=== PATIENT | female | born 1975 | race Two or more races ===

== ENCOUNTER 2020-05-11 13:52 | Outpatient (REF) | payer OTHER, SELFPAY ==
--- NOTE | 2020-05-11 13:59 | US_ITS ---
EXAMINATION: US SOFT TISSUE OF THE NECK CLINICAL INFORMATION: Localized swelling, mass and lump, neck. COMPARISON: CT neck with intravenous contrast dated 03/01/2020. TECHNIQUE: Linear transducer grayscale and color Doppler examination of the neck. FINDINGS: Several lymph nodes identified in the neck corresponding to the reported areas of palpable abnormality On the left there is a 0.9 x 0.4 x 1.2 cm lymph node. On the right there is a 1.4 x 0.5 x 1.1 cm lymph node in 8.6 x 0.4 x 0.9 cm lymph node. These appear corresponding to the lymph node noted on recent CT. US/US soft tiss head and/or neck IMPRESSION: Small bilateral lymph nodes which do not appear pathologic likely unchanged compared to recent CT scan of the neck
== END 2020-05-11 13:53 | disposition home or self-care (01) ==
LOC: HO.US 13:52
PROVIDERS: PCP Internal Medicine; Visit Provider Internal Medicine
DX: R22.1 Localized swelling, mass and lump, neck (principal)
CPT/HCPCS: 76536

== ENCOUNTER → 2020-06-02 14:49 | Outpatient (BNVA) | payer OTHER, SELFPAY | PROVIDERS: PCP Internal Medicine; Visit Provider Surgery | DX: R59.0 Localized enlarged lymph nodes (principal) | CPT/HCPCS: 99202 ==

== ENCOUNTER 2020-06-20 16:05 | Outpatient (REF) | payer OTHER, SELFPAY ==
--- NOTE | 2020-06-20 16:08 | MM_ITS ---
EXAMINATION: MM SCREENING DIGITAL BREAST TOMOSYNTHESIS, BILATERAL CLINICAL INFORMATION: Screening. Asymptomatic. Benign right MR guided biopsy 07/14/2019 (Benign breast parenchyma with fibroadenomatous changes, usual duct hyperplasia, apocrine metaplasia, and columnar cell change). The lifetime risk of breast cancer based on the Tyrer-Cuzick Model is 29%. COMPARISON: Mammography: 07/14/2019, 06/15/2019, 05/02/2018, 02/22/2014; MR biopsy 07/14/2019. TECHNIQUE: Digital breast tomosynthesis is performed in both the craniocaudal and mediolateral oblique views along with computer-aided detection (CAD). Synthesized 2D images are generated from the tomosynthesis. Additional exaggerated left CC view is provided. FINDINGS: The breasts are heterogeneously dense, which may obscure small masses (ACR BI-RADS breast composition Category c). Breast tissue composition borders on average fibroglandular. There are no significant masses, abnormal calcifications, or other abnormalities. Parenchymal pattern is similar to prior studies. Again, there is biopsy clip marker upper outer quadrant left breast and posterior central 3:00 right breast. The axilla and skin contours are unremarkable. MM/MM tomosynthesis screening BI IMPRESSION: No mammographic evidence of malignancy. ASSESSMENT: BI-RADS 1: Negative RECOMMENDATION: 1. Routine annual mammography screening. 2. The lifetime risk of breast cancer based on the Tyrer-Cuzick Model is 29%. Additional annual adjunct screening with breast MRI may be of benefit in women with a risk score of 20% or greater. This patient's information was entered into a reminder system with a target due date for their next mammogram.
== END 2020-06-20 16:06 | disposition home or self-care (01) ==
LOC: HO.MAMMO 16:05
PROVIDERS: PCP Internal Medicine; Visit Provider Internal Medicine
DX: Z12.31 Encounter for screening mammogram for malignant neoplasm of breast (principal)
CPT/HCPCS: 77063; 77067

== ENCOUNTER 2020-09-15 | Outpatient (REF) | payer OTHER, SELFPAY | END 2020-09-15 00:01 | disposition home or self-care (01) | LOC: HO.LNP | PROVIDERS: Visit Provider Physician Assistant | DX: H10.9 Unspecified conjunctivitis (principal); J09.X2 Influenza due to identified novel influenza A virus with other respiratory manifestations; Z20.822 Contact with and (suspected) exposure to COVID-19 | CPT/HCPCS: 36415; U0003; U0005 ==

== ENCOUNTER 2020-10-13 10:03 | Outpatient (REF) | payer OTHER, SELFPAY ==
--- NOTE | ~2020-10-13 | XR_ITS ---
EXAMINATION: XR ABDOMEN KUB CLINICAL INDICATION: Hematuria COMPARISON: Abdominal ultrasound August 2018 TECHNIQUE: AP view of the abdomen. FINDINGS: No calcifications are seen projecting over the kidneys. There are right pelvic calcifications probably representing calcified phleboliths. Bowel gas pattern is normal. Bony structures are normal. XR/XR KUB IMPRESSION: No stone seen.
--- NOTE | ~2020-10-13 | XR_ITS ---
EXAMINATION: XR HIP, LEFT CLINICAL INFORMATION: Pain in left hip COMPARISON: None TECHNIQUE: Two views of the left hip. FINDINGS: Bones and soft tissues are normal. No fracture. Alignment is anatomic. Hip joint space is maintained. XR/XR hip LT min 2V IMPRESSION: Normal left hip.
== END 2020-10-13 10:04 | disposition home or self-care (01) ==
LOC: HO.XRAY 10:03
PROVIDERS: PCP Internal Medicine; Visit Provider Internal Medicine
DX: R31.9 Hematuria, unspecified (principal); M25.552 Pain in left hip
CPT/HCPCS: 73502; 74018

== ENCOUNTER 2021-03-24 10:21 | Outpatient (REF) | payer OTHER, SELFPAY ==
[2021-03-24 12:22] LABS: Appearance Urine HAZY; Color Urine YELLOW; Glucose Urine UA NEG (NEG); Leukocyte Esterase Urine NEG (NEG); Nitrite Urine NEG (NEG); Urine Blood TRACE (NEG); Urine Ketones NEG (NEG); Urine Protein NEG (NEG-TRACE)
[2021-03-24 12:25] LABS: MANUAL DIFF FLAG NO
[2021-03-24 12:30] LABS: Basophils Percent Auto 0.7 % (0-2); Eosinophils Absolute Auto 0.1 X10*3/uL (0.0-0.4); Eosinophils Percent Auto 2.5 % (0-4); Hematocrit 37.8 % (37-47); Hemoglobin 12.3 g/dl (12.0-16.0); Imm Gran Abs Auto 0.01 X10*3/uL (0.00-0.03); Imm Gran Pct Auto 0.2 % (0.0-0.4); Lymphocytes Absolute Auto 2.1 X10*3/uL (1.2-4.9); Lymphocytes Percent Auto 36.4 % (20-40); Mean Corpuscular HGB Conc 32.5 g/dl (31.0-35.0); Mean Corpuscular Hemoglobin 30.8 pg (27.0-33.0); Mean Corpuscular Volume 94.7 fL (80-98); Mean Platelet Volume 10.4 fL (9.4-12.3); Monocytes Absolute Auto 0.6 X10*3/uL (0.1-1.2); Monocytes Percent Auto 10.7 % (2-11); Neutrophils Absolute Auto 2.8 X10*3/uL (2.0-8.3); Neutrophils Percent Auto 49.5 % (45-73); Platelet Count 238 X10*3/uL (160-400); Red Blood Count 3.99 X10*6/uL (4.20-5.50); Red Cell Distribution Width 12.1 % (11.0-16.0); White Blood Count 5.7 X10*3/uL (4.8-10.8)
[2021-03-24 12:44] LABS: Alanine Aminotransferase 13 U/L (0-31); Albumin Level 4.1 g/dL (3.5-5.0); Alkaline Phosphatase 81 U/L (39-117); Anion Gap 12 (12-20); Aspartate Amino Transferase 22 U/L (5-31); Bilirubin Total 0.5 mg/dL (0.0-1.0); Blood Urea Nitrogen 7 mg/dL (9-16); Calcium 9.4 mg/dL (8.4-10.2); Carbon Dioxide 24 mmol/L (22-29); Chloride 105 mmol/L (96-108); Cholesterol 209 mg/dL; Estimated Glomerular Filt Rate > 60; Glucose Random 96 mg/dL (60-115); HDL Cholesterol 69 mg/dL; LDL Cholesterol Calculated 131 mg/dl; Sodium 137 mmol/L (135-145); Total Protein 6.9 g/dL (6.5-8.0); Triglycerides 45 mg/dL
[2021-03-24 12:52] LABS: Bacteria Urine 2+ /LPF; RBC Urine 0-2 /HPF (0); Squamous Epithelial Cell Urine 3+ /LPF; WBC Urine 0 /HPF (0-4)
[2021-03-24 13:09] LABS: Free T4 (Free Thyroxine) 0.89 ng/dL (0.71-1.85)
[2021-03-24 13:15] LABS: Vitamin B12 353 pg/mL (200-900)
== END 2021-03-24 10:22 | disposition home or self-care (01) ==
LOC: HO.LAB 10:21
PROVIDERS: PCP Internal Medicine; Visit Provider Internal Medicine
DX: R20.0 Anesthesia of skin (principal); R42 Dizziness and giddiness; E66.9 Obesity, unspecified; E78.00 Pure hypercholesterolemia, unspecified
CPT/HCPCS: 36415; 80053; 80061; 81001; 82306; 82607; 82746; 83735; 84439; 84443; 85025

== ENCOUNTER 2021-09-04 09:44 | Outpatient (REF) | payer OTHER, SELFPAY ==
[2021-09-04 09:59] LABS: MANUAL DIFF FLAG NO
[2021-09-04 10:25] LABS: Basophils Absolute Auto 0.1 X10*3/uL (0.0-0.2); Basophils Percent Auto 0.9 % (0-2); Eosinophils Absolute Auto 0.1 X10*3/uL (0.0-0.4); Eosinophils Percent Auto 1.5 % (0-4); Hematocrit 37.7 % (37.0-47.0); Hemoglobin 12.1 g/dl (12.0-16.0); Imm Gran Abs Auto 0.02 X10*3/uL (0.00-0.03); Imm Gran Pct Auto 0.3 % (0.0-0.4); Lymphocytes Absolute Auto 1.9 X10*3/uL (1.2-4.9); Lymphocytes Percent Auto 32.8 % (20-40); Mean Corpuscular HGB Conc 32.1 g/dl (31.0-35.0); Mean Corpuscular Hemoglobin 30.6 pg (27.0-33.0); Mean Corpuscular Volume 95.2 fL (80.0-98.0); Mean Platelet Volume 9.8 fL (9.4-12.3); Monocytes Absolute Auto 0.7 X10*3/uL (0.1-1.2); Monocytes Percent Auto 12.3 % (2-11); Neutrophils Absolute Auto 3.1 x10*3/uL (2.0-8.3); Neutrophils Percent Auto 52.2 % (45-73); Platelet Count 239 X10*3/uL (160-400); Red Blood Count 3.96 X10*6/uL (4.20-5.50); Red Cell Distribution Width 12.4 % (11.0-16.0); White Blood Count 5.9 X10*3/uL (4.8-10.8)
[2021-09-04 10:56] LABS: Alanine Aminotransferase 13 U/L (0-31); Albumin Level 4.1 g/dL (3.5-5.0); Alkaline Phosphatase 67 U/L (39-117); Anion Gap 11 (12-20); Aspartate Amino Transferase 23 U/L (5-31); Bilirubin Total 0.5 mg/dL (0.0-1.0); Blood Urea Nitrogen 10 mg/dL (9-16); Calcium 9.5 mg/dL (8.4-10.2); Carbon Dioxide 26 mmol/L (22-29); Chloride 105 mmol/L (96-108); Estimated Glomerular Filt Rate > 60; Glucose Fasting 97 mg/dL (60-99); Potassium 3.9 mmol/L (3.3-5.1); Sodium 138 mmol/L (135-145)
== END 2021-09-04 09:45 | disposition home or self-care (01) ==
LOC: HO.LAB 09:44
PROVIDERS: PCP Internal Medicine; Visit Provider Nurse Practitioner Family
DX: R10.9 Unspecified abdominal pain (principal); D64.9 Anemia, unspecified; I10 Essential (primary) hypertension; R10.32 Left lower quadrant pain
CPT/HCPCS: 36415; 80053; 85025

== ENCOUNTER → 2021-09-05 14:07 | Outpatient (BNVA) | payer OTHER, SELFPAY | PROVIDERS: PCP Internal Medicine; Visit Provider Physician Assistant | DX: R10.9 Unspecified abdominal pain (principal); K21.9 Gastro-esophageal reflux disease without esophagitis; R11.2 Nausea with vomiting, unspecified; C95.90 Leukemia, unspecified not having achieved remission | CPT/HCPCS: 99202 ==

== ENCOUNTER 2021-09-14 15:28 | Outpatient (REF) | payer OTHER, SELFPAY ==
--- NOTE | ~2021-09-14 | US_ITS ---
EXAMINATION: US VENOUS WITH DOPPLER UPPER EXTREMITY, LEFT CLINICAL INFORMATION: The left arm for 3 weeks. COMPARISON: None TECHNIQUE: Ultrasound of the upper extremity is performed using compression sonography and color and pulse Doppler flow with assessment of augmentation of flow. There is also imaging and Doppler assessment of the jugular and subclavian veins. Spectral analysis with color-flow imaging is performed. FINDINGS: Respiratory variation, normal compression, and augmented flow are noted throughout the upper extremity including the axillary, brachial, cubital, and radial and ulnar veins. There is normal flow in the internal jugular and subclavian veins. There is a nonocclusive thrombus in the left basilic superficial vein. If the patient's symptoms progress, a followup ultrasound in 5 -7 days might be of value to exclude proximal propagation from a nonvisualized distal arm vein. US/US venous duplex UE LT IMPRESSION: No DVT demonstrated in the deep veins. Thrombus visualized in the left superficial basilic vein. Results were called to [facility] by phone but there was no response.
== END 2021-09-14 15:29 | disposition home or self-care (01) ==
LOC: HO.US 15:28
PROVIDERS: PCP Internal Medicine; Visit Provider Nurse Practitioner Family
DX: M79.602 Pain in left arm (principal)
CPT/HCPCS: 93971

== ENCOUNTER 2021-09-22 17:49 | Emergency (ER) | payer OTHER, SELFPAY ==
--- NOTE | ~2021-09-22 | US_ITS ---
EXAMINATION: US VENOUS WITH DOPPLER UPPER EXTREMITY, LEFT CLINICAL INFORMATION: Pain. Post IV puncture. COMPARISON: Left upper extremity venous Doppler exam 09/14/2021 TECHNIQUE: Ultrasound of the upper extremity is performed using compression sonography and color and pulse Doppler flow with assessment of augmentation of flow. There is also imaging and Doppler assessment of the jugular and subclavian veins. Spectral analysis with color-flow imaging is performed. FINDINGS: Known nonocclusive thrombus of the basilic vein seen on prior ultrasound 09/14/2021. Respiratory variation, normal compression, and augmented flow are noted throughout the upper extremity including the axillary, brachial, cubital, and radial and ulnar veins. There is normal flow in the internal jugular and subclavian veins. US/US venous duplex UE LT IMPRESSION: 1. No DVT demonstrated in the left upper extremity the veins. 2.. Thrombosis again visualized in the left superficial basilic vein. No change since prior ultrasound study 09/14/2021.
[2021-09-22 18:19] VITALS: BP 145/97; PULSE 95; RESP 18; TEMP 37; O2SAT 99; BMI 34.0
[2021-09-22 18:39] LABS: MANUAL DIFF FLAG NO
[2021-09-22 18:40] LABS: Basophils Percent Auto 0.5 % (0-2); Eosinophils Absolute Auto 0.1 X10*3/uL (0.0-0.4); Eosinophils Percent Auto 1.2 % (0-4); Hematocrit 39.3 % (37.0-47.0); Imm Gran Abs Auto 0.02 X10*3/uL (0.00-0.03); Imm Gran Pct Auto 0.2 % (0.0-0.4); Lymphocytes Absolute Auto 2.8 X10*3/uL (1.2-4.9); Lymphocytes Percent Auto 33.5 % (20-40); Mean Corpuscular HGB Conc 33.1 g/dl (31.0-35.0); Mean Corpuscular Hemoglobin 30.9 pg (27.0-33.0); Mean Corpuscular Volume 93.3 fL (80.0-98.0); Mean Platelet Volume 10.1 fL (9.4-12.3); Monocytes Absolute Auto 0.7 X10*3/uL (0.1-1.2); Monocytes Percent Auto 8.8 % (2-11); Neutrophils Absolute Auto 4.6 x10*3/uL (2.0-8.3); Neutrophils Percent Auto 55.8 % (45-73); Platelet Count 225 X10*3/uL (160-400); Red Blood Count 4.21 X10*6/uL (4.20-5.50); Red Cell Distribution Width 11.9 % (11.0-16.0); White Blood Count 8.3 X10*3/uL (4.8-10.8)
[2021-09-22 18:52] LABS: Anion Gap 10 (12-20); Blood Urea Nitrogen 8 mg/dL (9-16); Calcium 9.4 mg/dL (8.4-10.2); Carbon Dioxide 26 mmol/L (22-29); Chloride 105 mmol/L (96-108); Creatinine Clr Calc Pharmacy 103.1; Estimated Glomerular Filt Rate > 60; Glucose Random 163 mg/dL (60-115); Potassium 3.4 mmol/L (3.3-5.1); Sodium 138 mmol/L (135-145)
--- NOTE | 2021-09-22 22:38 | ED_ITS ---
HPI - General Adult General Chief complaint: General Medical Stated complaint: numbness left hand and up shoulder, sharp pain Time Seen by Provider: 09/22/21 21:12 Source: patient Mode of arrival: ambulatory Limitations: no limitations History of Present Illness HPI narrative: Patient history of a LL history of IV insertion in the left forearm about 4 weeks ago noticed a tender swelling had ultrasound done on 09/14 which shows basilic vein thrombosis patient had similar history in the past about 5 years ago when she had similar situation and had venous thrombosis and was given anti coagulant patient was seen by PCP today advised to 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 with 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 now comes here as pain is getting worse and more swollen no shortness of breath Related Data Home Medications Medication Instructions Recorded Confirmed dasatinib 50 mg tablet (Sprycel) 50 mg PO DAILY 04/07/20 09/21/21 sertraline 100 mg tablet 100 mg PO DAILY 04/07/20 09/21/21 zolpidem 10 mg tablet (Ambien) 10 mg PO BEDTIME PRN 04/07/20 09/21/21 sucralfate 1 gram tablet 1 g PO 08/03/20 09/21/21 Previous Rx's Medication Instructions Recorded omeprazole 40 mg capsule,delayed 40 mg PO BID #180 cap 07/25/20 release acetaminophen 650 mg 650 mg PO Q12H PRN 10 Days #20 tab 08/03/20 tablet,extended release (Tylenol Arthritis Pain) fluticasone furoate 200 1 inh PO DAILY #30 cap 12/07/20 mcg/actuation blister powder for inhalation (Arnuity Ellipta) cholecalciferol (vitamin D3) 50 50 mcg PO DAILY 90 Days #90 cap 05/09/21 mcg (2,000 unit) capsule albuterol sulfate 90 mcg/actuation 2 puff INHALATION Q4-6H PRN #8.5 g 06/26/21 aerosol inhaler (ProAir HFA) montelukast 10 mg tablet 10 mg PO DAILY #90 tab 06/26/21 ondansetron 8 mg disintegrating 8 mg PO Q12H PRN #20 tab 07/25/21 tablet diclofenac sodium 1 % topical gel 2 g TOPICAL QID PRN 14 Days #100 g 09/14/21 (Arthritis Pain (diclofenac)) ibuprofen 600 mg tablet 600 mg PO Q8H PRN #14 tab 09/21/21 apixaban 5 mg (74 tabs) tablets in 5 mg PO BID #74 ea 09/22/21 a dose pack (Eliquis DVT-PE Treat 30D Start) Allergies Allergy/AdvReac Type Severity Reaction Status Date / Time Penicillins Allergy Mild RASH Verified 09/22/21 18:18 nut - unspecified [nut] Allergy Unknown THROAT Verified 09/22/21 18:18 CLOSES penicillin V Allergy Unknown rash Verified 09/22/21 18:18 seafood Allergy Unknown Unknown Verified 09/22/21 18:18 ANESTHESIA S/I-40A Allergy Unknown aspiration Uncoded 09/22/21 18:18 pneumonia during colonoscopy 2019 Wixela Inhub Allergy Unknown palpitation Uncoded 09/22/21 18:18 s Review of Systems Review of Systems: Yes all other systems are reviewed and are negative COUNTS INCLUDE 234 BEDS AT THE [facility] Past Medical History Medical History Allergic rhinitis Asthma 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 GERD (gastroesophageal reflux disease) Hematuria Hypercholesterolemia Insomnia Leukemia Mixed incontinence Obesity (BMI 30-39.9) Patent foramen ovale Peptic ulcer disease Surgical History History of bilateral salpingectomy History of tonsillectomy History of vaginal hysterectomy Hx of colonoscopy Hx of esophagogastroduodenoscopy Ulnar nerve entrapment at elbow Family History Family History Maternal Aunt Breast cancer Paternal Grandmother Breast cancer Paternal Grandfather Myocardial infarction, acute, initial episode of care Paternal Uncle Stomach cancer Liver cancer Father Colon cancer Social History Social History Housing: Apartment Alcohol intake: current Patient Tobacco Use Status: Never used Tobacco e-Cigarette/Vaping Use: Never Used Second Hand Smoke Exposure: No Advance Directives: No service: No Current occupational status: employed Cognitive needs: No Hearing needs: No Vision needs: Yes Physical Exam ED Vital Signs: Vital Signs - 24 hr 09/22/21 18:19 Temperature 98.6 F Pulse Rate 95 Respiratory Rate 18 Blood Pressure 145/97 H Pulse Oximetry 99 BMI result Body Mass Index 34.0 Appearance: Alert. Oriented X3. No acute distress. ENT: Pharynx normal. Oral Mucosa moist Neck: Normal inspection. Neck supple. CVS: Normal heart rate and rhythm. Pulses normal. Respiratory: No respiratory distress. Equal air entry bilateral, no wheezing/rales/rhonchi Abdomen: Soft and nontender. Bowel sounds are present, Skin: Skin warm and dry. Normal skin color. Normal skin turgor. Extremities: No lower extremity edema. No calf tenderness left forearm thrombosed superficial vein with swelling and tenderness neurovascular intact Neuro: Oriented X 3. Medical Decision Making MDM Narrative Medical decision making narrative: Patient left basilic vein thrombosis with history of a LL with history of venous thrombosis in the past she is a high risk to to have more DVTs. Will start her on Eliquis advised to follow with Hematology Lab Data Result diagrams: 09/22/21 18:32 09/22/21 18:32 Labs: Lab Results 09/22/21 09/22/21 Range/Units 18:32 18:32 WBC 8.3 (4.8-10.8) X10*3/uL RBC 4.21 (4.20-5.50) X10*6/uL Hgb 13.0 (12.0-16.0) g/dl Hct 39.3 (37.0-47.0) % MCV 93.3 (80.0-98.0) fL MCH 30.9 (27.0-33.0) pg MCHC 33.1 (31.0-35.0) g/dl RDW 11.9 (11.0-16.0) % Plt Count 225 (160-400) X10*3/uL MPV 10.1 (9.4-12.3) fL Immature Gran % (Auto) 0.2 (0.0-0.4) % Neut % (Auto) 55.8 (45-73) % Lymph % (Auto) 33.5 (20-40) % [place] % (Auto) 8.8 (2-11) % Eos % (Auto) 1.2 (0-4) % Baso % (Auto) 0.5 (0-2) % Lymph # (Auto) 2.8 (1.2-4.9) X10*3/uL [place] # (Auto) 0.7 (0.1-1.2) X10*3/uL Eos # (Auto) 0.1 (0.0-0.4) X10*3/uL Baso # (Auto) 0.0 (0.0-0.2) X10*3/uL Abs Immat Gran (auto) 0.02 (0.00-0.03) X10*3/uL Absolute Neuts (auto) 4.6 (2.0-8.3) x10*3/uL Absolute Nucleated RBC 0.000 (0.0-0.012) X10*3/uL Nucleated RBC % (auto) 0.0 (0.0-0.2) /100WBC Sodium 138 (135-145) mmol/L Potassium 3.4 (3.3-5.1) mmol/L Chloride 105 (96-108) mmol/L Carbon Dioxide 26 (22-29) mmol/L Anion Gap 10 L (12-20) BUN 8 L (9-16) mg/dL Creatinine 0.66 (0.5-1.4) mg/dL Estim Creat Clear Calc 103.1 Estimated GFR > 60 Random Glucose 163 H (60-115) mg/dL Calcium 9.4 (8.4-10.2) mg/dL Discharge Plan Discharge Clinical Impression: Venous thromboembolism (VTE) confirmed by diagnostic testing Patient Disposition: Home, Self-Care Instructions: Deep Vein Thrombosis (ED) Additional Instructions: Take blood thinner as prescribed for blood clots, usually is taken for 3 months Follow-up with 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 Prescriptions: Justyn Rowan DVT-PE Treat 30D Start 5 mg (74 tabs) tablets,dose pack 5 mg PO BID Qty: 74 0RF Rx Instructions: Take 10 mg twice daily for 7 days then 5 mg twice daily No Action omeprazole 40 mg capsule,delayed release(DR/EC) 40 mg PO BID Qty: 180 1RF Arnuity Ellipta 200 mcg/actuation blister with device 1 inh PO DAILY Qty: 30 4RF montelukast 10 mg tablet 10 mg PO DAILY Qty: 90 0RF albuterol sulfate [ProAir HFA] 90 mcg/actuation HFA aerosol inhaler 2 puff inhalation Q4-6H PRN (Reason: bronchospasm) Qty: 8.5 0RF Sprycel 50 mg tablet 50 mg PO DAILY 0RF sertraline 100 mg tablet 100 mg PO DAILY 0RF zolpidem [Ambien] 10 mg tablet 10 mg PO BEDTIME PRN0RF sucralfate 1 gram tablet 1 g PO 0RF acetaminophen [Tylenol Arthritis Pain] 650 mg tablet extended release 650 mg PO Q12H PRN (Reason: pain) 10 Days Qty: 20 0RF cholecalciferol (vitamin D3) 50 mcg (2,000 unit) capsule 50 mcg PO DAILY 90 Days Qty: 90 3RF ondansetron 8 mg tablet,disintegrating 8 mg PO Q12H PRN (Reason: nausea and vomiting) Qty: 20 0RF diclofenac sodium [Arthritis Pain (diclofenac)] 1 % gel 2 g topical QID PRN (Reason: pain) 14 Days Qty: 100 0RF Rx Instructions: apply to single elbow, wrist or hand; for hand includes palm/fingers/back of hand ibuprofen 600 mg tablet 600 mg PO Q8H PRN (Reason: pain) Qty: 14 0RF Referrals: Jessica Lee MD [Physician] - 1 week
[2021-09-22] MEDS: Apixaban 5 MG TABLET 10 MG PO (23:01)
== END 2021-09-22 23:39 | disposition home or self-care (01) ==
PROVIDERS: Emergency Provider Internal Medicine; PCP Internal Medicine
DX: I82.612 Acute embolism and thrombosis of superficial veins of left upper extremity (principal); M79.622 Pain in left upper arm; M79.89 Other specified soft tissue disorders; Z86.718 Personal history of other venous thrombosis and embolism
CPT/HCPCS: 36415; 80048; 85025; 93971; 99283; 99284

== ENCOUNTER → 2021-09-28 13:01 | Outpatient (BNV) | payer OTHER, SELFPAY | PROVIDERS: PCP Internal Medicine; Visit Provider Internal Medicine | DX: I80.8 Phlebitis and thrombophlebitis of other sites (principal) | CPT/HCPCS: 99204; 99213; 99214; G2211 ==

== ENCOUNTER 2021-12-13 12:25 | Emergency (ER) | payer OTHER, SELFPAY ==
--- NOTE | ~2021-12-13 | XR_ITS ---
EXAMINATION: XR LUMBOSACRAL SPINE CLINICAL INFORMATION: Back pain. COMPARISON: None TECHNIQUE: Three views of the lumbosacral spine. FINDINGS: Lumbar vertebrae have normal height and alignment. No spondylolysis or spondylolisthesis. Lumbar disc heights are normal. Minor degenerative lipping at the anterior endplate of the vertebrae at L4-L5 disc level. Small endplate spurs also present lower thoracic vertebrae. XR/XR lumbar spine 2-3V IMPRESSION: 1. No acute abnormality. 2. Minor degenerative change of the L4-L5 disc.
--- NOTE | ~2021-12-13 | CT_ITS ---
EXAMINATION: CT ABDOMEN AND PELVIS WITHOUT CONTRAST CLINICAL INFORMATION: Back pain nausea and elevated lipase COMPARISON: CT abdomen and pelvis 07/10/2011 TECHNIQUE: Multidetector volumetric imaging was performed from the superior aspect of the liver through the pubic symphysis. Sagittal and coronal reformatted images were obtained on the technologist's workstation. This CT examination was performed using dose optimization techniques as appropriate, variously including the following: *Automated exposure control *Adjustment of mA and/or kV according to patient size (this includes techniques or standardized protocols for targeted exams where dose is matched to indication/reason for exam; i.e. extremities or head) *Use of iterative reconstruction technique DLP: 722 mGy-cm FINDINGS: LUNG BASES: The visualized lung bases are unremarkable. LIVER, GALLBLADDER, AND BILIARY TREE: The liver is normal in size, shape, and attenuation. No focal hepatic lesion or biliary ductal dilatation is present. The gallbladder is unremarkable with no evidence of radiopaque gallstones, gallbladder wall thickening, or obvious pericholecystic inflammatory changes. PANCREAS: No pancreatic lesion or peripancreatic fluid collection. No definite peripancreatic inflammatory change. No ductal dilation. SPLEEN: Unremarkable. ADRENAL GLANDS: Unremarkable. KIDNEYS AND URETERS: The kidneys are normal in size, shape, and attenuation. No hydronephrosis, hydroureter, or calculi seen. No perinephric stranding. BLADDER: Unremarkable. GASTROINTESTINAL TRACT: Mild sigmoid diverticulosis. No evidence of acute diverticulitis. No dilated bowel loops. No bowel wall thickening. Unremarkable appearance of the appendix. No ascites or free air. ABDOMINAL WALL: No significant hernia is appreciated. LYMPH NODES: No lymphadenopathy. VASCULAR: Normal caliber abdominal aorta. PELVIC VISCERA: Status post hysterectomy. Ovaries are grossly unremarkable. No free pelvic fluid. OSSEOUS STRUCTURES: Small subcentimeter sclerotic probable bone islands in the posterior medial left iliac bone and left T11 vertebral body. No acute fracture. No suspicious appearing osseous lesion. CT/CT abdomen pelvis wo con IMPRESSION: 1. No appreciable peripancreatic inflammatory change or fluid collections. Please note that a negative CT does not excluded the diagnosis of acute pancreatitis. 2. No acute intra-abdominal process identified.
--- NOTE | ~2021-12-13 | XR_ITS ---
EXAMINATION: XR THORACIC SPINE CLINICAL INFORMATION: Back pain COMPARISON: 2 view chest x-ray 09/08/2019 TECHNIQUE: 2 views of the thoracic spine were obtained. FINDINGS: There is no fracture or bone destruction seen and the vertebral alignment is normal. There is no disc space narrowing. Minor degenerative lipping at the anterior endplates of the mid lower thoracic spine. There is no abnormality of the paraspinal soft tissues. XR/XR thoracic spine 3V IMPRESSION: No acute abnormality of the thoracic spine. Minor degenerative change of the mid lower dorsal spine.
--- NOTE | ~2021-12-13 | XR_ITS ---
EXAMINATION: XR CHEST CLINICAL INFORMATION: Back pain COMPARISON: Chest x-ray 12/18/2019 TECHNIQUE: 2 views of the chest were obtained. FINDINGS: No significant abnormality is noted involving the heart, lungs, mediastinum, bony thorax or soft tissues. XR/XR chest 2V IMPRESSION: Unremarkable examination.
[2021-12-13 12:45] VITALS: BP 123/88; PULSE 83; RESP 16; TEMP 37.1; O2SAT 97; BMI 34.2
--- NOTE | 2021-12-13 15:26 | ECG_ITS ---
Test Reason : BACK PAIN Blood Pressure : / mmHG Vent. Rate : 074 BPM Atrial Rate : 074 BPM P-R Int : 154 ms QRS Dur : 080 ms QT Int : 402 ms P-R-T Axes : 034 -03 001 degrees QTc Int : 446 ms Normal sinus rhythm Minimal voltage criteria for LVH, may be normal variant ( R in aVL ) Borderline ECG When compared with ECG of 12-FEB-2012 20:07, No significant change was found Referred By: Josephine Masters Electronically Signed By:Golden Domínguez
[2021-12-13] MEDS: Ondansetron ODT 4 MG TAB.RAPDIS TRANSLINGU (15:40)
[2021-12-13] MEDS: oxyCODONE HCl Immed Release 5 MG TABLET PO (15:40)
[2021-12-13 16:38] LABS: MANUAL DIFF FLAG NO
[2021-12-13 16:42] LABS: Basophils Percent Auto 0.5 % (0-2); Eosinophils Absolute Auto 0.1 X10*3/uL (0.0-0.4); Eosinophils Percent Auto 1.4 % (0-4); Hematocrit 38.1 % (37.0-47.0); Hemoglobin 12.4 g/dl (12.0-16.0); Imm Gran Abs Auto 0.02 X10*3/uL (0.00-0.03); Imm Gran Pct Auto 0.2 % (0.0-0.4); Lymphocytes Absolute Auto 2.1 X10*3/uL (1.2-4.9); Lymphocytes Percent Auto 24.9 % (20-40); Mean Corpuscular HGB Conc 32.5 g/dl (31.0-35.0); Mean Corpuscular Hemoglobin 30.2 pg (27.0-33.0); Mean Corpuscular Volume 92.7 fL (80.0-98.0); Monocytes Absolute Auto 0.6 X10*3/uL (0.1-1.2); Monocytes Percent Auto 7.2 % (2-11); Neutrophils Absolute Auto 5.7 x10*3/uL (2.0-8.3); Neutrophils Percent Auto 65.8 % (45-73); Platelet Count 242 X10*3/uL (160-400); Red Blood Count 4.11 X10*6/uL (4.20-5.50); Red Cell Distribution Width 11.9 % (11.0-16.0); White Blood Count 8.6 X10*3/uL (4.8-10.8)
[2021-12-13 17:00] LABS: Lactic Acid 0.6 mmol/L (0.5-2.0)
[2021-12-13 17:04] LABS: Alanine Aminotransferase 15 U/L (0-31); Albumin Level 4.2 g/dL (3.5-5.0); Alkaline Phosphatase 84 U/L (39-117); Anion Gap 10 (12-20); Aspartate Amino Transferase 19 U/L (5-31); Bilirubin Total 0.8 mg/dL (0.0-1.0); Blood Urea Nitrogen 8 mg/dL (9-16); Carbon Dioxide 26 mmol/L (22-29); Chloride 105 mmol/L (96-108); Creatinine Clr Calc Pharmacy 108.9; Estimated Glomerular Filt Rate > 60; Glucose Random 105 mg/dL (60-115); Lipase 488 U/L (8-78); Potassium 4.1 mmol/L (3.3-5.1); Sodium 137 mmol/L (135-145); Total Protein 7.2 g/dL (6.5-8.0)
[2021-12-13 17:09] LABS: Troponin-I High Sensitivity < 3.5 ng/L (<3.5-17.0)
[2021-12-13 17:15] VITALS: BP 118/68; PULSE 79; RESP 18; TEMP 36.6; O2SAT 99
--- NOTE | 2021-12-13 17:23 | ED.BACK ---
HPI - Back Pain/Injury General Chief Complaint: Back Pain/Injury <Josephine MastersCYNDEE - Last Filed: 12/13/21 19:30> Stated Complaint: back pain nausea <Josephine MastersCYNDEE - Last Filed: 12/13/21 19:30> Time Seen by Provider: 12/13/21 15:25 <Josephine MastersCYNDEE - Last Filed: 12/13/21 19:30> Source: patient <Josephine MastersCYNDEE - Last Filed: 12/13/21 19:30> Mode of arrival: ambulatory <Josephine MastersCYNDEE - Last Filed: 12/13/21 19:30> Limitations: no limitations and language barrier <Josephine MastersCYNDEE - Last Filed: 12/13/21 19:30> History of Present Illness HPI Narrative: Patient presents emergency department for evaluation have back pain. Pain is described as sharp stabbing were not ?like twisting with knife? to the middle back. She reports that she has been experiencing midline thoracic back pain that radiates to the lower back diffusely, into the bilateral legs right more than left, and into her right hip. Intermittent bilateral lower extremity numbness. Symptom onset 3 days ago. Reports associated chills, nausea with no vomiting. Denies chest pain, shortness of breath, difficulty breathing, numbness or tingling of the upper extremities. Denies identifiable precipitating injury, fevers, burning with micturition, urinary frequency, urgency, hesitancy, bladder or bowel dysfunction, numbness or tingling of the perineum or bilateral legs. Denies any recent surgical procedures, history of IV drug use. Reports a history of leukemia, currently prescribed Tasigna, currently on Eliquis for blood clot of the arm. <Josephine MastersCYNDEE - Last Filed: 12/13/21 19:30> Related Data Home Medications: Home Medications Medication Instructions Recorded Confirmed sertraline 100 mg tablet 100 mg PO DAILY 04/07/20 11/29/21 zolpidem 10 mg tablet (Ambien) 10 mg PO BEDTIME PRN Insomnia 04/07/20 11/29/21 sucralfate 1 gram tablet 1 g PO DAILY PRN Gastric Reflux 08/03/20 11/29/21 Previous Rx's Medication Instructions Recorded omeprazole 40 mg capsule,delayed 40 mg PO BID #180 caps 07/25/20 release fluticasone furoate 200 1 inh PO DAILY #30 caps 12/07/20 mcg/actuation blister powder for inhalation (Arnuity Ellipta) cholecalciferol (vitamin D3) 50 50 mcg PO DAILY 90 days #90 caps 05/09/21 mcg (2,000 unit) capsule diclofenac sodium 1 % topical gel 2 g topical QID PRN pain 14 days 09/14/21 (Arthritis Pain (diclofenac)) #100 grams albuterol sulfate 90 mcg/actuation 2 puff PO Q4-6H PRN for muscle 10/26/21 aerosol inhaler spasm #8.5 ea apixaban 5 mg (74 tabs) tablets in 5 mg PO BID #74 ea 11/29/21 a dose pack ([employer] DVT-PE Treat 30D Start) nilotinib 150 mg capsule (Tasigna) 300 mg PO Q12H #120 caps 11/29/21 ondansetron 8 mg disintegrating 8 mg PO Q12H PRN nausea and 11/29/21 tablet vomiting #20 tabs cyclobenzaprine 10 mg tablet 10 mg PO TID PRN muscle spasm #15 12/13/21 tabs diclofenac sodium 1 % topical gel 2 g topical QID PRN pain #100 grams 12/13/21 lidocaine 5 % topical patch 1 patch topical DAILY #30 ea 12/13/21 (Lidoderm) tramadol 50 mg tablet 50 mg PO Q6H PRN pain #10 tabs 12/13/21 <Josephine Masters CNP - Last Filed: 12/13/21 19:30> Allergies/Adverse Reactions: Allergies Allergy/AdvReac Type Severity Reaction Status Date / Time nut - unspecified [nut] Allergy Severe Anaphylaxis Verified 11/29/21 13:52 Penicillins Allergy Severe RASH Verified 11/29/21 13:52 seafood Allergy Severe Anaphylaxis Verified 11/29/21 13:52 shellfish derived Allergy Severe Anaphylaxis Verified 11/29/21 13:52 Wixela Inhub Allergy Intermediate palpitation Uncoded 11/29/21 13:52 s <Josephine Masters CNP - Last Filed: 12/13/21 19:30> Review of Systems Review of Systems: Constitutional: No fever. Positive chills. No weakness. No fatigue. Eye: No swelling. No redness. ENT: No sore throat. No rhinorrhea. No nasal congestion. No sore throat. No difficulty swallowing. Skin: No rash. No itching. Cardiovascular: No chest pain. No chest pressure. No palpitations. No pedal edema. Respiratory: No shortness of breath. No cough. No sputum production. Gastrointestinal: No anorexia. No nausea. No vomiting. No diarrhea. No abdominal pain. No blood in stool. Genitourinary: No burning micturition. No urinary frequency. No incontinence. Neurologic: No headache. No dizziness. No pre-syncope/ syncope. No unilateral weakness. No ataxia. No numbness. No tingling. No change in bowel or bladder control. Musculoskeletal: No muscle pain. Positive back pain. No joint pain. No stiffness. Hematologic: No bleeding. No bruising. Lymphatics: No enlarged lymph nodes. <Josephine Masters CNP - Last Filed: 12/13/21 19:30> [facility] Past Medical History Attestation statement: The following information was validated with the patient. <Josephine Masters CNP - Last Filed: 12/13/21 19:30> Source: old records reviewed <Josephine Masters CNP - Last Filed: 12/13/21 19:30> Medical History: Medical History 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 CML (chronic myelocytic leukemia) Hematuria Hypercholesterolemia Laryngospasm Mixed incontinence Patent foramen ovale Peptic ulcer disease PONV (postoperative nausea and vomiting) <Josephine Masters CNP - Last Filed: 12/13/21 19:30> Surgical History: Surgical History History of bilateral salpingectomy History of tonsillectomy History of vaginal hysterectomy Hx of colonoscopy Hx of colonoscopy Hx of esophagogastroduodenoscopy Ulnar nerve entrapment at elbow <Josephine Masters CNP - Last Filed: 12/13/21 19:30> Family History Family History: Family History Maternal Aunt Breast cancer Paternal Grandmother Breast cancer Paternal Grandfather Myocardial infarction, acute, initial episode of care Paternal Uncle Stomach cancer Liver cancer Father Colon cancer <Josephine Masters CNP - Last Filed: 12/13/21 19:30> Social History Social History: Social History Household Members: None Housing: Apartment Are you a primary senior caregiver to a significant other at home: No Do you presently have visiting nurse or other home services: No Alcohol intake: current Alcohol intake frequency: does not drink Patient Tobacco Use Status: Never used Tobacco e-Cigarette/Vaping Use: Never Used Second Hand Smoke Exposure: No Advance Directives: No Advance Directives Information Provided: No service: No Current occupational status: employed Cognitive needs: No Hearing needs: No Vision needs: Yes <Josephine Masters CNP - Last Filed: 12/13/21 19:30> Physical Exam Vital Signs: Vital Signs: Last Vital Signs Temp 98 F 12/13/21 17:15 Pulse 84 12/13/21 20:17 Resp 16 12/13/21 20:17 BP 133/78 12/13/21 20:17 Pulse Ox 99 12/13/21 20:17 O2 Del Method 12/13/21 20:17 BMI result Body Mass Index 34.2 Vital signs have been reviewed as normal and appeared to be correct. Blood pressure normal.? Heart rate normal.? Respiration rate normal. Temperature normal.? Oxygen saturation normal. <Josephine Masters CNP - Last Filed: 12/13/21 19:30> Vital Signs: Last Vital Signs Temp 98 F 12/13/21 17:15 Pulse 84 12/13/21 20:17 Resp 16 12/13/21 20:17 BP 133/78 12/13/21 20:17 Pulse Ox 99 12/13/21 20:17 O2 Del Method 12/13/21 20:17 BMI result Body Mass Index 34.2 <Suzi De Souza NP - Last Filed: 12/13/21 21:18> Appearance: Alert.?Oriented to person, place and time. No acute distress.?Normal affect. Eyes: Pupils equal, round and reactive to light.? ENT: Pharynx normal.?? Neck: Normal inspection.? Neck supple.? No midline cervical spine tenderness. Back: Midline thoracic tenderness with palpation, no step-offs or deformities, no midline lumbar spine tenderness, step-offs, deformities ? CVS: Heart sounds normal. Normal heart rate and rhythm.? Pulses normal and equal bilaterally.?? Respiratory: No respiratory distress.? Lung sounds clear to auscultation bilaterally?? Abdomen: Soft and non-tender. Normoactive bowel sounds. No pulsatile mass.??No CVA tenderness Skin: Skin warm and dry.? Normal skin color.? Extremities: No lower extremity edema.? Neuro: Moves all extremities spontaneously. Sensation intact bilaterally. CN II-XII intact. No focal neuro deficits. Ambulates with normal steady gait. <Josephine Masters CNP - Last Filed: 12/13/21 19:30> Course Course Course Narrative: Patient is a 46-year-old female with a past medical history of CML on Tasigna, anxiety, vitamin-D deficiency, superficial thrombophlebitis upper extremity currently prescribed Eliquis, asthma, GERD. She presents to emergency department for evaluation of midthoracic back pain, diffuse lower back pain right worse than left, and pain with intermittent numbness to the bilateral lower extremities. She is hemodynamically stable, overall well-appearing but does seem uncomfortable. She is afebrile, without tachycardia, symptoms do not seem consistent with infection. No active chest pain, blood pressures and pulses are equal bilaterally, not consistent with dissection. Will obtain CBC to evaluate for leukocytosis/ anemia, CMP and lipase to evaluate for abnormal electrolytes /abnormal renal function/ abnormal hepatic/biliary function, EKG and troponin to evaluate for ischemia/ACS. Chest x-ray to evaluate for consolidation/ infiltrate/ mass/ pulmonary congestion, XR the lumbar and thoracic spine to evaluate for osseous abnormality or bony lesions. Urinalysis to evaluate for infection. Unlikely pulmonary embolism is she is currently prescribed Eliquis, is med compliant, no signs or symptoms of DVT, no tachypnea, hypoxia, or tachycardia. <Josephine Masters CNP - Last Filed: 12/13/21 19:30> Reevaluation(s) Reevaluation #1: CBC is overall unremarkable. CMP is overall unremarkable. Lactic acid is normal. Troponin <3.5, EKG reveals normal sinus rhythm, no acute ischemic findings, no chest pain, heart score 0, unlikely ACS. Chest x-ray and thoracic/lumbar spine x-rays without any acute findings, no evidence of bony lesions. Cannot completely exclude herniated disc, however no acute neurological deficits, that would indicate need for MRI at this time. Urinalysis shows trace blood in 1-[address] of the abdomen to be obtained at this time to evaluate for intra-abdominal pathology. Pain initially alleviated with oxycodone, continues to have intermittent pain to the left side of her back at this time, made worse with particular movements, suspect pain may be musculoskeletal in nature, as it is reproducible with palpation along the paraspinal muscles. <Josephine Masters CNP - Last Filed: 12/13/21 19:30> Time: 17:28 <Josephine Masters CNP - Last Filed: 12/13/21 19:30> Reevaluation #2: The patient was evaluated during a time of global shortage of iodinated contrast media. Based on guidance from the [employer], best practices, and local institutional approaches an alternative path for evaluating and managing the patient may have been employed in order to provide optimal care during this shortage. The current situation has been discussed with the patient. At this time CT of her abdomen is still pending. Patient signed out to Suzi De Souza NP pending results of CT Scan, patient updated on plan of care, if CT of the abdomen reveals no intra-abdominal pathology, discussed symptomatic management of musculoskeletal pain including a treatment with anti-inflammatories and outpatient follow-up with her primary care provider, discussed reasons she would need to return back to the emergency, questions were answered. <Josephine Masters CNP - Last Filed: 12/13/21 19:30> Time: 19:24 <Josephine Masters CNP - Last Filed: 12/13/21 19:30> Reevaluation #3: 1929- this patient was signed out to me pending a CT abdomen and pelvis. She had labs that showed a mildly elevated lipase but no reports of abdominal pain or vomiting. 2114- CT shows no acute finding. I re-examined the patient the patient has mid thoracic and lumbar tenderness with no step-offs or deformities. She has no flank pain or abdominal pain. Her plain films show no acute bony abnormality. She did receive a dose of oxycodone previously but states it made her feel lightheaded. she did not want any additional doses. I did give her a dose of tramadol Flexeril and this did improve although not resolve her pain. Patient is ambulatory to the bathroom. She has no neurological deficits or red flag symptoms. She does have a history of CML and is on oral chemotherapy. No leukopenia, neutropenia or fever concerning for underlying epidural abscess with a normal neuro exam. I did discuss with the patient that plain films are not limited. If she were to develop any incontinence, saddle anesthesia, weakness, numbness or tingling in her extremities she should return for an MRI. She should follow-up with her primary care doctor outpatient for any persistent symptoms. Patient is agreeable to this. Reviewed worrisome signs and symptoms of when to return to the emergency department. Comfortable discharge home. <Suzi De Souza NP - Last Filed: 12/13/21 21:18> MDM - Back Pain/Injury Medical Records Attestation: I reviewed the patient's medical records. <Josephine Masters CNP - Last Filed: 12/13/21 19:30> Lab Data Attestation: I reviewed the patient's lab results. <Josephine Masters CNP - Last Filed: 12/13/21 19:30> Result diagrams: : 12/13/21 16:31 12/13/21 16:31 <Josephine Masters CNP - Last Filed: 12/13/21 19:30> Labs: Lab Results 12/13/21 12/13/21 12/13/21 Range/Units 16:31 16:31 16:31 WBC 8.6 (4.8-10.8) X10*3/uL RBC 4.11 L (4.20-5.50) X10*6/uL Hgb 12.4 (12.0-16.0) g/dl Hct 38.1 (37.0-47.0) % MCV 92.7 (80.0-98.0) fL MCH 30.2 (27.0-33.0) pg MCHC 32.5 (31.0-35.0) g/dl RDW 11.9 (11.0-16.0) % Plt Count 242 (160-400) X10*3/uL MPV 10.0 (9.4-12.3) fL Immature Gran % (Auto) 0.2 (0.0-0.4) % Neut % (Auto) 65.8 (45-73) % Lymph % (Auto) 24.9 (20-40) % [place] % (Auto) 7.2 (2-11) % Eos % (Auto) 1.4 (0-4) % Baso % (Auto) 0.5 (0-2) % Lymph # (Auto) 2.1 (1.2-4.9) X10*3/uL [place] # (Auto) 0.6 (0.1-1.2) X10*3/uL Eos # (Auto) 0.1 (0.0-0.4) X10*3/uL Baso # (Auto) 0.0 (0.0-0.2) X10*3/uL Abs Immat Gran (auto) 0.02 (0.00-0.03) X10*3/uL Absolute Neuts (auto) 5.7 (2.0-8.3) x10*3/uL Absolute Nucleated RBC 0.000 (0.0-0.012) X10*3/uL Nucleated RBC % (auto) 0.0 (0.0-0.2) /100WBC Sodium 137 (135-145) mmol/L Potassium 4.1 (3.3-5.1) mmol/L Chloride 105 (96-108) mmol/L Carbon Dioxide 26 (22-29) mmol/L Anion Gap 10 L (12-20) BUN 8 L (9-16) mg/dL Creatinine 0.62 (0.5-1.4) mg/dL Estim Creat Clear Calc 108.9 Estimated GFR > 60 Random Glucose 105 (60-115) mg/dL Lactic Acid 0.6 (0.5-2.0) mmol/L Calcium 9.0 D (8.4-10.2) mg/dL Magnesium 2.0 (1.6-2.6) mg/dL Total Bilirubin 0.8 (0.0-1.0) mg/dL AST 19 (5-31) U/L ALT 15 (0-31) U/L Alkaline Phosphatase 84 (39-117) U/L Troponin I High Sens (<3.5-17.0) ng/L Total Protein 7.2 (6.5-8.0) g/dL Albumin 4.2 (3.5-5.0) g/dL Lipase 488 H (8-78) U/L Urine Color Urine Appearance Urine pH (5.0-8.0) Ur Specific [place] (1.005-1.025) Urine Protein (NEG-TRACE) MG/DL Urine Glucose (UA) (NEG) MG/DL Urine Ketones (NEG) MG/DL Urine Blood (NEG) Urine Nitrite (NEG) Ur Leukocyte Esterase (NEG) Urine RBC (0) /HPF Urine WBC (0-4) /HPF Ur Squamous Epith Cells /LPF Urine Bacteria /LPF Urine Mucus /LPF Urine Test (NEGATIVE) 12/13/21 12/13/21 12/13/21 Range/Units 16:32 17:19 17:19 WBC (4.8-10.8) X10*3/uL RBC (4.20-5.50) X10*6/uL Hgb (12.0-16.0) g/dl Hct (37.0-47.0) % MCV (80.0-98.0) fL MCH (27.0-33.0) pg MCHC (31.0-35.0) g/dl RDW (11.0-16.0) % Plt Count (160-400) X10*3/uL MPV (9.4-12.3) fL Immature Gran % (Auto) (0.0-0.4) % Neut % (Auto) (45-73) % Lymph % (Auto) (20-40) % [place] % (Auto) (2-11) % Eos % (Auto) (0-4) % Baso % (Auto) (0-2) % Lymph # (Auto) (1.2-4.9) X10*3/uL [place] # (Auto) (0.1-1.2) X10*3/uL Eos # (Auto) (0.0-0.4) X10*3/uL Baso # (Auto) (0.0-0.2) X10*3/uL Abs Immat Gran (auto) (0.00-0.03) X10*3/uL Absolute Neuts (auto) (2.0-8.3) x10*3/uL Absolute Nucleated RBC (0.0-0.012) X10*3/uL Nucleated RBC % (auto) (0.0-0.2) /100WBC Sodium (135-145) mmol/L Potassium (3.3-5.1) mmol/L Chloride (96-108) mmol/L Carbon Dioxide (22-29) mmol/L Anion Gap (12-20) BUN (9-16) mg/dL Creatinine (0.5-1.4) mg/dL Estim Creat Clear Calc Estimated GFR Random Glucose (60-115) mg/dL Lactic Acid (0.5-2.0) mmol/L Calcium (8.4-10.2) mg/dL Magnesium (1.6-2.6) mg/dL Total Bilirubin (0.0-1.0) mg/dL AST (5-31) U/L ALT (0-31) U/L Alkaline Phosphatase (39-117) U/L Troponin I High Sens < 3.5 (<3.5-17.0) ng/L Total Protein (6.5-8.0) g/dL Albumin (3.5-5.0) g/dL Lipase (8-78) U/L Urine Color YELLOW Urine Appearance CLEAR Urine pH 6.0 (5.0-8.0) Ur Specific [place] 1.015 (1.005-1.025) Urine Protein NEG (NEG-TRACE) MG/DL Urine Glucose (UA) NEG (NEG) MG/DL Urine Ketones NEG (NEG) MG/DL Urine Blood TRACE (NEG) Urine Nitrite NEG (NEG) Ur Leukocyte Esterase NEG (NEG) Urine RBC 1-4 (0) /HPF Urine WBC 0-2 (0-4) /HPF Ur Squamous Epith Cells 3+ /LPF Urine Bacteria 2+ /LPF Urine Mucus TRACE /LPF Urine Test NEGATIVE (NEGATIVE) <Josephine Masters, CYNDEE - Last Filed: 12/13/21 19:30> Lab Results 12/13/21 12/13/21 12/13/21 Range/Units 16:31 16:31 16:31 WBC 8.6 (4.8-10.8) X10*3/uL RBC 4.11 L (4.20-5.50) X10*6/uL Hgb 12.4 (12.0-16.0) g/dl Hct 38.1 (37.0-47.0) % MCV 92.7 (80.0-98.0) fL MCH 30.2 (27.0-33.0) pg MCHC 32.5 (31.0-35.0) g/dl RDW 11.9 (11.0-16.0) % Plt Count 242 (160-400) X10*3/uL MPV 10.0 (9.4-12.3) fL Immature Gran % (Auto) 0.2 (0.0-0.4) % Neut % (Auto) 65.8 (45-73) % Lymph % (Auto) 24.9 (20-40) % [place] % (Auto) 7.2 (2-11) % Eos % (Auto) 1.4 (0-4) % Baso % (Auto) 0.5 (0-2) % Lymph # (Auto) 2.1 (1.2-4.9) X10*3/uL [place] # (Auto) 0.6 (0.1-1.2) X10*3/uL Eos # (Auto) 0.1 (0.0-0.4) X10*3/uL Baso # (Auto) 0.0 (0.0-0.2) X10*3/uL Abs Immat Gran (auto) 0.02 (0.00-0.03) X10*3/uL Absolute Neuts (auto) 5.7 (2.0-8.3) x10*3/uL Absolute Nucleated RBC 0.000 (0.0-0.012) X10*3/uL Nucleated RBC % (auto) 0.0 (0.0-0.2) /100WBC Sodium 137 (135-145) mmol/L Potassium 4.1 (3.3-5.1) mmol/L Chloride 105 (96-108) mmol/L Carbon Dioxide 26 (22-29) mmol/L Anion Gap 10 L (12-20) BUN 8 L (9-16) mg/dL Creatinine 0.62 (0.5-1.4) mg/dL Estim Creat Clear Calc 108.9 Estimated GFR > 60 Random Glucose 105 (60-115) mg/dL Lactic Acid 0.6 (0.5-2.0) mmol/L Calcium 9.0 D (8.4-10.2) mg/dL Magnesium 2.0 (1.6-2.6) mg/dL Total Bilirubin 0.8 (0.0-1.0) mg/dL AST 19 (5-31) U/L ALT 15 (0-31) U/L Alkaline Phosphatase 84 (39-117) U/L Troponin I High Sens (<3.5-17.0) ng/L Total Protein 7.2 (6.5-8.0) g/dL Albumin 4.2 (3.5-5.0) g/dL Lipase 488 H (8-78) U/L Urine Color Urine Appearance Urine pH (5.0-8.0) Ur Specific [place] (1.005-1.025) Urine Protein (NEG-TRACE) MG/DL Urine Glucose (UA) (NEG) MG/DL Urine Ketones (NEG) MG/DL Urine Blood (NEG) Urine Nitrite (NEG) Ur Leukocyte Esterase (NEG) Urine RBC (0) /HPF Urine WBC (0-4) /HPF Ur Squamous Epith Cells /LPF Urine Bacteria /LPF Urine Mucus /LPF Urine Test (NEGATIVE) 12/13/21 12/13/21 12/13/21 Range/Units 16:32 17:19 17:19 WBC (4.8-10.8) X10*3/uL RBC (4.20-5.50) X10*6/uL Hgb (12.0-16.0) g/dl Hct (37.0-47.0) % MCV (80.0-98.0) fL MCH (27.0-33.0) pg MCHC (31.0-35.0) g/dl RDW (11.0-16.0) % Plt Count (160-400) X10*3/uL MPV (9.4-12.3) fL Immature Gran % (Auto) (0.0-0.4) % Neut % (Auto) (45-73) % Lymph % (Auto) (20-40) % [place] % (Auto) (2-11) % Eos % (Auto) (0-4) % Baso % (Auto) (0-2) % Lymph # (Auto) (1.2-4.9) X10*3/uL [place] # (Auto) (0.1-1.2) X10*3/uL Eos # (Auto) (0.0-0.4) X10*3/uL Baso # (Auto) (0.0-0.2) X10*3/uL Abs Immat Gran (auto) (0.00-0.03) X10*3/uL Absolute Neuts (auto) (2.0-8.3) x10*3/uL Absolute Nucleated RBC (0.0-0.012) X10*3/uL Nucleated RBC % (auto) (0.0-0.2) /100WBC Sodium (135-145) mmol/L Potassium (3.3-5.1) mmol/L Chloride (96-108) mmol/L Carbon Dioxide (22-29) mmol/L Anion Gap (12-20) BUN (9-16) mg/dL Creatinine (0.5-1.4) mg/dL Estim Creat Clear Calc Estimated GFR Random Glucose (60-115) mg/dL Lactic Acid (0.5-2.0) mmol/L Calcium (8.4-10.2) mg/dL Magnesium (1.6-2.6) mg/dL Total Bilirubin (0.0-1.0) mg/dL AST (5-31) U/L ALT (0-31) U/L Alkaline Phosphatase (39-117) U/L Troponin I High Sens < 3.5 (<3.5-17.0) ng/L Total Protein (6.5-8.0) g/dL Albumin (3.5-5.0) g/dL Lipase (8-78) U/L Urine Color YELLOW Urine Appearance CLEAR Urine pH 6.0 (5.0-8.0) Ur Specific [place] 1.015 (1.005-1.025) Urine Protein NEG (NEG-TRACE) MG/DL Urine Glucose (UA) NEG (NEG) MG/DL Urine Ketones NEG (NEG) MG/DL Urine Blood TRACE (NEG) Urine Nitrite NEG (NEG) Ur Leukocyte Esterase NEG (NEG) Urine RBC 1-4 (0) /HPF Urine WBC 0-2 (0-4) /HPF Ur Squamous Epith Cells 3+ /LPF Urine Bacteria 2+ /LPF Urine Mucus TRACE /LPF Urine Test NEGATIVE (NEGATIVE) <Suzi De Souza NP - Last Filed: 12/13/21 21:18> Imaging Data spine XR: Radiologist's impression: XR/XR thoracic spine 3V IMPRESSION: No acute abnormality of the thoracic spine. Minor degenerative change of the mid lower dorsal spine. XR/XR lumbar spine 2-3V IMPRESSION: ? 1. No acute abnormality. 2. Minor degenerative change of the L4-L5 disc. <Josephine Masters CNP - Last Filed: 12/13/21 19:30> Chest x-ray: Radiologist's impression: XR/XR chest 2V IMPRESSION: Unremarkable examination. <Josephine Masters CNP - Last Filed: 12/13/21 19:30> ECG Data Attestation: I personally reviewed and interpreted this ECG as follows: <Josephine Masters CNP - Last Filed: 12/13/21 19:30> ECG interpretation date: 12/13/21 <Josephine Masters CNP - Last Filed: 12/13/21 19:30> Interpretation: Rate: 74 Rhythm:? Normal sinus rhythm [place]:? Normal Normal P waves.? Normal PAWEL.?? Normal QRS complex.?? ST T wave :??No ST elevation, no ST depression, no T-wave inversion qTC: 446 prior studies:? January 2012 The study has been interpreted contemporaneously by me. <Josephine Masters CNP - Last Filed: 12/13/21 19:30> Discharge Plan Discharge Clinical Impression: Lumbar radiculopathy, Acute thoracic back pain <Josephine Masters CNP - Last Filed: 12/13/21 19:30> Patient Disposition: Home, Self-Care <Josephine Masters CNP - Last Filed: 12/13/21 19:30> Instructions: Lumbar Radiculopathy (ED), Thoracic Pain (ED), Back Pain (ED), Lower Back Exercises (ED) <Josephine Masters CNP - Last Filed: 12/13/21 19:30> Additional Instructions: As we discussed, your blood work was overall normal, the x-rays of your back were normal. The CT of your abdomen showed no acute finding. Suspect that your pain is most likely muscular in nature, may consider applying topical ice heat, use of anti-inflammatories such as ibuprofen or naproxen may be helpful as well, if the ibuprofen is not helpful, topical diclofenac gel to the areas of pain. In addition you should engage in gentle stretching exercise. Please contact your primary care provider to schedule a follow-up visit within 1-3 days. Return to the emergency department with any new or worsening symptoms or concerns. Please be aware that you were seen during a time of global shortage of iodinated contrast media. This means an alternative approach to your diagnosis and treatment may have been employed in order to provide optimal care during this shortage. If you have any worsening symptoms, please go to the nearest emergency department or call 911 immediately. <Josephine Masters CNP - Last Filed: 12/13/21 19:30> Prescriptions: New diclofenac sodium 1 % gel 2 g topical QID PRN (Reason: pain) Qty: 100 0RF Rx Instructions: apply to back cyclobenzaprine 10 mg tablet 10 mg PO TID PRN (Reason: muscle spasm) Qty: 15 0RF tramadol 50 mg tablet 50 mg PO Q6H PRN (Reason: pain) Qty: 10 0RF lidocaine [Lidoderm] 5 % adhesive patch,medicated 1 patch topical DAILY Qty: 30 0RF Rx Instructions: leave on most painful area for up to 12 hrs No Action omeprazole 40 mg capsule,delayed release(DR/EC) 40 mg PO BID Qty: 180 1RF Arnuity Ellipta 200 mcg/actuation blister with device 1 inh PO DAILY Qty: 30 4RF albuterol sulfate 90 mcg/actuation HFA aerosol inhaler 2 puff PO Q4-6H PRN (Reason: for muscle spasm) Qty: 8.5 0RF Eliquis DVT-PE Treat 30D Start 5 mg (74 tabs) tablets,dose pack 5 mg PO BID Qty: 74 0RF Rx Instructions: Take 10 mg twice daily for 7 days then 5 mg twice daily Tasigna 150 mg Capsule 300 mg PO Q12H Qty: 120 4RF Rx Instructions: must be taken on empty stomach; no food at least 2 hrs before or 1 hr after dose ondansetron 8 mg tablet,disintegrating 8 mg PO Q12H PRN (Reason: nausea and vomiting) Qty: 20 0RF sertraline 100 mg tablet 100 mg PO DAILY zolpidem [Ambien] 10 mg tablet 10 mg PO BEDTIME PRN (Reason: Insomnia) sucralfate 1 gram tablet 1 g PO DAILY PRN (Reason: Gastric Reflux) cholecalciferol (vitamin D3) 50 mcg (2,000 unit) capsule 50 mcg PO DAILY 90 Days Qty: 90 3RF diclofenac sodium [Arthritis Pain (diclofenac)] 1 % gel 2 g topical QID PRN (Reason: pain) 14 Days Qty: 100 0RF Rx Instructions: apply to single elbow, wrist or hand; for hand includes palm/fingers/back of hand <Josephine Masters CNP - Last Filed: 12/13/21 19:30> Referrals: Po,Josef Nair MD [Primary Care Provider] - 1 week (for persistent symptoms ) <Josephine Masters CNP - Last Filed: 12/13/21 19:30>
--- NOTE | 2021-12-13 17:28 | PC.NURSE ---
patient awake and alert. skin pwd, resp even and non labored. speaking in full, clear sentences. reports spinal pain traveling to bilateral flanks since saturday. denies abdominal pain. ambulated to/from bathroom w/ steady gait- urine sample sent to lab. patient aware of plan of care
[2021-12-13 17:32] LABS: Appearance Urine CLEAR; Color Urine YELLOW; Glucose Urine UA NEG (NEG); Leukocyte Esterase Urine NEG (NEG); Nitrite Urine NEG (NEG); Specific Gravity - Urine 1.015 (1.005-1.025); UACC Culture Trigger NO; Urine Blood TRACE (NEG); Urine Ketones NEG (NEG); Urine Protein NEG (NEG-TRACE)
[2021-12-13 17:34] LABS: UPreg QC Valid YES; Urine Pregnancy NEGATIVE (NEGATIVE)
[2021-12-13 17:39] LABS: Bacteria Urine 2+ /LPF; Mucus Urine TRACE /LPF; Squamous Epithelial Cell Urine 3+ /LPF; WBC Urine 0-2 /HPF (0-4)
[2021-12-13] MEDS: Cyclobenzaprine HCl 10 MG TABLET PO (20:15)
[2021-12-13] MEDS: traMADoL HCL 50 MG TABLET PO (20:16)
[2021-12-13 20:17] VITALS: BP 133/78; PULSE 84; RESP 16; O2SAT 99
[2021-12-13 21:23] VITALS: BP 130/85; PULSE 75; RESP 16; O2SAT 99
== END 2021-12-13 21:23 | disposition home or self-care (01) ==
PROVIDERS: Nurse Practitioner Family; Emergency Provider Emergency Medicine; PCP Internal Medicine
DX: M54.16 Radiculopathy, lumbar region (principal); M54.6 Pain in thoracic spine; I80.8 Phlebitis and thrombophlebitis of other sites; C92.10 Chronic myeloid leukemia, BCR/ABL-positive, not having achieved remission; Z79.01 Long term (current) use of anticoagulants; Z79.899 Other long term (current) drug therapy
CPT/HCPCS: 36415; 71046; 72072; 72100; 74176; 80053; 81001; 81025; 83605; 83690; 83735; 84484; 85025; 87040; 93005; 99284

== ENCOUNTER 2022-01-11 17:46 | Outpatient (REF) | payer OTHER, SELFPAY ==
--- NOTE | ~2022-01-11 | MR_ITS ---
EXAMINATION: MR THORACIC SPINE WITHOUT CONTRAST MR LUMBAR SPINE WITHOUT CONTRAST CLINICAL INFORMATION: Pain in the thoracic and lumbar spine. Bilateral lower extremity pain, numbness, and weakness. COMPARISON: Thoracic and lumbar spine radiographs 12/13/2021. TECHNIQUE: Multiplanar MR imaging of the thoracic and lumbar spine was performed without contrast. FINDINGS: Thoracic spine: Alignment is normal. Vertebral body heights are preserved. No acute bone marrow signal changes. Intervertebral disc height and signal intensity is maintained at all levels. Annular contours are normal and there is no canal or neuroforaminal compromise. No cord compression or abnormal intramedullary signal changes. Limited visualization of intrathoracic anatomy reveals no abnormal finding. Specifically no paraspinal soft tissue mass or collection. Lumbar spine: Alignment is normal. Vertebral heights are preserved. No acute bone marrow signal changes. Intervertebral disc height and signal intensity is maintained at all levels. There are slightly bulging discs at L4-L5 and L5-S1. Annular contours are otherwise normal and there is no canal or neuroforaminal compromise. No mass effect on the traversing or foraminal nerve roots. Mild degenerative arthrosis of the articular facet joints at L4-L5 and L5-S1. The tip of the conus medullaris is located at L1-L2. No mass effect on the conus. Visualized distal cord signal intensity is normal. Limited visualization of the retroperitoneal anatomy reveals no abnormal finding. Psoas and paraspinal muscle groups are symmetric. MR/MR thoracic spine wo con IMPRESSION: Mild degenerative changes within the lower lumbar spine. Otherwise unremarkable MRI of the thoracic and lumbar spine. No canal or neuroforaminal compromise. No cord compression or abnormal intramedullary signal changes. No mass effect on traversing or foraminal nerve roots within the lumbar spine.
== END 2022-01-11 17:47 | disposition home or self-care (01) ==
LOC: HO.MRI 17:46
PROVIDERS: Visit Provider Internal Medicine
DX: M54.6 Pain in thoracic spine (principal); R29.898 Other symptoms and signs involving the musculoskeletal system
CPT/HCPCS: 72146; 72148

== ENCOUNTER 2022-02-06 06:48 | Day surgery (SDC) | payer OTHER, SELFPAY ==
[2021-09-28 11:53] VITALS: BP 121/76; PULSE 80; RESP 16; O2SAT 99; BMI 34.9
--- NOTE | 2021-09-28 12:05 | P.CONAN_ITS ---
HPI - Anesthesia Eval Consult details Narrative: 45yo F for Upper Endoscopy 09/22/21 Dx of LUE DVT, started on Eliquis, Heme consult recommends postponing elective case for at least 1 month. aspiration pna after 08/2019 colonoscopy. Had colonoscopy at [facility] 08/2021 without any anesthesia issues. PO chemo for CLL PMFSH Active Problems Active Problems: All Active Problems (Updated 09/28/21 @ 11:52 by Rosemary Calderon RN) Nasal congestion (Acute) Lymphadenopathy, anterior cervical (Acute) Lactose intolerance (Acute) Conjunctivitis, left eye (Acute) Viral syndrome (Acute) Hip pain, left (Acute) Lesion of left the [place] kidney (Acute) Left flank pain (Acute) Generalized anxiety disorder (Acute) Perioral numbness (Acute) Dizziness (Acute) Impacted cerumen of left ear (Acute) Thoracic back pain (Acute) Vitamin D deficiency (Acute) Breast asymmetry (Acute) Annual physical exam (Acute) Frequency of micturition (Acute) LLQ abdominal pain (Acute) Pelvic pain (Acute) Anemia (Acute) Abdominal pain (Acute) Dysuria (Acute) Hypokalemia (Acute) Nausea & vomiting (Acute) Left arm pain (Acute) Obesity (BMI 30-39.9) (Acute) Allergic rhinitis (Acute) Insomnia (Acute) Asthma (Acute) GERD (gastroesophageal reflux disease) (Acute) Leukemia (Acute) Past Medical History Medical History (Updated 09/28/21 @ 16:11 by Daphne Mirza MD) Allergic rhinitis Asthma 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 CML (chronic myelocytic leukemia) GERD (gastroesophageal reflux disease) Hematuria Hypercholesterolemia Insomnia Laryngospasm Leukemia Mixed incontinence Obesity (BMI 30-39.9) Patent foramen ovale Peptic ulcer disease PONV (postoperative nausea and vomiting) Family History Family History Maternal Aunt Breast cancer Paternal Grandmother Breast cancer Paternal Grandfather Myocardial infarction, acute, initial episode of care Paternal Uncle Stomach cancer Liver cancer Father Colon cancer Family history of problems with anesthesia: No Surgical History Surgical History (Updated 09/28/21 @ 13:53 by Daphne Mirza MD) History of bilateral salpingectomy History of tonsillectomy History of vaginal hysterectomy Hx of colonoscopy Hx of colonoscopy Hx of esophagogastroduodenoscopy Ulnar nerve entrapment at elbow History of Problems with Anesthesia: No Social History Social History (Updated 09/28/21 @ 13:13 by Waleska Baker CMA) Household Members: None Housing: Apartment Are you a primary healthcare facility administrator to a significant other at home: No Do you presently have visiting nurse or other home services: No Alcohol intake: current Alcohol intake frequency: does not drink Patient Tobacco Use Status: Never used Tobacco e-Cigarette/Vaping Use: Never Used Second Hand Smoke Exposure: No Use of substances other than those prescribed or required for medical reasons: No Have you been hit, kicked, punched, or otherwise hurt by someone within the past year? If so, by whom?: No Do you have thoughts of harming others: None Do you have a plan to hurt others: No Plan Do you have the means to hurt others: No Recently lost weight without trying: No service: No Current occupational status: employed Cognitive needs: No Hearing needs: No Vision needs: Yes Meds Allergies Allergy/AdvReac Type Severity Reaction Status Date / Time nut - unspecified [nut] Allergy Severe Anaphylaxis Verified 09/28/21 13:13 Penicillins Allergy Severe RASH Verified 09/28/21 13:13 seafood Allergy Severe Anaphylaxis Verified 09/28/21 13:13 shellfish derived Allergy Severe Anaphylaxis Verified 09/28/21 13:13 Wixela Inhub Allergy Intermediate palpitation Uncoded 09/28/21 13:13 s Home Medications Medication Instructions Recorded Confirmed Last Taken Type dasatinib 50 mg tablet (Sprycel) 50 mg PO DAILY 04/07/20 09/28/21 Unknown History sertraline 100 mg tablet 100 mg PO DAILY 04/07/20 09/28/21 Unknown History zolpidem 10 mg tablet (Ambien) 10 mg PO BEDTIME PRN 04/07/20 09/28/21 Unknown History sucralfate 1 gram tablet 1 g PO DAILY PRN 08/03/20 09/28/21 Unknown History Exam Exam Date and Time: September 28, 2021 1205 Height,Weight and Vital Signs: Height 5 ft 1 in Weight 83.9 kg Last Vital Signs Pulse 80 09/28/21 11:53 Resp 16 09/28/21 11:53 BP 121/76 09/28/21 11:53 Pulse Ox 99 09/28/21 11:53 Pertinent Lab Results Pertinent Lab Results: Laboratory Tests 09/22/21 09/22/21 18:32 18:32 WBC 8.3 Hgb 13.0 Hct 39.3 Plt Count 225 Sodium 138 Potassium 3.4 Chloride 105 Carbon Dioxide 26 BUN 8 L Creatinine 0.66 Airway Mallampati Class: III (Small mouth opening) TM Dist: >3cm Neck ROM: Full Partial: Upper Heart: RRR Lungs: CTAB Assessment and Plan Assessment Anesthesia Assessment: Anesthesia Plan Discussed and PAT Visit Final Anesthetic Review Family History of Problems with Anesthesia: No History of Problems with Anesthesia: No
--- NOTE | 2022-02-05 09:49 | P.CONAN_ITS ---
Documented by User: Sandra Cummings NP 02/05/22 09:53 HPI - Anesthesia Eval Consult details Narrative: 46yo F for Upper Endoscopy 09/22/21 Dx of LUE DVT, started on Eliquis, Heme consult recommends postponing elective case for at least 1 month. Aspiration pna after 08/2019 colonoscopy. Had colonoscopy at [facility] 08/2021 without any anesthesia issues. PO chemo for CLL PMFSH Active Problems Active Problems: All Active Problems (Updated 01/02/22 @ 11:22 by Daphne Mirza MD) Lower extremity weakness (Acute) Thoracic back pain (Acute) Constipation (Acute) Nasal congestion (Acute) Lymphadenopathy, anterior cervical (Acute) Lactose intolerance (Acute) Conjunctivitis, left eye (Acute) Viral syndrome (Acute) Hip pain, left (Acute) Lesion of left [place] (Acute) Left flank pain (Acute) Generalized anxiety disorder (Acute) Perioral numbness (Acute) Dizziness (Acute) Impacted cerumen of left ear (Acute) Thoracic back pain (Acute) Vitamin D deficiency (Acute) Breast asymmetry (Acute) Annual physical exam (Acute) Frequency of micturition (Acute) LLQ abdominal pain (Acute) Pelvic pain (Acute) Anemia (Acute) Abdominal pain (Acute) Dysuria (Acute) Hypokalemia (Acute) Nausea & vomiting (Acute) Left arm pain (Acute) Thrombophlebitis of upper extremity (Chronic) CLL (chronic lymphocytic leukemia) (Acute) Obesity (BMI 30-39.9) (Acute) Allergic rhinitis (Acute) Insomnia (Acute) Asthma (Acute) GERD (gastroesophageal reflux disease) (Acute) Leukemia (Acute) Past Medical History Medical History 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 CML (chronic myelocytic leukemia) Hematuria Hypercholesterolemia Laryngospasm Mixed incontinence Patent foramen ovale Peptic ulcer disease PONV (postoperative nausea and vomiting) Family History Family History Maternal Aunt Breast cancer Paternal Grandmother Breast cancer Paternal Grandfather Myocardial infarction, acute, initial episode of care Paternal Uncle Stomach cancer Liver cancer Father Colon cancer Family history of problems with anesthesia: No Surgical History Surgical History History of bilateral salpingectomy History of tonsillectomy History of vaginal hysterectomy Hx of colonoscopy Hx of colonoscopy Hx of esophagogastroduodenoscopy Ulnar nerve entrapment at elbow History of Problems with Anesthesia: No Social History Social History (Updated 01/02/22 @ 11:17 by Marcela Martins) Household Members: None Housing: Apartment Are you a primary direct care staffer to a significant other at home: No Do you presently have visiting nurse or other home services: No Alcohol intake: current Alcohol intake frequency: does not drink Patient Tobacco Use Status: Never used Tobacco e-Cigarette/Vaping Use: Never Used Second Hand Smoke Exposure: No Use of substances other than those prescribed or required for medical reasons: No Have you been hit, kicked, punched, or otherwise hurt by someone within the past year? If so, by whom?: No Are you DNR?: No Advance Directives: Yes (will bring dos) Advance Directives Information Provided: Yes Advance Directives on File: No Advance Directives Date on File: 02/06/22 Recently lost weight without trying: No Nutrition Risks: Acute nausea or vomiting x1 week Patient : No FDLMP: 2007 : No Poor oral hygiene: No (permanent bridge upper 1) service: No Current occupational status: employed Cognitive needs: No Hearing needs: No Vision needs: Yes Meds Allergies Allergy/AdvReac Type Severity Reaction Status Date / Time nut - unspecified [nut] Allergy Severe Anaphylaxis Verified 12/26/21 10:59 Penicillins Allergy Severe RASH Verified 12/26/21 10:59 seafood Allergy Severe Anaphylaxis Verified 12/26/21 10:59 shellfish derived Allergy Severe Anaphylaxis Verified 12/26/21 10:59 Wixela Inhub Allergy Intermediate palpitation Uncoded 12/26/21 10:59 s Home Medications Medication Instructions Recorded Confirmed Last Taken Type sertraline 100 mg tablet 100 mg PO DAILY 04/07/20 01/02/22 Unknown History zolpidem 10 mg tablet (Ambien) 10 mg PO BEDTIME PRN Insomnia 04/07/20 01/02/22 Unknown History sucralfate 1 gram tablet 1 g PO DAILY PRN Gastric Reflux 08/03/20 01/02/22 Unknown History Exam Exam Date and Time: February 05, 2022 0949 Height,Weight and Vital Signs: Height 5 ft 1 in Weight 83.9 kg Last Vital Signs Pulse 80 09/28/21 11:53 Resp 16 09/28/21 11:53 BP 121/76 09/28/21 11:53 Pulse Ox 99 09/28/21 11:53 O2 Del Method 09/28/21 11:53 Pertinent Lab Results Pertinent Lab Results: Laboratory Tests 12/13/21 12/13/21 16:31 16:31 WBC 8.6 Hgb 12.4 Hct 38.1 Plt Count 242 Sodium 137 Potassium 4.1 Chloride 105 Carbon Dioxide 26 BUN 8 L Creatinine 0.62 Narrative Narrative: EKG 11/2021 Vent. Rate : 074 BPM ? ? Atrial Rate : 074 BPM ?? P-R Int : 154 ms? QRS Dur : 080 ms ? ? QT Int : 402 ms ? ? ? P-R-T Axes : 034 -03 001 degrees ?? QTc Int : 446 ms ? Normal sinus rhythm Minimal voltage criteria for LVH, may be normal variant ( R in aVL ) Borderline ECG When compared with ECG of 12-FEB-2012 20:07, No significant change was found Assessment and Plan Assessment Anesthesia Assessment: Chart Reviewed Final Anesthetic Review Family History of Problems with Anesthesia: No History of Problems with Anesthesia: No Documented by User: Ara Ayala MD 02/06/22 07:52 [facility] Past Medical History Medical History 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 CML (chronic myelocytic leukemia) Hematuria Hypercholesterolemia Laryngospasm Mixed incontinence Patent foramen ovale Peptic ulcer disease PONV (postoperative nausea and vomiting) Family History Family History Maternal Aunt Breast cancer Paternal Grandmother Breast cancer Paternal Grandfather Myocardial infarction, acute, initial episode of care Paternal Uncle Stomach cancer Liver cancer Father Colon cancer Surgical History Surgical History History of bilateral salpingectomy History of tonsillectomy History of vaginal hysterectomy Hx of colonoscopy Hx of colonoscopy Hx of esophagogastroduodenoscopy Ulnar nerve entrapment at elbow Social History Social History (Updated 01/02/22 @ 11:17 by Marcela Martins) Household Members: None Housing: Apartment Are you a primary direct care staffer to a significant other at home: No Do you presently have visiting nurse or other home services: No Alcohol intake: current Alcohol intake frequency: does not drink Patient Tobacco Use Status: Never used Tobacco e-Cigarette/Vaping Use: Never Used Second Hand Smoke Exposure: No Use of substances other than those prescribed or required for medical reasons: No Have you been hit, kicked, punched, or otherwise hurt by someone within the past year? If so, by whom?: No Are you DNR?: No Advance Directives: Yes (will bring dos) Advance Directives Information Provided: Yes Advance Directives on File: No Advance Directives Date on File: 02/06/22 Recently lost weight without trying: No Nutrition Risks: Acute nausea or vomiting x1 week Patient : No FDLMP: 2007 : No Poor oral hygiene: No (permanent bridge upper 1) service: No Current occupational status: employed Cognitive needs: No Hearing needs: No Vision needs: Yes Meds Allergies Allergy/AdvReac Type Severity Reaction Status Date / Time nut - unspecified [nut] Allergy Severe Anaphylaxis Verified 12/26/21 10:59 Penicillins Allergy Severe RASH Verified 12/26/21 10:59 seafood Allergy Severe Anaphylaxis Verified 12/26/21 10:59 shellfish derived Allergy Severe Anaphylaxis Verified 12/26/21 10:59 Wixela Inhub Allergy Intermediate palpitation Uncoded 12/26/21 10:59 s Home Medications Medication Instructions Recorded Confirmed Last Taken Type sertraline 100 mg tablet 100 mg PO DAILY 04/07/20 01/02/22 Unknown History zolpidem 10 mg tablet (Ambien) 10 mg PO BEDTIME PRN Insomnia 04/07/20 01/02/22 Unknown History sucralfate 1 gram tablet 1 g PO DAILY PRN Gastric Reflux 08/03/20 01/02/22 Unknown History Exam Airway Mallampati Class: II (upper permanent bridge) TM Dist: >3cm Neck ROM: Full Loose/Missing/Broken Teeth: Yes and Upper Heart: RRR Lungs: CTA Assessment and Plan Assessment Anesthesia Assessment: Anesthesia Plan Discussed Final Anesthetic Review NPO: Yes ASA Class: III Final Preanesthetic Review: Meds/Allgs Chart Reviewed, Consent Obtained/Reviewed and Anes Risks/Benef Reviewed Patient Risk: Intermediate Procedure Risk: Intermediate Anesthetic Plan Anesthetic Plan: MAC: Disposition: Standard PACU
[2022-02-06 07:24] VITALS: BP 95/74; PULSE 79; RESP 16; TEMP 36.4; O2SAT 98
[2022-02-06] MEDS: Lactated Ringers 1,000 ML 100 ML IVCONT (07:36)
[2022-02-06] MEDS: Famotidine/PF 20 MG/2 ML VIAL IVPUSH (08:14)
[2022-02-06] MEDS: Scopolamine 1.5 MG PATCH.TD.3 EAR-BEHIND (08:14)
--- NOTE | 2022-02-06 08:35 | MHC.SHP ---
Pre-Procedural Eval Section A Date of Service: 02/06/22 Section B Chief Complaint: reflux,abd pain Details of Present Illness: dysphagia, Fh gastric ca-uncle Relevant Family History (Specify if Yes): Yes Relevant Social History: None Present Medications: see Short Stay Collaborative assessment Medical History: Significant History (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 CML (chronic myelocytic leukemia) Hematuria Hypercholesterolemia Laryngospasm Mixed incontinence Patent foramen ovale Peptic ulcer disease PONV (postoperative nausea and vomiting)) History of Previous Operations: Relevant previous surgery/procedure and date(s) (History of bilateral salpingectomy History of tonsillectomy History of vaginal hysterectomy Hx of colonoscopy Hx of colonoscopy Hx of esophagogastroduodenoscopy Ulnar nerve entrapment at elbow) Allergies: Allergies Allergy/AdvReac Type Severity Reaction Status Date / Time nut - unspecified [nut] Allergy Severe Anaphylaxis Verified 12/26/21 10:59 Penicillins Allergy Severe RASH Verified 12/26/21 10:59 seafood Allergy Severe Anaphylaxis Verified 12/26/21 10:59 shellfish derived Allergy Severe Anaphylaxis Verified 12/26/21 10:59 Wixela Inhub Allergy Intermediate palpitation Uncoded 12/26/21 10:59 s Review of Systems Sugical H&P ROS: Negative: Constitution, Cardiovascular, Respiratory, Neurological, Psychiatric, Hem-Onc, Allergic/Immunologic, Gastrointestinal, Genitourinary, Musculoskeletal, Integumentary, Endocrine and Eyes/Ears/Nose/Throat Exam Surgical H&P Exam: Normal: HEENT, Normal: Heart, Normal: Lungs, Normal: Extremities, Normal: Abdomen, Normal: Skin and Normal: Neurological Plan Diagnosis/Plan: Unchanged I have reviewed the history and physical and performed a pertinent physical examination on my patient. No changes have occurred unless specified.
--- NOTE | 2022-02-06 08:52 | W.PM.OPN ---
Operative Note Operative Note Date of Service: 02/06/22 Narrative: Procedure Description: EGD Indication: dysphagia, abdominal pain Anesthesia: MAC FLEXIBLE TRANSORAL UPPER GASTROINTESTINAL ENDOSCOPY UPPER ENDOSCOPY Consent: Indications for the procedure and potential complications of bleeding, perforation, reaction to medications and missed diagnosis were discussed with the patient and informed consent was obtained. Instrument: Olympus GIF H 190 J mid size upper endoscope Monitoring: Vital signs and clinical assessment, continuous EKG monitoring, Pulse oximetry, Carbon Dioxide monitoring and blood pressure monitoring were done throughout the procedure. Procedure: The patient was placed in the left lateral decubitis position and pre-procedure medications were administered and a bite block was placed. The endoscope was inserted into the mouth and advanced under direct vision to the third part of duodenum. A careful inspection was made as the upper endoscope was withdrawn including a retroflexed examination of the proximal stomach; Findings and interventions are described below. Findings: Larynx:normal Esophagus: GE junction at 33 cm, diaphragm hiatus at 35 cm, bogginess, edema and erythema at GEJ consistent with LA grade C erosive esophagitis with partial schatzki ring. Balloon dilation done in step cortes progression from 15- 16.5 mm with tear noted. There is a 2 cm sliding hiatal hernia. Stomach: Patchy gastric erythema. Biopsies were obtained. Grade 1 flap valve on retroflexed examination of the cardia. Few benign fundic gland polyps noted. Duodenum: Normal bulb and descending duodenum, bx taken Intervention: Biopsies as noted above Impression/Findings: gastritis erosive esophagitis schatzki ring hiatal hernia PLAN: reflux precautions high dose PPI for 3 months and repeat EGD in 3 months to r/o barretts
[2022-02-06 09:17] VITALS: BP 106/56; PULSE 95; RESP 16; TEMP 36.1; O2SAT 97
[2022-02-06 09:32] VITALS: BP 117/75; PULSE 87; RESP 14; TEMP 36.1; O2SAT 100
[2022-02-06 09:47] VITALS: BP 130/79; PULSE 92; RESP 16; O2SAT 100
== END 2022-02-06 10:28 | disposition home or self-care (01) ==
PROVIDERS: PCP Internal Medicine; Visit Provider Internal Medicine Gastroenterology
PROC: 0DJ08ZZ Inspection of Upper Intestinal Tract, Via Natural or Artificial Opening Endoscopic (ICD-10-PCS; CPT 43235; principal; 2022-02-06 08:20)
DX: K29.70 Gastritis, unspecified, without bleeding (principal); K22.2 Esophageal obstruction; K20.80 Other esophagitis without bleeding; K31.7 Polyp of stomach and duodenum; K21.9 Gastro-esophageal reflux disease without esophagitis; K44.9 Diaphragmatic hernia without obstruction or gangrene; Z87.11 Personal history of peptic ulcer disease; Z80.0 Family history of malignant neoplasm of digestive organs; E78.00 Pure hypercholesterolemia, unspecified; C95.90 Leukemia, unspecified not having achieved remission; J45.909 Unspecified asthma, uncomplicated; Q21.1 Atrial septal defect; Z15.01 Genetic susceptibility to malignant neoplasm of breast; Z79.02 Long term (current) use of antithrombotics/antiplatelets; Z79.899 Other long term (current) drug therapy; Z88.0 Allergy status to penicillin
CPT/HCPCS: 43249; 43239; 88305; 88342; C1726; J2250

== ENCOUNTER → 2022-03-12 13:49 | Outpatient (BNVA) | payer OTHER, SELFPAY | PROVIDERS: PCP Internal Medicine; Visit Provider Physician Assistant | DX: K22.2 Esophageal obstruction (principal); K44.9 Diaphragmatic hernia without obstruction or gangrene; K21.9 Gastro-esophageal reflux disease without esophagitis | CPT/HCPCS: 99212 ==

== ENCOUNTER 2022-04-12 14:44 | Emergency (ER) | payer OTHER, SELFPAY ==
[2022-04-12 14:49] VITALS: BP 139/90; PULSE 92; RESP 18; TEMP 37.2; O2SAT 99; BMI 32.1
[2022-04-12 15:18] LABS: COVID-19 Test Negative (Negative)
[2022-04-12 15:22] LABS: IDNOW Serial# 55D5AD1C; Influenza A Negative (Negative); Influenza B2 Negative (Negative)
[2022-04-12 15:33] LABS: Strep A Nucleic Acid Positive (Negative)
--- NOTE | 2022-04-12 16:13 | ED_ITS ---
HPI - URI/Sore Throat General Chief Complaint: Upper Respiratory Symptoms Stated Complaint: cold symptoms Time Seen by Provider: 04/12/22 16:07 Source: patient Mode of arrival: ambulatory Limitations: no limitations History of Present Illness HPI Narrative: Patient comes to the emergency room complaining of a sore throat, fever, chills, generalized malaise. Patient states she has pain swallowing. She is able to control her own secretions. Patient states that she has no known sick contacts. Related Data Home Medications Medication Instructions Recorded Confirmed sertraline 100 mg tablet 100 mg PO DAILY 04/07/20 03/12/22 zolpidem 10 mg tablet (Ambien) 10 mg PO BEDTIME PRN Insomnia 04/07/20 03/12/22 sucralfate 1 gram tablet 1 g PO DAILY PRN Gastric Reflux 08/03/20 03/12/22 clonazepam 0.5 mg tablet 0.5 mg PO 03/12/22 03/12/22 fluticasone 250 mcg-salmeterol 50 1 ea inhalation BID 03/12/22 03/12/22 mcg/dose blistr powdr for inhalation (Wixela Inhub) nilotinib 150 mg capsule (Tasigna) mg PO 03/12/22 03/12/22 Previous Rx's Medication Instructions Recorded cholecalciferol (vitamin D3) 50 50 mcg PO DAILY 90 days #90 caps 05/09/21 mcg (2,000 unit) capsule albuterol sulfate 90 mcg/actuation 2 puff PO Q4-6H PRN for muscle 10/26/21 aerosol inhaler spasm #8.5 ea apixaban 5 mg (74 tabs) tablets in 5 mg PO BID #74 ea 11/29/21 a dose pack (Eliquis DVT-PE Treat 30D Start) ondansetron 8 mg disintegrating 8 mg PO Q12H PRN nausea and 11/29/21 tablet vomiting #20 tabs sennosides 8.6 mg-docusate sodium 2 tab-cap PO BEDTIME 30 days #60 12/26/21 50 mg tablet (Senna-S) tabs azithromycin 250 mg tablet 250 mg PO DAILY 4 days #4 tabs 04/12/22 Allergies Allergy/AdvReac Type Severity Reaction Status Date / Time nut - unspecified [nut] Allergy Severe Anaphylaxis Verified 03/12/22 14:06 Penicillins Allergy Severe RASH Verified 03/12/22 14:06 seafood Allergy Severe Anaphylaxis Verified 03/12/22 14:06 shellfish derived Allergy Severe Anaphylaxis Verified 03/12/22 14:06 Wixela Inhub Allergy Intermediate palpitation Uncoded 12/26/21 10:59 s Review of Systems Review of Systems: Constitutional : No Weight loss, complaining of fever, chills, fatigue and generalized malaise ENT/Mouth : No Hearing loss, No Ear Pain, No Nasal Congestion, No Sinus Pain, No Hoarseness, complaining of sore throat, No Rhinorrhea, No Swallowing Difficulty, complaining of painful swallowing Eyes: No Eye Pain, No Swelling, No Redness, No Foreign Body, No Discharge, No Vision Changes Cardiovascular : No Chest Pain, No SOB, No Dyspnea on Exertion, No Orthopnea, No Edema, No Palpitations Respiratory : No Cough, No Sputum, No Wheezing, No Smoke Exposure, No Dyspnea Gastrointestinal : No Nausea, No Vomiting, No Diarrhea, No Constipation, No abdominal Pain, No Hematochezia, No Melena Genitourinary : no irregular bleeding, No Dysuria, No Urinary Frequency, No Hematuria, No Urinary Incontinence, No Urgency, No Flank Pain, No Urinary Flow Changes, No Hesitancy Musculoskeletal : No joint pain, No Myalgias, No Joint Swelling Skin : No Skin Lesions, No rash Neuro : No Weakness, No Numbness, No Paresthesias, No Loss of Consciousness, No Dizziness, No Headache Psych : No Anxiety/Panic, No Depression, No SI/HI/AH/VH, No Social Issues, Heme/Lymph: No Bruising, No Bleeding,No Lymphadenopathy Endocrine : No Polyuria, No Polydipsia, No Temperature Intolerance PMFSH Past Medical History Medical History Allergic rhinitis Asthma 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 CML (chronic myelocytic leukemia) GERD (gastroesophageal reflux disease) Hematuria Hypercholesterolemia Insomnia Laryngospasm Leukemia Mixed incontinence Obesity (BMI 30-39.9) Patent foramen ovale Peptic ulcer disease PONV (postoperative nausea and vomiting) Surgical History History of bilateral salpingectomy History of tonsillectomy History of vaginal hysterectomy Hx of colonoscopy Hx of colonoscopy Hx of esophagogastroduodenoscopy Ulnar nerve entrapment at elbow Family History Family History Maternal Aunt Breast cancer Paternal Grandmother Breast cancer Paternal Grandfather Myocardial infarction, acute, initial episode of care Paternal Uncle Stomach cancer Liver cancer Father Colon cancer Social History Social History Household Members: None Housing: Apartment Are you a primary urgent care physician assistant to a significant other at home: No Do you presently have visiting nurse or other home services: No Alcohol intake: current Alcohol intake frequency: does not drink Patient Tobacco Use Status: Never used Tobacco e-Cigarette/Vaping Use: Never Used Second Hand Smoke Exposure: No Advance Directives: Yes Advance Directives on File: Yes Advance Directives Date on File: 02/06/22 service: No Current occupational status: employed Cognitive needs: No Hearing needs: No Vision needs: Yes Physical Exam Vital Signs: Vital Signs: Last Vital Signs Temp 99.0 F 04/12/22 14:49 Pulse 92 04/12/22 14:49 Resp 18 04/12/22 14:49 BP 139/90 H 04/12/22 14:49 Pulse Ox 99 04/12/22 14:49 O2 Del Method 04/12/22 14:49 BMI result Body Mass Index 32.1 Const: Other: Appearance: Alert. Oriented X3. No acute distress. Eyes: Pupils equal, round and reactive to light. ENT: Erythematous oropharynx, couple of accidents bilaterally, no visualized abscesses. No vesicles Neck: Normal inspection. Neck supple. No lymph nodes noted. No crepitus CVS: Normal heart rate and rhythm. Pulses normal. Normal S1 and S2 Respiratory: No respiratory distress. Breath sounds normal. No Wheezing. No rales Abdomen: Soft and nontender. No rigidity. No distention. Skin: Skin warm and dry. Normal skin color. Normal skin turgor. Extremities: No lower extremity edema. No Lacerations. No Rash Neuro: Oriented X 3. No motor deficit. No sensory deficit. Moving all extremities. No slurred speech. CN 2 through 12 grossly intact Psych: calm, cooperative, normal affect Course Course Course Narrative: I discussed the physical exam with the patient, patient given 1 dose of p.o. azithromycin (allergic to penicillin), dexamethasone and lidocaine p.o.. MDM - URI/Sore Throat Lab Data Labs: Lab Results 04/12/22 04/12/22 04/12/22 Range/Units 14:52 14:52 14:52 COVID-19 (DELPHINE) Negative (Negative) COVID-19 Clin Com See Note Influenza Type A (ELINOR) Negative (Negative) Influenza Type B (ELINOR) Negative (Negative) Influenza A & B Note See Note S. pyogenes GrpA ELINOR Positive A (Negative) Discharge Plan Discharge Clinical Impression: Acute streptococcal pharyngitis Patient Disposition: Home, Self-Care Instructions: Strep Throat (ED) Additional Instructions: Please follow-up with your primary care physician tomorrow. If you have any worsening or new symptoms, please return to the emergency room or call 911 Prescriptions: New azithromycin 250 mg tablet 250 mg PO DAILY 4 Days Qty: 4 0RF Rx Instructions: start on day 2 of therapy, 04/13/22 No Action albuterol sulfate 90 mcg/actuation HFA aerosol inhaler 2 puff PO Q4-6H PRN (Reason: for muscle spasm) Qty: 8.5 0RF Eliquis DVT-PE Treat 30D Start 5 mg (74 tabs) tablets,dose pack 5 mg PO BID Qty: 74 0RF Rx Instructions: Take 10 mg twice daily for 7 days then 5 mg twice daily ondansetron 8 mg tablet,disintegrating 8 mg PO Q12H PRN (Reason: nausea and vomiting) Qty: 20 0RF sertraline 100 mg tablet 100 mg PO DAILY zolpidem [Ambien] 10 mg tablet 10 mg PO BEDTIME PRN (Reason: Insomnia) sucralfate 1 gram tablet 1 g PO DAILY PRN (Reason: Gastric Reflux) cholecalciferol (vitamin D3) 50 mcg (2,000 unit) capsule 50 mcg PO DAILY 90 Days Qty: 90 3RF sennosides-docusate sodium [Senna-S] 8.6-50 mg tablet 2 tab-cap PO BEDTIME 30 Days Qty: 60 2RF Tasigna 150 mg capsule PO fluticasone propion-salmeterol [Wixela Inhub] 250-50 mcg/dose blister with device 1 ea inhalation BID clonazepam 0.5 mg tablet 0.5 mg PO
--- OUTSIDE RECORDS SUMMARY | 2022-04-12 16:17 | XMS_ITS | Continuity of Care Document ---
:1975 Author Organization [facility] Address [address] [place] [address]- Care Team Providers Name Role Phone Fabian KOHLI, Chito Primary Care Physician [place] [facility] [place](s): 02/05/20 - 02/12/20 [facility] [address] [place] [address]- [facility] Attending Physician: Anil HDIALGO, David Rousseau Referring Physician: Josef Lindquist MD Allergies, Adverse Reactions, Alerts Substance Reaction Severity Status penicillin Active Seafood Active Medications Ambien 10 mg oral tablet 1 tablet = 10 mg, By Mouth, Daily at bedtime, PRN for sleep, 0 Refills, Maintenance, 07/27/15 20:28:40, Tablet Start Date: 07/27/15 Status: OrderedGleevec 100 mg oral tablet 2 tablet = 200 mg, By Mouth, 3 times a day, # 120 tablet, 0 Refills, Maintenance, 11/13/16 16:47:41,Tablet Start Date: 11/13/16 Status: OrderedSprycel Tablet By Mouth, Daily, 0 Refills, Maintenance, 10/30/18 13:36:36 EDT Start Date: 10/30/18 Status: Ordered Problem List Condition Effective Dates Status Health Status Informant Depression(Confirmed) Active Family history of breast cancer in Active sister(Confirmed) Leukemia(Confirmed) Active Social History Social History Type Response Smoking Status Never (less than 100 in life time) entered on: 10/30/18 Sex
--- OUTSIDE RECORDS SUMMARY | 2022-04-12 16:17 | XMS_ITS | Continuity of Care Document ---
:1975 Author Organization [facility] Address [address] [place] [address]- Care Team Providers Name Role Phone Fabian KOHLI, Chito Primary Care Physician Encounter [facility] [place] Date(s): 12/01/19 - 12/01/[address] [address]- [facility] Encounter Diagnosis Flank pain (Final) - 12/01/19 Discharge Disposition: A-D/C Home Attending Physician: Marva Singer MD Admitting Physician: Marva Singer MD Referring Physician: Not on Staff, Referring MD Allergies, Adverse Reactions, Alerts Substance Reaction [...] breast cancer in Active sister(Confirmed) Leukemia(Confirmed) Active Vital Signs Most recent to oldest [Reference 1 2 3 Range]: Oxygen Saturation [94-100 %] 100 % 100 % 100 % (12/01/19 6:33 PM) (12/01/19 2:55 PM) (12/01/19 1:34 P M) Pulse Rate [55-90 bpm] 72 bpm 71 bpm 84 bpm (12/01/19 6:33 PM) (12/01/19 2:55 PM) (12/01/19 1:34 P M) Blood Pressure [90-138/55-84 mm 117/84 mm Hg 116/77 mm Hg 125/72 mm Hg Hg] (12/01/19 6:33 PM) (12/01/19 2:55 PM) (12/01/19 1:34 P M) Respiratory Rate [16-30 br/min] 20 br/min 20 br/min 18 br/min (12/01/19 6:33 PM) (12/01/19 2:55 PM) (12/01/19 1:34 P M) Temperature [96.8-100.4 DegF] 98.4 DegF 98.9 DegF (12/01/19 2:55 PM) (12/01/19 1:34 PM) Mode of Delivery (Oxygen) Room air Room air Room a ir (12/01/19 6:33 PM) (12/01/19 2:55 PM) (12/01/19 1:34 P M) Blood pressure sites Arm, right Arm, right Arm, left (12/01/19 6:33 PM) (12/01/19 2:55 PM) (12/01/19 1:34 P M) Temperature Route Oral Oral (12/01/19 2:55 PM) (12/01/19 1:34 PM) Social History Social History Type Response Smoking Status Never (less than 100 in life time) entered on: 10/30/18 Sex
--- OUTSIDE RECORDS SUMMARY | 2022-04-12 16:18 | XMS_ITS | Continuity of Care Document ---
:1975 Author Organization [facility] Address [address] [place] [address]- Care Team Providers Name Role Phone Fabian KOHLI, Chito Primary Care Physician [place] [facility] [place] [facility] [place] 08/07/[place] - 08/14/19 [facility] [address] [place] [address]- [facility] Encounter Diagnosis Flu-like symptoms (Discharge Diagnosis) - 08/07/19 Attending Physician: Anil HIDALGO, David Rousseau Referring Physician: Chito Peralta NP Allergies, Adverse Reactions, Alerts Substance Reaction Severity [...] 10/30/18 13:36:36 EDT Start Date: 10/30/18 Status: OrderedTamiflu 75 mg oral capsule 1 capsule = 75 mg, By Mouth, 2 times a day, for 7 days, # 14 capsule, 0 Refills, Acute 08/15/19 15:48:00 EST, 08/08/19 15:48:00 EST, Capsule, [id number], 155, cm, 08/07/19 16:43:00 EST, Height,83, kg, 08/07/19 16:43:00 EST, Dry Weight Start Date: 08/08/19 Stop Date: 08/15/19 Status: Ordered Problem List Condition Effective Dates Status Health Status Informant Depression(Confirmed) Active Family history of breast cancer in Active sister(Confirmed) Leukemia(Confirmed) Active Diagnosis Diagnosis Type Effective Dates Health Status Clinical In formant Service Flu-like Discharge 08/07/19 symptoms Diagnosis Vital Signs Most recent to oldest [Reference Range]: 1 Height 155 cm (08/07/19 4:43 PM) Weight 83 kg (08/07/19 4:43 PM) Oxygen Saturation [94-100 %] 100 % (08/07/19 4:43 PM) Pulse Rate [55-90 bpm] 90 bpm (08/07/19 4:43 PM) Body Mass Index [18.5-24.99] 34.55 *>HHI* (08/07/19 4:43 PM) Blood Pressure [90-138/55-84 mm Hg] 121/80 mm Hg (08/07/19 4:43 PM) Respiratory Rate [16-30 br/min] 18 br/min (08/07/19 4:43 PM) Temperature [96.8-100.4 DegF] 99.3 DegF (08/07/19 4:43 PM) Mode of Delivery (Oxygen) Room air (08/07/19 4:43 PM) Blood pressure sites Arm, right (08/07/19 4:43 PM) Temperature Route Oral (08/07/19 4:43 PM) Dry Weight 83 kg (08/07/19 4:43 PM) Weight Obtained Via Standing scale (08/07/19 4:43 PM) Dry Weight Obtained Via Standing scale (08/07/19 4:43 PM) Social History Social History Type Response Smoking Status Never (less than 100 in life time) entered on: 10/30/18 Sex
--- OUTSIDE RECORDS SUMMARY | 2022-04-12 16:18 | XMS_ITS | Continuity of Care Document ---
:1975 Author Organization [facility] Address [address] [place] [address]- Care Team Providers Name Role Phone Fabian KOHLI, Chito Primary Care Physician [place] [facility] [place] 08/07/19 - 08/17/19 [facility] [address] [place] [address]- [facility] Attending Physician: Tim Esparza Admitting Physician: Tim Esparza Referring Physician: AdmtrTim Allergies, Adverse Reactions, Alerts Substance Reaction Severity [...]
--- OUTSIDE RECORDS SUMMARY | 2022-04-12 16:18 | XMS_ITS | Continuity of Care Document ---
:1975 Author Organization [facility] Address [address] [place] [address]- Care Team Providers Name Role Phone Po Josef HIDALGO Primary Care Physician Encounter [facility] [place] Date(s): 10/14/20 - 10/14/[address] [address]- Discharge Disposition: A-D/C Home Attending Physician: Eryn Arroyo DO Admitting Physician: Eryn Arroyo DO Referring Physician: Not on Staff, Referring MD [...] Maintenance, 11/13/16 16:47:41,Tablet Start Date: 11/13/16 Status: Orderedondansetron 4 mg oral tablet, disintegrating 1 tablet = 4 mg, By Mouth, Every 8 hours, PRN as needed for nausea/vomiting, # 9 tablet, 0 Refills, Maintenance, 10/14/20 22:05:00 EDT, DIS Tablet, [facility]/pharm[facility] #[id number], Partial fill upon patient requestif the prescription is for a schedule II opioid d... Start Date: 10/14/20 Stop Date: 10/17/20 Status: OrderedSprycel Tablet By Mouth, Daily, 0 Refills, Maintenance, 10/30/18 13:36:36 EDT Start Date: 10/30/18 Status: Ordered Problem List Condition Effective Dates Status Health Status Informant Depression(Confirmed) Active Family history of breast cancer in Active sister(Confirmed) Leukemia(Confirmed) Active Results Radiology Reports Exam Date Time Procedure Performing Provider Status 10/14/20 6:45 PM Chest 2 Views Frontal and Lat Diane Connie Pernell Cerda (Verified) Notes:(Chest 2 Views Frontal and Lat) Reason For Exam: left flank pain;Other: RESULT: Chest 2 Views Frontal and Lat Chest 2 Views Frontal and Lat Hx of Present Illness: flan pain with N V; Reason: Other:; left flank pain; Clinical Question(s): Pneumonia COMPARISON: None. FINDINGS: LINES AND TUBES: None. LUNGS AND PLEURA: Clear lungs. Normal pulmonary vascularity. No pleural effusion. No pneumothorax. HEART, MEDIASTINUM AND SANJANA: Heart is normal in size. Normal upper mediastinal and hilar contour. BONES AND SOFT TISSUES: No acute abnormality. IMPRESSION: No acute abnormality. WSN: [id number] Ordering Physician: Sravanthi Cortes Dictated By: Yonatan Pisano MD Dictated Date/Time: 10/14/20 6:48 pm Reviewed By: Yonatan Pisano MD Signed By: Yonatan Pisano MD Signed Date/Time: 10/14/20 6:48 pm Transcribed By: JONATHAN Transcribed Date/Time: 10/14/20 6:47 pm Vital Signs Most recent to oldest 1 2 3 [Reference Range]: Oxygen Saturation [94-100 %] 100 % 99 % 99 % (10/14/20 9:38 PM) (10/14/20 5:26 PM) (10/14/20 3:2 7 PM) Pulse Rate [55-90 bpm] 78 bpm 74 bpm 80 bpm (10/14/20 9:38 PM) (10/14/20 5:26 PM) (10/14/20 3:2 7 PM) Blood Pressure [90-138/55-84 mm 104/65 mm Hg 117/97 mm Hg 119/86 mm Hg Hg] (10/14/20 9:38 PM) (10/14/20 5:26 PM) (10/14/20 3:2 7 PM) Respiratory Rate [16-30 br/min] 16 br/min 16 br/min 16 br/min (10/14/20 9:38 PM) (10/14/20 5:26 PM) (10/14/20 3:2 7 PM) Temperature [96.8-100.4 DegF] 97.8 DegF 98.7 DegF 98 .0 DegF (10/14/20 9:38 PM) (10/14/20 5:26 PM) (10/14/20 3:2 7 PM) Mode of Delivery (Oxygen) Room air Room air Room a ir (10/14/20 9:38 PM) (10/14/20 5:26 PM) (10/14/20 3:2 7 PM) Blood pressure sites Arm, left Arm, left Arm, left (10/14/20 9:38 PM) (10/14/20 5:26 PM) (10/14/20 3:2 7 PM) Temperature Route Oral Oral Oral (10/14/20 9:38 PM) (10/14/20 5:26 PM) (10/14/20 3:2 7 PM) Social History Social History Type Response Smoking Status Never (less than 100 in life time) entered on: 10/30/18 Sex
--- OUTSIDE RECORDS SUMMARY | 2022-04-12 16:18 | XMS_ITS | Continuity of Care Document ---
:1975 Author Organization [facility] Address [address] [place] [address]- Care Team Providers Name Role Phone Fabian KOHLI, Decembermo Primary Care Physician Encounter [facility] [place]s): 10/12/21 - 10/19/21 [facility] [address] [place] [address]- Attending Physician: Jerman Van MD Referring Physician: Fabian KOHLI, Chito Allergies, Adverse Reactions, Alerts Substance Reaction Severity Status penicillin Active propofol1 Severe Active Seafood Active 1Pt states she had a severe reaction at [facility]. Medications Albuterol (Eqv-ProAir HFA) 90 mcg/inh inhalation aerosol INHALE 2 PUFFS BY MOUTH EVERY 4-6 HOURS NEEDED FOR BRONCHOSPASM Start Date: 08/28/21 Status: OrderedAmbien 10 mg oral tablet 1 tablet = 10 mg, By Mouth, Daily at bedtime, PRN for sleep, 0 Refills, Maintenance, 07/27/15 20:28:40, Tablet Start Date: 07/27/15 Status: Orderedondansetron 4 mg oral tablet, disintegrating 1 tablet = 4 mg, By Mouth, Every 8 hours, PRN as needed for nausea/vomiting, # 9 tablet, 0 Refills, Maintenance, 10/14/20 22:05:00 EDT, DIS Tablet, [facility] #[id number], Partial fill upon patient requestif the prescription is for a schedule II opioid d... Start Date: 10/14/20 Stop Date: 10/17/20 Status: OrderedSprycel Tablet By Mouth, Daily, 0 Refills, Maintenance, 10/30/18 13:36:36 EDT Start Date: 10/30/18 Status: Orderedsucralfate 1 gm oral tablet TAKE 1 TABLET BY MOUTH 4 TIMES A DAY WITH MEALS AND AT NIGHT Start Date: 08/28/21 Status: OrderedWixela Inhub 250 mcg-50 mcg inhalation powder INHALE 1 PUFF BY MOUTH TWICE A DAY Start Date: 08/28/21 Status: Ordered Problem List Condition Effective Dates Status Health Status Informant Depression(Confirmed) Active Family history of breast cancer in Active sister(Confirmed) Leukemia(Confirmed) Active Obese class I(Confirmed) Active Social History Social History Type Response Smoking Status Never (less than 100 in life time) entered on: 10/30/18 Sex
--- OUTSIDE RECORDS SUMMARY | 2022-04-12 16:18 | XMS_ITS | Continuity of Care Document ---
:1975 Author Organization [facility] Address [address] [place] [address]- Care Team Providers Name Role Phone Fabian KOHLI, Chito Primary Care Physician En[place] [facility] [place] Date(s): 08/07/19 - 08/07/[address] [address]- [facility] Attending Physician: David Ma MD Allergies, Adverse Reactions, Alerts Substance Reaction [...]
--- OUTSIDE RECORDS SUMMARY | 2022-04-12 16:19 | XMS_ITS | Continuity of Care Document ---
:1975 Author Organization [facility] Address [address] [place] [address]- Care Team Providers Name Role Phone Fabian KOHLI, Chito Primary Care Physician Encounter [facility] [place] Date[place]s): 02/05/20 - 03/06/20 [facility] [address] [place] [address]- [facility] Attending Physician: Tim Esparza Admitting Physician: Tim Esparza Referring Physician: trTim Allergies, Adverse Reactions, Alerts Substance Reaction Severity [...]
--- OUTSIDE RECORDS SUMMARY | 2022-04-12 16:19 | XMS_ITS | Continuity of Care Document ---
:1975 Author Organization [facility] Address [address] [place] [address]- Care Team Providers Name Role Phone Fabian KOHLI, Chito Primary Care Physician [place] [facility] [place] 02/02/[address] [address]- [facility] Encounter Diagnosis Sore throat (Final) - 02/02/20 Discharge Disposition: A-D/C Home Attending Physician: Sri Pelayo MD Admitting Physician: Sri Pelayo MD Referring Physician: Not on Staff, Referring [...] cancer in Active sister(Confirmed) Leukemia(Confirmed) Active Results Orders for Microbiology Reports Name Date Group A Strep Screen and Culture 02/01/20 Microbiology Reports TEST:Group A Strep Screen and Culture STATUS:Unauthenticated BODY SITE: SOURCE:THROAT COLLECTED DATE/TIME:02/01/20 10:07 PMGroup A Strep Screen and Culture SPECIMEN DESCRIPTION : THROAT SWAB SPECIAL REQUESTS : NONE DIRECT EXAM : RAPID GROUP A RESULT IS NEGATIVE, REFER TO CULTURE RESULT. REPORT STATUS : PRELIMINARY REPORT Radiology Reports Exam Date Time Procedure Performing Provider Status 02/01/20 6:06 PM Chest Portable Musa Guerin; Zaida (Verified) Notes:(Chest Portable) Reason For Exam: Shortness of BreathRESULT: Chest Portable Chest Portable performed upright at 5:38 PM Reason: Shortness of Breath; Clinical Question(s): Pneumonia; Hx of Present Illness: sore throat; Other Objective Findings: Pt reports sore throat and headache since Saturday. COMPARISON: Chest x-rays dated 07/27/2015 and 11/28/2012. FINDINGS: LINES AND TUBES: None. LUNGS AND PLEURA: Clear lungs. Normal pulmonary vascularity. No pleural effusion. No pneumothorax. HEART, MEDIASTINUM AND SANJANA: Heart is normal in size. Normal mediastinal and hilar contour. BONES AND SOFT TISSUES: No acute abnormality. IMPRESSION: No acute abnormality. WSN: [id number] Ordering Physician: Nat López Dictated By: Monica Bal MD Dictated Date/Time: 02/01/20 6:09 pm Reviewed By: Monica Bal MD Signed By: Monica Bal MD Signed Date/Time: 02/01/20 6:09 pm Transcribed By: JONATHAN Transcribed Date/Time: 02/01/20 6:08 pm Vital Signs Most recent to oldest [Reference 1 2 3 Range]: Oxygen Saturation [94-100 %] 99 % 100 % 99 % (02/02/20 12:02 AM) (02/01/20 9:36 PM) (02/01/20 6:41 PM) Pulse Rate [55-90 bpm] 78 bpm 68 bpm 78 bpm (02/02/20 12:02 AM) (02/01/20 9:36 PM) (02/01/20 6:41 PM) Blood Pressure [90-138/55-84 mm 125/78 mm Hg 146/49 mm Hg 118/80 mm Hg Hg] (02/02/20 12:02 AM) *H* (02/01/20 6:41 P M) (02/01/20 9:36 PM) Respiratory Rate [16-30 br/min] 18 br/min 14 br/min 18 br/min (02/02/20 12:02 AM) *L* (8/3/20 6:41 P M) (02/01/20 9:36 PM) Temperature [96.8-100.4 DegF] 98.9 DegF (02/01/20 2:48 PM) Mode of Delivery (Oxygen) Room air Room air Room a ir (02/02/20 12:02 AM) (02/01/20 9:36 PM) (02/01/20 6:41 PM) Blood pressure sites Arm, left Arm, left Arm, left (02/02/20 12:02 AM) (02/01/20 9:36 PM) (02/01/20 6:41 PM) Temperature Route Oral (02/01/20 2:48 PM) Social History Social History Type Response Smoking Status Never (less than 100 in life time) entered on: 10/30/18 Sex
--- OUTSIDE RECORDS SUMMARY | 2022-04-12 16:19 | XMS_ITS | Continuity of Care Document ---
:1975 Author Organization [facility] Address [address] [place] [address]- Care Team Providers Name Role Phone Fabian KOHLI, Chito Primary Care Physician Encounter [facility] Date(s): 10/12/21 - 11/11/21 [facility] [address] [place] [address]- Attending Physician: Tim Esparza Admitting Physician: Tim Esparza Referring Physician: AdmtrTim Allergies, Adverse Reactions, Alerts Substance Reaction Severity Status penicillin Active propofol1 Severe Active Seafood Active 1Pt states she had a severe reaction at [facility]. Medications Albuterol (Eqv-ProAir HFA) 90 mcg/inh inhalation [...] Refills, Maintenance, 10/14/20 22:05:00 EDT, DIS Tablet, [facility]/pharmacy #[id number], Partial fill upon patient requestif the prescription [...]
--- OUTSIDE RECORDS SUMMARY | 2022-04-12 16:19 | XMS_ITS | Continuity of Care Document ---
:1975 Author Organization [facility] Address [address] [place] [address]- Care Team Providers Name Role Phone Po Josef HIDALGO Primary Care Physician Encounter [facility] [place] [place] Date(s): 08/26/21 - 08/28/[address] [id number] Discharge Disposition: A-D/C Home Attending Physician: Evelyn Krishna MD Admitting Physician: Bernard HIDALGO, Shanice Montalvo Referring Physician: Not on Staff, Referring MD Allergies, Adverse Reactions, Alerts Substance Reaction Severity Status penicillin Active propofol1 Severe Active Seafood Active 1Pt states she had a severe reaction at [facility]. Medications Albuterol (Eqv-ProAir HFA) 90 mcg/inh inhalation aerosol INHALE 2 PUFFS BY MOUTH EVERY 4-6 HOURS NEEDED FOR BRONCHOSPASM Start Date: 08/28/21 Status: OrderedAmbien 10 mg oral tablet 1 tablet = 10 mg, By Mouth, Daily at bedtime, PRN for sleep, 0 Refills, Maintenance, 07/27/15 20:28:40, Tablet Start Date: 07/27/15 Status: OrderedlevoFLOXacin 250 mg oral tablet 1 tablet = 250 mg, By Mouth, Every 24 hours, for 3 days, # 3 tablet, 0 Refills, Acute 08/31/21 10:40:00 EST, 08/28/21 10:40:00 EST, Tablet, [facility], Partial fill upon patient request if the prescription is for a schedule II opioid deepa... Start Date: 08/28/21 Stop Date: 08/31/21 Status: Orderedondansetron 4 mg oral tablet, disintegrating 1 tablet = 4 mg, By Mouth, Every 8 hours, PRN as needed for nausea/vomiting, # 9 tablet, 0 Refills, Maintenance, 10/14/20 22:05:00 EDT, DIS Tablet, [facility]/pharmacy #[id number], Partial fill upon patient requestif the prescription [...] sister(Confirmed) Leukemia(Confirmed) Active Obese class I(Confirmed) Active Results Orders for Microbiology Reports Name Date Blood Culture 08/26/21 Microbiology Reports TEST:Blood Culture STATUS:Unauthenticated BODY SITE: SOURCE:Blood COLLECTED DATE/TIME:08/26/21 2:21 AMBlood Culture SPECIMEN DESCRIPTION : BLOOD NO SITE SPECIAL REQUESTS : NONE CULTURE : NO GROWTH AFTER 48 HOURS REPORT STATUS : PRELIMINARY REPORT Vital Signs Most recent to oldest 1 2 3 [Reference Range]: Height 155 cm 155 cm 155 cm (08/28/21 11:19 AM) (08/28/21 7:32 AM) (08/28/21 4: 35 AM) Weight 82.72 kg 82.72 kg (08/27/21 4:32 PM) (08/26/21 8:11 AM) Oxygen Saturation [94-100 100 % 98 % 100 % %] (08/28/21 11:19 AM) (08/28/21 7:32 AM) (08/28/21 4: 35 AM) Pulse Rate [55-90 bpm] 72 bpm 62 bpm 66 bpm (08/28/21 11:19 AM) (08/28/21 7:32 AM) (08/28/21 4: 35 AM) Body Mass Index 34.43 34.43 [18.5-24.99] *>HHI* *>HHI* (08/27/21 4:32 PM) (08/26/21 8:11 AM) Blood Pressure 101/61 mm Hg 107/68 mm Hg 102/51 mm Hg [90-138/55-84 mm Hg] (08/28/21 11:19 AM) (08/28/21 7:32 AM) ( 4:35 AM) Respiratory Rate [16-30 18 br/min 18 br/min 18 br/mi n br/min] (08/28/21 11:19 AM) (08/28/21 9:00 AM) (08/28/21 7: 32 AM) Temperature [96.8-100.4 97.6 DegF 98.1 DegF 98 DegF DegF] (08/28/21 11:19 AM) (08/28/21 7:32 AM) (08/28/21 4: 35 AM) Liters per Minute 6 L/min 6 L/min 0 L/min (08/27/21 6:15 PM) (08/27/21 6:00 PM) (08/26/21 1:1 7 AM) Mode of Delivery (Oxygen) Room air Room air Room a ir (08/28/21 11:19 AM) (08/28/21 7:32 AM) (08/28/21 4: 35 AM) Blood pressure sites Arm, right Arm, right Arm, right (08/28/21 11:19 AM) (08/28/21 7:32 AM) (08/28/21 4: 35 AM) Temperature Route Oral Oral Oral (08/28/21 11:19 AM) (08/28/21 7:32 AM) (08/28/21 4: 35 AM) Dry Weight 82.72 kg (08/26/21 8:11 AM) Weight Obtained Via Patient/family stated (08/26/21 8:11 AM) Dry Weight Obtained Via Patient/family stated (08/26/21 8:11 AM) Social History Social History Type Response Smoking Status Never (less than 100 in life time) entered on: 10/30/18 Sex
[2022-04-12] MEDS: dexAMETHasone 6 MG TABLET PO (16:50)
[2022-04-12] MEDS: Lidocaine HCl Viscous 2 % 15 ML SOLUTION MUCOUS MEM (16:51)
[2022-04-12] MEDS: Azithromycin 500 MG TABLET PO (16:51)
== END 2022-04-12 16:57 | disposition home or self-care (01) ==
PROVIDERS: Emergency Provider Emergency Medicine; PCP Internal Medicine
DX: J02.0 Streptococcal pharyngitis (principal); Z20.822 Contact with and (suspected) exposure to COVID-19
CPT/HCPCS: 87502; 87635; 87651; 99283; J8540

== ENCOUNTER 2022-05-29 10:06 | Day surgery (SDC) | payer OTHER, SELFPAY ==
[2022-05-18 13:50] VITALS: BMI 34.5
[2022-05-18 13:58] VITALS: BMI 34.5
--- NOTE | 2022-05-28 11:04 | P.CONAN_ITS ---
Documented by User: Sandra Cummings NP 05/28/22 11:44 HPI - Anesthesia Eval Consult details Narrative: 46yo F for Upper Endoscopy Eliquis for LUE DVT Aspiration pna after 08/2019 colonoscopy. Had colonoscopy at [facility] 08/2021 without any anesthesia issues. PO chemo for CLL s/p EGD 01/2022 with TIVA PMFSH Active Problems Active Problems: All Active Problems (Updated 04/13/22 @ 00:03 by Fernando Magaña) Nasal congestion (Acute) Lymphadenopathy, anterior cervical (Acute) Lactose intolerance (Acute) Conjunctivitis, left eye (Acute) Viral syndrome (Acute) Hip pain, left (Acute) Lesion of left [place] kidney (Acute) Left flank pain (Acute) Generalized anxiety disorder (Acute) Perioral numbness (Acute) Dizziness (Acute) Impacted cerumen of left ear (Acute) Thoracic back pain (Acute) Vitamin D deficiency (Acute) Breast asymmetry (Acute) Annual physical exam (Acute) Frequency of micturition (Acute) LLQ abdominal pain (Acute) Pelvic pain (Acute) Anemia (Acute) Abdominal pain (Acute) Dysuria (Acute) Hypokalemia (Acute) Nausea & vomiting (Acute) Left arm pain (Acute) CLL (chronic lymphocytic leukemia) (Acute) Thrombophlebitis of upper extremity (Chronic) Constipation (Acute) Thoracic back pain (Acute) Lower extremity weakness (Acute) Schatzki's ring (Acute) Constipation (Acute) Hiatal hernia (Acute) Obesity (BMI 30-39.9) (Acute) Allergic rhinitis (Acute) Insomnia (Acute) Asthma (Acute) GERD (gastroesophageal reflux disease) (Acute) Leukemia (Acute) Past Medical History Medical History Allergic rhinitis Asthma 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 CML (chronic myelocytic leukemia) GERD (gastroesophageal reflux disease) Hematuria Hypercholesterolemia Insomnia Laryngospasm Leukemia Mixed incontinence Obesity (BMI 30-39.9) Patent foramen ovale Peptic ulcer disease PONV (postoperative nausea and vomiting) Family History Family History Maternal Aunt Breast cancer Paternal Grandmother Breast cancer Paternal Grandfather Myocardial infarction, acute, initial episode of care Paternal Uncle Stomach cancer Liver cancer Father Colon cancer Family history of problems with anesthesia: No Surgical History Surgical History History of bilateral salpingectomy History of tonsillectomy History of vaginal hysterectomy Hx of colonoscopy Hx of colonoscopy Hx of esophagogastroduodenoscopy Ulnar nerve entrapment at elbow History of Problems with Anesthesia: No Social History Social History Household Members: None Housing: Apartment Are you a primary memory care program director to a significant other at home: No Do you presently have visiting nurse or other home services: No Alcohol intake: current Alcohol intake frequency: does not drink Patient Tobacco Use Status: Never used Tobacco e-Cigarette/Vaping Use: Never Used Second Hand Smoke Exposure: No Use of substances other than those prescribed or required for medical reasons: No Have you been hit, kicked, punched, or otherwise hurt by someone within the past year? If so, by whom?: No Are you DNR?: No Advance Directives: Yes Advance Directives Information Provided: Yes Advance Directives on File: Yes Advance Directives Date on File: 02/06/22 Recently lost weight without trying: No Eating poorly because of decreased appetite: No Nutrition Risks: No Nutritional Risk Patient : No FDLMP: 2007 : No Poor oral hygiene: No (permanent upper bridge) service: No Current occupational status: employed Cognitive needs: No Hearing needs: No Vision needs: Yes Meds Allergies Allergy/AdvReac Type Severity Reaction Status Date / Time nut - unspecified [nut] Allergy Severe Anaphylaxis Verified 05/29/22 10:35 Penicillins Allergy Severe RASH Verified 05/29/22 10:35 seafood Allergy Severe Anaphylaxis Verified 05/29/22 10:35 shellfish derived Allergy Severe Anaphylaxis Verified 05/29/22 10:35 [facility] AdvReac Intermediate palpitation Uncoded 05/18/22 13:51 s Home Medications Medication Instructions Recorded Confirmed Last Taken Type sertraline 100 mg tablet 100 mg PO DAILY 04/07/20 05/18/22 Unknown History zolpidem 10 mg tablet (Ambien) 10 mg PO BEDTIME PRN Insomnia 04/07/20 05/18/22 Unknown History sucralfate 1 gram tablet 1 g PO DAILY PRN Gastric Reflux 08/03/20 05/18/22 Unknown History clonazepam 0.5 mg tablet 0.5 mg PO DAILY 03/12/22 05/18/22 Unknown History fluticasone 250 mcg-salmeterol 50 1 ea inhalation BID 03/12/22 05/18/22 Unknown History mcg/dose blistr powdr for inhalation ([place]) Exam Exam Date and Time: May 28, 2022 1104 Height,Weight and Vital Signs: Height 5 ft 1 in Weight 83.007 kg Pertinent Lab Results Pertinent Lab Results: Laboratory Tests 03/06/22 03/06/22 13:41 13:41 WBC 6.7 Hgb 12.9 Hct 38.9 Plt Count 228 Sodium 139 Potassium 3.7 Chloride 104 Carbon Dioxide 25 BUN 10 Creatinine 0.66 Narrative Narrative: EKG 11/2021 Vent. Rate : 074 BPM ? ? Atrial Rate : 074 BPM ?? P-R Int : 154 ms? QRS Dur : 080 ms ? ? QT Int : 402 ms ? ? ? P-R-T Axes : 034 -03 001 degrees ?? QTc Int : 446 ms ? 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 CML (chronic myelocytic leukemia) GERD (gastroesophageal reflux disease) Hematuria Hypercholesterolemia Insomnia Laryngospasm Leukemia Mixed incontinence Obesity (BMI 30-39.9) Patent foramen ovale Peptic ulcer disease PONV (postoperative nausea and vomiting) Family History Family History Maternal Aunt Breast cancer Paternal Grandmother Breast cancer Paternal Grandfather Myocardial infarction, acute, initial episode of care Paternal Uncle Stomach cancer Liver cancer Father Colon cancer Surgical History Surgical History History of bilateral salpingectomy History of tonsillectomy History of vaginal hysterectomy Hx of colonoscopy Hx of colonoscopy Hx of esophagogastroduodenoscopy Ulnar nerve entrapment at elbow Social History Social History Household Members: None Housing: Apartment Are you a primary memory care program director to a significant other at home: No Do you presently have visiting nurse or other home services: No Alcohol intake: current Alcohol intake frequency: does not drink Patient Tobacco Use Status: Never used Tobacco e-Cigarette/Vaping Use: Never Used Second Hand Smoke Exposure: No Use of substances other than those prescribed or required for medical reasons: No Have you been hit, kicked, punched, or otherwise hurt by someone within the past year? If so, by whom?: No Are you DNR?: No Advance Directives: Yes Advance Directives Information Provided: Yes Advance Directives on File: Yes Advance Directives Date on File: 02/06/22 Recently lost weight without trying: No Eating poorly because of decreased appetite: No Nutrition Risks: No Nutritional Risk Patient : No FDLMP: 2007 : No Poor oral hygiene: No (permanent upper bridge) service: No Current occupational status: employed Cognitive needs: No Hearing needs: No Vision needs: Yes Meds Allergies Allergy/AdvReac Type Severity Reaction Status Date / Time nut - unspecified [nut] Allergy Severe Anaphylaxis Verified 05/29/22 10:35 Penicillins Allergy Severe RASH Verified 05/29/22 10:35 seafood Allergy Severe Anaphylaxis Verified 05/29/22 10:35 shellfish derived Allergy Severe Anaphylaxis Verified 05/29/22 10:35 [facility] AdvReac Intermediate palpitation Uncoded 05/18/22 13:51 s Home Medications Medication Instructions Recorded Confirmed Last Taken Type sertraline 100 mg tablet 100 mg PO DAILY 04/07/20 05/18/22 Unknown History zolpidem 10 mg tablet (Ambien) 10 mg PO BEDTIME PRN Insomnia 04/07/20 05/18/22 Unknown History sucralfate 1 gram tablet 1 g PO DAILY PRN Gastric Reflux 08/03/20 05/18/22 Unknown History clonazepam 0.5 mg tablet 0.5 mg PO DAILY 03/12/22 05/18/22 Unknown History fluticasone 250 mcg-salmeterol 50 1 ea inhalation BID 03/12/22 05/18/22 Unknown History mcg/dose blistr powdr for inhalation ([facility]) Exam Airway Mallampati Class: II TM Dist: >3cm Neck ROM: Full Loose/Missing/Broken Teeth: No Heart: rrr Lungs: clear Assessment and Plan Final Anesthetic Review NPO: Yes ASA Class: III Final Preanesthetic Review: No Changes in Pt Med Stat, Meds/Allgs Chart Reviewed, Consent Obtained/Reviewed and Anes Risks/Benef Reviewed Patient Risk: Intermediate Procedure Risk: Low Anesthetic Plan Anesthetic Plan: MAC: Disposition: Standard PACU
--- NOTE | 2022-05-29 10:18 | P.HPSUR_ITS ---
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 CML (chronic myelocytic leukemia) GERD (gastr oesophageal reflux disease) Hematuria Hypercholesterolemia Insomnia Laryngospasm Leukemia Mixed incontinence Obesity (BMI 30-39.9) Patent foramen ovale Peptic ulcer disease PONV (postoperative) History of Previous Operations: Relevant previous surgery/procedure and date(s) (History of bilateral salpingectomy History of tonsillectomy History of vaginal hysterectomy Hx of colonoscopy Hx of colonoscopy Hx of esophagogastroduodenoscopy Ulnar nerve entrapment at elbow) Allergies: Allergies Allergy/AdvReac Type Severity Reaction Status Date / Time nut - unspecified [nut] Allergy Severe Anaphylaxis Verified 03/12/22 14:06 Penicillins Allergy Severe RASH Verified 03/12/22 14:06 seafood Allergy Severe Anaphylaxis Verified 03/12/22 14:06 shellfish derived Allergy Severe Anaphylaxis Verified 03/12/22 14:06 [facility] AdvReac Intermediate palpitation Uncoded 05/18/22 13:51 s Review of Systems Sugical H&P ROS: Negative: Constitution, Cardiovascular, Respiratory, Neurological, Psychiatric, Hem-Onc, Allergic/Immunologic, Gastrointestinal, Genitourinary, Musculoskeletal, Integumentary, Endocrine and Eyes/Ears/Nose/Throat Exam Surgical H&P Exam: Normal: HEENT, Normal: Heart, Normal: Lungs, Normal: Extremities, Normal: Abdomen, Normal: Skin and Normal: Neurological Plan Diagnosis/Plan: Unchanged I have reviewed the history and physical and performed a pertinent physical examination on my patient. No changes have occurred unless specified.
[2022-05-29 10:19] VITALS: BP 122/78; PULSE 80; RESP 15; TEMP 36.7; O2SAT 99
--- NOTE | 2022-05-29 11:41 | W.PM.OPN ---
Operative Note Operative Note Date of Service: 05/29/22 Narrative: Procedure Description: EGD Indication: [] Anesthesia: MAC FLEXIBLE TRANSORAL UPPER GASTROINTESTINAL ENDOSCOPY UPPER ENDOSCOPY Consent: Indications for the procedure and potential complications of bleeding, perforation, reaction to medications and missed diagnosis were discussed with the patient and informed consent was obtained. Instrument: Olympus GIF H 190 J mid size upper endoscope Monitoring: Vital signs and clinical assessment, continuous EKG monitoring, Pulse oximetry, Carbon Dioxide monitoring and blood pressure monitoring were done throughout the procedure. Procedure: The patient was placed in the left lateral decubitis position and pre-procedure medications were administered and a bite block was placed. The endoscope was inserted into the mouth and advanced under direct vision to the third part of duodenum. A careful inspection was made as the upper endoscope was withdrawn including a retroflexed examination of the proximal stomach; Findings and interventions are described below. Findings: Larynx:normal Esophagus: GE junction at 33? cm, diaphragm hiatus at 35 cm, bogginess, edema and erythema at GEJ consistent with LA grade A esophagitis (better than last time) with partial schatzki ring. Balloon dilation done -18 mm with tear noted. There is a 2 cm sliding hiatal hernia. Esophageal inlet patch noted. Stomach: Normal mucosa. Grade 1 flap valve on retroflexed examination of the cardia. Few benign fundic gland polyps noted. Duodenum: Normal bulb and descending duodenum, Intervention: Balloon dilation Impression/Findings: esophagitis schatzki ring hiatal hernia inlet patch fundic gland polyps PLAN: Po diet as tolerated today but avoid spicy food and very hot or cold beverages Magic mouthwash for 1 week can take tylenol for discomfort
[2022-05-29 11:59] VITALS: BP 117/68; PULSE 97; RESP 18; TEMP 37.1; O2SAT 98
[2022-05-29] MEDS: Albuterol Sulfate (0.083%) 2.5 MG/3 ML VIAL.NEB INHALE (12:12)
[2022-05-29 12:14] VITALS: BP 112/71; PULSE 84; RESP 16; O2SAT 98
[2022-05-29 12:29] VITALS: BP 102/60; PULSE 87; RESP 16; TEMP 36.6; O2SAT 98
[2022-05-29] MEDS: Mag&Al/Sim/Diphenhyd/Lidocaine 10 ML ORAL.SUSP PO (13:04)
== END 2022-05-29 13:26 | disposition home or self-care (01) ==
PROVIDERS: PCP Internal Medicine; Visit Provider Internal Medicine Gastroenterology
PROC: 0DJ08ZZ Inspection of Upper Intestinal Tract, Via Natural or Artificial Opening Endoscopic (ICD-10-PCS; CPT 43235; principal; 2022-05-29 11:50)
DX: K22.2 Esophageal obstruction (principal); K20.90 Esophagitis, unspecified without bleeding; K31.7 Polyp of stomach and duodenum; K44.9 Diaphragmatic hernia without obstruction or gangrene; Q39.8 Other congenital malformations of esophagus; K21.9 Gastro-esophageal reflux disease without esophagitis; J45.909 Unspecified asthma, uncomplicated; Z86.718 Personal history of other venous thrombosis and embolism; Z79.01 Long term (current) use of anticoagulants; Z79.899 Other long term (current) drug therapy; Z88.0 Allergy status to penicillin
CPT/HCPCS: 43249; C1726

== ENCOUNTER → 2022-06-11 14:19 | Outpatient (BNVA) | payer OTHER, SELFPAY | PROVIDERS: PCP Internal Medicine; Visit Provider Physician Assistant | DX: K22.2 Esophageal obstruction (principal); K21.9 Gastro-esophageal reflux disease without esophagitis; Z98.890 Other specified postprocedural states | CPT/HCPCS: 99212 ==

== ENCOUNTER 2022-07-31 12:14 | Emergency (ER) | payer OTHER, SELFPAY ==
--- NOTE | ~2022-07-31 | CT_ITS ---
EXAMINATION: CT ABDOMEN AND PELVIS WITH CONTRAST CLINICAL INFORMATION: Pain. Nausea and vomiting. Status post hysterectomy. COMPARISON: CT scan abdomen and pelvis 12/13/2021 TECHNIQUE: Multidetector volumetric images were obtained from the superior aspect of the liver through the pubic symphysis following administration 85 mL of Omnipaque 350 intravenous contrast. Sagittal and coronal reformatted images were obtained on the technologist's workstation. Oral contrast: No This CT examination was performed using dose optimization techniques as appropriate, variously including the following: *Automated exposure control *Adjustment of mA and/or kV according to patient size (this includes techniques or standardized protocols for targeted exams where dose is matched to indication/reason for exam; i.e. extremities or head) *Use of iterative reconstruction technique DLP: 725 mGy-cm FINDINGS: LUNG BASES: The visualized lung bases are unremarkable. LIVER, GALLBLADDER, AND BILIARY TREE: The liver is normal in size, shape, and attenuation. No focal hepatic lesion or biliary ductal dilatation is present. The gallbladder is unremarkable with no evidence of radiopaque gallstones, gallbladder wall thickening, or obvious pericholecystic inflammatory changes. PANCREAS: Unremarkable. SPLEEN: Unremarkable. ADRENAL GLANDS: Unremarkable. KIDNEYS AND URETERS: The kidneys are normal in size, shape, and attenuation. No hydronephrosis, hydroureter, or calculi seen. No perinephric stranding. BLADDER: Unremarkable. GASTROINTESTINAL TRACT: There are numerous diverticula of the sigmoid colon. There is no diverticulitis. There is no bowel wall thickening /edema. There is no bowel obstruction. There is a moderate volume of stool in the colon. The appendix is normal . The small bowel loops are unremarkable. The stomach is normal. There is no hiatal hernia. ABDOMINAL WALL: No significant hernia is appreciated. LYMPH NODES: Normal. VASCULAR: Unremarkable. PELVIC VISCERA: Status post hysterectomy. The right and left ovaries remain in place. There is a 2 cm cyst in the left ovary. No inflammation or fluid collections in the pelvis. OSSEOUS STRUCTURES: Unremarkable. CT/CT abdomen pelvis w IV con IMPRESSION: No acute abnormality CT scan abdomen pelvis. Fleischner guidelines were followed.
[2022-07-31 13:56] VITALS: BP 122/78; PULSE 99; RESP 16; TEMP 37.2; O2SAT 99; BMI 34.5
[2022-07-31 14:30] LABS: MANUAL DIFF FLAG NO
[2022-07-31 14:32] LABS: Basophils Percent Auto 0.4 % (0-2); Eosinophils Percent Auto 0.4 % (0-4); Hematocrit 39.4 % (37.0-47.0); Imm Gran Abs Auto 0.01 X10*3/uL (0.00-0.03); Imm Gran Pct Auto 0.1 % (0.0-0.4); Lymphocytes Absolute Auto 0.9 X10*3/uL (1.2-4.9); Lymphocytes Percent Auto 11.3 % (20-40); Mean Platelet Volume 9.8 fL (9.4-12.3); Monocytes Absolute Auto 0.4 X10*3/uL (0.1-1.2); Monocytes Percent Auto 4.4 % (2-11); Neutrophils Absolute Auto 6.8 x10*3/uL (2.0-8.3); Neutrophils Percent Auto 83.4 % (45-73); Platelet Count 221 X10*3/uL (160-400); Red Blood Count 4.33 X10*6/uL (4.20-5.50); Red Cell Distribution Width 11.9 % (11.0-16.0); White Blood Count 8.2 X10*3/uL (4.8-10.8)
[2022-07-31 14:33] LABS: Appearance Urine Clear; Color Urine Yellow; Glucose Urine UA Negative (Negative); Leukocyte Esterase Urine Negative (Negative); Nitrite Urine Negative (Negative); PH 7.5 (5.0-9.0); Urine Blood Negative (Negative); Urine Ketones Negative (Negative); Urine Protein Negative (Neg-Trace)
[2022-07-31 14:46] LABS: Anion Gap 13 (12-20); Blood Urea Nitrogen 10 mg/dL (9-16); Calcium 8.8 mg/dL (8.4-10.2); Carbon Dioxide 23 mmol/L (22-29); Chloride 104 mmol/L (96-108); Creatinine Clr Calc Pharmacy 101.4; Estimated Glomerular Filt Rate > 60; Glucose Random 110 mg/dL (60-115); Potassium 3.7 mmol/L (3.3-5.1); Sodium 136 mmol/L (135-145)
[2022-07-31 14:46] LABS: COVID-19 Test Negative (Negative); IDNOW Serial# 55D5AD1C
[2022-07-31 14:54] LABS: IDNOW Serial# 6674DD1D; Influenza A Negative (Negative); Influenza B2 Negative (Negative)
--- NOTE | 2022-07-31 16:31 | ED_ITS ---
HPI - Abdominal Pain General Chief Complaint: Abdominal Pain Stated Complaint: Vomiting/Headache Time Seen by Provider: 07/31/22 16:28 History of Present Illness HPI narrative: Patient is a 46-year-old female presents today with having nausea vomiting. No diarrhea. Vomiting mostly consistent with food. Complaining of pain as diffuse over the entire abdomen. No pain on urination. Patient is status post hysterectomy. Positive subjective fever. No radiation of the pain. No history kidney stone. No chest pain or shortness of breath. No diaphoresis. Symptoms been ongoing since last night Related Data Home Medications Medication Instructions Recorded Confirmed sertraline 100 mg tablet 100 mg PO DAILY 04/07/20 07/27/22 zolpidem 10 mg tablet (Ambien) 10 mg PO BEDTIME PRN Insomnia 04/07/20 07/27/22 clonazepam 0.5 mg tablet 0.5 mg PO DAILY 03/12/22 07/27/22 nilotinib 150 mg capsule (Tasigna) 150 mg PO QPM 06/15/22 07/27/22 nilotinib 150 mg capsule (Tasigna) 300 mg PO QAM 06/15/22 07/27/22 fluticasone 250 mcg-salmeterol 50 1 inh inhalation BID 07/27/22 07/27/22 mcg/dose blistr powdr for inhalation (Advair Diskus) Previous Rx's Medication Instructions Recorded cholecalciferol (vitamin D3) 50 50 mcg PO DAILY 90 days #90 caps 05/09/21 mcg (2,000 unit) capsule ondansetron 8 mg disintegrating 8 mg PO Q12H PRN nausea and 11/29/21 tablet vomiting #20 tabs albuterol sulfate 90 mcg/actuation 2 puff PO Q4-6H PRN for muscle 05/25/22 aerosol inhaler spasm #8.5 ea famotidine 40 mg tablet 40 mg PO DAILY PRN acid reflux #30 06/11/22 tabs sucralfate 1 gram tablet 1 g PO ONCE PRN acid reflux 30 06/11/22 days #56 tabs sennosides 8.6 mg-docusate sodium 2 tab-cap PO BEDTIME 90 days #180 06/18/22 50 mg tablet (Senna-S) tabs montelukast 10 mg tablet 10 mg PO BEDTIME #30 tabs 01/27/23 (Singulair) polyethylene glycol 3350 17 gram 17 g PO DAILY #30 ea 07/27/22 oral powder packet (Miralax) ondansetron 4 mg disintegrating 4 mg PO TID PRN nausea and 07/31/22 tablet vomiting 5 days #10 tabs Allergies Allergy/AdvReac Type Severity Reaction Status Date / Time nut - unspecified [nut] Allergy Severe Anaphylaxis Verified 07/27/22 16:34 Penicillins Allergy Severe RASH Verified 07/27/22 16:34 seafood Allergy Severe Anaphylaxis Verified 07/27/22 16:34 shellfish derived Allergy Severe Anaphylaxis Verified 07/27/22 16:34 Wixela Inhub AdvReac Intermediate palpitation Uncoded 07/27/22 16:34 s Review of Systems Review of Systems Positive nausea vomiting abdominal pain Yes all other systems are reviewed and are negative PMFSH Past Medical History Attestation statement: The following information was validated with the patient. 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 Breast asymmetry CLL (chronic lymphocytic leukemia) CML (chronic myelocytic leukemia) Conjunctivitis, left eye Dizziness Dysuria Frequency of micturition GERD (gastroesophageal reflux disease) Hematuria Hip pain, left Hypercholesterolemia Hypokalemia Impacted cerumen of left ear Insomnia Laryngospasm Left flank pain Lesion of left [place] kidney Leukemia LLQ abdominal pain Lower extremity weakness Lymphadenopathy, anterior cervical Mixed incontinence Nasal congestion Obesity (BMI 30-39.9) Patent foramen ovale Pelvic pain Peptic ulcer disease Perioral numbness PONV (postoperative nausea and vomiting) Thoracic back pain Viral syndrome Surgical History History of bilateral salpingectomy History of tonsillectomy History of vaginal hysterectomy Hx of colonoscopy Hx of colonoscopy Hx of esophagogastroduodenoscopy Ulnar nerve entrapment at elbow Family History Family History (Updated 07/27/22 @ 17:01 by Josef Lindquist MD) Maternal Aunt Breast cancer Paternal Grandmother Breast cancer Paternal Grandfather Myocardial infarction, acute, initial episode of care Paternal Uncle Stomach cancer Liver cancer Pancreatic cancer Father Colon cancer Social History Social History (Updated 07/27/22 @ 17:01 by Josef Lindquist MD) Household Members: None Housing: Apartment Are you a primary career development counselor to a significant other at home: No Do you presently have visiting nurse or other home services: No Alcohol intake: never Patient Tobacco Use Status: Never used Tobacco e-Cigarette/Vaping Use: Never Used Second Hand Smoke Exposure: No Advance Directives: Yes Advance Directives on File: Yes Advance Directives Date on File: 02/06/22 Patient : No service: No Current occupational status: employed Cognitive needs: No Hearing needs: No Vision needs: Yes Physical Exam ED Vital Signs: Vital Signs - 24 hr 07/31/22 13:56 07/31/22 17:31 Temperature 98.9 F 101.1 F H Pulse Rate 99 Respiratory Rate 16 Blood Pressure 122/78 Pulse Oximetry 99 Oxygen Delivery Method Room Air BMI result Body Mass Index 34.5 Appearance: Alert. Oriented X3. No acute distress. Eyes: Pupils equal, round and reactive to light. ENT: Pharynx normal. Neck: Normal inspection. Neck supple. No lymph nodes noted. No crepitus CVS: Normal heart rate and rhythm. Pulses normal. Normal S1 and S2 Respiratory: No respiratory distress. Breath sounds normal. No Wheezing. No rales Abdomen: Soft and nontender. No rigidity. No distention. good BS x4 Skin: Skin warm and dry. Normal skin color. Normal skin turgor. Extremities: No lower extremity edema. Neurovascular intact to all extremities. No Lacerations. No Rash Neuro: Oriented X 3. No motor deficit. No sensory deficit. Moving all extermities. No slurred speech Medical Decision Making Medical Decision Making MDM Narrative: Patient has a history of CML. Currently on question chemo agent. Presented with abdominal pain nausea vomiting. CT scan of the abdomen was ordered to rule out the possibility of obstruction abscess perforation. Patient's urine was negative for any acute evidence of infection. Patient's white count was ordered to rule out the possibility of neutropenia. CT scan of the abdomen pelvis was grossly read is negative for any acute evidence of obstruction abscess or perforation. Her symptom improved with Zofran and fluids. Patient's white count is normal. Hemoglobin is 13. Case discussed with dr. Mirza from Oncology. Akriaz with patient following up on an outpatient basis. Hold the chemo agent for 2 days. Will prescribe patient was Zofran. In stable condition. Differential Diagnosis Differential Diagnoses: The differential diagnosis associated with the presentation includes Obstruction abscess perforation, appendicitis, cholecystitis, neutropenic fever, urinary tract infection, flu, RSV, influenza Admission/Observation Consideration of admission/observation: Escalation of care including admission/observation considered Symptom improved tolerating fluid well appearing no need for admission Consult Healthcare Provider Management of the patient was discussed with: Director Of Architecture Case consulted with oncology feel comfortable with discharge Lab Data MDM Lab Attestation statement: I reviewed the patient's lab results. 07/31/22 14:26 07/31/22 14:26 Labs: Lab Results 07/31/22 07/31/22 07/31/22 Range/Units 14:22 14:23 14:23 WBC (4.8-10.8) X10*3/uL RBC (4.20-5.50) X10*6/uL Hgb (12.0-16.0) g/dl Hct (37.0-47.0) % MCV (80.0-98.0) fL MCH (27.0-33.0) pg MCHC (31.0-35.0) g/dl RDW (11.0-16.0) % Plt Count (160-400) X10*3/uL MPV (9.4-12.3) fL Immature Gran % (Auto) (0.0-0.4) % Neut % (Auto) (45-73) % Lymph % (Auto) (20-40) % Forrest % (Auto) (2-11) % Eos % (Auto) (0-4) % Baso % (Auto) (0-2) % Lymph # (Auto) (1.2-4.9) X10*3/uL Forrest # (Auto) (0.1-1.2) X10*3/uL Eos # (Auto) (0.0-0.4) X10*3/uL Baso # (Auto) (0.0-0.2) X10*3/uL Abs Immat Gran (auto) (0.00-0.03) X10*3/uL Absolute Neuts (auto) (2.0-8.3) x10*3/uL Absolute Nucleated RBC (0.0-0.012) X10*3/uL Nucleated RBC % (auto) (0.0-0.2) /100WBC Sodium (135-145) mmol/L Potassium (3.3-5.1) mmol/L Chloride (96-108) mmol/L Carbon Dioxide (22-29) mmol/L Anion Gap (12-20) BUN (9-16) mg/dL Creatinine (0.5-1.4) mg/dL Estim Creat Clear Calc Estimated GFR Random Glucose (60-115) mg/dL Calcium (8.4-10.2) mg/dL Total Bilirubin (0.0-1.0) mg/dL Direct Bilirubin (0.0-0.5) mg/dL AST (5-31) U/L ALT (0-31) U/L Alkaline Phosphatase (39-117) U/L Total Protein (6.5-8.0) g/dL Albumin (3.5-5.0) g/dL Lipase (8-78) U/L Urine Color Yellow Urine Appearance Clear Urine pH 7.5 (5.0-9.0) Ur Specific [place] 1.020 (1.005-1.025) Urine Protein Negative (Neg-Trace) mg/dL Urine Glucose (UA) Negative (Negative) mg/dL Urine Ketones Negative (Negative) mg/dL Urine Blood Negative (Negative) Urine Nitrite Negative (Negative) Ur Leukocyte Esterase Negative (Negative) COVID-19 ([facility]) Negative (Negative) COVID-19 Clin Com See Note Influenza Type A ([facility]) Negative (Negative) Influenza Type B ([facility]) Negative (Negative) Influenza A & B Note See Note 07/31/22 07/31/22 Range/Units 14:26 14:26 WBC 8.2 (4.8-10.8) X10*3/uL RBC 4.33 (4.20-5.50) X10*6/uL Hgb 13.0 (12.0-16.0) g/dl Hct 39.4 (37.0-47.0) % MCV 91.0 (80.0-98.0) fL MCH 30.0 (27.0-33.0) pg MCHC 33.0 (31.0-35.0) g/dl RDW 11.9 (11.0-16.0) % Plt Count 221 (160-400) X10*3/uL MPV 9.8 (9.4-12.3) fL Immature Gran % (Auto) 0.1 (0.0-0.4) % Neut % (Auto) 83.4 H (45-73) % Lymph % (Auto) 11.3 L (20-40) % Forrest % (Auto) 4.4 (2-11) % Eos % (Auto) 0.4 (0-4) % Baso % (Auto) 0.4 (0-2) % Lymph # (Auto) 0.9 L (1.2-4.9) X10*3/uL Forrest # (Auto) 0.4 (0.1-1.2) X10*3/uL Eos # (Auto) 0.0 (0.0-0.4) X10*3/uL Baso # (Auto) 0.0 (0.0-0.2) X10*3/uL Abs Immat Gran (auto) 0.01 (0.00-0.03) X10*3/uL Absolute Neuts (auto) 6.8 (2.0-8.3) x10*3/uL Absolute Nucleated RBC 0.000 (0.0-0.012) X10*3/uL Nucleated RBC % (auto) 0.0 (0.0-0.2) /100WBC Sodium 136 (135-145) mmol/L Potassium 3.7 (3.3-5.1) mmol/L Chloride 104 (96-108) mmol/L Carbon Dioxide 23 (22-29) mmol/L Anion Gap 13 (12-20) BUN 10 (9-16) mg/dL Creatinine 0.67 (0.5-1.4) mg/dL Estim Creat Clear Calc 101.4 Estimated GFR > 60 Random Glucose 110 (60-115) mg/dL Calcium 8.8 D (8.4-10.2) mg/dL Total Bilirubin 1.1 H (0.0-1.0) mg/dL Direct Bilirubin 0.3 (0.0-0.5) mg/dL AST 19 (5-31) U/L ALT 10 (0-31) U/L Alkaline Phosphatase 85 (39-117) U/L Total Protein 7.1 (6.5-8.0) g/dL Albumin 4.0 (3.5-5.0) g/dL Lipase 27 (8-78) U/L Urine Color Urine Appearance Urine pH (5.0-9.0) Ur Specific [place] (1.005-1.025) Urine Protein (Neg-Trace) mg/dL Urine Glucose (UA) (Negative) mg/dL Urine Ketones (Negative) mg/dL Urine Blood (Negative) Urine Nitrite (Negative) Ur Leukocyte Esterase (Negative) COVID-19 ([facility]) (Negative) COVID-19 Clin Com Influenza Type A (ELINOR) (Negative) Influenza Type B ([facility]OR) (Negative) Influenza A & B Note Independent Historian Clinical information obtained from an independent historian. History obtained from or confirmed by: Spouse External Record Review External record reviewed: Inpatient record and Office record Prescription Management I considered prescription management with: Other Zofran for nausea Chronic Conditions Patient?s care impacted by: Cancer Medications Administered Discontinued Medications Generic Name Dose Route Start Last Admin Trade Name Freq PRN Reason Stop Dose Admin Acetaminophen 975 mg 07/31/22 18:01 07/31/22 18:12 Acetaminophen 325 Mg Tablet PO 07/31/22 18:02 975 mg ONCE ONE Administration Sodium Chloride 1,000 mls @ 999 mls/hr 07/31/22 16:45 07/31/22 17:35 Ns IV 07/31/22 17:45 999 mls/hr .Q1H1M EMILY Administration Iohexol 100 ml 07/31/22 17:28 07/31/22 17:29 Iohexol 350 Mg/Ml 100 Ml Infus..Btl IV 07/31/22 17:29 85 ml ONCE ONE Administration Ketorolac Tromethamine 15 mg 07/31/22 16:33 07/31/22 17:35 Ketorolac Tromethamine 15 Mg/Ml Vial IVPUSH 07/31/22 16:34 15 mg ONCE ONE Administration Ondansetron HCl 4 mg 07/31/22 16:33 07/31/22 17:35 Ondansetron Hcl 4 Mg/2 Ml Vial IVPUSH 07/31/22 16:34 4 mg ONCE ONE Administration Discharge Plan Discharge Clinical Impression: Leukemia, Nausea & vomiting Patient Disposition: Home, Self-Care Instructions: Acute Nausea and Vomiting (ED) Additional Instructions: Stop the Tasigna for 2 days. Prescriptions: New ondansetron 4 mg tablet,disintegrating 4 mg PO TID PRN (Reason: nausea and vomiting) 5 Days Qty: 10 0RF No Action albuterol sulfate 90 mcg/actuation HFA aerosol inhaler 2 puff PO Q4-6H PRN (Reason: for muscle spasm) Qty: 8.5 0RF ondansetron 8 mg tablet,disintegrating 8 mg PO Q12H PRN (Reason: nausea and vomiting) Qty: 20 0RF Tasigna 150 mg capsule 300 mg PO QAM Rx Instructions: Per Dr. Mirza on 06/15/22, pt should begin taking 300 mg (two 150 mg caps) every morning, and 150 mg (one cap) at night. must be taken on empty stomach; no food at least 2 hrs before or 1 hr after dose Tasigna 150 mg capsule 150 mg PO QPM Rx Instructions: Per Dr. Mirza on 06/15/22, pt should begin taking 300 mg (two 150 mg caps) every morning, and 150 mg (one cap) at night. must be taken on empty stomach; no food at least 2 hrs before or 1 hr after dose sertraline 100 mg tablet 100 mg PO DAILY zolpidem [Ambien] 10 mg tablet 10 mg PO BEDTIME PRN (Reason: Insomnia) cholecalciferol (vitamin D3) 50 mcg (2,000 unit) capsule 50 mcg PO DAILY 90 Days Qty: 90 3RF fluticasone propion-salmeterol [Advair Diskus] 250-50 mcg/dose blister with device 1 inh inhalation BID montelukast [Singulair] 10 mg tablet 10 mg PO BEDTIME Qty: 30 3RF polyethylene glycol 3350 [Miralax] 17 gram powder in packet 17 g PO DAILY Qty: 30 3RF sennosides-docusate sodium [Senna-S] 8.6-50 mg tablet 2 tab-cap PO BEDTIME 90 Days Qty: 180 2RF clonazepam 0.5 mg tablet 0.5 mg PO DAILY famotidine 40 mg tablet 40 mg PO DAILY PRN (Reason: acid reflux) Qty: 30 6RF Rx Instructions: 2 hours before bedtime sucralfate 1 gram tablet 1 g PO ONCE PRN (Reason: acid reflux) 30 Days Qty: 56 4RF Rx Instructions: 2 hours after other meds daily Referrals: Daphne Mirza MD [Physician] - 08/02/22 Po,Josef Nair MD [Primary Care Provider] - 08/02/22
[2022-07-31 17:13] LABS: Alanine Aminotransferase 10 U/L (0-31); Alkaline Phosphatase 85 U/L (39-117); Aspartate Amino Transferase 19 U/L (5-31); Bilirubin Direct 0.3 mg/dL (0.0-0.5); Bilirubin Total 1.1 mg/dL (0.0-1.0); Lipase 27 U/L (8-78); Total Protein 7.1 g/dL (6.5-8.0)
[2022-07-31] MEDS: iohexoL 350 MG/ML 100 ML INFUS..BTL IV (17:29)
[2022-07-31 17:31] VITALS: TEMP 38.4
--- NOTE | 2022-07-31 17:32 | PC.NURSE ---
Alert and oriented, respirations even and unlabored. IV established, obtaining CT scan at this time.
[2022-07-31] MEDS: ondansetron HCL 4 MG/2 ML VIAL IVPUSH (17:35)
[2022-07-31] MEDS: Ketorolac Tromethamine 15 MG/ML VIAL IVPUSH (17:35)
[2022-07-31] MEDS: 0.9 % Sodium Chloride 1,000 ML 999 ML IV (17:35)
[2022-07-31] MEDS: Acetaminophen 325 MG TABLET 975 MG PO (18:12)
--- NOTE | 2022-07-31 20:02 | PC.NURSE ---
Pt aox4. No apparent distress noted. IV line removed. Pt tolerated well. Discharge instructions reviewed with pt. Pt verbalizes understanding.
== END 2022-07-31 20:04 | disposition home or self-care (01) ==
PROVIDERS: Emergency Provider Emergency Medicine Emergency Medical Services; PCP Internal Medicine
DX: C92.10 Chronic myeloid leukemia, BCR/ABL-positive, not having achieved remission (principal); R11.2 Nausea with vomiting, unspecified; R50.9 Fever, unspecified; Z20.822 Contact with and (suspected) exposure to COVID-19; Z92.21 Personal history of antineoplastic chemotherapy; Z79.899 Other long term (current) drug therapy
CPT/HCPCS: 74177; 80048; 80076; 81003; 83690; 85025; 87502; 87635; 96374; 96375; 99284; 99285; J1885; J2405; Q9967

== ENCOUNTER → 2022-08-09 14:58 | Outpatient (REF) | payer OTHER, SELFPAY ==
--- NOTE | 2022-08-09 15:01 | CA_ITS ---
Transthoracic Echocardiogram Patient (Last, First, Middle): Laureen Roblero, Gender: Female Date of : 1975 Age: 46 Procedure Date: 08/09/2022 Procedure Type: Transthoracic Echocardiogram Location: OP Height: 154.94 cm Weight: 81.65 kg BSA: 1.81 m2 Heart Rate: bpm BP: 112 / 74 mmHg Qa Internship: [facility] Referring MD: Josef Lindquist MD Brass Molder Helper: Jesus Donis MD Symptoms: Q21.1 - Atrial septal defect Study Quality: Fair, contrast ECG Rhythm: Sinus Conclusions: - Essentially normal study Findings Procedure Information Contrast agent, definity, is being given per protocol without apparent complications. Left Ventricle Normal left ventricular size, thickness, and systolic function. Diastolic function is normal for age. Right Ventricle Normal right ventricular cavity size and systolic function. Atria The left atrium is likely dilated. Interatrial shunt cannot be excluded. The right atrium is normal in size. Aortic Valve Normal aortic valve structure and function. There is no aortic valve stenosis. There is no aortic valve regurgitation. Mitral Valve Normal mitral valve structure and function. There is trace mitral valve regurgitation. There is no mitral valve stenosis. Tricuspid Valve Normal tricuspid valve structure. There is trace tricuspid valve regurgitation. The right ventricular systolic pressure is normal. The right ventricular systolic pressure is 13 mmHg. Normal right atrial pressure. There is no evidence of pulmonary hypertension. Great Vessels All visible segments of the aorta are normal in size. The pulmonary artery was not well visualized. Venous The inferior vena cava is normal in size and collapses greater than 50% with inspiration. Pericardium/Pleural There is no evidence of pericardial effusion. Prior Study Comparison No prior study available for comparison. Recommendations, Care & Conclusions Consider a SANDY if clinically appropriate. Recommend contrast study to evaluate intracardiac shunting. Measurements 2D Linear Measurements IVSd: 0.93 0.6-0.9/0.6-1.0 cm LVIDd: 4.39 3.9-5.3/4.2-5.9 cm LVIDd Index: 2.43 2.4-3.2/2.2-3.1 cm/m2 LVIDs: 2.40 2.0-3.6 cm LVPWd: 0.99 0.7-1.1 cm LA Diam: 3.80 2.7-3.8/3.0-4.0 cm LAIDs Index: 2.10 1.5-2.3 cm/m2 LV Mass: 173.80 67-162/88-224 g LV Mass Index: 96.02 43-95/49-115 g/m2 LVOT Diam: 1.90 3.0+(-)1.3 cm 2D Systolic Function EF 4C: 58.40 >55% EF 2C: 64.90 >55% EF BiP: 62.90 >55% Mitral Valve MV Pk E: 0.87 MV PK A: 0.71 MV Decel Time: 240.00 E/A: 1.20 E'Lateral: 14.60 E'Medial: 9.14 E/E' Med: 9.50 E/E' Lat: 5.90 PHT: 70.00 MVA PHT: 3.14 Decel Dawson: 3.61 Aortic Valve AoV Pk Chad: 1.52 AoV Mn Chad: 1.08 AoV VTI: 0.34 AoV Pk Grad: 9.00 Aov Mn Grad: 5.00 ADRIANO Cont.VTI: 2.56 LVOT LVOT Pk Chad: 1.37 LVOT Mn Chad: 0.92 LVOT VTI: 0.30 LVOT Pk Grad: 8.00 LVOT Mn Grad: 4.00 LVOT Diam: 1.90 LVOT Area: 2.84 Diastolic Function MV Pk E: 0.87 MV Pk A: 0.71 E/A: 1.20 E'Medial: 9.14 E/E' Med: 9.50 E' Laterial: 14.60 E/E' Lat: 5.90 Right Ventricle TAPSE (mm): 24.00 TVS' Chad: 13.90 Tricuspid Valve TR Pk Chad: 1.60 TR Pk Grad: 10.00 RA Press: 3.00 RVSP: 13.00 Great Vessels Aorta Sinus of Valsalva: 2.60 2.0-3.[address] [place]: 2.17 1.7-3.4 cm Ao Asc: 2.60 2.1-3.4 cm Shunting QP:QS: 1.10 Updated in Other Vendor System with Status of Final Jesus Donis MD electronically signed on 08/11/2022 12:51:41 PM with status of Final
== END ==
LOC: HO.CARD 14:58
PROVIDERS: Visit Provider Internal Medicine
DX: Q21.10 Atrial septal defect, unspecified (principal)
CPT/HCPCS: 93306; Q9957

== ENCOUNTER 2022-10-19 11:15 | Emergency (ER) | payer OTHER, SELFPAY ==
--- NOTE | ~2022-10-19 | XR_ITS ---
EXAMINATION: XR CHEST CLINICAL INFORMATION: Pain COMPARISON: 12/13/2021 TECHNIQUE: 2 views of the chest were obtained. FINDINGS: The lungs are well expanded. There is no focal consolidation, edema, or effusion. No pneumothorax. The cardiomediastinal silhouette is within normal limits. No acute osseous abnormality. XR/XR chest 2V IMPRESSION: Clear lungs.
[2022-10-19 11:23] VITALS: BP 132/79; PULSE 80; RESP 18; TEMP 36.8; O2SAT 98; BMI 34.0
--- NOTE | 2022-10-19 11:28 | ED.GENADULT ---
HPI - General Adult General Chief complaint: Upper Respiratory Symptoms <Darrius Arellano - Last Filed: 10/19/22 11:31> Stated complaint: chills/headaches/nausea <Darrius Arellano - Last Filed: 10/19/22 11:31> Time Seen by Provider: 10/19/22 11:37 <Darrius Arellano - Last Filed: 10/19/22 11:31> History of Present Illness HPI narrative: Patient complains of 1 day of cough mild headache possible fever feeling fatigued, symptoms are similar to when she had COVID a few weeks ago She has no chest pain no cough no shortness of breath no abdominal pain no nausea vomiting or diarrhea no loss of appetite she is eating and drinking normally, she has no sore throat no nasal congestion no dizziness no confusion no fainting or feeling faint no burning with urination no dysuria <WES Payne - Last Filed: 10/21/22 11:46> Related Data Home medications: Home Medications Medication Instructions Recorded Confirmed sertraline 100 mg tablet 100 mg PO DAILY 04/07/20 09/28/22 zolpidem 10 mg tablet (Ambien) 10 mg PO BEDTIME PRN Insomnia 04/07/20 09/28/22 clonazepam 0.5 mg tablet 0.5 mg PO DAILY 03/12/22 09/28/22 fluticasone 250 mcg-salmeterol 50 1 inh inhalation BID 07/27/22 09/28/22 mcg/dose blistr powdr for inhalation (Advair Diskus) Previous Rx's Medication Instructions Recorded cholecalciferol (vitamin D3) 50 50 mcg PO DAILY 90 days #90 caps 05/09/21 mcg (2,000 unit) capsule albuterol sulfate 90 mcg/actuation 2 puff PO Q4-6H PRN for muscle 05/25/22 aerosol inhaler spasm #8.5 ea famotidine 40 mg tablet 40 mg PO DAILY PRN acid reflux #30 06/11/22 tabs sucralfate 1 gram tablet 1 g PO ONCE PRN acid reflux 30 06/11/22 days #56 tabs sennosides 8.6 mg-docusate sodium 2 tab-cap PO BEDTIME 90 days #180 06/18/22 50 mg tablet (Senna-S) tabs polyethylene glycol 3350 17 gram 17 g PO DAILY #30 ea 07/27/22 oral powder packet (Miralax) ondansetron 4 mg disintegrating 4 mg PO TID PRN nausea and 07/31/22 tablet vomiting 5 days #10 tabs montelukast 10 mg tablet 10 mg PO BEDTIME #30 tabs 08/24/22 (Singulair) ponatinib 30 mg tablet (Iclusig) 30 mg PO DAILY #30 tabs 09/18/22 nirmatrelvir 300 mg (150 mg See Rx Instructions PO .COMPLEX 10/19/22 x2)-ritonavir 100 mg tablet,dose #30 ea pack(EUA) (Paxlovid) <Darrius Arellano - Last Filed: 10/19/22 11:31> Allergies/adverse reactions: Allergies Allergy/AdvReac Type Severity Reaction Status Date / Time nut - unspecified [nut] Allergy Severe Anaphylaxis Verified 09/28/22 15:17 Penicillins Allergy Severe RASH Verified 09/28/22 15:17 seafood Allergy Severe Anaphylaxis Verified 09/28/22 15:17 shellfish derived Allergy Severe Anaphylaxis Verified 09/28/22 15:17 Wixela Inhub AdvReac Intermediate palpitation Uncoded 08/27/22 14:15 s <Darrius Arellano - Last Filed: 10/19/22 11:31> [facility] Past Medical History [facility] Narrative: Patient with history of leukemia who is not on chemo now but is scheduled to restart this week <WES Payne - Last Filed: 10/21/22 11:46> Medical History: Medical History (Updated 10/19/22 @ 13:00 by WES Payne) Abdominal pain Allergic rhinitis Asthma 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 Breast asymmetry CLL (chronic lymphocytic leukemia) CML (chronic myelocytic leukemia) Conjunctivitis, left eye Dizziness Dysuria Frequency of micturition GERD (gastroesophageal reflux disease) Hematuria Hip pain, left Hypercholesterolemia Hypokalemia Impacted cerumen of left ear Insomnia Laryngospasm Left flank pain Lesion of left [place] kidney Leukemia LLQ abdominal pain Lower extremity weakness Lymphadenopathy, anterior cervical Mixed incontinence Nasal congestion Nausea & vomiting Obesity (BMI 30-39.9) Patent foramen ovale Pelvic pain Peptic ulcer disease Perioral numbness PONV (postoperative nausea and vomiting) Thoracic back pain Viral syndrome <Darrius Arellano - Last Filed: 10/19/22 11:31> Surgical History: Surgical History History of bilateral salpingectomy History of tonsillectomy History of vaginal hysterectomy Hx of colonoscopy Hx of colonoscopy Hx of esophagogastroduodenoscopy Ulnar nerve entrapment at elbow <Darrius Arellano - Last Filed: 10/19/22 11:31> Family History Family History: Family History Maternal Aunt Breast cancer Paternal Grandmother Breast cancer Paternal Grandfather Myocardial infarction, acute, initial episode of care Paternal Uncle Stomach cancer Liver cancer Pancreatic cancer Father Colon cancer <Darrius Arellano - Last Filed: 10/19/22 11:31> Social History Social History: Social History Household Members: None Housing: Apartment Are you a primary managed care manager to a significant other at home: No Do you presently have visiting nurse or other home services: No Alcohol intake: never Patient Tobacco Use Status: Never used Tobacco e-Cigarette/Vaping Use: Never Used Second Hand Smoke Exposure: No Advance Directives: Yes Advance Directives on File: Yes Advance Directives Date on File: 02/06/22 service: No Current occupational status: employed Current occupational exposures/hazards: No Cognitive needs: No Hearing needs: No Vision needs: Yes <Darrius Arellano - Last Filed: 10/19/22 11:31> Physical Exam ED Vital Signs: Vital Signs - 24 hr 10/19/22 11:23 10/19/22 12:19 Temperature 98.3 F Pulse Rate 80 75 Respiratory Rate 18 18 Blood Pressure 132/79 117/75 Pulse Oximetry 98 99 Oxygen Delivery Method Room Air Room Air BMI result Body Mass Index 34.0 <Darrius Arellano - Last Filed: 10/19/22 11:31> Vital Signs - 24 hr 10/19/22 11:23 10/19/22 12:19 Temperature 98.3 F Pulse Rate 80 75 Respiratory Rate 18 18 Blood Pressure 132/79 117/75 Pulse Oximetry 98 99 Oxygen Delivery Method Room Air Room Air BMI result Body Mass Index 34.0 <WES Payne - Last Filed: 10/21/22 11:46> General appearance comfortable cooperative no acute distress Eyes no redness or discharge The ears are normal with no redness of tympanic membranes, no narrowing of canals No sinus congestion or tenderness Pharynx is clear without redness swelling or exudate mucous membranes are moist Neck is supple Chest clear to auscultation with full symmetric equal breath sounds Heart no murmur Abdomen soft nontender Extremities for range of motion x4 Skin no rash Neuro no focal deficits gait balance are normal interaction comprehension and expression are normal <WES Payne - Last Filed: 10/21/22 11:46> Course Course Course Narrative: 47-year-old female with past medical history significant for leukemia not currently being treated presents for evaluation of chills, itchy throat. Vital signs are stable on arrival, she is afebrile. Given her leukemia diagnosis will check basic labs, chest x-ray and viral panel. A UA was also ordered as the patient reports frequent urination. Clinically, the patient most likely has a viral syndrome versus allergies <Darrius Arellano - Last Filed: 10/19/22 11:31> 47-year-old female with past medical history significant for leukemia not currently being treated presents for evaluation of chills, itchy throat. Vital signs are stable on arrival, she is afebrile. Given her leukemia diagnosis will check basic labs, chest x-ray and viral panel. A UA was also ordered as the patient reports frequent urination. Clinically, the patient most likely has a viral syndrome versus allergies No acute findings on CBC or chemistry Viral panel was positive for COVID Patient he is not taking her chemotherapy medication now, I advised her to take paxlovid for COVID, but that she should call her oncologist 1st as she is supposed to start chemotherapy tomorrow and she should talk to her doctor about any possible interactions before starting the paxlovid I could not find any useful information in the [facility] about whether there would be a significant interaction She is very well-appearing, she understood this she will call her oncologist and he will advise whether she should delay chemotherapy and whether she should take the Paxlovid <WES Payne - Last Filed: 10/21/22 11:46> Medical Decision Making Lab Data MDM Lab Attestation statement: I reviewed the patient's lab results. <WES Payne - Last Filed: 10/21/22 11:46> Result Diagrams: 10/19/22 11:36 10/19/22 11:36 <Darrius Arellano - Last Filed: 10/19/22 11:31> Labs: Lab Results 10/19/22 10/19/22 10/19/22 Range/Units 11:36 11:36 11:36 WBC 6.2 (4.8-10.8) X10*3/uL RBC 4.20 (4.20-5.50) X10*6/uL Hgb 12.5 (12.0-16.0) g/dl Hct 38.4 (37.0-47.0) % MCV 91.4 (80.0-98.0) fL MCH 29.8 (27.0-33.0) pg MCHC 32.6 (31.0-35.0) g/dl RDW 12.7 (11.0-16.0) % Plt Count 272 (160-400) X10*3/uL MPV 9.5 (9.4-12.3) fL Immature Gran % (Auto) 0.3 (0.0-0.4) % Neut % (Auto) 51.0 (45-73) % Lymph % (Auto) 35.6 (20-40) % [place] % (Auto) 10.4 (2-11) % Eos % (Auto) 1.9 (0-4) % Baso % (Auto) 0.8 (0-2) % Lymph # (Auto) 2.2 (1.2-4.9) X10*3/uL [place] # (Auto) 0.7 (0.1-1.2) X10*3/uL Eos # (Auto) 0.1 (0.0-0.4) X10*3/uL Baso # (Auto) 0.1 (0.0-0.2) X10*3/uL Abs Immat Gran (auto) 0.02 (0.00-0.03) X10*3/uL Absolute Neuts (auto) 3.2 (2.0-8.3) x10*3/uL Absolute Nucleated RBC 0.000 (0.0-0.012) X10*3/uL Nucleated RBC % (auto) 0.0 (0.0-0.2) /100WBC Sodium 139 (135-145) mmol/L Potassium 3.8 (3.3-5.1) mmol/L Chloride 106 (96-108) mmol/L Carbon Dioxide 26 (22-29) mmol/L Anion Gap 11 L (12-20) BUN 8 L (9-16) mg/dL Creatinine 0.62 (0.5-1.4) mg/dL Estim Creat Clear Calc 107.4 Estimated GFR > 60 Random Glucose 150 H (60-115) mg/dL Calcium 9.2 (8.4-10.2) mg/dL Total Bilirubin 0.4 (0.0-1.0) mg/dL AST 20 (5-31) U/L ALT 15 (0-31) U/L Alkaline Phosphatase 73 (39-117) U/L Total Protein 6.6 (6.5-8.0) g/dL Albumin 3.8 (3.5-5.0) g/dL Urine Color Urine Appearance Urine pH (5.0-9.0) Ur Specific [place] (1.005-1.025) Urine Protein (Neg-Trace) mg/dL Urine Glucose (UA) (Negative) mg/dL Urine Ketones (Negative) mg/dL Urine Blood (Negative) Urine Nitrite (Negative) Ur Leukocyte Esterase (Negative) Urine RBC (0-2) /HPF Urine WBC (0-5) /HPF Ur Squamous Epith Cells (0-2) /HPF Urine Bacteria (None Seen) Hyaline Casts (0-2) /LPF Influenza Type A (PCR) NEGATIVE (Negative) Influenza Type B (PCR) NEGATIVE (Negative) RSV RNA Qual (PCR) NEGATIVE (Negative) SARS-CoV-2 RNA (RT-PCR) POSITIVE A (Negative) 10/19/22 Range/Units 11:45 WBC (4.8-10.8) X10*3/uL RBC (4.20-5.50) X10*6/uL Hgb (12.0-16.0) g/dl Hct (37.0-47.0) % MCV (80.0-98.0) fL MCH (27.0-33.0) pg MCHC (31.0-35.0) g/dl RDW (11.0-16.0) % Plt Count (160-400) X10*3/uL MPV (9.4-12.3) fL Immature Gran % (Auto) (0.0-0.4) % Neut % (Auto) (45-73) % Lymph % (Auto) (20-40) % [place] % (Auto) (2-11) % Eos % (Auto) (0-4) % Baso % (Auto) (0-2) % Lymph # (Auto) (1.2-4.9) X10*3/uL [place] # (Auto) (0.1-1.2) X10*3/uL Eos # (Auto) (0.0-0.4) X10*3/uL Baso # (Auto) (0.0-0.2) X10*3/uL Abs Immat Gran (auto) (0.00-0.03) X10*3/uL Absolute Neuts (auto) (2.0-8.3) x10*3/uL Absolute Nucleated RBC (0.0-0.012) X10*3/uL Nucleated RBC % (auto) (0.0-0.2) /100WBC Sodium (135-145) mmol/L Potassium (3.3-5.1) mmol/L Chloride (96-108) mmol/L Carbon Dioxide (22-29) mmol/L Anion Gap (12-20) BUN (9-16) mg/dL Creatinine (0.5-1.4) mg/dL Estim Creat Clear Calc Estimated GFR Random Glucose (60-115) mg/dL Calcium (8.4-10.2) mg/dL Total Bilirubin (0.0-1.0) mg/dL AST (5-31) U/L ALT (0-31) U/L Alkaline Phosphatase (39-117) U/L Total Protein (6.5-8.0) g/dL Albumin (3.5-5.0) g/dL Urine Color Yellow Urine Appearance Clear Urine pH 6.0 (5.0-9.0) Ur Specific [place] <= 1.005 (1.005-1.025) Urine Protein Negative (Neg-Trace) mg/dL Urine Glucose (UA) Negative (Negative) mg/dL Urine Ketones Negative (Negative) mg/dL Urine Blood Negative (Negative) Urine Nitrite Negative (Negative) Ur Leukocyte Esterase Negative (Negative) Urine RBC 0-2 (0-2) /HPF Urine WBC 0-5 (0-5) /HPF Ur Squamous Epith Cells 0-2 (0-2) /HPF Urine Bacteria None Seen (None Seen) Hyaline Casts 0-2 (0-2) /LPF Influenza Type A (PCR) (Negative) Influenza Type B (PCR) (Negative) RSV RNA Qual (PCR) (Negative) SARS-CoV-2 RNA (RT-PCR) (Negative) <Darrius Arellano - Last Filed: 10/19/22 11:31> Lab Results 10/19/22 10/19/22 10/19/22 Range/Units 11:36 11:36 11:36 WBC 6.2 (4.8-10.8) X10*3/uL RBC 4.20 (4.20-5.50) X10*6/uL Hgb 12.5 (12.0-16.0) g/dl Hct 38.4 (37.0-47.0) % MCV 91.4 (80.0-98.0) fL MCH 29.8 (27.0-33.0) pg MCHC 32.6 (31.0-35.0) g/dl RDW 12.7 (11.0-16.0) % Plt Count 272 (160-400) X10*3/uL MPV 9.5 (9.4-12.3) fL Immature Gran % (Auto) 0.3 (0.0-0.4) % Neut % (Auto) 51.0 (45-73) % Lymph % (Auto) 35.6 (20-40) % [place] % (Auto) 10.4 (2-11) % Eos % (Auto) 1.9 (0-4) % Baso % (Auto) 0.8 (0-2) % Lymph # (Auto) 2.2 (1.2-4.9) X10*3/uL [place] # (Auto) 0.7 (0.1-1.2) X10*3/uL Eos # (Auto) 0.1 (0.0-0.4) X10*3/uL Baso # (Auto) 0.1 (0.0-0.2) X10*3/uL Abs Immat Gran (auto) 0.02 (0.00-0.03) X10*3/uL Absolute Neuts (auto) 3.2 (2.0-8.3) x10*3/uL Absolute Nucleated RBC 0.000 (0.0-0.012) X10*3/uL Nucleated RBC % (auto) 0.0 (0.0-0.2) /100WBC Sodium 139 (135-145) mmol/L Potassium 3.8 (3.3-5.1) mmol/L Chloride 106 (96-108) mmol/L Carbon Dioxide 26 (22-29) mmol/L Anion Gap 11 L (12-20) BUN 8 L (9-16) mg/dL Creatinine 0.62 (0.5-1.4) mg/dL Estim Creat Clear Calc 107.4 Estimated GFR > 60 Random Glucose 150 H (60-115) mg/dL Calcium 9.2 (8.4-10.2) mg/dL Total Bilirubin 0.4 (0.0-1.0) mg/dL AST 20 (5-31) U/L ALT 15 (0-31) U/L Alkaline Phosphatase 73 (39-117) U/L Total Protein 6.6 (6.5-8.0) g/dL Albumin 3.8 (3.5-5.0) g/dL Urine Color Urine Appearance Urine pH (5.0-9.0) Ur Specific [place] (1.005-1.025) Urine Protein (Neg-Trace) mg/dL Urine Glucose (UA) (Negative) mg/dL Urine Ketones (Negative) mg/dL Urine Blood (Negative) Urine Nitrite (Negative) Ur Leukocyte Esterase (Negative) Urine RBC (0-2) /HPF Urine WBC (0-5) /HPF Ur Squamous Epith Cells (0-2) /HPF Urine Bacteria (None Seen) Hyaline Casts (0-2) /LPF Influenza Type A (PCR) NEGATIVE (Negative) Influenza Type B (PCR) NEGATIVE (Negative) RSV RNA Qual (PCR) NEGATIVE (Negative) SARS-CoV-2 RNA (RT-PCR) POSITIVE A (Negative) 10/19/22 Range/Units 11:45 WBC (4.8-10.8) X10*3/uL RBC (4.20-5.50) X10*6/uL Hgb (12.0-16.0) g/dl Hct (37.0-47.0) % MCV (80.0-98.0) fL MCH (27.0-33.0) pg MCHC (31.0-35.0) g/dl RDW (11.0-16.0) % Plt Count (160-400) X10*3/uL MPV (9.4-12.3) fL Immature Gran % (Auto) (0.0-0.4) % Neut % (Auto) (45-73) % Lymph % (Auto) (20-40) % [place] % (Auto) (2-11) % Eos % (Auto) (0-4) % Baso % (Auto) (0-2) % Lymph # (Auto) (1.2-4.9) X10*3/uL [place] # (Auto) (0.1-1.2) X10*3/uL Eos # (Auto) (0.0-0.4) X10*3/uL Baso # (Auto) (0.0-0.2) X10*3/uL Abs Immat Gran (auto) (0.00-0.03) X10*3/uL Absolute Neuts (auto) (2.0-8.3) x10*3/uL Absolute Nucleated RBC (0.0-0.012) X10*3/uL Nucleated RBC % (auto) (0.0-0.2) /100WBC Sodium (135-145) mmol/L Potassium (3.3-5.1) mmol/L Chloride (96-108) mmol/L Carbon Dioxide (22-29) mmol/L Anion Gap (12-20) BUN (9-16) mg/dL Creatinine (0.5-1.4) mg/dL Estim Creat Clear Calc Estimated GFR Random Glucose (60-115) mg/dL Calcium (8.4-10.2) mg/dL Total Bilirubin (0.0-1.0) mg/dL AST (5-31) U/L ALT (0-31) U/L Alkaline Phosphatase (39-117) U/L Total Protein (6.5-8.0) g/dL Albumin (3.5-5.0) g/dL Urine Color Yellow Urine Appearance Clear Urine pH 6.0 (5.0-9.0) Ur Specific [place] <= 1.005 (1.005-1.025) Urine Protein Negative (Neg-Trace) mg/dL Urine Glucose (UA) Negative (Negative) mg/dL Urine Ketones Negative (Negative) mg/dL Urine Blood Negative (Negative) Urine Nitrite Negative (Negative) Ur Leukocyte Esterase Negative (Negative) Urine RBC 0-2 (0-2) /HPF Urine WBC 0-5 (0-5) /HPF Ur Squamous Epith Cells 0-2 (0-2) /HPF Urine Bacteria None Seen (None Seen) Hyaline Casts 0-2 (0-2) /LPF Influenza Type A (PCR) (Negative) Influenza Type B (PCR) (Negative) RSV RNA Qual (PCR) (Negative) SARS-CoV-2 RNA (RT-PCR) (Negative) <WES Payne - Last Filed: 10/21/22 11:46> Discharge Plan Discharge Clinical Impression: COVID-19 <Darrius Arellano - Last Filed: 10/19/22 11:31> Patient Disposition: Home, Self-Care <Darrius Arellano - Last Filed: 10/19/22 11:31> Additional Instructions: Your COVID test was positive so we are treating with paxlovid CALL YOUR ONCOLOGIST TO MAKE SURE IT IS OKAY TO START CHEMOTHERAPY TOMORROW PAXLOVID HAS MANY DRUG INTERACTIONS BEFORE RESTARTING CHEMO MAKE SURE HE KNOWS THAT YOU are PRESCRIBED PAXLOVID Return to the ER any time any worse condition or concerns, you can use <Darrius Arellano - Last Filed: 10/19/22 11:31> Prescriptions: New Paxlovid (EUA) 300 mg (150 mg x 2)-100 mg tablets,dose pack See Rx Instructions .ROUTE .COMPLEX Qty: 30 0RF Rx Instructions: take TWO 150 mg tablets of nirmatrelvir with ONE 100 mg tablet of ritonavir twice daily for 5 days No Action albuterol sulfate 90 mcg/actuation HFA aerosol inhaler 2 puff PO Q4-6H PRN (Reason: for muscle spasm) Qty: 8.5 0RF montelukast [Singulair] 10 mg tablet 10 mg PO BEDTIME Qty: 30 3RF Iclusig 30 mg Tablet 30 mg PO DAILY Qty: 30 3RF ondansetron 4 mg tablet,disintegrating 4 mg PO TID PRN (Reason: nausea and vomiting) 5 Days Qty: 10 0RF sertraline 100 mg tablet 100 mg PO DAILY zolpidem [Ambien] 10 mg tablet 10 mg PO BEDTIME PRN (Reason: Insomnia) cholecalciferol (vitamin D3) 50 mcg (2,000 unit) capsule 50 mcg PO DAILY 90 Days Qty: 90 3RF fluticasone propion-salmeterol [Advair Diskus] 250-50 mcg/dose blister with device 1 inh inhalation BID polyethylene glycol 3350 [Miralax] 17 gram powder in packet 17 g PO DAILY Qty: 30 3RF sennosides-docusate sodium [Senna-S] 8.6-50 mg tablet 2 tab-cap PO BEDTIME 90 Days Qty: 180 2RF clonazepam 0.5 mg tablet 0.5 mg PO DAILY famotidine 40 mg tablet 40 mg PO DAILY PRN (Reason: acid reflux) Qty: 30 6RF Rx Instructions: 2 hours before bedtime sucralfate 1 gram tablet 1 g PO ONCE PRN (Reason: acid reflux) 30 Days Qty: 56 4RF Rx Instructions: 2 hours after other meds daily <Darrius Arellano - Last Filed: 10/19/22 11:31> Stand Alone Forms: Work/School Release <Darrius Arellano - Last Filed: 10/19/22 11:31> Interventions: ED Discharge Assessment Last Done: 10/19/22 13:08 <Darrius Arellano - Last Filed: 10/19/22 11:31> Discharge Date/Time: 10/19/22 13:09 <Darrius Arellano - Last Filed: 10/19/22 11:31>
[2022-10-19 11:40] LABS: MANUAL DIFF FLAG NO
[2022-10-19 11:45] LABS: Basophils Absolute Auto 0.1 X10*3/uL (0.0-0.2); Basophils Percent Auto 0.8 % (0-2); Eosinophils Absolute Auto 0.1 X10*3/uL (0.0-0.4); Eosinophils Percent Auto 1.9 % (0-4); Hematocrit 38.4 % (37.0-47.0); Hemoglobin 12.5 g/dl (12.0-16.0); Imm Gran Abs Auto 0.02 X10*3/uL (0.00-0.03); Imm Gran Pct Auto 0.3 % (0.0-0.4); Lymphocytes Absolute Auto 2.2 X10*3/uL (1.2-4.9); Lymphocytes Percent Auto 35.6 % (20-40); Mean Corpuscular HGB Conc 32.6 g/dl (31.0-35.0); Mean Corpuscular Hemoglobin 29.8 pg (27.0-33.0); Mean Corpuscular Volume 91.4 fL (80.0-98.0); Mean Platelet Volume 9.5 fL (9.4-12.3); Monocytes Absolute Auto 0.7 X10*3/uL (0.1-1.2); Monocytes Percent Auto 10.4 % (2-11); Neutrophils Absolute Auto 3.2 x10*3/uL (2.0-8.3); Platelet Count 272 X10*3/uL (160-400); Red Cell Distribution Width 12.7 % (11.0-16.0); White Blood Count 6.2 X10*3/uL (4.8-10.8)
[2022-10-19 11:57] LABS: Appearance Urine Clear; Color Urine Yellow; Glucose Urine UA Negative (Negative); Leukocyte Esterase Urine Negative (Negative); Nitrite Urine Negative (Negative); Specific Gravity - Urine <= 1.005 (1.005-1.025); Urine Blood Negative (Negative); Urine Ketones Negative (Negative); Urine Protein Negative (Neg-Trace)
[2022-10-19 12:00] LABS: Bacteria Urine None Seen (None Seen); Hyaline Casts Urine 0-2 /LPF (0-2); RBC Urine 0-2 /HPF (0-2); Squamous Epithelial Cell Urine 0-2 /HPF (0-2); WBC Urine 0-5 /HPF (0-5)
[2022-10-19 12:11] LABS: Alanine Aminotransferase 15 U/L (0-31); Albumin Level 3.8 g/dL (3.5-5.0); Alkaline Phosphatase 73 U/L (39-117); Anion Gap 11 (12-20); Aspartate Amino Transferase 20 U/L (5-31); Bilirubin Total 0.4 mg/dL (0.0-1.0); Blood Urea Nitrogen 8 mg/dL (9-16); Calcium 9.2 mg/dL (8.4-10.2); Carbon Dioxide 26 mmol/L (22-29); Chloride 106 mmol/L (96-108); Creatinine Clr Calc Pharmacy 107.4; Estimated Glomerular Filt Rate > 60; Glucose Random 150 mg/dL (60-115); Potassium 3.8 mmol/L (3.3-5.1); Sodium 139 mmol/L (135-145); Total Protein 6.6 g/dL (6.5-8.0)
[2022-10-19 12:19] VITALS: BP 117/75; PULSE 75; RESP 18; O2SAT 99
[2022-10-19 12:24] LABS: Influenza A PCR NEGATIVE (Negative); Influenza B PCR NEGATIVE (Negative); Resp Syncy Virus RNA Qual PCR NEGATIVE (Negative); SARS COV2 PCR INHOUSE POSITIVE (Negative)
== END 2022-10-19 13:09 | disposition home or self-care (01) ==
PROVIDERS: Physician Assistant; Emergency Provider Emergency Medicine Emergency Medical Services; PCP Internal Medicine
DX: U07.1 COVID-19 (principal); R07.9 Chest pain, unspecified; Z79.899 Other long term (current) drug therapy
CPT/HCPCS: 0241U; 36415; 71046; 80053; 81001; 85025; 99283

== ENCOUNTER 2022-11-05 17:34 | Emergency (ER) | payer OTHER, SELFPAY ==
--- NOTE | ~2022-11-05 | CT_ITS ---
EXAMINATION: CT ABDOMEN AND PELVIS WITHOUT CONTRAST CLINICAL INFORMATION: Left flank pain, hematuria COMPARISON: CT abdomen pelvis 07/31/2022 TECHNIQUE: Multidetector volumetric imaging was performed from the superior aspect of the liver through the pubic symphysis. Sagittal and coronal reformatted images were obtained on the technologist's workstation. This CT examination was performed using dose optimization techniques as appropriate, variously including the following: *Automated exposure control *Adjustment of mA and/or kV according to patient size (this includes techniques or standardized protocols for targeted exams where dose is matched to indication/reason for exam; i.e. extremities or head) *Use of iterative reconstruction technique DLP: 719 mGy-cm FINDINGS: LUNG BASES: The visualized lung bases are unremarkable. LIVER, GALLBLADDER, AND BILIARY TREE: The liver is normal in size, shape, and attenuation. No focal hepatic lesion or biliary ductal dilatation is present. The gallbladder is unremarkable with no evidence of radiopaque gallstones, gallbladder wall thickening, or obvious pericholecystic inflammatory changes. PANCREAS: Unremarkable. SPLEEN: Unremarkable. ADRENAL GLANDS: Unremarkable. KIDNEYS AND URETERS: The kidneys are normal in size, shape, and attenuation. No hydronephrosis, hydroureter, or calculi seen. No perinephric stranding. BLADDER: Unremarkable. GASTROINTESTINAL TRACT: The small and large bowel are unremarkable. The appendix is small and unremarkable. ABDOMINAL WALL: No significant hernia is appreciated. LYMPH NODES: Normal. VASCULAR: Unremarkable. PELVIC VISCERA: Status post hysterectomy. Again noted are benign-appearing bilateral ovarian cysts. No free pelvic fluid. OSSEOUS STRUCTURES: Unremarkable. CT/CT abdomen pelvis wo IV con IMPRESSION: A cause for the patient's left flank pain and hematuria has not been found. On imaging dating back to 2011, the patient has never had renal calculi demonstrated. If hematuria persists, an elective CT urogram may be helpful for further evaluation. Fleischner guidelines were followed.
--- NOTE | ~2022-11-05 | CT_ITS ---
EXAMINATION: CT ABDOMEN AND PELVIS WITHOUT CONTRAST CLINICAL INFORMATION: pain. COMPARISON: 07/31/2022. TECHNIQUE: Multidetector volumetric imaging was performed from the superior aspect of the liver through the pubic symphysis without contrast per renal stone protocol. Sagittal and coronal reformatted images were obtained on the technologist workstation. This CT examination was performed using dose optimization techniques as appropriate, variously including the following: *Automated exposure control *Adjustment of mA and/or kV according to patient size (this includes techniques or standardized protocols for targeted exams where dose is matched to indication/reason for exam; i.e. extremities or head) *Use of iterative reconstruction technique DLP: 719 mGy-cm. FINDINGS: LUNG BASES: The visualized lung bases are unremarkable. Small hiatal hernia LIVER, GALLBLADDER, BILIARY TREE: The non-contrast liver is normal in size, shape, and attenuation. No focal hepatic lesion or biliary ductal dilatation is present. The gallbladder is unremarkable with no evidence of radiopaque gallstones, gallbladder wall thickening, or obvious pericholecystic inflammatory changes. PANCREAS: Unremarkable. SPLEEN: Unremarkable. ADRENAL GLANDS: Unremarkable. KIDNEYS AND URETERS: The kidneys are normal in size, shape, and attenuation. No hydronephrosis, hydroureter, or calculi seen. No perinephric stranding. BLADDER: Unremarkable. GASTROINTESTINAL TRACT: Few scattered colonic diverticula are seen. No colonic wall thickening or pericolonic inflammatory change to suggest diverticulitis. Normal-appearing appendix in the right lower quadrant. Visualized small bowel unremarkable. Small hiatal hernia suggested. ABDOMINAL WALL: No significant hernia is appreciated. LYMPHOVASCULAR STRUCTURES: No significant vascular calcification. There is some mild perivascular fat stranding in the region of the celiac axis and superior mesenteric artery this is of uncertain significance but appears more prominent than on the prior 07/31/2022 study. In theory mild vasculitis could have this appearance but this is difficult to define further on this noncontrast study. PELVIC VISCERA: Uterus is surgically absent. Physiologic changes in the bilateral adnexa OSSEUS STRUCTURES: No acute bony abnormality. Bone island in the left iliac bone. CT/CT abdomen pelvis wo IV con IMPRESSION: No acute intra-abdominal process seen. There is some mild perivascular fat stranding in the region of the celiac axis and superior mesenteric artery of uncertain significance or etiology. In theory, mild vasculitis could have this appearance but this is difficult to define further on this noncontrast study.
[2022-11-05 18:00] VITALS: BP 167/96; PULSE 78; RESP 18; TEMP 36.7; O2SAT 99; BMI 34.0
--- NOTE | 2022-11-05 18:03 | ED.GENADULT ---
HPI - General Adult General Chief complaint: Abdominal Pain Stated complaint: lower abd pain Time Seen by Provider: 11/05/22 21:20 Related Data Home Medications Medication Instructions Recorded Confirmed sertraline 100 mg tablet 100 mg PO DAILY 04/07/20 02/27/23 zolpidem 10 mg tablet (Ambien) 10 mg PO BEDTIME PRN Insomnia 04/07/20 02/27/23 clonazepam 0.5 mg tablet 0.5 mg PO DAILY 03/12/22 02/27/23 fluticasone 250 mcg-salmeterol 50 1 inh inhalation BID 07/27/22 02/27/23 mcg/dose blistr powdr for inhalation (Advair Diskus) Previous Rx's Medication Instructions Recorded cholecalciferol (vitamin D3) 50 50 mcg PO DAILY 90 days #90 caps 05/09/21 mcg (2,000 unit) capsule albuterol sulfate 90 mcg/actuation 2 puff PO Q4-6H PRN for muscle 05/25/22 aerosol inhaler spasm #8.5 ea sennosides 8.6 mg-docusate sodium 2 tab-cap (2 x 8.6-50 mg) PO 06/18/22 50 mg tablet (Senna-S) BEDTIME 90 days #180 tabs ondansetron 4 mg disintegrating 4 mg PO TID PRN nausea and 11/22/22 tablet vomiting 5 days #10 tabs epinephrine 0.3 mg/0.3 mL 0.3 mg (0.3 mL) IM Q4H PRN 01/09/23 injection, auto-injector (EpiPen anaphylaxis #2 ea 2-[place]) ponatinib 30 mg tablet (Iclusig) 30 mg PO DAILY #30 tabs 01/11/23 montelukast 10 mg tablet 10 mg PO BEDTIME #30 tabs 01/14/23 (Singulair) famotidine 40 mg tablet 40 mg PO BID PRN for acid reflux 02/18/23 30 days #60 tabs sucralfate 1 gram tablet 1 g PO ONCE PRN acid reflux 30 02/18/23 days #56 tabs umeclidinium 62.5 mcg/actuation 1 inh inhalation BEDTIME #30 ea 02/27/23 blister powder for inhalation (Incruse Ellipta) Allergies Allergy/AdvReac Type Severity Reaction Status Date / Time nut - unspecified [nut] Allergy Severe Anaphylaxis Verified 02/27/23 11:21 Penicillins Allergy Severe RASH Verified 02/27/23 11:21 seafood Allergy Severe Anaphylaxis Verified 02/27/23 11:21 shellfish derived Allergy Severe Anaphylaxis Verified 02/27/23 11:21 Wixela Inhub AdvReac Intermediate palpitation Uncoded 02/27/23 11:21 s PMFSH Past Medical History Medical History (Updated 02/27/23 @ 11:51 by Josef Lindquist MD) Lower extremity weakness CML (chronic myelocytic leukemia) Laryngospasm CLL (chronic lymphocytic leukemia) PONV (postoperative nausea and vomiting) Nausea & vomiting Hypokalemia Dysuria Abdominal pain Pelvic pain LLQ abdominal pain Frequency of micturition Breast asymmetry Thoracic back pain Impacted cerumen of left ear Dizziness Perioral numbness Left flank pain Lesion of left [place] kidney Hip pain, left Hematuria Viral syndrome Conjunctivitis, left eye Lymphadenopathy, anterior cervical Hypercholesterolemia 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 Mixed incontinence Obesity (BMI 30-39.9) Nasal congestion Allergic rhinitis Patent foramen ovale Peptic ulcer disease Insomnia Asthma GERD (gastroesophageal reflux disease) Leukemia Surgical History History of bilateral salpingectomy History of [place] colposuspension History of tonsillectomy History of vaginal hysterectomy Hx of colonoscopy Hx of colonoscopy Hx of esophagogastroduodenoscopy Ulnar nerve entrapment at elbow Family History Family History Maternal Aunt Breast cancer Paternal Grandmother Breast cancer Paternal Grandfather Myocardial infarction, acute, initial episode of care Paternal Uncle Stomach cancer Liver cancer Pancreatic cancer Kidney cancer, primary, with metastasis from kidney to other site Father Colon cancer Social History Social History Household Members: None Housing: Apartment Are you a primary director of healthcare systems to a significant other at home: No Do you presently have visiting nurse or other home services: No Alcohol intake: never Patient Tobacco Use Status: Never used Tobacco e-Cigarette/Vaping Use: Never Used Second Hand Smoke Exposure: No Use of substances other than those prescribed or required for medical reasons: No Have you been hit, kicked, punched, or otherwise hurt by someone within the past year? If so, by whom?: No Do you feel safe in your current relationship?: No Current Relationship Advance Directives Date on File: 02/06/22 Do you have thoughts of harming others: None Do you have a plan to hurt others: No Plan Do you have the means to hurt others: No Recently lost weight without trying: No service: No Current occupational status: employed Current occupational exposures/hazards: No Cognitive needs: No Hearing needs: No Vision needs: Yes Physical Exam ED Vital Signs: Vital Signs - 24 hr 11/05/22 18:00 Temperature 98.1 F Pulse Rate 78 Respiratory Rate 18 Blood Pressure 167/96 H Pulse Oximetry 99 Oxygen Delivery Method Room Air BMI result Body Mass Index 34.0 Course Course Course Narrative: RME- 47-year-old female presents for evaluation of left lower abdominal pressure and burning with urination as well as urinary frequency. This started at noon today. No fevers or chills. Patient's urine sample had significant humerus area. She is quite uncomfortable. I added on labs and a CT scan abdomen and pelvis to evaluate for obstructive uropathy Medications Administered Discontinued Medications Generic Name Dose Route Start Last Admin Trade Name Avinashq PRN Reason Stop Dose Admin Acetaminophen 975 mg 11/05/22 23:06 11/05/22 23:17 Acetaminophen 325 Mg Tablet PO 11/05/22 23:07 975 mg ONCE ONE Administration Sodium Chloride 1,000 mls @ 999 mls/hr 11/05/22 21:45 11/05/22 23:05 Ns IV 11/05/22 22:45 Infused .Q1H1M EMILY Infusion Levofloxacin 500 mg in 100 mls @ 100 mls/hr 11/05/22 21:33 11/05/22 23:30 Levaquin IV 11/05/22 22:32 Infused ONCE ONE Infusion Sodium Chloride 1,000 mls @ 999 mls/hr 11/05/22 23:00 11/06/22 00:45 Ns IV 11/06/22 00:00 Infused .Q1H1M EMILY Infusion Medical Decision Making Lab Data 11/05/22 18:28 11/05/22 18:28 Labs: Lab Results 11/05/22 11/05/22 Range/Units 18:28 21:42 WBC 10.6 (4.8-10.8) X10*3/uL RBC 4.28 (4.20-5.50) X10*6/uL Hgb 12.9 (12.0-16.0) g/dl Hct 38.4 (37.0-47.0) % MCV 89.7 (80.0-98.0) fL MCH 30.1 (27.0-33.0) pg MCHC 33.6 (31.0-35.0) g/dl RDW 12.1 (11.0-16.0) % Plt Count 233 (160-400) X10*3/uL MPV 10.3 (9.4-12.3) fL Immature Gran % (Auto) 0.2 (0.0-0.4) % Neut % (Auto) 62.4 (45-73) % Lymph % (Auto) 26.8 (20-40) % [place] % (Auto) 8.8 (2-11) % Eos % (Auto) 1.3 (0-4) % Baso % (Auto) 0.5 (0-2) % Lymph # (Auto) 2.8 (1.2-4.9) X10*3/uL [place] # (Auto) 0.9 (0.1-1.2) X10*3/uL Eos # (Auto) 0.1 (0.0-0.4) X10*3/uL Baso # (Auto) 0.1 (0.0-0.2) X10*3/uL Abs Immat Gran (auto) 0.02 (0.00-0.03) X10*3/uL Absolute Neuts (auto) 6.6 (2.0-8.3) x10*3/uL Absolute Nucleated RBC 0.000 (0.0-0.012) X10*3/uL Nucleated RBC % (auto) 0.0 (0.0-0.2) /100WBC Sodium 141 (135-145) mmol/L Potassium 3.9 (3.3-5.1) mmol/L Chloride 108 (96-108) mmol/L Carbon Dioxide 26 (22-29) mmol/L Anion Gap 11 L (12-20) BUN 11 (9-16) mg/dL Creatinine 0.74 (0.5-1.4) mg/dL Estim Creat Clear Calc 90.0 Estimated GFR > 60 Random Glucose 117 H (60-115) mg/dL Lactic Acid 0.7 (0.5-2.0) mmol/L Calcium 9.2 (8.4-10.2) mg/dL Urine Color Brown A Urine Appearance Turbid Urine pH 6.5 (5.0-9.0) Ur Specific [place] 1.020 (1.005-1.025) Urine Protein 100 (2+) H (Neg-Trace) mg/dL Urine Glucose (UA) Negative (Negative) mg/dL Urine Ketones Trace (Negative) mg/dL Urine Blood Large (3+) H (Negative) Urine Nitrite Positive H (Negative) Ur Leukocyte Esterase Moderate (2+) H (Negative) Urine RBC >20 H (0-2) /HPF Urine WBC >50 H (0-5) /HPF Ur Squamous Epith Cells 3-5 (0-2) /HPF Urine Bacteria 4+ (None Seen) Hyaline Casts 0-2 (0-2) /LPF Discharge Plan Discharge Clinical Impression: Pyelonephritis Patient Disposition: Home, Self-Care Instructions: Kidney Infection (ED) Prescriptions: No Action albuterol sulfate 90 mcg/actuation HFA aerosol inhaler 2 puff PO Q4-6H PRN (Reason: for muscle spasm) Qty: 8.5 0RF montelukast [Singulair] 10 mg tablet 10 mg PO BEDTIME Qty: 30 3RF sucralfate 1 gram tablet 1 g PO ONCE PRN (Reason: acid reflux) 30 Days Qty: 56 4RF Rx Instructions: 2 hours after other meds daily famotidine 40 mg tablet 40 mg PO BID PRN (Reason: for acid reflux) 30 Days Qty: 60 2RF Iclusig 30 mg Tablet 30 mg PO DAILY Qty: 30 3RF sertraline 100 mg tablet 100 mg PO DAILY zolpidem [Ambien] 10 mg tablet 10 mg PO BEDTIME PRN (Reason: Insomnia) cholecalciferol (vitamin D3) 50 mcg (2,000 unit) capsule 50 mcg PO DAILY 90 Days Qty: 90 3RF fluticasone propion-salmeterol [Advair Diskus] 250-50 mcg/dose blister with device 1 inh inhalation BID Incruse Ellipta 62.5 mcg/actuation blister with device 1 inh inhalation BEDTIME Qty: 30 4RF sennosides-docusate sodium [Senna-S] 8.6-50 mg tablet 2 tab-cap PO BEDTIME 90 Days Qty: 180 2RF epinephrine [EpiPen 2-[place]] 0.3 mg/0.3 mL auto-injector 0.3 mg IM Q4H PRN (Reason: anaphylaxis) Qty: 2 0RF ondansetron 4 mg tablet,disintegrating 4 mg PO TID PRN (Reason: nausea and vomiting) 5 Days Qty: 10 0RF clonazepam 0.5 mg tablet 0.5 mg PO DAILY Referrals: Po,Josef Nair MD [Primary Care Provider] - 11/07/22 Interventions: ED Discharge Assessment Last Done: 11/06/22 00:52 Discharge Date/Time: 11/06/22 00:52
[2022-11-05 18:32] LABS: MANUAL DIFF FLAG NO
[2022-11-05 18:46] LABS: Basophils Absolute Auto 0.1 X10*3/uL (0.0-0.2); Basophils Percent Auto 0.5 % (0-2); Eosinophils Absolute Auto 0.1 X10*3/uL (0.0-0.4); Eosinophils Percent Auto 1.3 % (0-4); Hematocrit 38.4 % (37.0-47.0); Hemoglobin 12.9 g/dl (12.0-16.0); Imm Gran Abs Auto 0.02 X10*3/uL (0.00-0.03); Imm Gran Pct Auto 0.2 % (0.0-0.4); Lymphocytes Absolute Auto 2.8 X10*3/uL (1.2-4.9); Lymphocytes Percent Auto 26.8 % (20-40); Mean Corpuscular HGB Conc 33.6 g/dl (31.0-35.0); Mean Corpuscular Hemoglobin 30.1 pg (27.0-33.0); Mean Corpuscular Volume 89.7 fL (80.0-98.0); Mean Platelet Volume 10.3 fL (9.4-12.3); Monocytes Absolute Auto 0.9 X10*3/uL (0.1-1.2); Monocytes Percent Auto 8.8 % (2-11); Neutrophils Absolute Auto 6.6 x10*3/uL (2.0-8.3); Neutrophils Percent Auto 62.4 % (45-73); Platelet Count 233 X10*3/uL (160-400); Red Blood Count 4.28 X10*6/uL (4.20-5.50); Red Cell Distribution Width 12.1 % (11.0-16.0); White Blood Count 10.6 X10*3/uL (4.8-10.8)
[2022-11-05 18:52] LABS: Anion Gap 11 (12-20); Appearance Urine Turbid; Blood Urea Nitrogen 11 mg/dL (9-16); Calcium 9.2 mg/dL (8.4-10.2); Carbon Dioxide 26 mmol/L (22-29); Chloride 108 mmol/L (96-108); Color Urine Brown; Estimated Glomerular Filt Rate > 60; Glucose Random 117 mg/dL (60-115); Leukocyte Esterase Urine Moderate (2+) (Negative); Nitrite Urine Positive (Negative); Potassium 3.9 mmol/L (3.3-5.1); Sodium 141 mmol/L (135-145); UACC Culture Trigger YES; UMIC TRIGGER UACC YES; Urine Protein 100 (2+) mg/dL (Neg-Trace)
[2022-11-05 18:53] LABS: Glucose Urine UA Negative (Negative); PH 6.5 (5.0-9.0); Urine Blood Large (3+) (Negative); Urine Ketones Trace mg/dL (Negative)
[2022-11-05 18:56] LABS: Bacteria Urine 4+ (None Seen); Hyaline Casts Urine 0-2 /LPF (0-2); RBC Urine >20 /HPF (0-2); WBC Urine >50 /HPF (0-5)
[2022-11-05 21:22] VITALS: BP 147/85; PULSE 84; RESP 16; TEMP 36.7; O2SAT 99
--- NOTE | 2022-11-05 21:36 | ED.ABDPAIN ---
HPI - Abdominal Pain General Chief Complaint: Abdominal Pain Stated Complaint: lower abd pain Time Seen by Provider: 11/05/22 21:20 History of Present Illness HPI narrative: Patient is a 47-year-old female with a history of leukemia currently on medications. Presented today with having pain on urination over the last 24 hours now going to the flank area associated with some nausea. Patient noticed blood in the urine. No change in bowel movements. No fever no chills. No coughing or congestion or upper respiratory symptoms. Patient is from home. Related Data Home Medications Medication Instructions Recorded Confirmed sertraline 100 mg tablet 100 mg PO DAILY 04/07/20 10/26/22 zolpidem 10 mg tablet (Ambien) 10 mg PO BEDTIME PRN Insomnia 04/07/20 10/26/22 clonazepam 0.5 mg tablet 0.5 mg PO DAILY 03/12/22 10/26/22 fluticasone 250 mcg-salmeterol 50 1 inh inhalation BID 07/27/22 10/26/22 mcg/dose blistr powdr for inhalation (Advair Diskus) Previous Rx's Medication Instructions Recorded cholecalciferol (vitamin D3) 50 50 mcg PO DAILY 90 days #90 caps 05/09/21 mcg (2,000 unit) capsule albuterol sulfate 90 mcg/actuation 2 puff PO Q4-6H PRN for muscle 05/25/22 aerosol inhaler spasm #8.5 ea famotidine 40 mg tablet 40 mg PO DAILY PRN acid reflux #30 06/11/22 tabs sucralfate 1 gram tablet 1 g PO ONCE PRN acid reflux 30 06/11/22 days #56 tabs sennosides 8.6 mg-docusate sodium 2 tab-cap PO BEDTIME 90 days #180 06/18/22 50 mg tablet (Senna-S) tabs polyethylene glycol 3350 17 gram 17 g PO DAILY #30 ea 07/27/22 oral powder packet (Miralax) ondansetron 4 mg disintegrating 4 mg PO TID PRN nausea and 07/31/22 tablet vomiting 5 days #10 tabs montelukast 10 mg tablet 10 mg PO BEDTIME #30 tabs 08/24/22 (Singulair) ponatinib 30 mg tablet (Iclusig) 30 mg PO DAILY #30 tabs 03/21/23 nirmatrelvir 300 mg (150 mg See Rx Instructions PO .COMPLEX 10/19/22 x2)-ritonavir 100 mg tablet,dose #30 ea pack(EUA) (Paxlovid) levofloxacin 500 mg tablet 500 mg PO DAILY #10 tabs 11/05/22 ondansetron 4 mg disintegrating 4 mg PO TID PRN nausea and 11/05/22 tablet vomiting 5 days #10 tabs Allergies Allergy/AdvReac Type Severity Reaction Status Date / Time nut - unspecified [nut] Allergy Severe Anaphylaxis Verified 10/26/22 15:03 Penicillins Allergy Severe RASH Verified 10/26/22 15:03 seafood Allergy Severe Anaphylaxis Verified 10/26/22 15:03 shellfish derived Allergy Severe Anaphylaxis Verified 10/26/22 15:03 Wixela Inhub AdvReac Intermediate palpitation Uncoded 08/27/22 14:15 s Review of Systems Review of Systems Positive nausea Yes all other systems are reviewed and are negative PMFSH Past Medical History Attestation statement: The following information was validated with the patient. 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 Breast asymmetry CLL (chronic lymphocytic leukemia) CML (chronic myelocytic leukemia) Conjunctivitis, left eye Dizziness Dysuria Frequency of micturition GERD (gastroesophageal reflux disease) Hematuria Hip pain, left Hypercholesterolemia Hypokalemia Impacted cerumen of left ear Insomnia Laryngospasm Left flank pain Lesion of left [place] kidney Leukemia LLQ abdominal pain Lower extremity weakness Lymphadenopathy, anterior cervical Mixed incontinence Nasal congestion Nausea & vomiting Obesity (BMI 30-39.9) Patent foramen ovale Pelvic pain Peptic ulcer disease Perioral numbness PONV (postoperative nausea and vomiting) Thoracic back pain Viral syndrome Surgical History History of bilateral salpingectomy History of tonsillectomy History of vaginal hysterectomy Hx of colonoscopy Hx of colonoscopy Hx of esophagogastroduodenoscopy Ulnar nerve entrapment at elbow Family History Family History Maternal Aunt Breast cancer Paternal Grandmother Breast cancer Paternal Grandfather Myocardial infarction, acute, initial episode of care Paternal Uncle Stomach cancer Liver cancer Pancreatic cancer Father Colon cancer Social History Social History (Reviewed 10/26/22 @ 15:03 by Daniel Bauman [facility] Household Members: None Housing: Apartment Are you a primary before and after school daycare worker to a significant other at home: No Do you presently have visiting nurse or other home services: No Alcohol intake: never Patient Tobacco Use Status: Never used Tobacco Smoked in Last 30 Days: No e-Cigarette/Vaping Use: Never Used Second Hand Smoke Exposure: No Use of substances other than those prescribed or required for medical reasons: No Advance Directives: No Advance Directives Information Provided: No Advance Directives Date on File: 02/06/22 Patient : No service: No Current occupational status: employed Current occupational exposures/hazards: No Cognitive needs: No Hearing needs: No Vision needs: Yes Physical Exam ED Vital Signs: Vital Signs - 24 hr 11/05/22 18:00 11/05/22 21:22 Temperature 98.1 F 98.1 F Pulse Rate 78 84 Respiratory Rate 18 16 Blood Pressure 167/96 H 147/85 H Pulse Oximetry 99 99 Oxygen Delivery Method Room Air Room Air BMI result Body Mass Index 34.0 Appearance: Alert. Oriented X3. No acute distress. Eyes: Pupils equal, round and reactive to light. ENT: Pharynx normal. Neck: Normal inspection. Neck supple. No lymph nodes noted. No crepitus CVS: Normal heart rate and rhythm. Pulses normal. Normal S1 and S2 Respiratory: No respiratory distress. Breath sounds normal. No Wheezing. No rales Abdomen: Soft and nontender. No rigidity. No distention. good BS x4 Skin: Skin warm and dry. Normal skin color. Normal skin turgor. Extremities: No lower extremity edema. Neurovascular intact to all extremities. No Lacerations. No Rash Neuro: Oriented X 3. No motor deficit. No sensory deficit. Moving all extermities. No slurred speech Medical Decision Making Medical Decision Making MDM Narrative: Patient had abdominal pain going to the flank area. Associated with some nausea. Urine was extremely bloody. Way came back positive for UTI. Consistent with pyelonephritis. Patient has in severe allergy to penicillin which she swells up. She was given a dose of Levaquin. Has a history of leukemia chronic CML. Patient is currently undergoing medication treatment. Her white count was okay. No evidence for neutropenia. No fever no chills. Symptom improved with IV fluids. CT scan of the abdomen was ordered and done prior to me examining patient. CT scan was negative for obstruction, abscess, perforation. No evidence for appendicitis. No evidence for diverticulitis. Patient to be discharged home on Levaquin. Close follow-up on an outpatient basis. Nausea medication. In stable condition Differential Diagnosis Differential Diagnoses: The differential diagnosis associated with the presentation includes Pyelonephritis, UTI, bladder cancer, appendicitis, diverticulitis, abscess, perforation Lab Data MDM Lab Attestation statement: I reviewed the patient's lab results. 11/05/22 18:28 11/05/22 18:28 Labs: Lab Results 11/05/22 11/05/22 11/05/22 Range/Units 18:28 18:28 18:28 WBC 10.6 (4.8-10.8) X10*3/uL RBC 4.28 (4.20-5.50) X10*6/uL Hgb 12.9 (12.0-16.0) g/dl Hct 38.4 (37.0-47.0) % MCV 89.7 (80.0-98.0) fL MCH 30.1 (27.0-33.0) pg MCHC 33.6 (31.0-35.0) g/dl RDW 12.1 (11.0-16.0) % Plt Count 233 (160-400) X10*3/uL MPV 10.3 (9.4-12.3) fL Immature Gran % (Auto) 0.2 (0.0-0.4) % Neut % (Auto) 62.4 (45-73) % Lymph % (Auto) 26.8 (20-40) % [place] % (Auto) 8.8 (2-11) % Eos % (Auto) 1.3 (0-4) % Baso % (Auto) 0.5 (0-2) % Lymph # (Auto) 2.8 (1.2-4.9) X10*3/uL [place] # (Auto) 0.9 (0.1-1.2) X10*3/uL Eos # (Auto) 0.1 (0.0-0.4) X10*3/uL Baso # (Auto) 0.1 (0.0-0.2) X10*3/uL Abs Immat Gran (auto) 0.02 (0.00-0.03) X10*3/uL Absolute Neuts (auto) 6.6 (2.0-8.3) x10*3/uL Absolute Nucleated RBC 0.000 (0.0-0.012) X10*3/uL Nucleated RBC % (auto) 0.0 (0.0-0.2) /100WBC Sodium 141 (135-145) mmol/L Potassium 3.9 (3.3-5.1) mmol/L Chloride 108 (96-108) mmol/L Carbon Dioxide 26 (22-29) mmol/L Anion Gap 11 L (12-20) BUN 11 (9-16) mg/dL Creatinine 0.74 (0.5-1.4) mg/dL Estim Creat Clear Calc 90.0 Estimated GFR > 60 Random Glucose 117 H (60-115) mg/dL Lactic Acid (0.5-2.0) mmol/L Calcium 9.2 (8.4-10.2) mg/dL Urine Color Brown A Urine Appearance Turbid Urine pH 6.5 (5.0-9.0) Ur Specific [place] 1.020 (1.005-1.025) Urine Protein 100 (2+) H (Neg-Trace) mg/dL Urine Glucose (UA) Negative (Negative) mg/dL Urine Ketones Trace (Negative) mg/dL Urine Blood Large (3+) H (Negative) Urine Nitrite Positive H (Negative) Ur Leukocyte Esterase Moderate (2+) H (Negative) Urine RBC >20 H (0-2) /HPF Urine WBC >50 H (0-5) /HPF Ur Squamous Epith Cells 3-5 (0-2) /HPF Urine Bacteria 4+ (None Seen) Hyaline Casts 0-2 (0-2) /LPF 11/05/22 Range/Units 21:42 WBC (4.8-10.8) X10*3/uL RBC (4.20-5.50) X10*6/uL Hgb (12.0-16.0) g/dl Hct (37.0-47.0) % MCV (80.0-98.0) fL MCH (27.0-33.0) pg MCHC (31.0-35.0) g/dl RDW (11.0-16.0) % Plt Count (160-400) X10*3/uL MPV (9.4-12.3) fL Immature Gran % (Auto) (0.0-0.4) % Neut % (Auto) (45-73) % Lymph % (Auto) (20-40) % [place] % (Auto) (2-11) % Eos % (Auto) (0-4) % Baso % (Auto) (0-2) % Lymph # (Auto) (1.2-4.9) X10*3/uL [place] # (Auto) (0.1-1.2) X10*3/uL Eos # (Auto) (0.0-0.4) X10*3/uL Baso # (Auto) (0.0-0.2) X10*3/uL Abs Immat Gran (auto) (0.00-0.03) X10*3/uL Absolute Neuts (auto) (2.0-8.3) x10*3/uL Absolute Nucleated RBC (0.0-0.012) X10*3/uL Nucleated RBC % (auto) (0.0-0.2) /100WBC Sodium (135-145) mmol/L Potassium (3.3-5.1) mmol/L Chloride (96-108) mmol/L Carbon Dioxide (22-29) mmol/L Anion Gap (12-20) BUN (9-16) mg/dL Creatinine (0.5-1.4) mg/dL Estim Creat Clear Calc Estimated GFR Random Glucose (60-115) mg/dL Lactic Acid 0.7 (0.5-2.0) mmol/L Calcium (8.4-10.2) mg/dL Urine Color Urine Appearance Urine pH (5.0-9.0) Ur Specific [place] (1.005-1.025) Urine Protein (Neg-Trace) mg/dL Urine Glucose (UA) (Negative) mg/dL Urine Ketones (Negative) mg/dL Urine Blood (Negative) Urine Nitrite (Negative) Ur Leukocyte Esterase (Negative) Urine RBC (0-2) /HPF Urine WBC (0-5) /HPF Ur Squamous Epith Cells (0-2) /HPF Urine Bacteria (None Seen) Hyaline Casts (0-2) /LPF Independent Interpretation I performed an independent interpretation of an: CT Scan Interpretation: CT scan showed no acute findings Radiology Impression Discussion of test interpretation with radiology: I have reviewed the radiologist's reading. Chronic Conditions Chronic myelocytic leukemia Medications Administered Discontinued Medications Generic Name Dose Route Start Last Admin Trade Name Freq PRN Reason Stop Dose Admin Sodium Chloride 1,000 mls @ 999 mls/hr 11/05/22 21:45 11/05/22 21:40 Ns IV 11/05/22 22:45 999 mls/hr .Q1H1M EMILY Administration Levofloxacin 500 mg in 100 mls @ 100 mls/hr 11/05/22 21:33 11/05/22 22:27 Levaquin IV 11/05/22 22:32 100 mls/hr ONCE ONE Administration Discharge Plan Discharge Clinical Impression: Pyelonephritis Patient Disposition: Home, Self-Care Instructions: Kidney Infection (ED) Prescriptions: New levofloxacin 500 mg tablet 500 mg PO DAILY Qty: 10 0RF ondansetron 4 mg tablet,disintegrating 4 mg PO TID PRN (Reason: nausea and vomiting) 5 Days Qty: 10 0RF No Action albuterol sulfate 90 mcg/actuation HFA aerosol inhaler 2 puff PO Q4-6H PRN (Reason: for muscle spasm) Qty: 8.5 0RF montelukast [Singulair] 10 mg tablet 10 mg PO BEDTIME Qty: 30 3RF Iclusig 30 mg Tablet 30 mg PO DAILY Qty: 30 3RF ondansetron 4 mg tablet,disintegrating 4 mg PO TID PRN (Reason: nausea and vomiting) 5 Days Qty: 10 0RF Paxlovid (EUA) 300 mg (150 mg x 2)-100 mg tablets,dose pack See Rx Instructions .ROUTE .COMPLEX Qty: 30 0RF Rx Instructions: take TWO 150 mg tablets of nirmatrelvir with ONE 100 mg tablet of ritonavir twice daily for 5 days sertraline 100 mg tablet 100 mg PO DAILY zolpidem [Ambien] 10 mg tablet 10 mg PO BEDTIME PRN (Reason: Insomnia) cholecalciferol (vitamin D3) 50 mcg (2,000 unit) capsule 50 mcg PO DAILY 90 Days Qty: 90 3RF fluticasone propion-salmeterol [Advair Diskus] 250-50 mcg/dose blister with device 1 inh inhalation BID polyethylene glycol 3350 [Miralax] 17 gram powder in packet 17 g PO DAILY Qty: 30 3RF sennosides-docusate sodium [Senna-S] 8.6-50 mg tablet 2 tab-cap PO BEDTIME 90 Days Qty: 180 2RF clonazepam 0.5 mg tablet 0.5 mg PO DAILY famotidine 40 mg tablet 40 mg PO DAILY PRN (Reason: acid reflux) Qty: 30 6RF Rx Instructions: 2 hours before bedtime sucralfate 1 gram tablet 1 g PO ONCE PRN (Reason: acid reflux) 30 Days Qty: 56 4RF Rx Instructions: 2 hours after other meds daily Referrals: Po,Josef Nair MD [Primary Care Provider] - 11/07/22
[2022-11-05] MEDS: 0.9 % Sodium Chloride 1,000 ML 999 ML IV ×2 (21:40→23:20)
[2022-11-05 22:05] LABS: Lactic Acid 0.7 mmol/L (0.5-2.0)
[2022-11-05] MEDS: levoFLOXacin/D5W 500 MG/100 ML PIGGYBACK 100 MG IV (22:27)
[2022-11-05] MEDS: Acetaminophen 325 MG TABLET 975 MG PO (23:17)
[2022-11-05 23:20] VITALS: BP 127/71; PULSE 71; RESP 16; TEMP 36.9; O2SAT 97
--- NOTE | 2022-11-05 23:26 | MHC.EDTECH ---
This tech assumed care of patient at 2300, Vitals taken, patient is resting comfortably at this time. Call ortiz in reach
== END 2022-11-06 00:52 | disposition home or self-care (01) ==
PROVIDERS: Physician Assistant; Emergency Provider Emergency Medicine Emergency Medical Services; PCP Internal Medicine
DX: N12 Tubulo-interstitial nephritis, not specified as acute or chronic (principal); R30.0 Dysuria; R31.9 Hematuria, unspecified; R10.2 Pelvic and perineal pain; Z79.899 Other long term (current) drug therapy
CPT/HCPCS: 36415; 74176; 80048; 81001; 83605; 85025; 87040; 87086; 87088; 87186; 96361; 96374; 99284; 99285; J1956

== ENCOUNTER 2022-11-22 15:22 | Outpatient (REF) | payer OTHER, SELFPAY | END 2022-11-22 15:23 | disposition home or self-care (01) | LOC: HO.LAB 15:22 | PROVIDERS: Visit Provider Nurse Practitioner Family | DX: R10.9 Unspecified abdominal pain (principal) | CPT/HCPCS: 87086; 87088; 87186 ==

== ENCOUNTER 2023-01-09 10:09 | Outpatient (AMB) | payer OTHER, SELFPAY ==
--- NOTE | 2023-01-09 10:16 | MHC.PC.OV ---
Vital Signs 01/09/23 10:17 Height 5 ft 1 in Weight 185 lb BMI 35.0 BP 124/62 Blood Pressure Location Lt brachial Position Sitting Pulse 74 Pulse Source Pulse Oximeter Pulse Oximetry (%) 97 Oxygen Delivery Method Room Air Intake Visit Reasons: Anterior Cystocele Repair-01/28/23 Allergies nut - unspecified [nut] Allergy (Severe, Verified 01/09/23 10:18) Anaphylaxis Penicillins Allergy (Severe, Verified 01/09/23 10:18) RASH seafood Allergy (Severe, Verified 01/09/23 10:18) Anaphylaxis shellfish derived Allergy (Severe, Verified 01/09/23 10:18) Anaphylaxis Wixela Inhub Adverse Reaction (Intermediate, Uncoded 01/09/23 10:18) palpitations Medication List - Last Reconciled 01/09/23 by Josef Lindquist MD albuterol sulfate 90 mcg/actuation 2 puffs PO Q4-6H PRN cholecalciferol (vitamin D3) 50 mcg PO DAILY 90 days clonazepam 0.5 mg PO DAILY famotidine 40 mg PO BEDTIME PRN fluticasone propion-salmeterol 250-50 mcg/dose (Advair Diskus) 1 inh inhalation BID montelukast (Singulair) 10 mg PO BEDTIME ondansetron 4 mg PO TID PRN 5 days ponatinib (Iclusig) 30 mg PO DAILY sennosides-docusate sodium 8.6-50 mg (Senna-S) 2 tab-caps (2 x 8.6-50 mg) PO BEDTIME 90 days sertraline 100 mg PO DAILY sucralfate 1 g PO ONCE PRN 30 days zolpidem (Ambien) 10 mg PO BEDTIME PRN Tobacco use date assessed: 11/22/22 Dental Screening Dental Screen Date: 01/09/23 Did you have a dental visit in the last 12 months?: Yes Did you have a dental problem in the last 6 months where you did not have access to dental care?: No Was dental information given to patient?: Patient has dentist HPI Anterior Cystocele Repair-01/28/23 HPI Details 47-year-old obese female with chronic myelocytic looking generalized anxiety disorder coming in for follow-up. Last seen in August 2022. Colonoscopy is up-to-date mammogram July 2022. 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 Patient also has seen the nurse practitioner in October 2022 for left flank pain was in the ER for pyelonephritis urine in the office was negative and she did see the urologist October 2022 and was advised cystoscopy. Patient had COVID-19 infection in September 2022- Cystocopy done already and ? negative PAtient states has a hernia bladder and planned Anterior cystocole repair, tranvaginal tape (TVT) with cystoscopy. Planned surgery January 28, 2023. 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 Breast asymmetry CLL (chronic lymphocytic leukemia) CML (chronic myelocytic leukemia) Conjunctivitis, left eye Dizziness Dysuria Frequency of micturition GERD (gastroesophageal reflux disease) Hematuria Hip pain, left Hypercholesterolemia Hypokalemia Impacted cerumen of left ear Insomnia Laryngospasm Left flank pain Lesion of left [place] kidney Leukemia LLQ abdominal pain Lower extremity weakness Lymphadenopathy, anterior cervical Mixed incontinence Nasal congestion Nausea & vomiting Obesity (BMI 30-39.9) Patent foramen ovale Pelvic pain Peptic ulcer disease Perioral numbness PONV (postoperative nausea and vomiting) Thoracic back pain Viral syndrome Surgical History History of bilateral salpingectomy History of tonsillectomy History of vaginal hysterectomy Hx of colonoscopy Hx of colonoscopy Hx of esophagogastroduodenoscopy Ulnar nerve entrapment at elbow Family History (Updated 01/09/23 @ 10:43 by Josef Lindquist MD) Maternal Aunt Breast cancer Paternal Grandmother Breast cancer Paternal Grandfather Myocardial infarction, acute, initial episode of care Paternal Uncle Stomach cancer Liver cancer Pancreatic cancer Kidney cancer, primary, with metastasis from kidney to other site Father Colon cancer Social History Household Members: None Housing: Apartment Are you a primary home visit field care manager to a significant other at home: No Do you presently have visiting nurse or other home services: No Alcohol intake: never Patient Tobacco Use Status: Never used Tobacco e-Cigarette/Vaping Use: Never Used Second Hand Smoke Exposure: No Advance Directives Date on File: 02/06/22 service: No Current occupational status: employed Current occupational exposures/hazards: No Cognitive needs: No Hearing needs: No Vision needs: Yes Questionnaire PHQ-9 Over the last 2 weeks, how often have you been bothered by any of the following problems? 1. Little interest or pleasure in doing things: nearly every day 2. Feeling down, depressed, or hopeless: nearly every day 3. Trouble falling or staying asleep, or sleeping too much: not at all 4. Feeling tired or having little energy: not at all 5. Poor appetite or overeating: not at all 6. Feeling bad about yourself - or that you are a failure or have let yourself or your family down: not at all 7. Trouble concentrating on things, such as reading the newspaper or watching television: not at all 8. Moving or speaking so slowly that other people could have noticed. Or the opposite - being so fidgety or restless that you have been moving around a lot more than usual: not at all 9. Thoughts that you would be better off or of hurting yourself in some way: not at all Total score: 6 Depression Screening Interpretation: Negative Source: Developed by Drs. Kar Rojo, Musa Conrad and colleagues, with an educational allen from [email or web address]. Thrive Questionnaire Date Thrive assessed: 09/28/22 AUDIT C Alcohol Use Questionnaire (AUDIT-C) 1. How often do you have a drink containing alcohol?: Never Total Score: 0 Score Reviewed/Action Taken: No MERARY-7 AMB Questionnaire MERARY-7 Date MERARY - 7 assessed: 09/28/22 Source: Developed by Drs. Kar Rojo, Musa Conrad and colleagues, with an educational allen from [email or web address]. Physical exam (Primary Care) Vital Signs: Last Vital Signs Pulse 74 01/09/23 10:17 BP 124/62 01/09/23 10:17 Pulse Ox 97 01/09/23 10:17 Oxygen Delivery Method Room Air 01/09/23 10:17 BMI result Body Mass Index 35.0 Tobacco/Smoking Status: Tobacco use Status Tobacco use date assessed 11/22/22 01/09/23 10:24 Patient Tobacco Use Status Never used Tobacco 01/09/23 10:24 e-Cigarette/Vaping Use Never Used 01/09/23 10:24 PHQ-9: PHQ-9 Score PHQ-9: Total score 6 01/09/23 10:24 Depression Screening Interpretation: Negative Thrive Assessment: Date of Thrive Assessment Date Thrive assessed 09/28/22 01/09/23 10:24 Const General: alert; No acute distress Eyes Conjunctivae: conjunctivae normal Resp Auscultation: clear to auscultation bilaterally Cardio Rate: regular rate Rhythm: regular rhythm GI Inspection: Yes normal to inspection Extrem General: Yes normal to inspection and No edema Assessment and Plan Assessment & Plan (1) CML (chronic myelocytic leukemia): Code(s): C92.10 - Chronic myeloid leukemia, BCR/ABL-positive, not having achieved remission Plan: Patient is being followed up by hematology oncology (2) Obesity (BMI 30-39.9): Code(s): E66.9 - Obesity, unspecified Plan: Diet and exercise (3) Asthma: Code(s): J45.909 - Unspecified asthma, uncomplicated Qualifiers: Asthma severity: mild Asthma persistence: intermittent Asthma complication type: uncomplicated Qualified Code(s): J45.20 - Mild intermittent asthma, uncomplicated Plan: Continue with inhaler as needed (4) GERD (gastroesophageal reflux disease): Comment: PPI is interfere with tasinna Discussed alternatives, If fails may try baclofen or reglan- Code(s): K21.9 - Gastro-esophageal reflux disease without esophagitis Qualifiers: Esophagitis presence: without esophagitis Qualified Code(s): K21.9 - Gastro-esophageal reflux disease without esophagitis Plan: Avoid the foods that causes that usually spicy foods, tomato products, juices, coffee, soda and foods that your sensitive to. After eating do not lie down, allow 3-4 hours before in lie down. And keep the head of bed above 30 degrees to avoid the acid from going up. (5) Generalized anxiety disorder: Comment: [place] counselling. Code(s): F41.1 - Generalized anxiety disorder Plan: Continue with counseling and therapy (6) Preop exam for internal medicine: Code(s): Z01.818 - Encounter for other preprocedural examination Plan: PAtient has been told already to stop the chemotherapy 1 week before the procedure and to resume 2 weeks after the procedure.The patient belongs to the low risk group and no further workup needed and may proceed with the contemplated procedure. Thank you very much for letting me participate in the care of this patient. (7) Seafood allergy: Code(s): Z91.013 - Allergy to seafood Medications: New epinephrine (EpiPen 2-[place]) 0.3 mg (0.3 mL) IM Q4H PRN 2 ea 0RF anaphylaxis Z91.013 - Allergy to seafood Coding Level of Care Code Est Pt Level 4 (70874) Diagnoses CML (chronic myelocytic leukemia) C92.10 Obesity (BMI 30-39.9) E66.9 Asthma J45.20 Asthma severity: mild Asthma persistence: intermittent Asthma complication type: uncomplicated GERD (gastroesophageal reflux disease) K21.9 Esophagitis presence: without esophagitis Generalized anxiety disorder F41.1 Preop exam for internal medicine Z01.818 Seafood allergy Z91.013 Additional Codes PHQ-9 - 47988 - PHQ-9 Billing: Y ([id number])
[2023-01-09 10:17] VITALS: BP 124/62; PULSE 74; O2SAT 97; BMI 35.0
== END 2023-01-09 10:54 | disposition home or self-care (01) ==
PROVIDERS: Visit Provider Internal Medicine
DX: C92.10 Chronic myeloid leukemia, BCR/ABL-positive, not having achieved remission (principal); J45.20 Mild intermittent asthma, uncomplicated; K21.9 Gastro-esophageal reflux disease without esophagitis; Z91.013 Allergy to seafood; F41.1 Generalized anxiety disorder; Z01.818 Encounter for other preprocedural examination; E66.9 Obesity, unspecified
CPT/HCPCS: 99214

== ENCOUNTER 2023-01-10 09:04 | Outpatient (AMB) | payer OTHER, SELFPAY ==
[2023-01-10 09:13] VITALS: BP 125/88; PULSE 72; BMI 35.0
--- NOTE | 2023-01-10 09:13 | A.OFFVIS_ITS ---
Intake Vital Signs 01/10/23 09:13 Height 5 ft 1 in Weight 185 lb 3.013 oz BMI 35.0 BP 125/88 Blood Pressure Location Lt brachial Position Sitting Pulse 72 Intake Visit Reasons: Gastroesophageal reflux disease (GERD) Intake Note: Laureen presents in office as a est.patient for GERD PT CC: pt reports having GERD, epigastric abdominal pain , bloating pt denies any other GI Issues Chef Concierge Required: No Accompanied by: Self / Same As Patient Allergies nut - unspecified [nut] Allergy (Severe, Verified 01/10/23 09:17) Anaphylaxis Penicillins Allergy (Severe, Verified 01/10/23 09:17) RASH seafood Allergy (Severe, Verified 01/10/23 09:17) Anaphylaxis shellfish derived Allergy (Severe, Verified 01/10/23 09:17) Anaphylaxis Wixela Inhub Adverse Reaction (Intermediate, Uncoded 01/10/23 09:17) palpitations Medication List - Last Reconciled 01/10/23 by Tori Hammer PA-C albuterol sulfate 90 mcg/actuation 2 puffs PO Q4-6H PRN cholecalciferol (vitamin D3) 50 mcg PO DAILY 90 days clonazepam 0.5 mg PO DAILY epinephrine (EpiPen 2-[place]) 0.3 mg (0.3 mL) IM Q4H PRN famotidine 40 mg PO BEDTIME PRN fluticasone propion-salmeterol 250-50 mcg/dose (Advair Diskus) 1 inh inhalation BID montelukast (Singulair) 10 mg PO BEDTIME ondansetron 4 mg PO TID PRN 5 days ponatinib (Iclusig) 30 mg PO DAILY sennosides-docusate sodium 8.6-50 mg (Senna-S) 2 tab-caps (2 x 8.6-50 mg) PO BEDTIME 90 days sertraline 100 mg PO DAILY sucralfate 1 g PO ONCE PRN 30 days zolpidem (Ambien) 10 mg PO BEDTIME PRN HPI HPI Comments History of Present Illness Details Very pleasant 46-year-old female CLL((Iclusig 30 mg PO DAILY) follows history-EGD with dilation-Schatzki ring presents with persistent acid reflux- She has had issues with chemo and GI S/E- she thinks this is as well- she has been taking at night-thats when she has nausea- Taking Famotidine 40 mg q.h.s., Carafate 1 g daily-with fairly good response- with exception on maybe 2 nights- she awakens with small amount of vomit she has gained weight Saw Dr. 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 Breast asymmetry CLL (chronic lymphocytic leukemia) CML (chronic myelocytic leukemia) Conjunctivitis, left eye Dizziness Dysuria Frequency of micturition GERD (gastroesophageal reflux disease) Hematuria Hip pain, left Hypercholesterolemia Hypokalemia Impacted cerumen of left ear Insomnia Laryngospasm Left flank pain Lesion of left [place] kidney Leukemia LLQ abdominal pain Lower extremity weakness Lymphadenopathy, anterior cervical Mixed incontinence Nasal congestion Nausea & vomiting Obesity (BMI 30-39.9) Patent foramen ovale Pelvic pain Peptic ulcer disease Perioral numbness PONV (postoperative nausea and vomiting) Thoracic back pain Viral syndrome Surgical History History of bilateral salpingectomy History of tonsillectomy History of vaginal hysterectomy Hx of colonoscopy Hx of colonoscopy Hx of esophagogastroduodenoscopy Ulnar nerve entrapment at elbow Family History Maternal Aunt Breast cancer Paternal Grandmother Breast cancer Paternal Grandfather Myocardial infarction, acute, initial episode of care Paternal Uncle Stomach cancer Liver cancer Pancreatic cancer Kidney cancer, primary, with metastasis from kidney to other site Father Colon cancer Social History Household Members: None Housing: Apartment Are you a primary wild animal caretaker to a significant other at home: No Do you presently have visiting nurse or other home services: No Alcohol intake: never Patient Tobacco Use Status: Never used Tobacco e-Cigarette/Vaping Use: Never Used Second Hand Smoke Exposure: No Advance Directives Date on File: 02/06/22 service: No Current occupational status: employed Current occupational exposures/hazards: No Cognitive needs: No Hearing needs: No Vision needs: Yes Review of Systems Const All systems reviewed & are unremarkable except as noted in HPI and below Physical Exam Vital Signs: Last Vital Signs Pulse 72 01/10/23 09:13 BP 125/88 01/10/23 09:13 BMI result Body Mass Index 35.0 Results Reviewed Results Reviewed: Larynx:normal Esophagus: GE junction at 33? cm, diaphragm hiatus at 35 cm, bogginess, edema and erythema at GEJ consistent with LA grade A esophagitis (better than last time) with partial schatzki ring. Balloon dilation done -18 mm with tear noted. There is a 2 cm sliding hiatal hernia. Esophageal inlet patch noted. Stomach: Normal mucosa. Grade 1 flap valve on retroflexed examination of the cardia. Few benign fundic gland polyps noted. Duodenum: Normal bulb and descending duodenum, Intervention: Balloon dilation Impression/Findings: esophagitis schatzki ring hiatal hernia inlet patch fundic gland polyps PLAN: Po diet as tolerated today but avoid spicy food and very hot or cold beverages Magic mouthwash for 1 week can take tylenol for discomfort? Assessment & Plan Assessment & Plan (1) GERD (gastroesophageal reflux disease): Comment: PPI is interfere with chemos- only take pepcid 40 - will try at noc- discuss with MD Code(s): K21.9 - Gastro-esophageal reflux disease without esophagitis Qualifiers: Esophagitis presence: without esophagitis Qualified Code(s): K21.9 - Gastro-esophageal reflux disease without esophagitis Plan Continue usual medications, Famotidine at HS-will discuss with GI MD-re alternatives Medications: Discontinued ponatinib 30 mg PO DAILY 30 tabs 3RF Patient Instructions: Very pleasant 47-year-old female chronic CLL follows with Oncology-acid reflux- seems to be worse at night- Will continue famotidine at HS-reflux precautions were reviewed-further discussed with MD She follows closely with Dr. Mirza-notes reviewed Encouraged to call with questions or concerns Appreciate the opportunity to assist care of this very pleasant patient Coding Level of Care Code Est Pt Level 3 (93332) Diagnoses GERD (gastroesophageal reflux disease) K21.9 Esophagitis presence: without esophagitis Time Spent (min) 30
== END 2023-01-10 10:10 | disposition home or self-care (01) ==
PROVIDERS: PCP Internal Medicine; Visit Provider Physician Assistant
DX: K21.9 Gastro-esophageal reflux disease without esophagitis (principal)
CPT/HCPCS: 99213

== ENCOUNTER → 2023-01-10 09:04 | Outpatient (BNVA) | payer OTHER, SELFPAY | PROVIDERS: PCP Internal Medicine; Visit Provider Physician Assistant | DX: K21.9 Gastro-esophageal reflux disease without esophagitis (principal) | CPT/HCPCS: 99212 ==

== ENCOUNTER 2023-02-27 10:54 | Outpatient (AMB) | payer OTHER, SELFPAY ==
--- NOTE | 2023-02-27 11:13 | MHC.PC.OV ---
Vital Signs 02/27/23 11:14 Height 5 ft 1 in Weight 194 lb 2 oz BMI 36.7 BP 132/82 Blood Pressure Location Lt brachial Position Sitting Pulse 76 Pulse Source Pulse Oximeter Pulse Oximetry (%) 97 Oxygen Delivery Method Room Air Intake Visit Reasons: Leukemia, MERARY Intake Note: Pt is here for Leukemia and MERARY F/U. 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 Accompanied by: Self / Same As Patient Allergies nut - unspecified [nut] Allergy (Severe, Verified 02/27/23 11:21) Anaphylaxis Penicillins Allergy (Severe, Verified 02/27/23 11:21) RASH seafood Allergy (Severe, Verified 02/27/23 11:21) Anaphylaxis shellfish derived Allergy (Severe, Verified 02/27/23 11:21) Anaphylaxis Wixela Inhub Adverse Reaction (Intermediate, Uncoded 02/27/23 11:21) palpitations Medication List - Last Reconciled 02/27/23 by Josef Nair Po, albuterol sulfate 90 mcg/actuation 2 puffs PO Q4-6H PRN cholecalciferol (vitamin D3) 50 mcg PO DAILY 90 days clonazepam 0.5 mg PO DAILY epinephrine (EpiPen 2-Hol[place]) 0.3 mg (0.3 mL) IM Q4H PRN famotidine 40 mg PO BID PRN 30 days fluticasone propion-salmeterol 250-50 mcg/dose (Advair Diskus) 1 inh inhalation BID montelukast (Singulair) 10 mg PO BEDTIME ondansetron 4 mg PO TID PRN 5 days ponatinib (Iclusig) 30 mg PO DAILY sennosides-docusate sodium 8.6-50 mg (Senna-S) 2 tab-caps (2 x 8.6-50 mg) PO BEDTIME 90 days sertraline 100 mg PO DAILY sucralfate 1 g PO ONCE PRN 30 days umeclidinium 62.5 mcg/actuation (Incruse Ellipta) 1 inh inhalation BEDTIME zolpidem (Ambien) 10 mg PO BEDTIME PRN Tobacco use date assessed: 11/22/22 Dental Screening Dental Screen Date: 02/27/23 Did you have a dental visit in the last 12 months?: Yes Did you have a dental problem in the last 6 months where you did not have access to dental care?: No Was dental information given to patient?: Patient has dentist HPI Leukemia, MERARY HPI Details 47-year-old obese female with CML asthma GERD gel as anxiety disorder coming in for follow-up. Patient was last seen in December 2022. Her colonoscopy is up-to-date mammogram up-to-date.. Patient recently seen Hematology-Oncology January 2023 for CML 2018 and recurrent upper extremity thrombus left. 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 Breast asymmetry CLL (chronic lymphocytic leukemia) CML (chronic myelocytic leukemia) Conjunctivitis, left eye Dizziness Dysuria Frequency of micturition GERD (gastroesophageal reflux disease) Hematuria Hip pain, left Hypercholesterolemia Hypokalemia Impacted cerumen of left ear Insomnia Laryngospasm Left flank pain Lesion of left [place] kidney Leukemia LLQ abdominal pain Lower extremity weakness Lymphadenopathy, anterior cervical Mixed incontinence Nasal congestion Nausea & vomiting Obesity (BMI 30-39.9) Patent foramen ovale Pelvic pain Peptic ulcer disease Perioral numbness PONV (postoperative nausea and vomiting) Thoracic back pain Viral syndrome Surgical History History of bilateral salpingectomy History of Jackson colposuspension History of tonsillectomy History of vaginal hysterectomy Hx of colonoscopy Hx of colonoscopy Hx of esophagogastroduodenoscopy Ulnar nerve entrapment at elbow Family History Maternal Aunt Breast cancer Paternal Grandmother Breast cancer Paternal Grandfather Myocardial infarction, acute, initial episode of care Paternal Uncle Stomach cancer Liver cancer Pancreatic cancer Kidney cancer, primary, with metastasis from kidney to other site Father Colon cancer Social History Household Members: None Housing: Apartment Are you a primary child care attendant to a significant other at home: No Do you presently have visiting nurse or other home services: No Alcohol intake: never Patient Tobacco Use Status: Never used Tobacco e-Cigarette/Vaping Use: Never Used Second Hand Smoke Exposure: No Advance Directives Date on File: 02/06/22 service: No Current occupational status: employed Current occupational exposures/hazards: No Cognitive needs: No Hearing needs: No Vision needs: Yes Questionnaire Thrive Questionnaire Date Thrive assessed: 09/28/22 MERARY-7 AMB Questionnaire MERARY-7 Date MERARY - 7 assessed: 09/28/22 Source: Developed by Drs. Kar Rojo, Veena Nguyen, Musa Frye and colleagues, with an educational allen from [employer]. Physical exam (Primary Care) Vital Signs: Last Vital Signs Pulse 76 02/27/23 11:14 BP 132/82 02/27/23 11:14 Pulse Ox 97 02/27/23 11:14 Oxygen Delivery Method Room Air 02/27/23 11:14 BMI result Body Mass Index 36.7 Tobacco/Smoking Status: Tobacco use Status Tobacco use date assessed 11/22/22 02/27/23 11:13 Patient Tobacco Use Status Never used Tobacco 02/27/23 11:13 e-Cigarette/Vaping Use Never Used 02/27/23 11:13 Thrive Assessment: Date of Thrive Assessment Date Thrive assessed 09/28/22 02/27/23 11:13 Const General: alert; No acute distress Eyes Conjunctivae: conjunctivae normal Resp Auscultation: clear to auscultation bilaterally Cardio Rate: regular rate Rhythm: regular rhythm GI Inspection: Yes normal to inspection Extrem General: Yes normal to inspection and No edema Results AMB Hemoglobin A1c AMB Hemoglobin A1c 5.8 % Last Edit by VAUGHN Mak on 02/27/23 11:30 Results Reviewed Results Reviewed: Laboratory Last Values Hgb A1c (Clinic) 5.8 % (4.0-6.0) 02/27/23 11:14 Assessment and Plan Assessment & Plan (1) Diabetes mellitus screening: Code(s): Z13.1 - Encounter for screening for diabetes mellitus (2) CML (chronic myelocytic leukemia): Code(s): C92.10 - Chronic myeloid leukemia, BCR/ABL-positive, not having achieved remission Plan: Patient continues to follow-up with hematology oncology (3) GERD (gastroesophageal reflux disease): Comment: PPI is interfere with chemos- only take pepcid 40 - will try at noc- discuss with MD Code(s): K21.9 - Gastro-esophageal reflux disease without esophagitis Qualifiers: Esophagitis presence: without esophagitis Qualified Code(s): K21.9 - Gastro-esophageal reflux disease without esophagitis Plan: Avoid the foods that causes that usually spicy foods, tomato products, juices, coffee, soda and foods that your sensitive to. After eating do not lie down, allow 3-4 hours before in lie down. And keep the head of bed above 30 degrees to avoid the acid from going up. (4) Asthma: Code(s): J45.909 - Unspecified asthma, uncomplicated Qualifiers: Asthma severity: mild Asthma persistence: intermittent Asthma complication type: uncomplicated Qualified Code(s): J45.20 - Mild intermittent asthma, uncomplicated Plan: Continue with inhaler as needed (5) Obesity (BMI 30-39.9): Code(s): E66.9 - Obesity, unspecified Plan: Diet and exercise (6) Generalized anxiety disorder: Comment: [facility]. Code(s): F41.1 - Generalized anxiety disorder Plan: Continue with counseling and therapy (7) Impaired fasting glucose: Code(s): R73.01 - Impaired fasting glucose Orders: Orders AMB Hemoglobin A1c Today Z13.1 - Encounter for screening for diabetes mellitus Medications: New umeclidinium 62.5 mcg/actuation (Incruse Ellipta) 1 inh inhalation BEDTIME 30 ea 4RF J45.20 - Mild intermittent asthma, uncomplicated Discontinued ponatinib 30 mg PO DAILY 30 tabs 3RF Coding Level of Care Code Est Pt Level 4 (55685) Diagnoses Diabetes mellitus screening Z13.1 CML (chronic myelocytic leukemia) C92.10 GERD (gastroesophageal reflux disease) K21.9 Esophagitis presence: without esophagitis Asthma J45.20 Asthma severity: mild Asthma persistence: intermittent Asthma complication type: uncomplicated Obesity (BMI 30-39.9) E66.9 Generalized anxiety disorder F41.1 Impaired fasting glucose R73.01
[2023-02-27 11:14] VITALS: BP 132/82; PULSE 76; O2SAT 97; BMI 36.7
== END 2023-02-27 11:57 | disposition home or self-care (01) ==
PROVIDERS: Visit Provider Internal Medicine
DX: K21.9 Gastro-esophageal reflux disease without esophagitis (principal); C92.10 Chronic myeloid leukemia, BCR/ABL-positive, not having achieved remission; E66.9 Obesity, unspecified; Z68.36 Body mass index [BMI] 36.0-36.9, adult; J45.20 Mild intermittent asthma, uncomplicated; R73.01 Impaired fasting glucose; F41.1 Generalized anxiety disorder
CPT/HCPCS: 83036; 99214

== ENCOUNTER 2023-06-10 10:46 | Outpatient (AMB) | payer OTHER, SELFPAY ==
[2023-06-10 10:48] VITALS: BP 128/82; PULSE 83; O2SAT 98; BMI 35.9
--- NOTE | 2023-06-10 10:48 | MHC.PC.OV ---
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 Allergies nut - unspecified [nut] Allergy (Severe, Verified 06/10/23 10:48) Anaphylaxis Penicillins Allergy (Severe, Verified 06/10/23 10:48) RASH seafood Allergy (Severe, Verified 06/10/23 10:48) Anaphylaxis shellfish derived Allergy (Severe, Verified 06/10/23 10:48) Anaphylaxis Wixela Inhub Adverse Reaction (Intermediate, Uncoded 06/10/23 10:48) palpitations Medication List - Last Reconciled 06/10/23 by Josef Lindquist MD albuterol sulfate 90 mcg/actuation 2 puffs PO Q4-6H PRN cholecalciferol (vitamin D3) 50 mcg PO DAILY 90 days clonazepam 0.5 mg PO DAILY epinephrine (EpiPen 2-[place]) 0.3 mg (0.3 mL) IM Q4H PRN famotidine 40 mg PO BID PRN fluticasone propion-salmeterol 250-50 mcg/dose (Advair Diskus) 1 inh inhalation BID montelukast (Singulair) 10 mg PO BEDTIME ondansetron 4 mg PO TID PRN 5 days ponatinib (Iclusig) 30 mg PO DAILY sennosides-docusate sodium 8.6-50 mg (Senna-S) 2 tab-caps (2 x 8.6-50 mg) PO BEDTIME 90 days sertraline 100 mg PO DAILY sucralfate 1 g PO ONCE PRN 30 days umeclidinium 62.5 mcg/actuation (Incruse Ellipta) 1 inh inhalation BEDTIME zolpidem (Ambien) 10 mg PO BEDTIME PRN Tobacco use date assessed: 06/10/23 Dental Screening Dental Screen Date: 06/10/23 Did you have a dental visit in the last 12 months?: Yes Did you have a dental problem in the last 6 months where you did not have access to dental care?: No Was dental information given to patient?: Patient has dentist HPI ASthma, depression CML HPI Details 47-year-old obese female with CML GERD asthma generalized anxiety disorder impaired glucose tolerance last seen in January 2023. Patient's colonoscopy is up-to-date August 2021 mammogram is up-to-date July 2022 patient comes in for follow-up. Patient follows up with Hematology-Oncology for CML 2018 and recurrent left upper extremity thrombus basilic vein (after IV line placement August 2021). 3 weeks ago URI and was rx steroids. [facility] Medical History (Updated 06/10/23 @ 11:32 by Josef Lindquist MD) Lower extremity weakness CML (chronic myelocytic leukemia) Laryngospasm CLL (chronic lymphocytic leukemia) PONV (postoperative nausea and vomiting) Nausea & vomiting Hypokalemia Dysuria Abdominal pain Pelvic pain LLQ abdominal pain Frequency of micturition Breast asymmetry Thoracic back pain Impacted cerumen of left ear Dizziness Perioral numbness Left flank pain Lesion of left [place] kidney Hip pain, left Hematuria Viral syndrome Conjunctivitis, left eye Lymphadenopathy, anterior cervical Hypercholesterolemia 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 Mixed incontinence Obesity (BMI 30-39.9) Nasal congestion Allergic rhinitis Patent foramen ovale Peptic ulcer disease Insomnia Asthma GERD (gastroesophageal reflux disease) Leukemia Surgical History History of bilateral salpingectomy History of Jackson colposuspension History of tonsillectomy History of vaginal hysterectomy Hx of colonoscopy Hx of colonoscopy Hx of esophagogastroduodenoscopy Ulnar nerve entrapment at elbow Family History Maternal Aunt Breast cancer Paternal Grandmother Breast cancer Paternal Grandfather Myocardial infarction, acute, initial episode of care Paternal Uncle Stomach cancer Liver cancer Pancreatic cancer Kidney cancer, primary, with metastasis from kidney to other site Father Colon cancer Social History Household Members: None Housing: Apartment Are you a primary director of primary care to a significant other at home: No Do you presently have visiting nurse or other home services: No Alcohol intake: never Patient Tobacco Use Status: Never used Tobacco e-Cigarette/Vaping Use: Never Used Second Hand Smoke Exposure: No Advance Directives Date on File: 02/06/22 service: No Current occupational status: employed Current occupational exposures/hazards: No Cognitive needs: No Hearing needs: No Vision needs: Yes Questionnaire PHQ-9 Over the last 2 weeks, how often have you been bothered by any of the following problems? 1. Little interest or pleasure in doing things: nearly every day 2. Feeling down, depressed, or hopeless: nearly every day 3. Trouble falling or staying asleep, or sleeping too much: not at all 4. Feeling tired or having little energy: not at all 5. Poor appetite or overeating: not at all 6. Feeling bad about yourself - or that you are a failure or have let yourself or your family down: not at all 7. Trouble concentrating on things, such as reading the newspaper or watching television: not at all 8. Moving or speaking so slowly that other people could have noticed. Or the opposite - being so fidgety or restless that you have been moving around a lot more than usual: not at all 9. Thoughts that you would be better off or of hurting yourself in some way: not at all Total score: 6 Depression Screening Interpretation: Positive Depression Screening Follow-up: Existing condition Depression Screening Done: Yes Source: Developed by Drs. Kar Rojo, Musa Conrad and colleagues, with an educational allen from [employer]. Thrive Questionnaire Date Thrive assessed: 09/28/22 AUDIT C Alcohol Use Questionnaire (AUDIT-C) 1. How often do you have a drink containing alcohol?: Never Total Score: 0 Score Reviewed/Action Taken: No MERARY-7 AMB Questionnaire MERARY-7 Date MERARY - 7 assessed: 06/10/23 Feeling nervous, anxious, or on edge: 0 = Not at all Not being able to stop or control worryin = Not at all Worrying too much about different things: 0 = Not at all Trouble relaxin = Not at all Being so restless that it is hard to sit still: 0 = Not at all Becoming easily annoyed or irritable: 0 = Not at all Feeling afraid as if something awful might happen: 0 = Not at all Total MERARY-7 score (0-4 normal; 5-9 mild; 10-14 moderate; 15-21 severe): 0 Source: Developed by Drs. Kar Rojo, Musa Conrad and colleagues, with an educational allen from [employer]. Physical exam (Primary Care) Vital Signs: Last Vital Signs Pulse 83 06/10/23 10:48 BP 128/82 06/10/23 10:48 Pulse Ox 98 06/10/23 10:48 Oxygen Delivery Method Room Air 06/10/23 10:48 BMI result Body Mass Index 35.9 Tobacco/Smoking Status: Tobacco use Status Tobacco use date assessed 06/10/23 06/10/23 10:49 Patient Tobacco Use Status Never used Tobacco 06/10/23 10:49 e-Cigarette/Vaping Use Never Used 06/10/23 10:49 PHQ-9: PHQ-9 Score PHQ-9: Total score 6 06/10/23 10:57 Depression Screening Interpretation: Positive Depression Screening Follow-up: Existing condition Thrive Assessment: Date of Thrive Assessment Date Thrive assessed 09/28/22 06/10/23 10:49 Const General: alert; No acute distress Eyes Conjunctivae: conjunctivae normal Resp Auscultation: clear to auscultation bilaterally Cardio Rate: regular rate Rhythm: regular rhythm GI Inspection: Yes normal to inspection Extrem General: Yes normal to inspection and No edema Assessment and Plan Assessment & Plan (1) Impaired fasting glucose: Code(s): R73.01 - Impaired fasting glucose Plan: Decrease the amount of carbohydrate intake, pasta, bread, rice and potatoes are all sugar and that is aside from all the sweet stuff, remember that fruits are good but they are Sweet also. Hemoglobin A1c within normal limit (2) CML (chronic myelocytic leukemia): Code(s): C92.10 - Chronic myeloid leukemia, BCR/ABL-positive, not having achieved remission Plan: Continue to follow-up with Hematology-Oncology. (3) Obesity (BMI 30-39.9): Code(s): E66.9 - Obesity, unspecified Plan: Diet and exercise (4) Asthma: Code(s): J45.909 - Unspecified asthma, uncomplicated Qualifiers: Asthma severity: mild Asthma persistence: intermittent Asthma complication type: uncomplicated Qualified Code(s): J45.20 - Mild intermittent asthma, uncomplicated Plan: Continue with inhaler as needed (5) GERD (gastroesophageal reflux disease): Comment: PPI is interfere with chemos- only take pepcid 40 - will try at noc- discuss with MD Code(s): K21.9 - Gastro-esophageal reflux disease without esophagitis Qualifiers: Esophagitis presence: without esophagitis Qualified Code(s): K21.9 - Gastro-esophageal reflux disease without esophagitis Plan: Avoid the foods that causes that usually spicy foods, tomato products, juices, coffee, soda and foods that your sensitive to. After eating do not lie down, allow 3-4 hours before in lie down. And keep the head of bed above 30 degrees to avoid the acid from going up. (6) Thrombophlebitis of upper extremity: Code(s): I80.8 - Phlebitis and thrombophlebitis of other sites Plan: Continue to monitor (7) Generalized anxiety disorder: Comment: [facility]. Code(s): F41.1 - Generalized anxiety disorder Plan: Continue with counseling and therapy (8) Peripheral neuropathy: Code(s): G62.9 - Polyneuropathy, unspecified (9) Epidermal cyst: Comment: L arm mass 1 cm Code(s): L72.0 - Epidermal cyst Plan: will monitor for now Orders: Orders NE electromyogram (EMG) Today G62.9 - Polyneuropathy, unspecified NE nerve conduction velocity Today G62.9 - Polyneuropathy, unspecified Medications: New fexofenadine (Jannie Allergy) 180 mg PO DAILY 30 tabs 3RF gabapentin 100 mg PO BEDTIME 30 caps 2RF G62.9 - Polyneuropathy, unspecified Coding Level of Care Code Est Pt Level 4 (42957) Diagnoses Impaired fasting glucose R73.01 CML (chronic myelocytic leukemia) C92.10 Obesity (BMI 30-39.9) E66.9 Mild intermittent asthma without complication J45.20 Asthma severity: mild Asthma persistence: intermittent Asthma complication type: uncomplicated Gastroesophageal reflux disease without esophagitis K21.9 Esophagitis presence: without esophagitis Thrombophlebitis of upper extremity I80.8 Generalized anxiety disorder F41.1 Peripheral neuropathy G62.9 Epidermal cyst L72.0 Additional Codes PHQ-9 - 94383 - PHQ-9 Billing: ([id number])
== END 2023-06-10 11:34 | disposition home or self-care (01) ==
PROVIDERS: PCP Internal Medicine; Visit Provider Internal Medicine
DX: R73.01 Impaired fasting glucose (principal); C92.10 Chronic myeloid leukemia, BCR/ABL-positive, not having achieved remission; E66.9 Obesity, unspecified; Z68.35 Body mass index [BMI] 35.0-35.9, adult; J45.20 Mild intermittent asthma, uncomplicated; K21.9 Gastro-esophageal reflux disease without esophagitis; I80.8 Phlebitis and thrombophlebitis of other sites; F41.1 Generalized anxiety disorder; G62.9 Polyneuropathy, unspecified; L72.0 Epidermal cyst
CPT/HCPCS: 99214

== ENCOUNTER 2023-07-19 15:14 | Outpatient (REF) | payer OTHER, SELFPAY ==
--- NOTE | 2023-07-19 15:17 | EMG_ITS ---
Chief complaint: Numbness that started on the toes, seems to be spreading proximally History of chronic myelocytic leukemia, chemotherapy since 2017, currently on Inclusig Reason for referral: Evaluate for neuropathy Referred by: Dr. Lindquist Procedure done: Bilateral lower extremity NCS/EMG Precautions and/or limitations: None The limb temperature was monitored continuously and remained between 32-36 degrees C during the performance of the NCS. Nerve Conduction Studies Anti Sensory Summary Table ?Stim Site NR Onset (ms) Norm Onset (ms) Peak (ms) Norm Peak (ms) O-P Amp (?V) Norm O-P Amp Site1 Site2 Delta-0 (ms) Dist (cm) Chad (m/s) Norm Chad (m/s) Left Sural Anti Sensory (Lat Mall) Calf ? 3.0 3.8 <4.0 16.0 >5.0 Calf Lat Mall 3.0 14.0 47 Right Sural Anti Sensory (Lat Mall) Calf ? 2.8 3.6 <4.0 18.1 >5.0 Calf Lat Mall 2.8 14.0 50 ? 2.7 3.5 15.5 Motor Summary Table ?Stim Site NR Onset (ms) Norm Onset (ms) O-P Amp (mV) Norm O-P Amp iAmp (mV) Amp (1st) (%) Site1 Site2 Delta-0 (ms) Dist (cm) Chad (m/s) Norm Chad (m/s) Right Peroneal Motor (Ext Dig Brev) Ankle ? 3.4 <4.0 7.3 >2.5 8.7 100.0 Ankle Ext Dig Brev 3.4 0.0 B Fib ? 9.5 6.5 8.1 89.0 B Fib Ankle 6.1 31.0 51 >40 Poplt ? 10.2 6.5 8.1 89.0 Poplt B Fib 0.7 4.0 57 >40 Left Tibial Motor (Abd Quevedo Brev) Ankle ? 3.4 <5 17.3 >2.5 23.6 100.0 Ankle Abd Quevedo Brev 3.4 0.0 Knee ? 11.1 11.8 16.4 68.2 Knee Ankle 7.7 35.0 45 >40 Right Tibial Motor (Abd Quevedo Brev) Ankle ? 3.1 <5 15.8 >2.5 20.7 100.0 Ankle Abd Quevedo Brev 3.1 0.0 Knee ? 11.1 9.3 13.0 58.9 Knee Ankle 8.0 38.0 48 >40 EMG ?Side Muscle Nerve Root Ins Act Fibs Psw Amp Dur Poly Recrt Int Pat Comment Right AbdHallucis MedPlantar S1-2 Nml Nml Nml Nml Nml 0 Nml Complete Right AntTibialis Dp Br Peron L4-5 Nml Nml Nml Nml Nml 0 Nml Complete Right PostTibialis Tibial L5, S1 Nml Nml Nml Nml Nml 0 Nml Complete Right MedGastroc Tibial S1-2 Nml Nml Nml Nml Nml 0 Nml Complete Right VastusMed Femoral L2-4 Nml Nml Nml Nml Nml 0 Nml Complete Left AbdHallucis MedPlantar S1-2 Incr 1+ 1+ Nml Nml 0 Nml Complete Left AntTibialis Dp Br Peron L4-5 Nml Nml Nml Nml Nml 0 Nml Complete Left PostTibialis Tibial L5, S1 Nml Nml Nml Nml Nml 0 Nml Complete Left MedGastroc Tibial S1-2 Nml Nml Nml Nml Nml 0 Nml Complete Left VastusMed Femoral L2-4 Nml Nml Nml Nml Nml 0 Nml Complete Paraspinal EMG ?Side Muscle Nerve Root Ins Act Fibs Psw Comment Right Lumbar Upper Rami Nml Nml Nml Right Lumbar Mid Rami Nml Nml Nml Right Lumbar Lower Rami Nml Nml Nml Left Lumbar Upper Rami Nml Nml Nml Left Lumbar Mid Rami Nml Nml Nml Left Lumbar Lower Rami Nml Nml Nml FINDINGS: All motor and sensory nerves tested showed normal latencies, amplitudes and conduction velocities. Concentric needle EMG was performed in selected muscles of the bilateral lower extremity and lumbar paraspinals. Study revealed Signs of electric abnormalities as shown in the table below. Left AH showed increased insertional activity, PSWs and fibrillations. IMPRESSION: 1. This is an abnormal study. 2. Although NCS was within normal, needle EMG shows findings suggestive of peripheral neuropathy. 3. There is no electrodiagnostic evidence for peroneal neuropathy, tibial neuropathy. lumbosacral plexopathy, or lumbar radiculopathy. Thank you for your kind referral. Trinity Thompson MD, SARMAD Board Certified, [place] [employer] and [employer] (ABPMR) Board Certified, [place] Board of Electrodiagnostic Medicine (ABEM) CODIN [id number] x 2 MTDD
== END 2023-07-19 15:15 | disposition home or self-care (01) ==
LOC: HO.NEURO 15:14
PROVIDERS: PCP Internal Medicine; Visit Provider Internal Medicine
DX: R20.0 Anesthesia of skin (principal); G62.9 Polyneuropathy, unspecified
CPT/HCPCS: 95886; 95909

== ENCOUNTER → 2023-07-19 15:17 | Outpatient (BNV) | payer OTHER, SELFPAY | PROVIDERS: PCP Internal Medicine; Visit Provider Physical Medicine & Rehabilitation | DX: R20.2 Paresthesia of skin (principal); G62.9 Polyneuropathy, unspecified | CPT/HCPCS: 95886; 95909 ==

== ENCOUNTER 2023-08-01 16:00 | Outpatient (AMB) | payer OTHER, SELFPAY ==
[2023-08-01 16:10] VITALS: BP 134/72; PULSE 74; O2SAT 99; BMI 36.3
--- NOTE | 2023-08-01 16:10 | A.OFFPC_ITS ---
Vital Signs 3 08/01/23 16:10 Height 5 ft 1 in Weight 192 lb 0.8 oz BMI 36.3 BP 134/72 Blood Pressure Location Lt brachial Position Sitting Pulse 74 Pulse Source Pulse Oximeter Pulse Oximetry (%) 99 Oxygen Delivery Method Room Air Intake Visit Reasons: annual exam Intake Note: Patient is here today for a physical. Hand Hose Cutter Required: No Allergies nut - unspecified [nut] Allergy (Severe, Verified 08/01/23 16:24) Anaphylaxis Penicillins Allergy (Severe, Verified 08/01/23 16:24) RASH seafood Allergy (Severe, Verified 08/01/23 16:24) Anaphylaxis shellfish derived Allergy (Severe, Verified 08/01/23 16:24) Anaphylaxis [place] Inhub Adverse Reaction (Intermediate, Uncoded 08/01/23 16:24) palpitations Medication List - Last Reconciled 08/01/23 by Josef Lindquist MD albuterol sulfate 90 mcg/actuation 2 puffs PO Q4-6H PRN cholecalciferol (vitamin D3) 50 mcg PO DAILY 90 days clonazepam 0.5 mg PO DAILY epinephrine (EpiPen 2-[place]) 0.3 mg (0.3 mL) IM Q4H PRN famotidine 40 mg PO BID PRN fexofenadine (Jannie Allergy) 180 mg PO DAILY fluticasone propion-salmeterol 250-50 mcg/dose (Advair Diskus) 1 inh inhalation BID gabapentin 100 mg PO BEDTIME montelukast (Singulair) 10 mg PO BEDTIME ondansetron 4 mg PO TID PRN 5 days ponatinib (Iclusig) 30 mg PO DAILY sennosides-docusate sodium 8.6-50 mg (Senna-S) 2 tab-caps (2 x 8.6-50 mg) PO BEDTIME 90 days sertraline 100 mg PO DAILY sucralfate 1 g PO ONCE PRN 30 days umeclidinium 62.5 mcg/actuation (Incruse Ellipta) 1 inh inhalation BEDTIME zolpidem (Ambien) 10 mg PO BEDTIME PRN Tobacco use date assessed: 08/01/23 Dental Screening Dental Screen Date: 08/01/23 Did you have a dental visit in the last 12 months?: Yes Did you have a dental problem in the last 6 months where you did not have access to dental care?: No Was dental information given to patient?: Patient has dentist HPI annual exam 2 HPI0 Details 47-year-old obese female with a history of impaired glucose tolerance CML asthma GERD history of thrombophlebitis of the upper extremity generalized anxiety disorder peripheral neuropathy coming in for physical exam last seen in May 2023. Patient's colonoscopy is up-to-date August 2021 mammogram July 2022. Review of the notes had nerve conduction test of the lower extremity noted to have peripheral neuropathy but no electrodiagnostic evidence of peroneal neuropathy tibial neuropathy lumbosacral plexopathy or lumbar radiculopathy.feeling tired and has noted tremors. Patient also complains of left knee pain denies any fall or trauma. As for the peripheral neuropathy patient was prescribed gabapentin 100 mg once a day and did not find that it is helpful. Patient also has the constipation was given senna and Colace together this would help but could not take MiraLax as well as other laxatives due to cramping abdominal pain. [facility] Medical History (Updated 08/01/23 @ 17:20 by Josef Lindquist MD) Lower extremity weakness CML (chronic myelocytic leukemia) Laryngospasm CLL (chronic lymphocytic leukemia) PONV (postoperative nausea and vomiting) Nausea & vomiting Hypokalemia Dysuria Abdominal pain Pelvic pain LLQ abdominal pain Frequency of micturition Breast asymmetry Thoracic back pain Impacted cerumen of left ear Dizziness Perioral numbness Left flank pain Lesion of left nightmute kidney Hip pain, left Hematuria Viral syndrome Conjunctivitis, left eye Lymphadenopathy, anterior cervical Hypercholesterolemia 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 Mixed incontinence Obesity (BMI 30-39.9) Nasal congestion Allergic rhinitis Patent foramen ovale Peptic ulcer disease Insomnia Asthma GERD (gastroesophageal reflux disease) Leukemia Surgical History History of bilateral salpingectomy History of Jackson colposuspension History of tonsillectomy History of vaginal hysterectomy Hx of colonoscopy Hx of colonoscopy Hx of esophagogastroduodenoscopy Ulnar nerve entrapment at elbow Family History Maternal Aunt Breast cancer Paternal Grandmother Breast cancer Paternal Grandfather Myocardial infarction, acute, initial episode of care Paternal Uncle Stomach cancer Liver cancer Pancreatic cancer Kidney cancer, primary, with metastasis from kidney to other site Father Colon cancer Social History Household Members: None Housing: Apartment Are you a primary customer care agent to a significant other at home: No Do you presently have visiting nurse or other home services: No Alcohol intake: never Patient Tobacco Use Status: Never used Tobacco e-Cigarette/Vaping Use: Never Used Second Hand Smoke Exposure: No Advance Directives Date on File: 02/06/22 service: No Current occupational status: employed Current occupational exposures/hazards: No Cognitive needs: No Hearing needs: No Vision needs: Yes Questionnaire PHQ-9 Over the last 2 weeks, how often have you been bothered by any of the following problems? 1. Little interest or pleasure in doing things: several days (HX of depression and anxiety ) 2. Feeling down, depressed, or hopeless: several days 3. Trouble falling or staying asleep, or sleeping too much: several days 4. Feeling tired or having little energy: several days 5. Poor appetite or overeating: several days 6. Feeling bad about yourself - or that you are a failure or have let yourself or your family down: not at all 7. Trouble concentrating on things, such as reading the newspaper or watching television: not at all 8. Moving or speaking so slowly that other people could have noticed. Or the opposite - being so fidgety or restless that you have been moving around a lot more than usual: not at all 9. Thoughts that you would be better off or of hurting yourself in some way: not at all Total score: 5 Depression Screening Interpretation: Positive Depression Screening Follow-up: Existing condition Depression Screening Done: Yes Source: Developed by Drs. Kar Rojo, Veena Nguyen, Musa Frye and colleagues, with an educational allen from [employer]. Thrive Questionnaire Date Thrive assessed: 08/01/23 I am a: Patient What is your living situation today?: I have a steady place to live Within the past 12 months, did the food you bought not last and you didn't have the money to get more?: Never true Within the past 12 months, did you worry whether your food would run out before you got money to buy more?: Never true Do you have trouble paying for medicines?: No Do you have trouble getting transportation to medical appointments?: No Do you have trouble paying your heating and electricity bill?: No Do you have trouble taking care of your child, family member or friend?: No Do you have trouble with day-to-day activities such as bathing, preparing meals, shopping, managing finances, etc.?: No Are you currently unemployed and looking for a job?: No Are you interested in more education?: No Please select the resources that you would like help with: None THRIVE Score: 0 AUDIT C Alcohol Use Questionnaire (AUDIT-C) 1. How often do you have a drink containing alcohol?: Never 2. How many drinks containing alcohol do you have on a typical day when you are drinking?: 1 or 2 (0) 3. How often do you have six or more drinks on one occasion?: Never Total Score: 0 Score Reviewed/Action Taken: No MERARY-7 AMB Questionnaire MERARY-7 Date MERARY - 7 assessed: 08/01/23 (HX of depression and anxiety ) Feeling nervous, anxious, or on edge: 1 = Several days Not being able to stop or control worryin = Several days Worrying too much about different things: 0 = Not at all Trouble relaxin = Not at all Being so restless that it is hard to sit still: 0 = Not at all Becoming easily annoyed or irritable: 0 = Not at all Feeling afraid as if something awful might happen: 0 = Not at all Total MERRAY-7 score (0-4 normal; 5-9 mild; 10-14 moderate; 15-21 severe): 2 Source: Developed by Drs. Kar Rojo, Veena Nguyen, Musa Frye and colleagues, with an educational allen from [employer]. Review of Systems Const Denies poor appetite and Denies weakness Eyes Denies no additional complaints ENT Reports Normal hearing present, Denies dizziness, Denies nasal congestion, Denies tinnitus and Denies sore throat Card Denies chest pain, Denies syncope, Denies rapid heart rate and Denies dyspnea Resp Denies cough and Denies dyspnea GI Denies change in stool character, Reports constipation, Denies diarrhea, Denies nausea and Denies vomiting Denies urinary frequency, Denies difficulty voiding and Denies dysuria Neuro Reports Normal hearing present, Denies confusion, Denies dizziness, Denies syncope and Denies weakness Psych Denies confusion Physical exam (Primary Care) Vital Signs: Last Vital Signs Pulse 74 08/01/23 16:10 BP 134/72 08/01/23 16:10 Pulse Ox 99 08/01/23 16:10 Oxygen Delivery Method Room Air 08/01/23 16:10 BMI result Body Mass Index 36.3 Tobacco/Smoking Status: Tobacco use Status Tobacco use date assessed 08/01/23 08/01/23 16:12 Patient Tobacco Use Status Never used Tobacco 08/01/23 16:12 e-Cigarette/Vaping Use Never Used 08/01/23 16:12 PHQ-9: PHQ-9 Score PHQ-9: Total score 5 08/01/23 16:27 Depression Screening Interpretation: Positive Depression Screening Follow-up: Existing condition Thrive Assessment: Date of Thrive Assessment Date Thrive assessed 08/01/23 08/01/23 16:12 Const Other: L neck mass noted 2 cm round General: No confusion Orientation/consciousness: No confusion HENMT Head: Yes normocephalic Head images: 2 1. 2 cm mass noted L side neck Ears: external ears normal and TM's normal bilaterally Face and sinus: Yes normal facial exam Mouth: moist mucous membranes Throat: Yes tonsils normal Eyes Conjunctivae: conjunctivae normal Pupils: Equal, round and reactive pupils present and Pupil accommodation reflex normal Direct Ophthalmoscopy: normal light reflex Neck Neck: No lymphadenopathy Thyroid: Thyroid normal Chest Chest palpation & inspection: normal inspection of the chest Resp Effort & Inspection: normal respiratory effort and no audible wheezes Auscultation: clear to auscultation bilaterally, no crackles, no wheezes and lung sounds not diminished Cardio Rate: regular rate Rhythm: regular rhythm Peripheral pulses: radial pulses present and dorsalis pedis present GI Palpation (GI): no masses Auscultation: normal bowel sounds and normoactive bowel sounds Rectal Exam - Female: deferred Skin General skin exam: no rashes or lesions noted Rashes: no rashes Neuro General: No confusion Cranial nerves: Yes Equal, round and reactive pupils present and Yes Normal hearing present Cognition (Neuro): normal cognition Gait exam (Neuro): Normal gait present Motor exam (neuro): 5/5 motor strength present throughout Deep tendon reflexes (DTR's): Right brachioradialis reflex intensity grade: 2+, Left brachioradialis reflex intensity grade: 2+, Right patellar reflex intensity grade: 2+ and Left patellar reflex intensity grade: 2+ Extrem General: No edema Assessment and Plan Assessment & Plan (1) Leukemia: Comment: dx August 2016 Code(s): C95.90 - Leukemia, unspecified not having achieved remission Plan: Continue to follow-up with Hematology-Oncology (2) GERD (gastroesophageal reflux disease): Comment: PPI is interfere with chemos- only take pepcid 40 - will try at noc- discuss with MD Code(s): K21.9 - Gastro-esophageal reflux disease without esophagitis Qualifiers: Esophagitis presence: without esophagitis Qualified Code(s): K21.9 - Gastro-esophageal reflux disease without esophagitis Plan: Avoid the foods that causes that usually spicy foods, tomato products, juices, coffee, soda and foods that your sensitive to. After eating do not lie down, allow 3-4 hours before in lie down. And keep the head of bed above 30 degrees to avoid the acid from going up. (3) Asthma: Code(s): J45.909 - Unspecified asthma, uncomplicated Qualifiers: Asthma severity: mild Asthma persistence: intermittent Asthma complication type: uncomplicated Qualified Code(s): J45.20 - Mild intermittent asthma, uncomplicated Plan: Continue with inhalers p.r.n. (4) CML (chronic myelocytic leukemia): Code(s): C92.10 - Chronic myeloid leukemia, BCR/ABL-positive, not having achieved remission Plan: Continue to follow-up with Hematology-Oncology (5) Obesity (BMI 30-39.9): Code(s): E66.9 - Obesity, unspecified Plan: Diet and exercise (6) Generalized anxiety disorder: Comment: [place] counselling. Code(s): F41.1 - Generalized anxiety disorder Plan: Continue with counseling and therapy (7) Annual physical exam: Code(s): Z00.00 - Encounter for general adult medical examination without abnormal findings (8) Breast cancer screening by mammogram: Code(s): Z12.31 - Encounter for screening mammogram for malignant neoplasm of breast Plan: mammogram requested (9) Mass of left side of neck: Code(s): R22.1 - Localized swelling, mass and lump, neck Plan: US requested and reminded about blood work (10) Left knee pain: Code(s): M25.562 - Pain in left knee Plan: Left knee x-ray requested Orders: Orders 2 US soft tiss head and/or neck Today R22.1 - Localized swelling, mass and lump, neck MM tomosynthesis screening BI Today Z12.31 - Encounter for screening mammogram for malignant neoplasm of breast XR knee LT 2V Today M25.562 - Pain in left knee Medications: Changed 2 From gabapentin 100 mg PO BEDTIME 30 caps 2RF G62.9 - Polyneuropathy, unspecified To gabapentin 300 mg PO BEDTIME 30 caps 8RF G62.9 - Polyneuropathy, unspecified Refilled 2 umeclidinium 62.5 mcg/actuation (Incruse Ellipta) 1 inh inhalation BEDTIME 30 ea 4RF J45.20 - Mild intermittent asthma, uncomplicated sennosides-docusate sodium 8.6-50 mg (Senna-S) 2 tab-caps (2 x 8.6-50 mg) PO BEDTIME 90 days 180 tabs 2RF K59.00 - Constipation, unspecified Coding Level of Care Code Est Pt Prev Care 40-64y([id number]) Diagnoses Leukemia not having achieved remission, unspecified leukemia type C95.90 Gastroesophageal reflux disease without esophagitis K21.9 Esophagitis presence: without esophagitis Mild intermittent asthma without complication J45.20 Asthma severity: mild Asthma persistence: intermittent Asthma complication type: uncomplicated CML (chronic myelocytic leukemia) C92.10 Obesity (BMI 30-39.9) E66.9 Generalized anxiety disorder F41.1 Annual physical exam Z00.00 Breast cancer screening by mammogram Z12.31 Mass of left side of neck R22.1 Left knee pain M25.562
== END 2023-08-01 17:20 | disposition home or self-care (01) ==
PROVIDERS: Visit Provider Internal Medicine
DX: Z00.00 Encounter for general adult medical examination without abnormal findings (principal); C95.90 Leukemia, unspecified not having achieved remission; C92.10 Chronic myeloid leukemia, BCR/ABL-positive, not having achieved remission; K21.9 Gastro-esophageal reflux disease without esophagitis; J45.20 Mild intermittent asthma, uncomplicated; E66.9 Obesity, unspecified; F41.1 Generalized anxiety disorder; Z12.31 Encounter for screening mammogram for malignant neoplasm of breast; R22.1 Localized swelling, mass and lump, neck; M25.562 Pain in left knee
CPT/HCPCS: 99396

== ENCOUNTER 2023-08-02 10:11 | Outpatient (REF) | payer OTHER, SELFPAY ==
[2023-08-02 10:31] LABS: MANUAL DIFF FLAG NO
[2023-08-02 10:46] LABS: Basophils Absolute Auto 0.1 X10*3/uL (0.0-0.2); Basophils Percent Auto 0.6 % (0-2); Eosinophils Absolute Auto 0.2 X10*3/uL (0.0-0.4); Eosinophils Percent Auto 1.8 % (0-4); Hematocrit 37.7 % (37.0-47.0); Hemoglobin 12.3 g/dl (12.0-16.0); Imm Gran Abs Auto 0.03 X10*3/uL (0.00-0.03); Imm Gran Pct Auto 0.4 % (0.0-0.4); Lymphocytes Absolute Auto 2.1 X10*3/uL (1.2-4.9); Lymphocytes Percent Auto 24.5 % (20-40); Mean Corpuscular HGB Conc 32.6 g/dl (31.0-35.0); Mean Corpuscular Hemoglobin 29.4 pg (27.0-33.0); Mean Corpuscular Volume 90.2 fL (80.0-98.0); Mean Platelet Volume 9.7 fL (9.4-12.3); Monocytes Absolute Auto 0.7 X10*3/uL (0.1-1.2); Neutrophils Absolute Auto 5.5 x10*3/uL (2.0-8.3); Neutrophils Percent Auto 64.7 % (45-73); Platelet Count 221 X10*3/uL (160-400); Red Blood Count 4.18 X10*6/uL (4.20-5.50); Red Cell Distribution Width 12.5 % (11.0-16.0); White Blood Count 8.5 X10*3/uL (4.8-10.8)
[2023-08-02 10:55] LABS: Estimated Average Glucose 114 mg/dL; Hemoglobin A1c % 5.6 % (<6.0)
[2023-08-02 11:24] LABS: Alanine Aminotransferase 14 U/L (0-31); Albumin Level 3.7 g/dL (3.5-5.0); Alkaline Phosphatase 71 U/L (39-117); Anion Gap 10 (12-20); Aspartate Amino Transferase 18 U/L (5-31); Bilirubin Total 0.4 mg/dL (0.0-1.0); Blood Urea Nitrogen 12 mg/dL (9-16); Calcium 8.9 mg/dL (8.4-10.2); Carbon Dioxide 27 mmol/L (22-29); Chloride 107 mmol/L (96-108); Cholesterol 183 mg/dL (<200); Estimated Glomerular Filt Rate > 60; Glucose Random 96 mg/dL (60-115); HDL Cholesterol 58 mg/dL (>40); LDL Cholesterol Calculated 114 mg/dL (<100); Potassium 4.1 mmol/L (3.3-5.1); Sodium 140 mmol/L (135-145); Total Protein 6.8 g/dL (6.5-8.0); Triglycerides 55 mg/dL (<150)
[2023-08-02 11:42] LABS: Free T4 (Free Thyroxine) 0.87 ng/dL (0.71-1.85); Thyroid Stimulating Hormone 0.61 uIU/mL (0.32-4.0); Vitamin D 25-OH Total 10.3 ng/mL (>30)
[2023-08-02 11:50] LABS: Folate 11.7 ng/mL (> or = 4.0); Vitamin B12 517 pg/mL (200-900)
== END 2023-08-02 10:12 | disposition home or self-care (01) ==
LOC: HO.LAB 10:11
PROVIDERS: PCP Internal Medicine; Visit Provider Internal Medicine
DX: K21.9 Gastro-esophageal reflux disease without esophagitis (principal); E66.9 Obesity, unspecified; E78.00 Pure hypercholesterolemia, unspecified
CPT/HCPCS: 36415; 80053; 80061; 82306; 82607; 82746; 83036; 84439; 84443; 85025

== ENCOUNTER 2023-08-20 14:41 | Outpatient (REF) | payer OTHER, SELFPAY ==
--- NOTE | ~2023-08-20 | US_ITS ---
EXAMINATION: US SOFT TISSUE HEAD/NECK CLINICAL INFORMATION: Localized swelling, mass and lump, left neck. COMPARISON: Ultrasound soft tissue head/neck 05/11/2020. CT soft tissue neck 03/01/2020. TECHNIQUE: Linear transducer rose-scale and color Doppler examination with attention to the left submandibular area in the region of concern. FINDINGS: Targeted ultrasound images were obtained by the wind turbine electrical engineer of the area of concern as indicated by the patient in the left submandibular region demonstrated a 0.8 x 0.4 x 1.1 cm lymph node with echogenic hilum. Radiologist was not in attendance. Images were later provided for interpretation. US/US soft tiss head and/or neck IMPRESSION: 0.8 x 0.4 x 1.1 cm lymph node with echogenic hilum in the area of concern indicated by the patient to the wind turbine electrical engineer in the left submandibular region. Ultrasound of 05/11/2020 demonstrated a left level Ib node measuring 1.2 x 0.4 x 0.9 cm with echogenic hilum.
--- NOTE | ~2023-08-20 | XR_ITS ---
EXAMINATION: XR KNEE, LEFT CLINICAL INFORMATION: Pain in left knee. COMPARISON: None available. TECHNIQUE: Two views of the left knee. FINDINGS: Trace joint effusion. Tiny medial marginal and posterior patellar osteophytes. Mild medial joint space narrowing. XR/XR knee LT 2V IMPRESSION: Mild degenerative changes.
== END 2023-08-20 14:42 | disposition home or self-care (01) ==
LOC: HO.US 14:41
PROVIDERS: PCP Internal Medicine; Visit Provider Internal Medicine
DX: R22.1 Localized swelling, mass and lump, neck (principal); M25.562 Pain in left knee
CPT/HCPCS: 73560; 76536

== ENCOUNTER 2023-09-04 14:49 | Outpatient (REF) | payer OTHER, SELFPAY ==
--- NOTE | ~2023-09-04 | MM_ITS ---
EXAMINATION: MM SCREENING DIGITAL BREAST TOMOSYNTHESIS, BILATERAL CLINICAL INFORMATION: Screening. Asymptomatic. COMPARISON: Mammography: This study is compared with prior exams dating back to 2019. TECHNIQUE: Digital breast tomosynthesis is performed in both the craniocaudal and mediolateral oblique views along with computer-aided detection (CAD). Synthesized 2D images are generated from the tomosynthesis. FINDINGS: The breasts are heterogeneously dense, which may obscure small masses (ACR BI-RADS breast composition Category c). There are no significant masses, abnormal calcifications, or other abnormalities. There is a tissue marker in each breast from prior benign percutaneous biopsies. MM/MM tomosynthesis screening BI IMPRESSION: No mammographic evidence of malignancy. ASSESSMENT: BI-RADS BI-RADS 1 - Negative RECOMMENDATION: Routine annual mammography screening. 1 year F/U This examination should not preclude the clinical evaluation of a suspicious palpable abnormality. This patient's information was entered into a reminder system with a target due date for their next mammogram.
== END 2023-09-04 14:50 | disposition home or self-care (01) ==
LOC: HO.MAMMO 14:49
PROVIDERS: PCP Internal Medicine; Visit Provider Internal Medicine
DX: Z12.31 Encounter for screening mammogram for malignant neoplasm of breast (principal)
CPT/HCPCS: 77063; 77067

== ENCOUNTER → 2023-09-04 15:00 | Outpatient (BNV) | payer OTHER, SELFPAY | PROVIDERS: PCP Internal Medicine; Visit Provider Radiology Diagnostic Radiology | DX: Z12.31 Encounter for screening mammogram for malignant neoplasm of breast (principal) | CPT/HCPCS: 77063; 77067 ==

== ENCOUNTER 2023-10-28 16:48 | Outpatient (AMB) | payer OTHER, SELFPAY ==
--- NOTE | 2023-10-28 16:49 | A.OFFPC_ITS ---
Vital Signs 10/28/23 16:50 Height 5 ft 1 in Weight 190 lb BMI 35.9 BP 122/76 Blood Pressure Location Lt brachial Position Sitting Pulse 91 Pulse Source Pulse Oximeter Pulse Oximetry (%) 97 Oxygen Delivery Method Room Air Intake Visit Reasons: weakness Coagulating Bath Operator Required: No Allergies nut - unspecified [nut] Allergy (Severe, Verified 10/28/23 16:50) Anaphylaxis Penicillins Allergy (Severe, Verified 10/28/23 16:50) RASH seafood Allergy (Severe, Verified 10/28/23 16:50) Anaphylaxis shellfish derived Allergy (Severe, Verified 10/28/23 16:50) Anaphylaxis Wixela Inhub Adverse Reaction (Intermediate, Uncoded 10/28/23 16:50) palpitations Medication List - Last Reconciled 10/28/23 by Josef Lindquist MD albuterol sulfate 90 mcg/actuation 2 puffs PO Q4-6H PRN cholecalciferol (vitamin D3) 50 mcg PO DAILY 90 days clonazepam 0.5 mg PO DAILY dasatinib (Sprycel) 50 mg PO DAILY epinephrine (EpiPen 2-[place]) 0.3 mg (0.3 mL) IM Q4H PRN famotidine 40 mg PO BID PRN fexofenadine (Jannie Allergy) 180 mg PO DAILY fluticasone propion-salmeterol 250-50 mcg/dose (Advair Diskus) 1 inh inhalation BID gabapentin 100 mg PO BEDTIME montelukast (Singulair) 10 mg PO BEDTIME ondansetron 8 mg PO Q8H PRN sennosides-docusate sodium 8.6-50 mg (Senna-S) 2 tab-caps (2 x 8.6-50 mg) PO BEDTIME 90 days sertraline 100 mg PO DAILY sucralfate 1 g PO ONCE PRN 30 days umeclidinium 62.5 mcg/actuation (Incruse Ellipta) 1 inh inhalation BEDTIME zolpidem (Ambien) 10 mg PO BEDTIME PRN Tobacco use date assessed: 08/01/23 Dental Screening Dental Screen Date: 08/01/23 HPI weakness HPI Details 48-year-old obese female with a history of leukemia GERD asthma CML last seen in August noted to have left-sided neck mass plus was having left knee pain and x-ray was requested. Patient's colonoscopy is up-to-date August 2021 mammogram is up-to-date August 2023. Patient has seen hematology oncology September 2023. Presently on Sprycel chest x-ray done August 2023 for shortness of breath clear. 09/20/2023 had fever diagnosis of viral syndrome ultrasound of the neck had 0.8 x 0.4 x 1.1 cm lymph node this is about the same as with May 2020 ultrasound. As for the knee mild degenerative changes. [facility] Medical History (Updated 10/28/23 @ 17:10 by Josef Lindquist MD) Lower extremity weakness CML (chronic myelocytic leukemia) Laryngospasm CLL (chronic lymphocytic leukemia) PONV (postoperative nausea and vomiting) Nausea & vomiting Hypokalemia Dysuria Abdominal pain Pelvic pain LLQ abdominal pain Frequency of micturition Breast asymmetry Thoracic back pain Impacted cerumen of left ear Dizziness Perioral numbness Left flank pain Lesion of left [place] kidney Hip pain, left Hematuria Viral syndrome Conjunctivitis, left eye Lymphadenopathy, anterior cervical Hypercholesterolemia 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 Mixed incontinence Obesity (BMI 30-39.9) Nasal congestion Allergic rhinitis Patent foramen ovale Peptic ulcer disease Insomnia Asthma GERD (gastroesophageal reflux disease) Leukemia Surgical History History of bilateral salpingectomy History of Jackson colposuspension History of tonsillectomy History of vaginal hysterectomy Hx of colonoscopy Hx of colonoscopy Hx of esophagogastroduodenoscopy Ulnar nerve entrapment at elbow Family History Maternal Aunt Breast cancer Paternal Grandmother Breast cancer Paternal Grandfather Myocardial infarction, acute, initial episode of care Paternal Uncle Stomach cancer Liver cancer Pancreatic cancer Kidney cancer, primary, with metastasis from kidney to other site Father Colon cancer Social History Household Members: None Housing: Apartment Are you a primary care manager cna to a significant other at home: No Do you presently have visiting nurse or other home services: No Alcohol intake: never Patient Tobacco Use Status: Never used Tobacco e-Cigarette/Vaping Use: Never Used Second Hand Smoke Exposure: No Advance Directives Date on File: 02/06/22 service: No Current occupational status: employed Current occupational exposures/hazards: No Cognitive needs: No Hearing needs: No Vision needs: Yes Questionnaire Thrive Questionnaire Date Thrive assessed: 10/28/23 I am a: Patient What is your living situation today?: I have a steady place to live Within the past 12 months, did the food you bought not last and you didn't have the money to get more?: Never true Within the past 12 months, did you worry whether your food would run out before you got money to buy more?: Never true Do you have trouble paying for medicines?: No Do you have trouble getting transportation to medical appointments?: No Do you have trouble paying your heating and electricity bill?: No Do you have trouble taking care of your child, family member or friend?: No Do you have trouble with day-to-day activities such as bathing, preparing meals, shopping, managing finances, etc.?: No Are you currently unemployed and looking for a job?: No Are you interested in more education?: No Please select the resources that you would like help with: None Currently or been in a relationship where the following occur: no concerns reported THRIVE Score: 0 AUDIT C Alcohol Use Questionnaire (AUDIT-C) 1. How often do you have a drink containing alcohol?: Never 2. How many drinks containing alcohol do you have on a typical day when you are drinking?: 1 or 2 (0) 3. How often do you have six or more drinks on one occasion?: Never Total Score: 0 Score Reviewed/Action Taken: No MERARY-7 AMB Questionnaire MERARY-7 Date MERARY - 7 assessed: 08/01/23 (HX of depression and anxiety ) Source: Developed by Drs. Kar Rojo, Veena Nguyen, Musa Frye and colleagues, with an educational allen from [employer]. Physical exam (Primary Care) Vital Signs: Last Vital Signs Pulse 91 10/28/23 16:50 BP 122/76 10/28/23 16:50 Pulse Ox 97 10/28/23 16:50 Oxygen Delivery Method Room Air 10/28/23 16:50 BMI result Body Mass Index 35.9 Tobacco/Smoking Status: Tobacco use Status Tobacco use date assessed 08/01/23 10/28/23 16:54 Patient Tobacco Use Status Never used Tobacco 10/28/23 16:54 e-Cigarette/Vaping Use Never Used 04/29/24 16:54 Thrive Assessment: Date of Thrive Assessment Date Thrive assessed 10/28/23 10/28/23 16:54 Currently or been in a relationship where the following occur: no concerns reported Const General: alert; No acute distress Eyes Conjunctivae: conjunctivae normal Resp Auscultation: clear to auscultation bilaterally Cardio Rate: regular rate Rhythm: regular rhythm GI Inspection: Yes normal to inspection Extrem General: Yes normal to inspection and No edema Assessment and Plan Assessment & Plan (1) Lymphadenopathy, cervical: Code(s): R59.0 - Localized enlarged lymph nodes Plan: Patient is being followed up by hematology oncology. This was compared to 2019 ultrasound which showed the same thing. (2) CML (chronic myelocytic leukemia): Code(s): C92.10 - Chronic myeloid leukemia, BCR/ABL-positive, not having achieved remission Plan: Continue to follow-up with Hematology-Oncology on Sprycel. Review of the notes from Hematology Oncology that patient has tried multiple other medications but due to side effects was not able to take them. Noted to have blood work that was done in [facility] [place] [address] (3) GERD (gastroesophageal reflux disease): Comment: PPI is interfere with chemos- only take pepcid 40 - will try at noc- discuss with MD Code(s): K21.9 - Gastro-esophageal reflux disease without esophagitis Qualifiers: Esophagitis presence: without esophagitis Qualified Code(s): K21.9 - Gastro-esophageal reflux disease without esophagitis Plan: Avoid the foods that causes that usually spicy foods, tomato products, juices, coffee, soda and foods that your sensitive to. After eating do not lie down, allow 3-4 hours before in lie down. And keep the head of bed above 30 degrees to avoid the acid from going up. (4) Generalized anxiety disorder: Comment: [facility]. Code(s): F41.1 - Generalized anxiety disorder Plan: Continue with present medication (5) Peripheral neuropathy: Comment: Nerve conduction test July 2023 Code(s): G62.9 - Polyneuropathy, unspecified Plan: Gabapentin prescription sent in. Medications: New gabapentin 100 mg PO BEDTIME 30 caps 3RF G62.9 - Polyneuropathy, unspecified Coding Level of Care Code Est Pt Level 4 (26742) Diagnoses Lymphadenopathy, cervical R59.0 CML (chronic myelocytic leukemia) C92.10 Gastroesophageal reflux disease without esophagitis K21.9 Esophagitis presence: without esophagitis Generalized anxiety disorder F41.1 Peripheral neuropathy G62.9
[2023-10-28 16:50] VITALS: BP 122/76; PULSE 91; O2SAT 97; BMI 35.9
== END 2023-10-28 17:26 | disposition home or self-care (01) ==
PROVIDERS: PCP Internal Medicine; Visit Provider Internal Medicine
DX: R59.0 Localized enlarged lymph nodes (principal); C92.10 Chronic myeloid leukemia, BCR/ABL-positive, not having achieved remission; K21.9 Gastro-esophageal reflux disease without esophagitis; F41.1 Generalized anxiety disorder; G62.9 Polyneuropathy, unspecified
CPT/HCPCS: 99214

== ENCOUNTER 2024-03-06 15:26 | Outpatient (AMB) | payer OTHER, SELFPAY ==
[2024-03-06 15:41] VITALS: BP 120/78; PULSE 77; O2SAT 98; BMI 34.6
--- NOTE | 2024-03-06 15:41 | A.OFFPC_ITS ---
Vital Signs 03/06/24 15:41 Height 5 ft 1 in Weight 183 lb 2 oz BMI 34.6 BP 120/78 Blood Pressure Location Lt brachial Position Sitting Pulse 77 Pulse Source Pulse Oximeter Pulse Oximetry (%) 98 Oxygen Delivery Method Room Air Intake Visit Reasons: CML Intake Note: Patient is here to follow up on CML. Accounting Assistant Required: No Roving Weight Gauger: Not Required per policy Accompanied by: Self / Same As Patient Allergies nut - unspecified [nut] Allergy (Severe, Verified 03/06/24 15:41) Anaphylaxis Penicillins Allergy (Severe, Verified 03/06/24 15:41) RASH seafood Allergy (Severe, Verified 03/06/24 15:41) Anaphylaxis shellfish derived Allergy (Severe, Verified 03/06/24 15:41) Anaphylaxis Wixela Inhub Adverse Reaction (Intermediate, Uncoded 03/06/24 15:41) palpitations Tobacco use date assessed: 03/06/24 Dental Screening Dental Screen Date: 08/01/23 HPI CML HPI Details 48-year-old obese female with a history of CML GERD generalized anxiety disorder peripheral neuropathy last seen in 10/19/2023. Patient's colonoscopy last done in 08/20/2021. Mammogram is up-to-date 09/18/2023. Review of the notes ER visit for dysuria December 2023 diagnosis of UTI was given Pyridium, bethanechol and estrogen. 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 Now on Sprycel noted 7 lb weight loss. 2 months myalgia, no fevers, was rx given a shot for pain. , constipation, , has nausea, nausea med made her have RENAE so was rx trans scop. [facility] Medical History (Updated 03/06/24 @ 16:26 by Josef Lindquist MD) Lower extremity weakness CML (chronic myelocytic leukemia) Laryngospasm CLL (chronic lymphocytic leukemia) PONV (postoperative nausea and vomiting) Nausea & vomiting Hypokalemia Dysuria Abdominal pain Pelvic pain LLQ abdominal pain Frequency of micturition Breast asymmetry Thoracic back pain Impacted cerumen of left ear Dizziness Perioral numbness Left flank pain Lesion of left [place] kidney Hip pain, left Hematuria Viral syndrome Conjunctivitis, left eye Lymphadenopathy, anterior cervical Hypercholesterolemia 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 Mixed incontinence Obesity (BMI 30-39.9) Nasal congestion Allergic rhinitis Patent foramen ovale Peptic ulcer disease Insomnia Asthma GERD (gastroesophageal reflux disease) Leukemia Surgical History History of Jackson colposuspension Hx of colonoscopy Hx of esophagogastroduodenoscopy Hx of colonoscopy History of bilateral salpingectomy Ulnar nerve entrapment at elbow History of tonsillectomy History of vaginal hysterectomy Family History Maternal Aunt Breast cancer Paternal Grandmother Breast cancer Paternal Grandfather Myocardial infarction, acute, initial episode of care Paternal Uncle Stomach cancer Liver cancer Pancreatic cancer Kidney cancer, primary, with metastasis from kidney to other site Father Colon cancer Social History Household Members: None Housing: Apartment Are you a primary patient care technician to a significant other at home: No Do you presently have visiting nurse or other home services: No Alcohol intake: never Patient Tobacco Use Status: Never used Tobacco e-Cigarette/Vaping Use: Never Used Second Hand Smoke Exposure: No Advance Directives Date on File: 02/06/22 service: No Current occupational status: employed Current occupational exposures/hazards: No Cognitive needs: No Hearing needs: No Vision needs: Yes Questionnaire Thrive Questionnaire Date Thrive assessed: 10/28/23 MERARY-7 AMB Questionnaire MERARY-7 Date MERARY - 7 assessed: 08/01/23 (HX of depression and anxiety ) Source: Developed by Drs. Kar Rojo, Veena Nguyen, Musa Frye and colleagues, with an educational allen from [email or web address]. Physical exam (Primary Care) Vital Signs: Last Vital Signs Pulse 77 03/06/24 15:41 BP 120/78 03/06/24 15:41 Pulse Ox 98 03/06/24 15:41 Oxygen Delivery Method Room Air 03/06/24 15:41 BMI result Body Mass Index 34.6 Tobacco/Smoking Status: Tobacco use Status Tobacco use date assessed 03/06/24 03/06/24 15:48 Patient Tobacco Use Status Never used Tobacco 03/06/24 15:48 e-Cigarette/Vaping Use Never Used 03/06/24 15:48 Thrive Assessment: Date of Thrive Assessment Date Thrive assessed 10/28/23 03/06/24 15:48 Const General: alert; No acute distress Eyes Conjunctivae: conjunctivae normal Resp Auscultation: clear to auscultation bilaterally Cardio Rate: regular rate Rhythm: regular rhythm GI Inspection: Yes normal to inspection Extrem General: Yes normal to inspection and No edema Results AMB Hemoglobin A1c AMB Hemoglobin A1c 5.4 % Last Edit by DA Avalos on 03/06/24 15:54 Results Reviewed Results Reviewed: Laboratory Last Values Hgb A1c (Clinic) 5.4 % (4.0-6.0) 03/06/24 15:40 Assessment and Plan Assessment & Plan (1) CML (chronic myelocytic leukemia): Code(s): C92.10 - Chronic myeloid leukemia, BCR/ABL-positive, not having achieved remission Plan: Patient is being followed up by hematology oncology on Sprycel (2) GERD (gastroesophageal reflux disease): Comment: PPI is interfere with chemos- only take pepcid 40 - will try at noc- discuss with MD Code(s): K21.9 - Gastro-esophageal reflux disease without esophagitis Qualifiers: Esophagitis presence: without esophagitis Qualified Code(s): K21.9 - Gastro-esophageal reflux disease without esophagitis Plan: Avoid the foods that causes that usually spicy foods, tomato products, juices, coffee, soda and foods that your sensitive to. After eating do not lie down, allow 3-4 hours before in lie down. And keep the head of bed above 30 degrees to avoid the acid from going up. On famotidine 40 mg twice a day (3) Asthma: Code(s): J45.909 - Unspecified asthma, uncomplicated Qualifiers: Asthma severity: mild Asthma persistence: intermittent Asthma complication type: uncomplicated Qualified Code(s): J45.20 - Mild intermittent asthma, uncomplicated Plan: Continuing with Incruse Advair and albuterol (4) Obesity (BMI 30-39.9): Code(s): E66.9 - Obesity, unspecified Plan: Continue with diet and exercise (5) Generalized anxiety disorder: Comment: [facility]. Code(s): F41.1 - Generalized anxiety disorder Plan: On sertraline 100 mg once a day (6) Impaired fasting glucose: Code(s): R73.01 - Impaired fasting glucose Plan: Decrease the amount of carbohydrate intake, pasta, bread, rice and potatoes are all sugar and that is aside from all the sweet stuff, remember that fruits are good but they are Sweet also. (7) Peripheral neuropathy: Comment: Nerve conduction test July 2023 Code(s): G62.9 - Polyneuropathy, unspecified Plan: Secondary to chemotherapy on gabapentin (8) Myalgia: Code(s): M79.10 - Myalgia, unspecified site Plan: Workup is started to check for sedimentation rate electrolytes thyroids CRP as well as urinalysis as the patient has some incontinence. Discussed concerns about medication side effects also as the patient has chemotherapy. Patient was complaining of nausea and took a medication that is placed under the tongue and so stayed away for ondansetron but give promethazine this time (9) Urge incontinence: Code(s): N39.41 - Urge incontinence Plan: Timed voiding meaning every 1-2 hours even if you do not feel like urinating empty the bladder, avoid drinks with high sweet content like juices or caffeine that makes her urinate, 2 hours before you sleep hold liquids so that in the morning you do not get the bladder to be too full. Orders: Orders AMB Hemoglobin A1c Today R73.01 - Impaired fasting glucose Thyroid Stimulating Hormone Today M79.10 - Myalgia, unspecified site UA CC w/rflx Micro + Cult Today N39.41 - Urge incontinence, R30.0 - Dysuria Erythrocyte Sedimentation Rate Today M79.10 - Myalgia, unspecified site C Reactive Protein Today M79.10 - Myalgia, unspecified site Free T4 (Free Thyroxine) Today M79.10 - Myalgia, unspecified site Creatine Kinase Total Today M79.10 - Myalgia, unspecified site Medications: New tramadol 50 mg PO DAILY 7 tabs 1RF M79.10 - Myalgia, unspecified site promethazine 25 mg PO TID PRN 20 tabs 0RF nausea and vomiting M79.10 - Myalgia, unspecified site Coding Level of Care Code Est Pt Level 4 (22112) Diagnoses CML (chronic myelocytic leukemia) C92.10 Gastroesophageal reflux disease without esophagitis K21.9 Esophagitis presence: without esophagitis Mild intermittent asthma without complication J45.20 Asthma severity: mild Asthma persistence: intermittent Asthma complication type: uncomplicated Obesity (BMI 30-39.9) E66.9 Generalized anxiety disorder F41.1 Impaired fasting glucose R73.01 Peripheral neuropathy G62.9 Myalgia M79.10 Urge incontinence N39.41
== END 2024-03-06 16:37 | disposition home or self-care (01) ==
PROVIDERS: PCP Internal Medicine; Visit Provider Internal Medicine
DX: C92.10 Chronic myeloid leukemia, BCR/ABL-positive, not having achieved remission (principal); K21.9 Gastro-esophageal reflux disease without esophagitis; J45.20 Mild intermittent asthma, uncomplicated; R73.01 Impaired fasting glucose; G62.9 Polyneuropathy, unspecified; M79.10 Myalgia, unspecified site; N39.41 Urge incontinence
CPT/HCPCS: 83036; 99214

== ENCOUNTER 2024-03-06 16:42 | Outpatient (REF) | payer OTHER, SELFPAY ==
[2024-03-06 17:45] LABS: C Reactive Protein 0.33 mg/dL (< or = 0.50)
[2024-03-06 17:59] LABS: Free T4 (Free Thyroxine) 0.91 ng/dL (0.71-1.85); Thyroid Stimulating Hormone 0.58 uIU/mL (0.32-4.0)
[2024-03-06 18:13] LABS: Erythrocyte Sedimentation Rate 20 MM/HR (0-20)
[2024-03-06 20:27] LABS: Appearance Urine Turbid; Color Urine Yellow; Glucose Urine UA Negative (Negative); Leukocyte Esterase Urine Large (3+) (Negative); Nitrite Urine Negative (Negative); UMIC TRIGGER UACC YES; Urine Blood Small (1+) (Negative); Urine Ketones Negative (Negative); Urine Protein Trace mg/dL (Neg-Trace)
[2024-03-06 21:10] LABS: Bacteria Urine 3+ (None Seen); Hyaline Casts Urine 0-2 /LPF (0-2); RBC Urine 0-2 /HPF (0-2); Squamous Epithelial Cell Urine >20 /HPF (0-2); UACC Culture Trigger YES; WBC Urine 0-5 /HPF (0-5)
== END 2024-03-06 16:43 | disposition home or self-care (01) ==
LOC: HO.LAB 16:42
PROVIDERS: PCP Internal Medicine; Visit Provider Internal Medicine
DX: M79.10 Myalgia, unspecified site (principal); R30.0 Dysuria; N39.41 Urge incontinence
CPT/HCPCS: 36415; 81001; 82550; 84439; 84443; 85652; 86140; 87086

== ENCOUNTER 2024-04-06 14:32 | Outpatient (AMB) | payer OTHER, SELFPAY ==
--- NOTE | 2024-04-06 14:38 | A.OFFPC_ITS ---
Vital Signs 04/06/24 14:39 Height 5 ft 1 in Weight 182 lb BMI 34.4 BP 120/66 Blood Pressure Location Lt brachial Position Sitting Pulse 85 Pulse Source Pulse Oximeter Pulse Oximetry (%) 96 Oxygen Delivery Method Room Air Intake Visit Reasons: Blurry vison,numbness,burning sensation Intake Note: Patient is here to follow up on Blurry vision, numbness and burning sensation in eyes. Complaint of abdominal pain, burning sensation when urinating with frequency. Precinct Police Sergeant Required: No Ivf Embryologist: Not Required per policy Accompanied by: Self / Same As Patient Allergies nut - unspecified [nut] Allergy (Severe, Verified 04/06/24 14:39) Anaphylaxis Penicillins Allergy (Severe, Verified 04/06/24 14:39) RASH seafood Allergy (Severe, Verified 04/06/24 14:39) Anaphylaxis shellfish derived Allergy (Severe, Verified 04/06/24 14:39) Anaphylaxis Wixela Inhub Adverse Reaction (Intermediate, Uncoded 04/06/24 14:39) palpitations Tobacco use date assessed: 04/06/24 Dental Screening Dental Screen Date: 08/01/23 HPI Blurry vison,numbness,burning sensation HPI Details 48-year-old obese female with CML GERD a sthma generalized anxiety disorder impaired glucose tolerance and peripheral neuropathy coming in for follow-up. Last seen in March having muscle pain.. Patient was seen by the Hematology Oncology in March 27 on Sprycel review of the notes was in the emergency room March 18 for cough/cold complained . Chest x-ray revealed negative results diagnosis of rhino virus and supportive treatment. [facility] Medical History (Updated 04/06/24 @ 15:15 by Josef Lindquist MD) Hypokalemia Lower extremity weakness CML (chronic myelocytic leukemia) Laryngospasm CLL (chronic lymphocytic leukemia) PONV (postoperative nausea and vomiting) Nausea & vomiting Dysuria Abdominal pain Pelvic pain LLQ abdominal pain Frequency of micturition Breast asymmetry Thoracic back pain Impacted cerumen of left ear Dizziness Perioral numbness Left flank pain Lesion of left [place] kidney Hip pain, left Hematuria Viral syndrome Conjunctivitis, left eye Lymphadenopathy, anterior cervical Hypercholesterolemia 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 Mixed incontinence Obesity (BMI 30-39.9) Nasal congestion Allergic rhinitis Patent foramen ovale Peptic ulcer disease Insomnia Asthma GERD (gastroesophageal reflux disease) Leukemia Surgical History History of Jackson colposuspension Hx of colonoscopy Hx of esophagogastroduodenoscopy Hx of colonoscopy History of bilateral salpingectomy Ulnar nerve entrapment at elbow History of tonsillectomy History of vaginal hysterectomy Family History Maternal Aunt Breast cancer Paternal Grandmother Breast cancer Paternal Grandfather Myocardial infarction, acute, initial episode of care Paternal Uncle Stomach cancer Liver cancer Pancreatic cancer Kidney cancer, primary, with metastasis from kidney to other site Father Colon cancer Social History Household Members: None Housing: Apartment Are you a primary direct care worker to a significant other at home: No Do you presently have visiting nurse or other home services: No Alcohol intake: never Patient Tobacco Use Status: Never used Tobacco e-Cigarette/Vaping Use: Never Used Second Hand Smoke Exposure: No Advance Directives Date on File: 02/06/22 service: No Current occupational status: employed Current occupational exposures/hazards: No Cognitive needs: No Hearing needs: No Vision needs: Yes Questionnaire Thrive Questionnaire Date Thrive assessed: 10/28/23 Are you currently unemployed and looking for a job?: Yes MERARY-7 AMB Questionnaire MERARY-7 Date MERARY - 7 assessed: 08/01/23 (HX of depression and anxiety ) Source: Developed by Drs. Kar Rojo, Veena Nguyen, Musa Frye and colleagues, with an educational allen from [employer]. Physical exam (Primary Care) Vital Signs: Last Vital Signs Pulse 85 04/06/24 14:39 BP 120/66 04/06/24 14:39 Pulse Ox 96 04/06/24 14:39 Oxygen Delivery Method Room Air 04/06/24 14:39 BMI result Body Mass Index 34.4 Tobacco/Smoking Status: Tobacco use Status Tobacco use date assessed 04/06/24 04/06/24 14:45 Patient Tobacco Use Status Never used Tobacco 04/06/24 14:45 e-Cigarette/Vaping Use Never Used 04/06/24 14:45 Thrive Assessment: Date of Thrive Assessment Date Thrive assessed 10/28/23 04/06/24 14:45 Const General: alert; No acute distress Eyes Conjunctivae: conjunctivae normal Resp Auscultation: clear to auscultation bilaterally Cardio Rate: regular rate Rhythm: regular rhythm GI Inspection: Yes normal to inspection Extrem General: Yes normal to inspection and No edema Results AMB Urinalysis, Automated UA Leukoctes 2 Bentley/uL Last Edit by Cecelia Piña [facility] on 04/06/24 14:56 UA Nitrite Positive Last Edit by Cecelia Piña [facility] on 04/06/24 14:56 UA Urobilinogen 2 mg/dL Last Edit by Cecelia Piña [facility] on 04/06/24 14:56 UA Protein 0 mg/dL Last Edit by Cecelia Piña [facility] on 04/06/24 14:56 UA pH 6.0 Last Edit by Cecelia Piña [facility] on 04/06/24 14:56 UA Blood 0 Joey/uL Last Edit by Cecelia Piña [facility] on 04/06/24 14:56 UA Specific Williams 1.020 Last Edit by Cecleia Piña [facility] on 04/06/24 14: 56 UA Ketone Positive Last Edit by Cecelia Piña [facility] on 04/06/24 14:56 UA Bilirubin 0 mg/dL Last Edit by Cecelia Piña [facility] on 04/06/24 14:56 UA Glucose 0 mg/dL Last Edit by Cecelia Piña [facility] on 04/06/24 14:56 Results Reviewed Results Reviewed: Laboratory Last Values Urine pH (Auto) 6.0 04/06/24 14:45 Specific Williams (Auto) 1.020 04/06/24 14:45 Urine Protein (Auto) 0 mg/dL 04/06/24 14:45 Glucose (UA)(Auto) 0 mg/dL 04/06/24 14:45 Urine Ketones (Auto) Positive A* 04/06/24 14:45 Urine Blood (Auto) 0 Joey/uL 04/06/24 14:45 Urine Nitrite (Auto) Positive 04/06/24 14:45 Urine Bilirubin (Auto) 0 mg/dL 04/06/24 14:45 Urine Urobilinogen (Auto) 2 mg/dL H* 04/06/24 14:45 Leukocyte Esterase (Auto) 2 Bentley/uL H* 04/06/24 14:45 Coding Level of Care Code Est Pt Level 4 (69102) Diagnoses CML (chronic myelocytic leukemia) C92.10 Gastroesophageal reflux disease without esophagitis K21.9 Esophagitis presence: without esophagitis Mild intermittent asthma without complication J45.20 Asthma severity: mild Asthma persistence: intermittent Asthma complication type: uncomplicated Generalized anxiety disorder F41.1 Myalgia M79.10 UTI (urinary tract infection) N39.0 Hypokalemia E87.6 Assessment & Plan Assessment & Plan (1) CML (chronic myelocytic leukemia): Code(s): C92.10 - Chronic myeloid leukemia, BCR/ABL-positive, not having achieved remission Category: Medical Plan: Continue to follow-up with Hematology-Oncology presently on Sprycel (2) GERD (gastroesophageal reflux disease): Comment: PPI is interfere with chemos- only take pepcid 40 - will try at noc- discuss with MD Code(s): K21.9 - Gastro-esophageal reflux disease without esophagitis Category: Medical Qualifiers: Esophagitis presence: without esophagitis Qualified Code(s): K21.9 - Gastro-esophageal reflux disease without esophagitis Plan: Avoid the foods that causes that usually spicy foods, tomato products, juices, coffee, soda and foods that your sensitive to. After eating do not lie down, allow 3-4 hours before in lie down. And keep the head of bed above 30 degrees to avoid the acid from going up. (3) Asthma: Code(s): J45.909 - Unspecified asthma, uncomplicated Category: Medical Qualifiers: Asthma severity: mild Asthma persistence: intermittent Asthma complication type: uncomplicated Qualified Code(s): J45.20 - Mild intermittent asthma, uncomplicated Plan: Continue with albuterol as needed and Singulair. On Advair and Incruse also. (4) Generalized anxiety disorder: Comment: [place] counselling. Code(s): F41.1 - Generalized anxiety disorder Category: Medical Plan: Continue with counseling and therapy on sertraline (5) Myalgia: Code(s): M79.10 - Myalgia, unspecified site Category: Medical Plan: Workup done negative results. Except for UTI (6) UTI (urinary tract infection): Code(s): N39.0 - Urinary tract infection, site not specified Category: Medical Plan: antibiotic script sent ion , increase oral fluids (7) Hypokalemia: Code(s): E87.6 - Hypokalemia Category: Medical Plan: Discussed about replacing potassium. Foods that are high in potassium like spinach, avocado, bananas and potatoes. Orders: Orders AMB Urinalysis Automated Today Z13.9 - Encounter for screening, unspecified Medications: New sulfamethoxazole-trimethoprim 800-160 mg (Bactrim DS) 1 tab PO BID 14 tabs 0RF N39.0 - Urinary tract infection, site not specified Discontinued nitrofurantoin macrocrystal (Macrodantin) must administer with a meal/food Discontinued Reason: Order 100 mg PO BID 14 caps 0RF
[2024-04-06 14:39] VITALS: BP 120/66; PULSE 85; O2SAT 96; BMI 34.4
== END 2024-04-06 15:17 | disposition home or self-care (01) ==
PROVIDERS: PCP Internal Medicine; Visit Provider Internal Medicine
DX: C92.10 Chronic myeloid leukemia, BCR/ABL-positive, not having achieved remission (principal); K21.9 Gastro-esophageal reflux disease without esophagitis; J45.20 Mild intermittent asthma, uncomplicated; F41.1 Generalized anxiety disorder; M79.10 Myalgia, unspecified site; N39.0 Urinary tract infection, site not specified; E87.6 Hypokalemia; Z13.9 Encounter for screening, unspecified

== ENCOUNTER → 2024-04-06 14:32 | Outpatient (BNVA) | payer OTHER, SELFPAY | PROVIDERS: PCP Internal Medicine; Visit Provider Internal Medicine | DX: C92.10 Chronic myeloid leukemia, BCR/ABL-positive, not having achieved remission (principal); K21.9 Gastro-esophageal reflux disease without esophagitis; J45.20 Mild intermittent asthma, uncomplicated; F41.1 Generalized anxiety disorder; M79.10 Myalgia, unspecified site; N39.0 Urinary tract infection, site not specified; E87.6 Hypokalemia | CPT/HCPCS: 81003; 99212 ==

== ENCOUNTER 2024-06-16 15:52 | Outpatient (REF) | payer OTHER, SELFPAY ==
--- OUTSIDE RECORDS SUMMARY | 2024-06-16 15:55 | XMS_ITS | Data Portability ---
Author Organization [employer] [facility], S[facility] in [facility] Address [address] [place] [id number] Care Team Providers Care Event Coordinator Marketing And Sales Name Role Phone HIM CCA OTHER Assessment Encounter Date Assessment Date Assessment LastModified by Organization Details LastModified Time 01/22/2024 01/22/2024 I provided real -time medical direction via phone for this encounter, and was available for additional phone based assistance as needed. I have reviewed and agree with the Assessment and Plan as documented by the Textile Coating Machine Operator. We discussed the diagnostic uncertainty of home visits and the risk associated with this. In this case the patient and I felt this to be an acceptable and reasonable amount of risk given the benefit of avoiding an ED visit. The patient given the opportunity to ask questions. Advised if develops CP/severe SOB/turning blue/uncontrolle d n/v/d or black/bloody emesis or stool/ AMS/ syncope/ hi fever / intolerable pain to call 911- verbalized understanding of instruction [email or web address] Not available 01/22/2024 14:46:53 Plan of Treatment Reminders Order Date Submit Date Provider Last Modified By Organization Details Last Modified Time Details Appointments None recorded. Lab BMP, serum or plasma 2023 024 [email or web address] 0 [facility], [address] [place] [address], [place], [address], 14:45:59 Referral None recorded. Procedures None recorded. Surgeries None recorded. Imaging None recorded. Medication Orders ketorolac 30 mg/mL injection solution 2023 024 [email or web address] 0 Not available 14:45:59 Patient TargetsNo targets recorded. Patient InstructionsNo instructions recorded. Reason for Referral None Reported. Results Created Date Observation Date Name Description Value Unit Range Abnormal Flag Note LastModifiedBy Organization Detail LastModifiedTime Result Notes None recorded. Medical Equipment None Reported. Allergies Allergen ID Allergen Name Allergen Category Reaction Reaction Severity Criticality Documentation Date Start Date Code Code System Note Provider Name and Address Organization Details Recorded Time 5605 Medicinal product containin g penicilli n and acting as antibacte rial agent (product) medicatio n Not available Not available Not available 01/22/2024 02117 05 SNOMED Not Available [facility] - production 4 03:35:25 Medications Name Sig Start Date Stop Date Status Note LastModified by Organization Details LastModified Time Nasal [place] (oxymetazoli ne) 0.05 % SPRAY 2 SPRAYS INTO INTO EACH NOSTRIL TWICE A DAY IN THE MORNING AND IN THE EVENING active Not Available Not Available No t Available acetaminophe n 325 mg tablet TAKE 2 TABLET BY MOUTH EVERY 4 HOURS NEEDED FOR PAIN active Not Available Not Available No t Available ibuprofen 800 mg tablet TAKE 1 TABLET BY MOUTH EVERY 8 HOURS active Not Available Not Available No t Available benzonatate 200 mg capsule TAKE 1 CAPSULE BY MOUTH THREE TIMES A DAY FOR 10 DAYS active Not Available Not Available Not Available sucralfate 1 gram tablet TAKE 1 TABLET BY MOUTH EVERY DAY NEEDED FOR ACID REFLUX 2 HOURS AFTER OTHER MEDS active Not Available Not Available No t Available phenazopyrid ine 200 mg tablet TAKE 1 TABLET BY MOUTH THREE TIMES A DAY FOR 3 DAYS active Not Available Not Available N ot Available famotidine 40 mg tablet TAKE 1 TABLET BY MOUTH TWICE A DAY NEEDED FOR FOR ACID REFLUX active Not Available Not Available No t Available sertraline 100 mg tablet TAKE 1 TABLET BY MOUTH EVERY DAY active Not Available Not Available No t Available fexofenadine 180 mg tablet TAKE 1 TABLET BY MOUTH EVERY DAY active Not Available Not Available No t Available sulfamethoxa zole 800 mg-trimethop rim 160 mg tablet TAKE 1 TABLET BY MOUTH TWICE A DAY active Not Available Not Available No t Available prednisone 50 mg tablet TAKE 1 TABLET BY MOUTH DAILY FOR 5 DAYS TAKE IN THE MORNING active Not Available Not Available No t Available gabapentin 300 mg capsule TAKE 1 CAPSULE BY MOUTH AT BEDTIME active Not Available Not Available No t Available montelukast 10 mg tablet TAKE 1 TABLET BY MOUTH AT BEDTIME active Not Available Not Available No t Available gabapentin 100 mg capsule TAKE 1 CAPSULE BY MOUTH EVERY NIGHT AT BEDTIME active Not Available Not Available No t Available epinephrine 0.3 mg/0.3 mL injection, auto-injecto r INJECT INTRAMUSCUL JOSE EVERY 4 HOURS NEEDED FOR ANAPHYLAXIS active Not Available Not Available Not Available levofloxacin 500 mg tablet TAKE 1 TABLET BY MOUTH EVERY DAY active Not Available Not Available No t Available zolpidem 10 mg tablet TAKE 1 TABLET BY MOUTH EVERY DAY AT BEDTIME NEEDED active Not Available Not Available No t Available ondansetron 4 mg disintegrati ng tablet DISSOLVE IN THE MOUTH 1 TABLET 3 TIMES A DAY NEEDED FOR NAUSEA AND VOMITING FOR 5 DAYS active Not Available Not Available N ot Available fluticasone propionate 50 mcg/actuatio n nasal spray,suspen bunny USE 1 SPRAY IN EACH NOSTRIL 1 TO 2 TIMES PER DAY FOR 28 DAYS active Not Available Not Available No t Available loratadine 10 mg tablet TAKE 1 TABLET BY MOUTH EVERY DAY active Not Available Not Available No t Available Ventolin HFA 90 mcg/actuatio n aerosol inhaler INHALE 2 PUFFS BY MOUTH EVERY 4 HOURS active Not Available Not Available No t Available Senna Plus 8.6 mg-50 mg tablet TAKE 2 TABLETS BY MOUTH AT BEDTIME FOR 90 DAYS active Not Available Not Available No t Available nitrofuranto in monohydrate/ macrocrystal s 100 mg capsule TAKE 1 TABLET (100 MG) BY MOUTH EVERY 12 HOURS FOR 7 DAYS MUST ADMINISTER WITH A MEAL/FOOD active Not Available Not Available No t Available ketorolac 30 mg/mL injection solution 30 mg IM 2023 active Not Available Not Available Not Avai lable Tasigna 150 mg capsule active Not Available Not Available N ot Available Incruse Ellipta 62.5 mcg/actuatio n powder for inhalation INHALE 1 PUFF BY MOUTH AT BEDTIME active Not Available Not Available No t Available Wixela Inhub 250 mcg-50 mcg/dose powder for inhalation TAKE 1 PUFF BY MOUTH TWICE A DAY active Not Available Not Available Not Available Iclusig 30 mg tablet active Not Available Not Available No t Available BinaxNOW COVID-19 Ag Self Test kit USE ACCORDING TO MANUFACTURE R'S DIRECTIONS active Not Available Not Available N ot Available Paxlovid 300 mg (150 mg x 2)-100 mg tablets in a dose pack TAKE 3 TABLETS BY MOUTH TWICE A DAY FOR 5 DAYS active Not Available Not Available No t Available Vitals Date Recorded Heart rate Oxygen saturation Oxygen saturation in Arterial blood by Pulse oximetry Respiratory rate Body temperature Systolic blood pressure Diastolic blood pressure Provider Name and Address Organization Details Last Updated DateTime 90 /min 99 % 99 % 16 /min 98.8 [degF] 122 mm[Hg] 86 mm[Hg] Not Available [employer] - production 14:21:49 Date Recorded Body weight Provider Name an d Address Organization Details Last Updated DateTime 01/22/2024 70165.63 g Geetha Portillo [address] [place] [address],[address], [place], [address], [place] [facility] [employer] [facility] 01/22/2024 14:37:49 Social History None recorded. Functional Status None recorded. Mental Status None recorded. Family History Nothing Reported. Medical History No medical history recorded. Gynecological HistoryNo gynecological history recorded. Obstetrics History GPAL:G 0 P 0 0 0 0 Past Encounters Encounter ID Performer Location Encounter Start Date Encounter Closed Date Diagnosis/Indication Diagnosis SNOMED-CT Code Diagnosis ICD10 Code [id number] [facility] [address] [place] [id number] 01/22/2024 14:21:47 01/22/2024 16:57:15 Bone pain 73595979 M89.8X9 Health Concerns Section Related Observation LastModified by Organization Detai ls LastModified Time None Recorded Concern Status LastModified by Organization Details LastModified Time None Recorded Advance Directives Directive None Recorded Payers Encounter Date Sequence Insurance Name Policy Number Policy Degroot Covered Member ID Degroot Member ID Guarantor Name 01/22/2024 1 [facility] - DOS ON OR AFTER 2022 - DUAL ELIGIBLE - [employer] OPTIONS AND ONE C[employer] (MEDICARE REPLACEMENT/ADV ANTAGE - HMO) Laureen Class [id number] Laureen Class Notes Date Note Type Note Provider Name and Address Organization Details Recorded Time 01/22/2024 text/html HPI: DEBBIE contacts [facility] directly to report that she is having ? severe bone pain, weakness, and nausea? and would like to be seen by [facility] today. DEBBIE is a 48 y/o female with a PMH of, but not limited to: leukemia (oral CA medication Sprycell 50mg daily), depression, panic attacks, GERD, chronic migraines, insomnia, and anxiety. DEBBIE reports that she was seen in the ED, on Saturday, January 21, for increased bone pain, urinary symptoms (negative work up), exhaustion, and headaches. DEBBIE states, ? they didn? t do much? and she was sent home with instructions to follow up with her PCP. DEBBIE contacted PCP and was told she could not be seen until March and was advised to visit for symptoms. DEBBIE currently reports worsening severe bone pain, to the point that she ? cannot focus and I barely have the energy to walk? ; severe weakness; nausea without vomiting; and headaches. DEBBIE denies CP, SOB, fevers, abdominal pain, or any other symptoms. She reports that she has been on several different oral chemotherapy agents and was most recently prescribed Sprycell 50mg daily. She has been taking this for the past few months. DEBBIE is assured that an [facility] referral will be placed on her behalf. After confirming DEBBIE? s address and phone number on file, DEBBIE is advised to call 911 for any new or worsening symptoms. She is also advised to outreach her oncologist to report her worsening symptoms. DEBBIE understands, appreciates the advice, and will do so. DEBBIE can be reached at [phone]. .................. .................. .................. .................. .................. .................. .................. ............... [facility] Nurse Triage Notes (Edwin Chavez): Chief Complaints: Headache, Nausea/Vomiting, Pain, Weakness/Lethargy Allergies: Penicillin Other Allergies: Penicillin Comments: HPI reviewed. No further information needed to process visit.Patient will not be home until after 130pm per environmental science technician- [place] SEGMD: Patient was seen at the [facility] on 01/[facility]. She reports she was told her lab work was okay but she does not have access to those results and nor do I. She was tested for UTI and it was negative. She denies any flu-like symptoms, fever, chills, URI or UTI or GI symptoms other than her chronic nausea from her Sprycel. She denies vomiting or any melena or hematochezia or any history of CKD Textile Coating Machine Operator POC Test Results from [facility] - [facility]ANET iSTAT Chem8+ (1) [14:33] Na: 139 mEq/L K: 3.7 mEq/L Cl: 105 mEq/L iCa: 1.21 mmol/L TCO2: 24 mmol/L Glu: 117 mg/dL BUN: 9 mg/dL Crea: 0.5 mg/dL Hct: 39 % Hb: 13.3 g/dL A .................. .................. .................. .................. .................. .................. .................. ............... Textile Coating Machine Operator Note From [employer] [facility]: Dispatched to the call address for the female with pain. Pt states she is a leukemia Pt and takes PO chemotherapy. She states for the last two weeks she has had what she calls bone pain. She states it is mostly in her extremities. She called her PCP but they cannot see her until March. She does have a regularly scheduled appointment with her oncologist in March but has not attempted to call them to see if she can be seen sooner. Pt denies CP, SoB, difficulty breathing, vomiting, black or bloody stools or UTI s/s. Pt states she is able to operate her normal day to day routines and was present at work this morning. Pt was found opening door, CAOx4, airway open and patent, breathing non labored, able to speak in full sentences, -JVD, -HEENT, skin PWD with good turgor, abd soft non tender/distended, pupils PERRL, +CMSx4, lung sounds CTA, mucous membranes pink and moist. Blood draw (21g Butterfly R AC without issue). BMP-results attached. C consulted. Pt given 30mg of IM (L deltoid) Ketorolac. Red flags discussed. Pt advised to call her oncologist and avoid any NSAIDs for at least 24 hours. ALL times are approx. .................. .................. .................. .................. .................. .................. .................. ............... Disposition: Fulfilled Inez Ibarra MD [address] [facility],[address], [place], [phone], [employer] - [employer] 01/22/2024 16:09:26 OBGyn Episode No OBEpisode recorded.
== END 2024-06-16 15:53 | disposition home or self-care (01) ==
LOC: HO.XRAY 15:52
PROVIDERS: PCP Internal Medicine; Visit Provider Internal Medicine
DX: M25.511 Pain in right shoulder (principal)
CPT/HCPCS: 73030

== ENCOUNTER 2024-06-19 15:39 | Outpatient (AMB) | payer OTHER, SELFPAY ==
[2024-06-19 15:45] VITALS: BP 120/82; PULSE 83; O2SAT 98; BMI 35.1
--- NOTE | 2024-06-19 15:45 | MHC.PC.OV ---
Vital Signs 06/19/24 15:45 Height 5 ft 1 in Weight 186 lb BMI 35.1 BP 120/82 Blood Pressure Location Lt brachial Position Sitting Pulse 83 Pulse Source Pulse Oximeter Pulse Oximetry (%) 98 Oxygen Delivery Method Room Air Intake Visit Reasons: CML myalgia Education Courses Sales Representative Required: No Accompanied by: Self / Same As Patient Allergies nut - unspecified [nut] Allergy (Severe, Verified 06/19/24 15:46) Anaphylaxis Penicillins Allergy (Severe, Verified 06/19/24 15:46) RASH seafood Allergy (Severe, Verified 06/19/24 15:46) Anaphylaxis shellfish derived Allergy (Severe, Verified 06/19/24 15:46) Anaphylaxis Wixela Inhub Adverse Reaction (Intermediate, Uncoded 06/19/24 15:46) palpitations Tobacco use date assessed: 06/19/24 Dental Screening Dental Screen Date: 06/19/24 Did you have a dental visit in the last 12 months?: Yes Did you have a dental problem in the last 6 months where you did not have access to dental care?: No Was dental information given to patient?: Patient has dentist HPI CML myalgia HPI Details The patient is a 48-year-old female presenting with neck, shoulder, and hand pain, as well as a swollen eye suspected to have an underlying infection. The neck pain has been a persistent issue following previous surgery for a pinched nerve, and it has recently exacerbated over the past three weeks. The patient reports shooting pains from the left side of her neck to her chest, accompanied by numbness and muscle spasms. She notes that these symptoms interfere with her daily activities and sleep. She also experiences discomfort in her shoulder and hand, which further limits her function. Past treatments for these symptoms have included gabapentin for nerve pain and post-surgical management. The patient also has a significant medical history of leukemia and had previously contracted COVID-19. Additionally, she reports a urinary tract infection treated with antibiotics, although the specific antibiotic was not recalled. She has a noted allergy to penicillin. Regarding the eye issue, the patient describes redness and swelling, likely due to an abrasion which has progressively worsened. Treatment options discussed include antibiotics, with an emphasis on avoiding those she is allergic to. The eye problem began around three days ago. COUNT INCLUDES THE [facility] Medical History (Updated 06/19/24 @ 16:14 by Josef Lindquist MD) Hypokalemia Lower extremity weakness CML (chronic myelocytic leukemia) Laryngospasm CLL (chronic lymphocytic leukemia) PONV (postoperative nausea and vomiting) Nausea & vomiting Dysuria Abdominal pain Pelvic pain LLQ abdominal pain Frequency of micturition Breast asymmetry Thoracic back pain Impacted cerumen of left ear Dizziness Perioral numbness Left flank pain Lesion of left mary's igloo kidney Hip pain, left Hematuria Viral syndrome Conjunctivitis, left eye Lymphadenopathy, anterior cervical Hypercholesterolemia 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 Mixed incontinence Obesity (BMI 30-39.9) Nasal congestion Allergic rhinitis Patent foramen ovale Peptic ulcer disease Insomnia Asthma GERD (gastroesophageal reflux disease) Leukemia Surgical History History of Jackson colposuspension Hx of colonoscopy Hx of esophagogastroduodenoscopy Hx of colonoscopy History of bilateral salpingectomy Ulnar nerve entrapment at elbow History of tonsillectomy History of vaginal hysterectomy Family History Maternal Aunt Breast cancer Paternal Grandmother Breast cancer Paternal Grandfather Myocardial infarction, acute, initial episode of care Paternal Uncle Stomach cancer Liver cancer Pancreatic cancer Kidney cancer, primary, with metastasis from kidney to other site Father Colon cancer Social History Household Members: None Housing: Apartment Are you a primary intensive care unit registered nurse to a significant other at home: No Do you presently have visiting nurse or other home services: No Alcohol intake: never Patient Tobacco Use Status: Never used Tobacco e-Cigarette/Vaping Use: Never Used Second Hand Smoke Exposure: No Advance Directives Date on File: 02/06/22 service: No Current occupational status: employed Current occupational exposures/hazards: No Cognitive needs: No Hearing needs: No Vision needs: Yes Questionnaire PHQ-9 Over the last 2 weeks, how often have you been bothered by any of the following problems? 1. Little interest or pleasure in doing things: several days (HX of depression and anxiety ) 2. Feeling down, depressed, or hopeless: several days 3. Trouble falling or staying asleep, or sleeping too much: several days 4. Feeling tired or having little energy: several days 5. Poor appetite or overeating: several days 6. Feeling bad about yourself - or that you are a failure or have let yourself or your family down: not at all 7. Trouble concentrating on things, such as reading the newspaper or watching television: not at all 8. Moving or speaking so slowly that other people could have noticed. Or the opposite - being so fidgety or restless that you have been moving around a lot more than usual: not at all 9. Thoughts that you would be better off or of hurting yourself in some way: not at all Total score: 5 Depression Screening Interpretation: Positive Depression Screening Follow-up: Existing condition Depression Screening Done: Yes Source: Developed by Drs. Kar Rojo, Veena Nguyen, Musa Frye and colleagues, with an educational allen from [employer]. Thrive Questionnaire Date Thrive assessed: 06/19/24 I am a: Patient What is your living situation today?: I have a steady place to live Within the past 12 months, did the food you bought not last and you didn't have the money to get more?: Never true Within the past 12 months, did you worry whether your food would run out before you got money to buy more?: Never true Do you have trouble paying for medicines?: No Do you have trouble getting transportation to medical appointments?: No Do you have trouble paying your heating and electricity bill?: No Do you have trouble taking care of your child, family member or friend?: No Do you have trouble with day-to-day activities such as bathing, preparing meals, shopping, managing finances, etc.?: No Are you currently unemployed and looking for a job?: Yes Are you interested in more education?: No Please select the resources that you would like help with: None Currently or been in a relationship where the following occur: No concerns reported THRIVE Score: 0 AUDIT C Alcohol Use Questionnaire (AUDIT-C) 1. How often do you have a drink containing alcohol?: Monthly or less 2. How many drinks containing alcohol do you have on a typical day when you are drinking?: 1 or 2 3. How often do you have six or more drinks on one occasion?: Never Total Score: 1 MERARY-7 AMB Questionnaire MERARY-7 Date MERARY - 7 assessed: 06/19/24 Feeling nervous, anxious, or on edge: 0 = Not at all Not being able to stop or control worryin = Not at all Worrying too much about different things: 0 = Not at all Trouble relaxin = Not at all Being so restless that it is hard to sit still: 0 = Not at all Becoming easily annoyed or irritable: 0 = Not at all Feeling afraid as if something awful might happen: 0 = Not at all Total MERARY-7 score (0-4 normal; 5-9 mild; 10-14 moderate; 15-21 severe): 0 Source: Developed by Drs. Kar Rojo, Veena Nguyen, Musa Frye and colleagues, with an educational allen from [employer]. Physical exam (Primary Care) Vital Signs: Last Vital Signs Pulse 83 06/19/24 15:45 BP 120/82 06/19/24 15:45 Pulse Ox 98 06/19/24 15:45 Oxygen Delivery Method Room Air 06/19/24 15:45 BMI result Body Mass Index 35.1 Tobacco/Smoking Status: Tobacco use Status Tobacco use date assessed 06/19/24 06/19/24 15:47 Patient Tobacco Use Status Never used Tobacco 06/19/24 15:47 e-Cigarette/Vaping Use Never Used 06/19/24 15:47 PHQ-9: PHQ-9 Score PHQ-9: Total score 5 06/19/24 15:53 Depression Screening Interpretation: Positive Depression Screening Follow-up: Existing condition Thrive Assessment: Date of Thrive Assessment Date Thrive assessed 06/19/24 06/19/24 15:47 Currently or been in a relationship where the following occur: No concerns reported Const General: alert; No acute distress [facility] Face images: 1. 5 mm laceration with dried up blood and 1 cm erythematous swelling Eyes Other: Patient has difficulty extending the left arm difficulty in elevating the left shoulder as well as pain on palpation/tender on palpation of the left chest and shoulder. No swelling and no rash noted Conjunctivae: conjunctivae normal Resp Auscultation: clear to auscultation bilaterally Cardio Rate: regular rate Rhythm: regular rhythm GI Inspection: Yes normal to inspection Extrem General: Yes normal to inspection and No edema Coding Level of Care Code Est Pt Level 4 (13519) Diagnoses COVID-19 virus infection U07.1 Acute pain of right shoulder M25.511 Chronicity: acute CML (chronic myelocytic leukemia) C92.10 Infection of eyelid H01.9 Left shoulder pain M25.512 Assessment & Plan Assessment & Plan (1) COVID-19 virus infection: Code(s): U07.1 - COVID-19 Category: Medical (2) Right shoulder pain: Code(s): M25.511 - Pain in right shoulder Category: Medical Qualifiers: Chronicity: acute Qualified Code(s): M25.511 - Pain in right shoulder Plan: X-rays pending (3) CML (chronic myelocytic leukemia): Code(s): C92.10 - Chronic myeloid leukemia, BCR/ABL-positive, not having achieved remission Category: Medical Plan: Continue to follow-up with Hematology-Oncology (4) Infection of eyelid: Comment: L eye lid Code(s): H01.9 - Unspecified inflammation of eyelid Category: Medical Plan: Treating as infection (5) Left shoulder pain: Code(s): M25.512 - Pain in left shoulder Category: Medical Plan: Patient is sent for physical therapy, muscle relaxant prescription done and x-ray of the cervical spine as well as the left shoulder requested Plan - Prescribe an oral antibiotic for the suspected eye infection. - Initiate therapy with muscle relaxants to address muscular pain and spasms in the neck and shoulder region. - Arrange for chest, spinal, shoulder, and arm x-rays to further investigate musculoskeletal complaints. - Encourage the use of probiotics alongside antibiotic treatment to prevent gastrointestinal side effects. - Continue gabapentin for nerve-associated pain. - Physical therapy referral for rehabilitation and pain management of the musculoskeletal issues. - Monitor for any development of rash or shingles in the affected areas. - Avoidance of known allergens e.g., penicillin). Orders: Orders PT Evaluation and Treatment Today M25.512 - Pain in left shoulder XR chest 2V Today M25.512 - Pain in left shoulder XR shoulder LT min 2V Today M25.512 - Pain in left shoulder XR cervical spine 2V Today M25.512 - Pain in left shoulder Medications: New cyclobenzaprine 5 mg PO TID PRN 30 tabs 0RF muscle spasm M25.512 - Pain in left shoulder cephalexin 500 mg PO Q6H 7 days 28 tabs 0RF H01.9 - Unspecified inflammation of eyelid Discontinued tramadol Discontinued Reason: Doctor's Order 50 mg PO DAILY 7 tabs 1RF M79.10 - Myalgia, unspecified site sulfamethoxazole-trimethoprim 800-160 mg (Bactrim DS) Discontinued Reason: Doctor's Order 1 tab PO BID 14 tabs 0RF N39.0 - Urinary tract infection, site not specified
== END 2024-06-19 16:22 | disposition home or self-care (01) ==
PROVIDERS: PCP Internal Medicine; Visit Provider Internal Medicine
DX: U07.1 COVID-19 (principal); M25.511 Pain in right shoulder; C92.10 Chronic myeloid leukemia, BCR/ABL-positive, not having achieved remission; H01.9 Unspecified inflammation of eyelid; M25.512 Pain in left shoulder

== ENCOUNTER → 2024-06-19 15:39 | Outpatient (BNVA) | payer OTHER, SELFPAY | PROVIDERS: PCP Internal Medicine; Visit Provider Internal Medicine | DX: M54.2 Cervicalgia (principal); M25.511 Pain in right shoulder; M25.512 Pain in left shoulder; C92.10 Chronic myeloid leukemia, BCR/ABL-positive, not having achieved remission; H01.9 Unspecified inflammation of eyelid; M79.643 Pain in unspecified hand; U07.1 COVID-19; N39.0 Urinary tract infection, site not specified; Z79.899 Other long term (current) drug therapy | CPT/HCPCS: 96127; 99212 ==

== ENCOUNTER 2024-06-22 13:50 | Outpatient (REF) | payer OTHER, SELFPAY ==
--- OUTSIDE RECORDS SUMMARY | 2024-06-22 13:54 | XMS_ITS | Data Portability ---
Author Organization [facility], [place] [facility] Address [address] [place] [address] Care Team Providers Care Eye Clinic Manager Name Role Phone HIM CCA OTHER Assessment Encounter Date Assessment Date Assessment LastModified by Organization Details LastModified Time 01/22/2024 01/22/2024 I provided real -time medical direction via phone for this encounter, and was available for additional phone based assistance as needed. I have reviewed and agree with the Assessment and Plan as documented by the Meeting Planner. We discussed the diagnostic uncertainty of home [...] to call 911- verbalized understanding of instruction [email or web address] Not available 01/22/2024 14:46:53 Plan of Treatment Reminders Order Date Submit Date Provider Last Modified By Organization Details Last Modified Time Details Appointments None recorded. Lab BMP, serum or plasma 2023 024 [email or web address] 0 [facility], [address] [place] [address], [place], [address], 14:45:59 Referral None recorded. Procedures None recorded. [...] Not available Not available Not available 01/22/2024 [id number] SNOMED Not Available [employer] - production 4 03:35:25 Medications Name Sig Start Date Stop Date Status Note LastModified by Organization Details LastModified Time Nasal Alba (oxymetazoli ne) 0.05 % SPRAY 2 SPRAYS [...] [degF] 122 mm[Hg] 86 mm[Hg] Not Available [employer] - production 14:21:49 Date Recorded Body weight Provider Name an d Address Organization Details Last Updated DateTime 01/22/2024 64563.63 g Geetha Portillo [address] [place] [address],[address], [place], [address], [place] [facility] 01/22/2024 14:37:49 Social History None recorded. Functional Status None recorded. Mental Status None recorded. Family History Nothing Reported. Medical History No medical history recorded. Gynecological HistoryNo gynecological history recorded. Obstetrics History GPAL:G 0 P 0 0 0 0 Past Encounters Encounter ID Performer Location Encounter Start Date Encounter Closed Date Diagnosis/Indication Diagnosis SNOMED-CT Code Diagnosis ICD10 Code [id number] [facility] [address] [place] [phone] 01/22/2024 14:21:47 01/22/2024 16:57:15 Bone pain 71224170 M89.8X9 Health Concerns Section Related Observation LastModified by Organization Detai ls LastModified Time None Recorded Concern Status LastModified by Organization Details LastModified Time None Recorded Advance Directives Directive None Recorded Payers Encounter Date Sequence Insurance Name Policy Number Policy Degroot Covered Member ID Degroot Member ID Guarantor Name 01/22/2024 1 [facility] - DOS ON OR AFTER 2022 - DUAL ELIGIBLE - HALFWAY OPTIONS AND ONE CARE (MEDICARE REPLACEMENT/ADV ANTAGE - HMO) Laureen Class [id number] Laureen Class Notes Date Note Type Note Provider Name and Address Organization Details Recorded Time 01/22/2024 text/html HPI: DEBBIE contacts [facility] directly to report that she is having ? severe bone pain, weakness, and nausea? and would like to be seen by [facility] today. DEBBIE is a 48 y/o female [...] do so. DEBBIE can be reached at [phone]. .................. .................. .................. .................. .................. .................. .................. ............... [facility] Nurse Triage Notes (Edwin Chavez): Chief Complaints: Headache, Nausea/Vomiting, Pain, Weakness/Lethargy Allergies: Penicillin Other Allergies: Penicillin Comments: HPI reviewed. No further information needed to process visit.Patient will not be home until after 130pm per computer laboratory technician- NE SEGMD: Patient was seen at the [facility] on 01/11. She reports she was [...] or hematochezia or any history of CKD Meeting Planner POC Test Results from [facility] - [facility]ANET iSTAT Chem8+ (1) [14:33] Na: 139 mEq/L K: 3.7 mEq/L Cl: 105 mEq/L iCa: 1.21 mmol/L TCO2: 24 mmol/L Glu: 117 mg/dL BUN: 9 mg/dL Crea: 0.5 mg/dL Hct: 39 % Hb: 13.3 g/dL A .................. .................. .................. .................. .................. .................. .................. ............... Meeting Planner Note From [facility]: Dispatched to the [...] ............... Disposition: Fulfilled Inez Ibarra MD [address] [facility],[address], [place], [address], [employer] 01/22/2024 16:09:26 OBGyn Episode No OBEpisode recorded.
== END 2024-06-22 13:51 | disposition home or self-care (01) ==
LOC: HO.XRAY 13:50
PROVIDERS: PCP Internal Medicine; Visit Provider Internal Medicine
DX: M25.512 Pain in left shoulder (principal)
CPT/HCPCS: 71046; 72040; 73030

== ENCOUNTER → 2024-07-24 14:06 | Outpatient (BNVA) | payer OTHER, SELFPAY | PROVIDERS: PCP Internal Medicine; Visit Provider Internal Medicine | DX: K22.10 Ulcer of esophagus without bleeding (principal); K22.2 Esophageal obstruction; R13.10 Dysphagia, unspecified; C92.10 Chronic myeloid leukemia, BCR/ABL-positive, not having achieved remission | CPT/HCPCS: 99212 ==

== ENCOUNTER 2024-08-28 14:43 | Outpatient (RCR) | payer OTHER, SELFPAY ==
--- NOTE | 2024-07-28 15:03 | MHC.PT.EP ---
[facility] [place] Office [place] Office [place] Office [address] [phone] F: [phone] F: [phone] F: [phone] F: [phone] Physical Therapy Plan of Care Date of Evaluation: 07/28/24 Date of Surgery: Diagnosis: L shoulder pain Assessment: 48 y/o R hand dominant female referred to PT with L shoulder pain. S/s consistent with cervical derangement and overlapping L shoulder tendinopathy resulting in pain and difficulty with dressing, grooming, sleeping, lifting, and cleaning. Examination shows decreased L cervical/shoulder ROM, decreased L shoulder strength, increased tissue tension, pain, and impaired postural awareness. Recommend PT 2x/week for 5 weeks to address impairments, however pt reports 1x/week would be better Frequency and Duration: The patient will be seen 1x/week for 6 weeks Short Term Goals: 3 weeks I with HEP Improve L cervical rotation to 45* Correction Goals: 6 weeks I with HEP and self management of sx Pt will reports 50% decrease in pain with sleeping (IR 8-10/10 pain) Pt will improve SPADI to 80/130 (IR 109/130 Treatment Plan: Modalities to reduce pain, spasms and effusion. Manual therapy to restore motion and function. Therapeutic exercise to improve strength and flexibility. Neuromuscular re-education for posture and balance. Therapeutic activities to return to functional activities of daily living. Electronically signed by: Luh Sims PT Please sign and return to therapist. Thank you for your referral.
--- NOTE | 2024-09-25 10:25 | MHC.PT.DC ---
[facility] [place] Office [place] Office [place] Office [address] Carlos A Connor [address] [phone] F: [phone] F: [phone] F: [phone] F: [phone] Physical Therapy Discharge Report Diagnosis: L shoulder pain Date of Surgery: Date of Evaluation: 07/28/24 Date of Discharge: 09/25/24 Treatments to Date: 3 Cancellations to Date: 4 No Shows to Date: 1 Discharge Status: Independent with HEP Visit Non-compliance Discharge Summary: Pt with poor attendance and minimal gains noted. At time of last appointment, she reports some improvement but still has elbow pain from previous surgeries. D/c at this time Electronically signed by: Luh Sims PT Please sign and return to therapist. Thank you for your referral.
== END 2024-09-25 10:26 | disposition home or self-care (01) ==
LOC: HO.PT 14:43
PROVIDERS: PCP Internal Medicine; Visit Provider Internal Medicine
DX: M25.512 Pain in left shoulder (principal)
CPT/HCPCS: 97110; 97161

== ENCOUNTER 2024-09-22 15:17 | Outpatient (AMB) | payer OTHER, SELFPAY ==
[2024-09-22 15:29] VITALS: BP 124/68; PULSE 89; O2SAT 98; BMI 36.3
--- NOTE | 2024-09-22 15:29 | A.OFFPC_ITS ---
Vital Signs 09/22/24 15:29 Height 5 ft 1 in Weight 192 lb BMI 36.3 BP 124/68 Blood Pressure Location Lt brachial Position Sitting Pulse 89 Pulse Source Pulse Oximeter Pulse Oximetry (%) 98 Oxygen Delivery Method Room Air Intake Visit Reasons: 3mth f/u Allergies nut - unspecified [nut] Allergy (Severe, Verified 09/22/24 15:29) Anaphylaxis Penicillins Allergy (Severe, Verified 09/22/24 15:29) RASH seafood Allergy (Severe, Verified 09/22/24 15:29) Anaphylaxis shellfish derived Allergy (Severe, Verified 09/22/24 15:29) Anaphylaxis Wixela Inhub Adverse Reaction (Intermediate, Uncoded 09/22/24 15:29) palpitations Tobacco use date assessed: 09/22/24 Dental Screening Dental Screen Date: 09/22/24 Did you have a dental visit in the last 12 months?: Yes Did you have a dental problem in the last 6 months where you did not have access to dental care?: No Was dental information given to patient?: Patient has dentist HPI 3mth f/u HPI Details states having urine and yeast infection PFSH Medical History (Updated 09/22/24 @ 16:30 by Josef Lindquist MD) Hematuria LLQ abdominal pain Hypokalemia Lower extremity weakness CML (chronic myelocytic leukemia) Laryngospasm CLL (chronic lymphocytic leukemia) PONV (postoperative nausea and vomiting) Nausea & vomiting Dysuria Abdominal pain Pelvic pain Frequency of micturition Breast asymmetry Thoracic back pain Impacted cerumen of left ear Dizziness Perioral numbness Left flank pain Lesion of left [place] kidney Hip pain, left Viral syndrome Conjunctivitis, left eye Lymphadenopathy, anterior cervical Hypercholesterolemia 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 Mixed incontinence Obesity (BMI 30-39.9) Nasal congestion Allergic rhinitis Patent foramen ovale Peptic ulcer disease Insomnia Asthma GERD (gastroesophageal reflux disease) Leukemia Surgical History History of Jackson colposuspension Hx of colonoscopy Hx of esophagogastroduodenoscopy Hx of colonoscopy History of bilateral salpingectomy Ulnar nerve entrapment at elbow History of tonsillectomy History of vaginal hysterectomy Family History Maternal Aunt Breast cancer Paternal Grandmother Breast cancer Paternal Grandfather Myocardial infarction, acute, initial episode of care Paternal Uncle Stomach cancer Liver cancer Pancreatic cancer Kidney cancer, primary, with metastasis from kidney to other site Father Colon cancer Social History Household Members: None Housing: Apartment Are you a primary dog daycare provider to a significant other at home: No Do you presently have visiting nurse or other home services: No Alcohol intake: never Patient Tobacco Use Status: Never used Tobacco Tobacco use type: Cigarette e-Cigarette/Vaping Use: Never Used Second Hand Smoke Exposure: No Advance Directives Date on File: 02/06/22 service: No Current occupational status: employed Current occupational exposures/hazards: No Cognitive needs: No Hearing needs: No Vision needs: Yes Questionnaire PHQ-9 Over the last 2 weeks, how often have you been bothered by any of the following problems? 1. Little interest or pleasure in doing things: several days (HX of depression and anxiety ) 2. Feeling down, depressed, or hopeless: several days 3. Trouble falling or staying asleep, or sleeping too much: several days 4. Feeling tired or having little energy: several days 5. Poor appetite or overeating: several days 6. Feeling bad about yourself - or that you are a failure or have let yourself or your family down: not at all 7. Trouble concentrating on things, such as reading the newspaper or watching television: not at all 8. Moving or speaking so slowly that other people could have noticed. Or the opposite - being so fidgety or restless that you have been moving around a lot more than usual: not at all 9. Thoughts that you would be better off or of hurting yourself in some way: not at all Total score: 5 Depression Screening Interpretation: Positive Depression Screening Follow-up: Ex isting condition Depression Screening Done: Yes Source: Developed by Drs. Kar Rojo, Veena Nguyen, Musa Frye and colleagues, with an educational allen from [employer]. Thrive Questionnaire Date Thrive assessed: 09/22/24 I am a: Patient What is your living situation today?: I have a steady place to live Within the past 12 months, did the food you bought not last and you didn't have the money to get more?: Never true Within the past 12 months, did you worry whether your food would run out before you got money to buy more?: Never true Do you have trouble paying for medicines?: No Do you have trouble getting transportation to medical appointments?: No Do you have trouble paying your heating and electricity bill?: No Do you have trouble taking care of your child, family member or friend?: No Do you have trouble with day-to-day activities such as bathing, preparing meals, shopping, managing finances, etc.?: No Are you currently unemployed and looking for a job?: Yes Are you interested in more education?: No Please select the resources that you would like help with: None Currently or been in a relationship where the following occur: No concerns reported THRIVE Score: 0 AUDIT C Alcohol Use Questionnaire (AUDIT-C) 1. How often do you have a drink containing alcohol?: Monthly or less 2. How many drinks containing alcohol do you have on a typical day when you are drinking?: 1 or 2 3. How often do you have six or more drinks on one occasion?: Never Total Score: 1 MERARY-7 AMB Questionnaire MERARY-7 Date MERARY - 7 assessed: 09/22/24 Feeling nervous, anxious, or on edge: 0 = Not at all Not being able to stop or control worryin = Not at all Worrying too much about different things: 0 = Not at all Trouble relaxin = Not at all Being so restless that it is hard to sit still: 0 = Not at all Becoming easily annoyed or irritable: 0 = Not at all Feeling afraid as if something awful might happen: 0 = Not at all Total MERARY-7 score (0-4 normal; 5-9 mild; 10-14 moderate; 15-21 severe): 0 Source: Developed by Drs. Kar Rojo, Veena Nguyen, Musa Frye and colleagues, with an educational allen from [employer]. Physical exam (Primary Care) Vital Signs: Last Vital Signs Pulse 89 09/22/24 15:29 BP 124/68 09/22/24 15:29 Pulse Ox 98 09/22/24 15:29 Oxygen Delivery Method Room Air 09/22/24 15:29 BMI result Body Mass Index 36.3 Tobacco/Smoking Status: Tobacco use Status Tobacco use date assessed 09/22/24 09/22/24 15:30 Patient Tobacco Use Status Never used Tobacco 09/22/24 15:30 Tobacco use type Cigarette 09/22/24 15:30 e-Cigarette/Vaping Use Never Used 09/22/24 15:30 PHQ-9: PHQ-9 Score PHQ-9: Total score 5 09/22/24 16:30 Depression Screening Interpretation: Positive Depression Screening Follow-up: Existing condition Thrive Assessment: Date of Thrive Assessment Date Thrive assessed 09/22/24 09/22/24 15:30 Currently or been in a relationship where the following occur: No concerns reported Const General: alert; No acute distress Eyes Conjunctivae: conjunctivae normal Resp Auscultation: clear to auscultation bilaterally Cardio Rate: regular rate Rhythm: regular rhythm GI Inspection: Yes normal to inspection Extrem General: Yes normal to inspection and No edema Results AMB Urinalysis, Automated UA Leukoctes 0 Bentley/uL Last Edit by Sharmila Rios CMA on 09/22/24 16:33 UA Nitrite Negative Last Edit by Sharmila Rios, JAQUI on 09/22/24 16:33 UA Urobilinogen 0.2 mg/dL Last Edit by Sharmila Rios, JAQUI on 09/22/24 16:33 UA Protein 15 mg/dL Last Edit by Sharmila Rios CMA on 09/22/24 16:33 UA pH 5.5 Last Edit by Sharmila Rios, JAQUI on 09/22/24 16:33 UA Blood 10 Joey/uL Last Edit by Sharmila Rios, JAQUI on 09/22/24 16:33 UA Specific [place] 1.030 Last Edit by Sharmila Rios CMA on 09/22/24 16:33 UA Ketone Negative Last Edit by Sharmila Rios CMA on 09/22/24 16:33 UA Bilirubin 0 mg/dL Last Edit by Sharmila Rios, JAQUI on 09/22/24 16:33 UA Glucose 0 mg/dL Last Edit by Sharmila Rios CMA on 09/22/24 16:33 Results Reviewed Results Reviewed: Laboratory Last Values Urine pH (Auto) 5.5 09/22/24 16:30 Specific [place] (Auto) 1.030 09/22/24 16:30 Urine Protein (Auto) 15 mg/dL 09/22/24 16:30 Glucose (UA)(Auto) 0 mg/dL 09/22/24 16:30 Urine Ketones (Auto) Negative 09/22/24 16:30 Urine Blood (Auto) 10 Joey/uL 09/22/24 16:30 Urine Nitrite (Auto) Negative 09/22/24 16:30 Urine Bilirubin (Auto) 0 mg/dL 09/22/24 16:30 Urine Urobilinogen (Auto) 0.2 mg/dL 09/22/24 16:30 Leukocyte Esterase (Auto) 0 Bentley/uL 09/22/24 16:30 Coding Level of Care Code Est Pt Level 4 (08215) Complex EM visit Add On G2211 Diagnoses Erosive esophagitis K22.10 Breast cancer screening by mammogram Z12.31 Impaired fasting glucose R73.01 Generalized anxiety disorder F41.1 CML (chronic myelocytic leukemia) C92.10 Obesity (BMI 30-39.9) E66.9 LLQ abdominal pain R10.32 Renal cyst, left N28.1 Hematuria R31.9 Assessment & Plan Assessment & Plan (1) Erosive esophagitis: Code(s): K22.10 - Ulcer of esophagus without bleeding Category: Medical Plan: Patient is going to undergo EGD and colonoscopy has seen gastroenterology and on famotidine and Carafate (2) Breast cancer screening by mammogram: Code(s): Z12.31 - Encounter for screening mammogram for malignant neoplasm of breast Category: Medical Plan: Reminded about mammogram (3) Impaired fasting glucose: Code(s): R73.01 - Impaired fasting glucose Category: Medical Plan: Decrease the amount of carbohydrate intake, pasta, bread, rice and potatoes are all sugar and that is aside from all the sweet stuff, remember that fruits are good but they are Sweet also. (4) Generalized anxiety disorder: Comment: [facility]. Code(s): F41.1 - Generalized anxiety disorder Category: Medical Plan: Continue with counseling and therapy (5) CML (chronic myelocytic leukemia): Code(s): C92.10 - Chronic myeloid leukemia, BCR/ABL-positive, not having achieved remission Category: Medical Plan: Patient continues to follow-up with Hematology-Oncology on Gleevec (6) Obesity (BMI 30-39.9): Code(s): E66.9 - Obesity, unspecified Category: Medical Plan: Diet and exercise (7) LLQ abdominal pain: Code(s): R10.32 - Left lower quadrant pain Category: Medical (8) Renal cyst, left: Code(s): N28.1 - Cyst of kidney, acquired Category: Medical (9) Hematuria: Code(s): R31.9 - Hematuria, unspecified Category: Medical Plan History of Present Illness The patient is a 48-year-old female presenting for follow-up related to gastrointestinal disturbances and control of her chronic illnesses. Notably, she reports heartburn and dysphagia, having resumed Glivec treatment for her leukemia on August 01. Despite these exacerbations, proactive measures such as omeprazole have been initiated, with an EGD planned to investigate potential underlying conditions like Schatzki's ring. Diagnostic imaging highlighted findings including diverticulosis, a left renal cyst, and a right adnexal cyst, alongside a history of yeast infections commonly occurring and managed with varying antibiotic regimens. Her urinary symptoms are notable for a history of infections and difficulties, including episodes of nausea with certain prescribed antibiotics. Dietary concerns emerged, with recent strategies avoiding milk products due to associated bloating, focusing on improving general well-being and weight. However, persistent abdominal pain after meals presenting without conventional irritable symptoms persists, meriting continued evaluation and management. Health Maintenance - Mammogram completed in August 2023. - Colonoscopy performed in August 2021. - Cholesterol screening in August 2023, revealing LDL of 114. - Regular follow-up for general anxiety disorder, adhering to counseling and therapy. Social History - Attempting dietary modifications by reducing dairy intake to manage gastrointestinal symptoms. - Strives to consume more fiber and leafy green vegetables within her diet. - Maintains a diet primarily comprising chicken and avoids fried foods. Review of Systems - Gastrointestinal: Reports difficulty swallowing and persistent heartburn. Denies diarrhea or constipation. - Genitourinary: Reports frequent urination at night without pain. - Musculoskeletal: Reports shoulder pain. - Neurological: Denies headaches or dizziness. - Psychiatric: Reports ongoing anxiety. Physical Exam - Cardiovascular- No arrhythmia detected. - Gastrointestinal- Tenderness in the abdomen, pain increased with release at specified points. - Musculoskeletal- Mild acromioclavicular joint tenderness. Results - CT abdomen: Diverticulosis, mild enteritis, left renal cyst, 3.7 cm minimally complex right adnexal cyst. - Blood work: Normal blood count, normal electrolytes, renal and liver function tests normal, glucose of 104. - Urine test: White blood cell count of 12.7 with hyaline cast. Plan I plan to maintain omeprazole for gastrointestinal symptom control and continue monitoring the effects of Glivec. Scheduled an EGD to further investigate possible esophageal issues. The CT findings necessitate an ultrasound of the kidney and a possible urine cytology test. Adjust the patient's diet by decreasing dairy intake and monitoring for symptomatic improvement. Regular follow-up with hematology-oncology for CML and anxiety disorder is necessary, along with continued therapy sessions. The kidney cyst will be monitored for any changes, with imaging follow-up as required. Patient was informed and verbally consented to the use of an ambient scribe for clinic note documentation during this visit. Discussion Notes I discussed the ongoing gastrointestinal issues, notably heartburn and potential involvement of a Schatzki's ring, with plans for an upcoming EGD. Risks and benefits of dietary modifications, such as reducing dairy, were covered to alleviate bloating and nausea. Options for managing recurrent infections were r eviewed, emphasizing compliance with antibiotics despite previous adverse experiences. The importance of follow-up kidney imaging given the cystic findings was discussed, with reassurance that we are monitoring her chronic conditions appropriately. I instructed the patient to inform us of any notable changes or worsening of symptoms. Patient Instructions - Continue taking omeprazole as prescribed to manage heartburn. - Avoid dairy products for one week and note any symptomatic changes. - Monitor for any changes or the worsening of symptoms and report immediately. - Attend scheduled EGD and keep appointments for regular follow-up in hematology-oncology. - Follow dietary advice, like increasing fiber and vegetable intake. - Complete the planned ultrasound of the kidney as discussed. Orders: Orders AMB Urinalysis Automated Today R10.32 - Left lower quadrant pain, Z13.9 - Encounter for screening, unspecified US renal BI Today N28.1 - Cyst of kidney, acquired Urine Cytology Today R31.9 - Hematuria, unspecified
== END 2024-09-22 16:39 | disposition home or self-care (01) ==
LOC: HO.HMCH 15:18
PROVIDERS: PCP Internal Medicine; Visit Provider Internal Medicine
DX: R73.01 Impaired fasting glucose (principal); C92.10 Chronic myeloid leukemia, BCR/ABL-positive, not having achieved remission; E66.9 Obesity, unspecified; Z68.36 Body mass index [BMI] 36.0-36.9, adult; K22.10 Ulcer of esophagus without bleeding; Z12.31 Encounter for screening mammogram for malignant neoplasm of breast; F41.1 Generalized anxiety disorder; R10.32 Left lower quadrant pain; N28.1 Cyst of kidney, acquired; R31.9 Hematuria, unspecified

== ENCOUNTER → 2024-09-22 15:17 | Outpatient (BNVA) | payer OTHER, SELFPAY | PROVIDERS: PCP Internal Medicine; Visit Provider Internal Medicine | DX: K22.10 Ulcer of esophagus without bleeding (principal); R73.01 Impaired fasting glucose; F41.1 Generalized anxiety disorder; C92.10 Chronic myeloid leukemia, BCR/ABL-positive, not having achieved remission; E66.9 Obesity, unspecified; R10.32 Left lower quadrant pain; N28.1 Cyst of kidney, acquired; R31.9 Hematuria, unspecified | CPT/HCPCS: 81003; 99212 ==

== ENCOUNTER 2024-10-08 15:49 | Outpatient (AMB) | payer OTHER, SELFPAY ==
--- NOTE | 2024-10-08 15:56 | AM.OFFWIN_ITS ---
Intake Vital Signs 10/08/24 16:02 Weight 193 lb BP 126/80 Blood Pressure Location Rt brachial Position Sitting Pulse 83 Pulse Source Pulse Oximeter Pulse Oximetry (%) 97 Oxygen Delivery Method Room Air Intake Visit Reasons: EP constipation Intake Note: Patient here because she has been constipated for about 1 week and has tried several otc meds to help which have not helped. Patient Tobacco Use Status: Never used Tobacco Allergies nut - unspecified [nut] Allergy (Severe, Verified 10/08/24 16:02) Anaphylaxis Penicillins Allergy (Severe, Verified 10/08/24 16:02) RASH seafood Allergy (Severe, Verified 10/08/24 16:02) Anaphylaxis shellfish derived Allergy (Severe, Verified 10/08/24 16:02) Anaphylaxis Wixela Inhub Adverse Reaction (Intermediate, Uncoded 10/08/24 16:02) palpitations Do you need a note to return to daycare/school/sports/work: No HPI HPI Comments History of Present Illness Details 48 y/o Female patient who presents to [facility] walk in clinic with c/o Constipation. Reports has not had a Bowel Movement in a few days and has tried Multiple OTC remedies with no much relief. She does have h/o Chronic constipation and sees GI routinely. She is waiting for an appointment for Colonoscopy and EGD. [facility] Medical History (Updated 10/08/24 @ 16:48 by Connie Ardon NP) Hematuria LLQ abdominal pain Hypokalemia Lower extremity weakness CML (chronic myelocytic leukemia) Laryngospasm CLL (chronic lymphocytic leukemia) PONV (postoperative nausea and vomiting) Nausea & vomiting Dysuria Abdominal pain Pelvic pain Frequency of micturition Breast asymmetry Thoracic back pain Impacted cerumen of left ear Dizziness Perioral numbness Left flank pain Lesion of left [place] kidney Hip pain, left Viral syndrome Conjunctivitis, left eye Lymphadenopathy, anterior cervical Hypercholesterolemia 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 Mixed incontinence Obesity (BMI 30-39.9) Nasal congestion Allergic rhinitis Patent foramen ovale Peptic ulcer disease Insomnia Asthma GERD (gastroesophageal reflux disease) Leukemia Surgical History History of Jackson colposuspension Hx of colonoscopy Hx of esophagogastroduodenoscopy Hx of colonoscopy History of bilateral salpingectomy Ulnar nerve entrapment at elbow History of tonsillectomy History of vaginal hysterectomy Family History Maternal Aunt Breast cancer Paternal Grandmother Breast cancer Paternal Grandfather Myocardial infarction, acute, initial episode of care Paternal Uncle Stomach cancer Liver cancer Pancreatic cancer Kidney cancer, primary, with metastasis from kidney to other site Father Colon cancer Social History Household Members: None Housing: Apartment Are you a primary care administrative tech to a significant other at home: No Do you presently have visiting nurse or other home services: No Alcohol intake: never Patient Tobacco Use Status: Never used Tobacco Tobacco use type: Cigarette e-Cigarette/Vaping Use: Never Used Second Hand Smoke Exposure: No Advance Directives Date on File: 02/06/22 service: No Current occupational status: employed Current occupational exposures/hazards: No Cognitive needs: No Hearing needs: No Vision needs: Yes Review of Systems Const All systems reviewed & are unremarkable except as noted in HPI and below Physical Exam Vital Signs: Last Vital Signs Pulse 83 10/08/24 16:02 BP 126/80 10/08/24 16:02 Pulse Ox 97 10/08/24 16:02 Oxygen Delivery Method Room Air 10/08/24 16:02 Const General: no acute distress Nutritional Appearance: obese Orientation/consciousness: patient oriented x3 Resp Effort & Inspection: normal respiratory effort Cardio Heart sounds: S1 normal heart sound present and S2 normal heart sound present GI Inspection: Yes distended and Yes Abdominal panniculus present Palpation (GI): Soft to palpation, not firm, Tenderness to palpation present (GI) (Generalized Tenderness.), no guarding, not rigid and No hepatosplenomegaly present Auscultation: normal bowel sounds Rectal Exam - Female: deferred Neuro General: patient oriented x3, gait normal and moves all extremities Psych Speech and movement: Normal speech and movement present Assessment & Plan Assessment & Plan (1) Constipation: Code(s): K59.00 - Constipation, unspecified Qualifiers: Constipation type: slow transit constipation Qualified Code(s): K59.01 - Slow transit constipation Plan: Ordered Colyte Liquid for Bowel cleanse until Clear Bowels. Advised not eat any Solids 24 hours, just Fluids (Gatorade, Pedi-lyte, Clear Soups, Pop-sicles etc). Advance Diet slowly F/U with GI as planned. Medications: New peg 3350-electrolytes 240-22.72-6.72 -5.84 gram Drink 240 mL (8 oz) every 10 minutes until 4 L are consumed or the rectal effluent is clear. 240 mL PO Q10M 4,000 mL 0RF K59.00 - Constipation, unspecified Discontinued cholecalciferol (vitamin D3) Discontinued Reason: Patient Completed Course 50 mcg PO DAILY 90 days 90 caps 3RF E55.9 - Vitamin D deficiency, unspecified albuterol sulfate 90 mcg/actuation Discontinued Reason: Patient Completed Course 2 puffs PO Q4-6H PRN 8.5 ea 0RF for muscle spasm J45.20 - Mild intermittent asthma, uncomplicated cyclobenzaprine Discontinued Reason: Patient Completed Course 5 mg PO TID PRN 30 tabs 0RF muscle spasm M25.512 - Pain in left shoulder Coding Level of Care Code Est Pt Level 4 (85907) Diagnoses Slow transit constipation K59.01 Constipation type: slow transit constipation Time Spent (min) 20
[2024-10-08 16:02] VITALS: BP 126/80; PULSE 83; O2SAT 97
--- OUTSIDE RECORDS SUMMARY | 2024-10-08 17:53 | XMS_ITS | Clinical Summary ---
Author Organization [facility] Address [address] [place] [address] Care Team Providers Care Python Engineer Name Role Phone Josef Lindquist MD Primary Care Provider [phone] Allergies Active Allergy Reactions Criticality Noted Date Comments Penicillins 12/06/2016 Medications Medication Sig Dispensed Refills Start Date End Date Status zolpidem (AMBIEN) 5 MG tablet Take 10 mg by mouth every night at bedtime as needed for sleep. 0 Active ibuprofen (ADVIL,MOTRIN) 200 MG tablet Take 200 mg by mouth as needed for pain. 0 Active acetaminophen (TYLENOL) 80 MG chewable tablet Chew 80 mg by mouth as needed for pain. 0 Active imatinib (GLEEVEC) 400 MG tablet Take 100 mg by mouth 3 (three) times a day. 0 09/12/2016 Active omeprazole (PRILOSEC) 20 MG capsule Take 20 mg by mouth 2 (two) times a day. 0 Active prochlorperazine (COMPAZINE) 10 MG tablet Take 1 tablet (10 mg total) by mouth every 6 (six) hours as needed. 30 tablet 5 07/05/2017 Active ondansetron (ZOFRAN) 8 MG tablet Take 1 tablet (8 mg total) by mouth every 8 (eight) hours as needed for nausea. 15 tablet 5 07/05/2017 Active Active Problems Problem Noted Date Diagnosed Date Intractable cyclical vomiting with nausea 2017 CINV (chemotherapy-induced nausea and vomiting) 04/04/2017 Gastroesophageal reflux disease without esophagi tis 02/14/2017 Chronic myeloid leukemia Leucocytosis GERD (gastroesophageal reflux disease) MISSY (obstructive sleep apnea) Family History Medical History Relation Name Comments Cancer Maternal Grandmother Stroke Paternal Grandmother Relation Name Status Comments Maternal Grandmother Paternal Grandmother Social History Tobacco Use Types Packs/Day Years Used Date Smoking Tobacco: Never Smokeless Tobacco: Never Alcohol Use Standard Drinks/Week Comments No 0 (1 standard drink = 0.6 oz pur e alcohol) Sex and Gender Information Value Date Recorded Sex Assigned at Not on file Gender Identity Not on file Sexual Orientation Not on file Last Filed Vital Signs Vital Sign Reading Time Taken Comments Blood Pressure 124/78 07/05/2017 2:56 PM EST Pulse 96 07/05/2017 2:56 PM EST Temperature - - Respiratory Rate - - Oxygen Saturation - - Inhaled Oxygen Concentration - - Weight 85.3 kg (188 lb) 07/05/2017 2:56 PM EST Height 155.6 cm (5' 1.25 ) 07/05/2017 2:56 PM ES T Body Mass Index 35.23 07/05/2017 2:56 PM EST Plan of Treatment Health Maintenance Due Date Last Done Comments Hepatitis B Vaccines (1 of 3 - 3-dose series) 1974 Hepatitis C Screening 1974 COVID-19 Vaccine (#1) 10/17/1979 Pneumococcal Vaccine (1 of 2 - PCV) 1980 Depression Screening 1986 Preventative Health Evaluation 1992 DTap / Tdap / Td (1 - Tdap) 1993 Cervical Cancer Screening (P ap Smear) 10/17/1995 Colon Cancer Screening (Colonoscopy) 10/17/2019 Influenza Vaccine (#1) 2024 RSV Ped < 20 months Aged Out No longe r eligible based on patient's age to complete this topic Care Teams Python Engineer Relationship Specialty Start Date End Date Josef Lindquist MD [address] [place] [address] [address] [facility] [place] [address] PCP - General Internal Medicine 02/14/17
--- OUTSIDE RECORDS SUMMARY | 2024-10-08 17:53 | XMS_ITS | Data Portability ---
Author Organization [facility], [place] [facility] Address [address] [place] [id number] Care Team Providers Care Craft Artist Name Role Phone HIM CCA OTHER Assessment Encounter Date Assessment Date Assessment LastModified by Organization Details LastModified Time 01/22/2024 01/22/2024 I provided real -time medical direction via phone for this encounter, and was available for additional phone based assistance as needed. I have reviewed and agree with the Assessment and Plan as documented by the Mica Builder. We discussed the diagnostic uncertainty of home [...] to call 911- verbalized understanding of instruction [email or web address] Not available 01/22/2024 14:46:53 Plan of Treatment Reminders Order Date Submit Date Provider Last Modified By Organization Details Last Modified Time Details Appointments None recorded. Lab BMP, serum or plasma 2023 024 [email or web address], [phone] 14:45:59 Referral None recorded. Procedures None recorded. [...] and Address Organization Details Recorded Time 5605 Product containin g penicilli n (product) medicatio n Not available Not available Not available 01/22/2024 [id number] SNOMED Not Available [facility] - production 4 03:35:25 Medications Name Sig Start Date Stop Date Status Note LastModified by Organization Details LastModified Time Nasal Larimore (oxymetazoli ne) 0.05 % SPRAY 2 SPRAYS [...] and Address Organization Details Last Updated DateTime 4 90 /min 99 % 99 % 16 /min 98.8 [degF] 122 mm[Hg] 86 mm[Hg] Not Available [facility] production 14:21:49 Date Recorded Body weight Provider Name an d Address Organization Details Last Updated DateTime 01/22/2024 12827.63 g Geetha Portillo [address] [place] [address],[address], [place], [address], [place] - [facility] 01/22/2024 14:37:49 Social History None recorded. Functional Status None recorded. Mental Status None recorded. Family History Nothing Reported. Medical History No medical history recorded. Gynecological HistoryNo gynecological history recorded. Obstetrics History GPAL:G 0 P 0 0 0 0 Past Encounters Encounter ID Performer Location Encounter Start Date Encounter Closed Date Diagnosis/Indication Diagnosis SNOMED-CT Code Diagnosis ICD10 Code Diagnosis Note [id number] Inez Ibarra MD [facility] - [address] [phone] 01/22/2024 14:21:47 01/22/2024 16:57:15 Bone pain 31820874 M89.8X9 Advised-no t take any oral NSAIDs until she clears it with her oncologist . Explained via the medic that we cannot prescribe any controlled substances for pain through this program/ discussed the risks benefits of ketorolac for pain-risk of GI bleeding and SHOLA which is heightened by the fact that she is on Sprycel. Need to check labs first and since I do not have access to labs from 01/11 we will have to redraw. She verbalized understand ing. Labs drawn and patient has good H&H and normal renal function-a dvised we can give 1 dose of ketorolac but or not likely to be able to repeat it, thus the importance of following up with her oncologist to soon as possible -she verbalized understand ing to the medic Health Concerns Section Related Observation LastModified by Organization Detai ls LastModified Time None Recorded Concern Status LastModified by Organization Details LastModified Time None Recorded Advance Directives Directive None Recorded Payers Encounter Date Sequence Insurance Name Policy Number Policy Degroot Covered Member ID Degroot Member ID Guarantor Name 01/22/2024 1 [facility] - DOS ON OR AFTER 2022 - DUAL ELIGIBLE - SENIOR LIVING OPTIONS AND ONE CARE (MEDICARE REPLACEMENT/ADV ANTAGE - HMO) Laureen Class [id number] Laureen Class Notes Date Note Type Note Provider Name and Address Organization Details Recorded Time 01/22/2024 text/html HPI: DEBBIE contacts [facility] directly to report that she is having ? severe bone pain, weakness, and nausea? and [facility] DEBBIE is a 48 y/o female [...] until March and was advised to visit UC for symptoms. DEBBIE currently reports worsening severe [...] few months. DEBBIE is assured that [facility] on her behalf. After confirming DEBBIE? s address and phone number on file, DEBBIE is advised to call 911 for any new or worsening symptoms. She is also advised to outreach her oncologist to report her worsening symptoms. DEBBIE understands, appreciates the advice, and will do so. DEBBIE can be reached at [phone]. .................. .................. .................. .................. .................. .................. .................. ............... [facility] Nurse Triage Notes (Edwin Chavez): Chief Complaints: Headache, Nausea/Vomiting, Pain, Weakness/Lethargy Allergies: Penicillin Other Allergies: Penicillin Comments: HPI reviewed. No further information needed to process visit.Patient will not be home until after 130pm per telecommunications engineer- [place] SEGMD: Patient was seen at the [facility] on 01/11. She reports she was [...] or hematochezia or any history of CKD Mica Builder POC Test Results from [facility] - [facility] iSTAT Chem8+ (1) [14:33] Na: 139 mEq/L K: 3.7 mEq/L Cl: 105 mEq/L iCa: 1.21 mmol/L TCO2: 24 mmol/L Glu: 117 mg/dL BUN: 9 mg/dL Crea: 0.5 mg/dL Hct: 39 % Hb: 13.3 g/dL A .................. .................. .................. .................. .................. .................. .................. ............... Mica Builder Note From [facility]: Dispatched to the [...] Butterfly R AC without issue). BMP-results attached. [facility] consulted. Pt given 30mg of IM (L deltoid) Ketorolac. Red flags discussed. Pt advised to call her oncologist and avoid any NSAIDs for at least 24 hours. ALL times are approx. .................. .................. .................. .................. .................. .................. .................. ............... Disposition: Fulfilled Inez Ibarra MD [address] [facility],[address], [place], [address], [employer] 01/22/2024 16:09:26 OBGyn Episode No OBEpisode recorded.
--- OUTSIDE RECORDS SUMMARY | 2024-10-08 17:53 | XMS_ITS | Clinical Summary ---
Author Organization [facility] Address [address] [place] [address] Phone Care Team Providers Care Baseball Glove Stuffer Name Role Phone Josef Lindquist MD Primary Care Provider [phone] Allergies Active Allergy Reactions Criticality Noted Date Comments Penicillins 09/14/2024 Medications oxyCODONE (OXY-IR) 5 mg immediate release capsule Take 1 capsule (5 mg total) by mouth every 6 (six) hours if needed for severe pain for up to 5 doses. Max Daily Amount: 20 mg 5 capsule 5 Active ondansetron ODT (ZOFRAN-ODT) 4 mg disintegrating tabletIndications:L eft lower quadrant abdominal pain Dissolve 1 tablet (4 mg total) on top of the tongue every 8 (eight) hours if needed for nausea or vomiting for up to 10 doses. 10 tablet 5 Active Encounters Date Type Department Care Team Description 09/14/2024 4:24 PM EDT - 09/14/2024 9:55 PM EDT Emergency [facility] Emergency [address] [place] [address] Left lower quadrant abdominal pain (Primary Dx) Discharge Disposition: Home or Self Care from Last 3 Months Medical History Medical History Date Comments Leukemia (CMS/HCC V24, CMS/HCC V28) Depression Social History Tobacco Use Types Packs/Day Years Used Date Smoking Tobacco: Never Assessed Comments Unknown Sex and Gender Information Value Date Recorded Sex Assigned at Female 09/14/2024 5:11 PM EDT Legal Sex Female 1:40 PM EST Gender Identity Female 09/14/2024 5:11 PM EDT Sexual Orientation Straight 09/14/2024 5: 11 PM EDT Obstetrics History Last Filed Vital Signs Vital Sign Reading Time Taken Comments Blood Pressure 132/77 09/14/2024 9:53 PM EDT Pulse 74 09/14/2024 9:53 PM EDT Temperature 36.8 ??C (98.2 ??F) 09/14/2024 9:53 PM ED T Respiratory Rate 16 09/14/2024 9:53 PM EDT Oxygen Saturation 99% 09/14/2024 9:53 PM EDT Inhaled Oxygen Concentration - - Weight 85.3 kg (188 lb) 09/14/2024 12:55 PM EDT Height 154.9 cm (5' 1 ) 09/14/2024 12:55 PM EDT Body Mass Index 35.52 09/14/2024 12:55 PM EDT Plan of Treatment Health Maintenance Due Date Last Done Comments Breast Cancer Screening 1974 Hepatitis B Vaccines (1 of 3 - 19+ 3-dose series) 1993 Cervical Cancer Screening: Pap Smear 10/17/1995 Colorectal Cancer Screening: Colonoscopy 05/29/2022 Depression Screening 05/29/2022 HIV Screening 05/29/2022 Hepatitis C Screening 05/29/2022 Medicare Annual Wellness Visit 05/29/2022 Social Influencers of Health Screening 05/29/2022 DTaP,Tdap,and Td Vaccines (2 - Td or Tdap) 06/18/2034 06/18/2024 COVID-19 Vaccine Completed 05/16/2024, 03/2024, 03/22/2023, Additional history exists Influenza Vaccine Completed 05/16/2024, , 03/30/2022, Additional history exists Pneumococcal Vaccine: Pediatrics (0 to 5 Years) and At-Risk Patients (6 to 64 Years) Completed 06/18/2024, 06/11/2019 HIB Vaccines Aged Out No longer eligi ble based on patient's age to complete this topic HPV Vaccines Aged Out No longer eligi ble based on patient's age to complete this topic Hepatitis A Vaccines Aged Out No long er eligible based on patient's age to complete this topic IPV Vaccines Aged Out No longer eligi ble based on patient's age to complete this topic MMR Vaccines Aged Out No longer eligi ble based on patient's age to complete this topic Meningococcal ACWY Vaccine Aged Out N o longer eligible based on patient's age to complete this topic Meningococcal B Vaccine Aged Out No l onger eligible based on patient's age to complete this topic RSV Immunization Patients Under 20 months Aged Out No longer eligible based on patient's age to complete this topic Varicella Vaccines Aged Out No longer eligible based on patient's age to complete this topic Procedures Procedure Name Priority Date/Time Associated Diagnosis Comments CT ABDOMEN PELVIS W CONTRAST STAT 09/14/2024 8:06 PM EDT POC , URINE DIAGNOSTIC STAT 09/14/2024 5:37 PM EDT LESTER URINE CULTURE TUBE STAT 09/14/2024 5:26 PM EDT URINALYSIS WITH REFLEX MICROSCOPIC AND CULTURE STAT 09/14/2024 5:26 PM EDT URINALYSIS WITH REFLEX MICROSCOPIC AND CULTURE STAT 09/14/2024 5:26 PM EDT CULTURE URINE STAT 09/14/2024 5:26 PM EDT CBC WITH AUTO DIFFERENTIAL STAT 09/14/2024 1:02 PM EDT LIPASE STAT 09/14/2024 1:02 PM EDT COMPREHENSIVE METABOLIC PANEL STAT 09/14/2024 1:02 PM EDT CBC AND DIFFERENTIAL STAT 09/14/2024 1:02 PM EDT from Last 3 Months Results * CT Abdomen Pelvis w Contrast (09/14/2024 8:06 PM EDT) Anatomical Region Laterality Modality Body Computed Tomogra phy 09/14/2024 8:42 PM EDT Addenda Addendum by John Paul Joseph MD on 09/14/2024 9:28 PM EDT ADDENDUM: Receipt of this report by the clinical staff was confirmed with sales project engineer Marisol on Sep 14, 2024 21:28:00 EDT. This document has been electronically signed by: Mohit Iglesias on 09/14/2024 21:28:44 Impressions 09/14/2024 8:42 PM EDT Impression: Diverticulosis without evidence of diverticulitis. Possible mild enteritis. Low-density lesion within the left kidney, possibly a complex cyst but incompletely evaluated. Outpatient ultrasound recommended. 3.7 cm minimally complex right adnexal cyst. This document has been electronically signed by: John Paul Joseph MD on 09/14/2024 20:42:04 Narrative 09/14/2024 8:42 PM EDT INDICATION: LLQ pain into flank; r/o diverticulitis vs obstruc uro CT abdomen and pelvis with contrast Comparison: None Findings: The lung bases are clear. The liver, gallbladder, spleen, adrenal glands and pancreas are unremarkable No obstructive uropathy. Kidneys enhance symmetrically. 12 mm rounded low-density lesion within the left kidney, axial 66 There is diverticulosis, without convincing evidence of diverticulitis. There is engorgement of the vasa recta. Mild scattered gas and fluid throughout nondistended small and large bowel. Right adnexal cyst measuring up to 3.7 cm. No acute osseous abnormality. Procedure Note John Paul Joseph MD - 09/14/2024 INDICATION: LLQ pain into flank; r/o diverticulitis vs obstruc uro CT abdomen and pelvis with contrast Comparison: None Findings: The lung bases are clear. The liver, gallbladder, spleen, adrenal glands and pancreas are unremarkable No obstructive uropathy. Kidneys enhance symmetrically. 12 mm rounded low-density lesion withinthe left kidney, axial 66 There is diverticulosis, without convincing evidence of diverticulitis. There is engorgement of the vasa recta. Mild scattered gas and fluid throughout nondistended small and large bowel. Right adnexal cyst measuring up to 3.7 cm. No acute osseous abnormality. IMPRESSION: Impression: Diverticulosis without evidence of diverticulitis. Possible mild enteritis. Low-density lesion within the left kidney, possibly a complex cyst but incompletely evaluated. Outpatient ultrasound recommended. 3.7 cm minimally complex right adnexal cyst. This document has been electronically signed by: John Paul Joseph MD on 09/14/2024 20:42:[address] PROCEDURES Edited Result - Final * POC , urine manually resulted (09/14/2024 5:37 PM EDT) Pathologist [facility] HCG, Ur POC Negative Negative POC hCG Int QC Pass? Yes Yes Urine Urine specimen obtained by clean catch procedure / Unknown 09/14/2024 5:37 PM EDT Kar HARVEY POINT OF CARE TEST ENTER/ EDIT ORDERABLES Final Result * (ABNORMAL) Urinalysis with reflex microscopic and culture (09/14/2024 5:26 PM EDT) [facility] Specific [place] Urine 1.015 1.003 - 1.030 LAB URINALYSIS - AUTOMATED METHOD [facility] pH, Urine 6.0 5.0 - 8.0 pH LAB URINALYSIS - AUTOMATED METHOD 09/14/2024 5:[facility] Leukocytes, Urine Small(A) Negative LAB URINALYSIS - AUTOMATED METHOD 09/14/2024 5:57 PM [facility] Nitrite, Urine Negative Negative LAB URINALYSIS - AUTOMATED METHOD 09/14/2024 5:57 PM [facility] Protein, Urine Negative <=Trace mg/dL LAB URINALYSIS - AUTOMATED METHOD 09/14/2024 5:[facility] Glucose, Urine Negative Negative mg/dL LAB URINALYSIS - AUTOMATED METHOD 09/14/2024 5:57 PM [facility] Ketones, Urine Negative Negative mg/dL LAB URINALYSIS - AUTOMATED METHOD 09/14/2024 5:57 PM [facility] Urobilinogen, Urine 0.2 0.2 - 1.0 mg/dL LAB URINALYSIS - AUTOMATED METHOD 09/14/2024 5:57 PM EDT [facility] Bilirubin, Urine Negative Negative LAB URINALYSIS - AUTOMATED METHOD 09/14/2024 5:57 PM EDT [facility] Blood, Urine Trace(A) Negative LAB URINALYSIS - AUTOMATED METHOD 09/14/2024 5:57 PM EDT [facility] RBC, Urine 3.4 0 - 4 /HPF LAB URINALYSIS - AUTOMATED METHOD 09/14/2024 5:57 PM EDT [facility] WBC, Urine 12.7(H) 0 - 4 /HPF LAB URINALYSIS - AUTOMATED METHOD 09/14/2024 5:57 PM EDT [facility] Squamous Epithelial, Urine >100(H) 0 - 60 /LPF LAB URINALYSIS - AUTOMATED METHOD 09/14/2024 5:57 PM EDT [facility] Bacteria, Urine Many(A) Negative /HPF LAB URINALYSIS - AUTOMATED METHOD 09/14/2024 5:57 PM EDT [facility] Hyaline Casts, Urine 5.2(H) 0 - 3 /LPF LAB URINALYSIS - AUTOMATED METHOD 09/14/2024 5:57 PM EDT [facility] Urine Urine specimen obtained by clean catch procedure / Unknown Non-blood Collection / Unknown 09/14/2024 5:26 PM EDT 09/14/2024 5:46 PM EDT us Kar HARVEY LAB URINE ORDERABLES Sera l Result [facility] [address] [place] [address], * Lester urine culture tube (09/14/2024 5:26 PM EDT) Extra Tube Hold for add-ons. 09/14/2024 7:01 PM EDT [facility] Comment:Auto resulted. Urine Urine specimen obtained by clean catch procedure / Unknown Non-blood Collection / Unknown 09/14/2024 5:26 PM EDT 09/14/2024 5:46 PM EDT Kar HARVEY LAB URINE ORDERABLES Sera l Result [facility] [address] [place] [address], [place] [phone] * (ABNORMAL) Culture urine (09/14/2024 5:26 PM EDT) Culture, Urine >100,000 CFU/mL Escherichia coli(A) JUNE 09/16/2024 10:17 AM EDT [facility] Urine Urine specimen obtained by clean catch procedure / Unknown Non-blood Collection / Unknown 09/14/2024 5:26 PM EDT 09/14/2024 5:57 PM EDT Narrative Organism Antibiotic Method Susceptibility Escherichia coli Amoxicillin/Clavulanate JUNE <=2 ug/ml: Susceptible Escherichia coli Ampicillin/Sulbactam JUNE <=2 ug/ml: Susceptible Escherichia coli Piperacillin/Tazobactam JUNE <=4 ug/ml: Susceptible Escherichia coli Cefazolin (Urine) JUNE <=1 ug/ml: Susceptible Escherichia coli Cefoxitin JUNE <=4 ug/ml: Susceptible Escherichia coli Ceftazidime JUNE <=0.5 ug/ml: Susceptible Escherichia coli Ceftriaxone JUNE <=0.25 ug/ml: Susceptible Escherichia coli Cefepime JUNE <=0.12 ug/ml: Susceptible Escherichia coli Meropenem JUNE <=0.25 ug/ml: Susceptible Escherichia coli Amikacin JUNE 2 ug/ml: Susceptible Escherichia coli Gentamicin JUNE <=1 ug/ml: Susceptible Escherichia coli Ciprofloxacin JUNE <=0.06 ug/ml: Susceptible Escherichia coli Levofloxacin JUNE <=0.12 ug/ml: Susceptible Escherichia coli Nitrofurantoin JUNE <=16 ug/ml: Susceptible Escherichia coli Trimethoprim/Sulfamethoxazole JUNE <=20 ug/ml: Susceptible Kar HARVEY LAB MICROBIOLOGY - GENERA L ORDERABLES Final Result [facility] [address] [place] [address], * CBC auto differential (09/14/2024 1:02 PM EDT) [facility] WBC 7.1 4.8 - 10.8 K/mcL LAB HEMETOLOGY METHOD 09/14/2024 1:53 PM EDT [facility] RBC 4.20 3.80 - 4.80 M/mcL LAB HEMETOLOGY METHOD 09/14/2024 1:53 PM EDT [facility] Hemoglobin 12.7 11.5 - 16.0 g/dL LAB HEMETOLOGY METHOD 09/14/2024 1:53 PM EDT [facility] Hematocrit 39.1 35.0 - 47.0 % LAB HEMETOLOGY METHOD 09/14/2024 1:53 PM EDT [facility] MCV 92.9 79.0 - 98.0 FL LAB HEMETOLOGY METHOD 09/14/2024 1:53 PM EDT [facility] MCH 30.2 27.0 - 32.0 pcg LAB HEMETOLOGY METHOD 09/14/2024 1:53 PM EDT [facility] MCHC 32.5 32.0 - 37.0 g/dL LAB HEMETOLOGY METHOD 09/14/2024 1:53 PM EDT [facility] RDW 12.1 11.0 - 15.0 % LAB HEMETOLOGY METHOD 09/14/2024 1:53 PM EDT [facility] Platelets 262 130 - 400 K/mcL LAB HEMETOLOGY METHOD 09/14/2024 1:53 PM EDT [facility] MPV 9.8 7.0 - 11.0 FL LAB HEMETOLOGY METHOD 09/14/2024 1:53 PM EDT [facility] NRBC 0.0 <1.0 % LAB HEMETOLOGY METHOD 09/14/2024 1:53 PM EDT [facility] NRBC Absolute 0.00 <0.10 K/mcL LAB HEMETOLOGY METHOD 09/14[facility]2024 1:[facility] Neutrophils Relative 50.3 % LAB HEMETOLOGY METHOD 09/14/2024 1:53 PM EDT [facility] Lymphocytes Relative 39.6 % LAB HEMETOLOGY METHOD 09/14/2024 1:53 PM EDT [facility] Monocytes Relative 7.2 % LAB HEMETOLOGY METHOD 09/14/2024 1:53 PM [facility] Eosinophils Relative 2.0 % LAB HEMETOLOGY METHOD 09/14/2024 1:53 PM [facility] Basophils Relative 0.8 % LAB HEMETOLOGY METHOD 09/14/2024 1:53 PM [facility] Immature Granulocytes Relative 0.1 % LAB HEMETOLOGY METHOD 09/14/2024 1:53 PM [facility] Neutrophils Absolute 3.57 1.50 - 7.00 K/mcL LAB HEMETOLOGY METHOD 09/14/2024 1:53 PM [facility] Lymphocytes Absolute 2.81 1.00 - 5.00 K/mcL LAB HEMETOLOGY METHOD 09/14/2024 1:53 PM EDT [facility] Monocytes Absolute 0.51 0.20 - 1.00 K/mcL LAB HEMETOLOGY METHOD 09/14/2024 1:[facility] Eosinophils Absolute 0.14 0.00 - 0.50 K/mcL LAB HEMETOLOGY METHOD 09/14/2024 1:53 PM [facility] Basophils Absolute 0.06 0.00 - 0.20 K/mcL LAB HEMETOLOGY METHOD 09/14/2024 1:53 PM EDT [facility] Immature Granulocytes Absolute 0.01 0.00 - 0.03 K/mcL LAB HEMETOLOGY METHOD 09/14/2024 1:53 PM EDT [facility] Blood Venous blood specimen / Unknown Venipuncture / Unknown 09/14/2024 1:02 PM EDT 09/14/2024 1:47 PM EDT Johan Fierro MD LAB BLOOD ORDERABLES Sera l Result Performing Organization Address [facility]/ZIP Co de Phone Number [facility] [address] [place] [address], [place] [phone] * Lipase (09/14/2024 1:02 PM EDT) Lipase 41 13 - 75 unit/L LAB CHEMISTRY METHOD 09/14/2024 2:23 PM EDT [facility] Blood Venous blood specimen / Unknown Venipuncture / Unknown 09/14/2024 1:02 PM EDT 09/14/2024 1:47 PM EDT Johan Fierro MD LAB BLOOD ORDERABLES Sera l Result Performing Organization Address [facility]/ZIP Co de Phone Number [facility] [address] [place] [address], [place] [phone] * (ABNORMAL) Comprehensive metabolic panel (09/14/2024 1:02 PM EDT) Sodium 139 133 - 145 mmol/L LAB CHEMISTRY METHOD 09/14/2024 2:23 PM EDT [facility] Potassium 3.9 3.5 - 5.5 mmol/L LAB CHEMISTRY METHOD 09/14/2024 2:23 PM EDT [facility] Chloride 106 96 - 110 mmol/L LAB CHEMISTRY METHOD 09/14/2024 2:23 PM EDT [facility] CO2 26 21 - 32 mmol/L LAB CHEMISTRY METHOD 09/14/2024 2:23 PM [facility] Anion Gap 7 3 - 11 LAB CHEMISTRY METHOD 09/14/2024 2:23 PM [facility] Glucose 104(H) 70 - 100 mg/dL LAB CHEMISTRY METHOD 09/14/2024 2:23 PM [facility] BUN 7 5 - 25 mg/dL LAB CHEMISTRY METHOD 09/14/2024 2:23 PM [facility] Creatinine 0.56 0.50 - 1.10 mg/dL LAB CHEMISTRY METHOD 09/14/2024 2:23 PM [facility] eGFR 112 >=60 mL/min/1. 73m2 LAB CHEMISTRY METHOD 09/14/2024 2:23 PM [facility] Comment:Calculation based on the??Chronic Kidney Disease Epidemiology Collaboration (CKD-EPI) equation refit??without adjustment for race. BUN/Creatinine Ratio 12.5 LAB CHEMISTRY METHOD 09/14/2024 2:23 PM [facility] Calcium 9.2 8.5 - 10.5 mg/dL LAB CHEMISTRY METHOD 09/14/2024 2:23 PM [facility] AST (SGOT) 20 10 - 42 unit/L LAB CHEMISTRY METHOD 09/14/2024 2:23 PM [facility] ALT (SGPT) 19 10 - 60 unit/L LAB CHEMISTRY METHOD 09/14/2024 2:23 PM [facility] Alkaline Phosphatase 92 42 - 121 unit/L LAB CHEMISTRY METHOD 09/14/2024 2:23 PM [facility] Total Protein 7.3 6.0 - 8.0 g/dL LAB CHEMISTRY METHOD 09/14/2024 2:23 PM [facility] Albumin 3.7 3.2 - 5.0 g/dL LAB CHEMISTRY METHOD 09/14/2024 2:23 PM [facility] Total Bilirubin 0.4 0.0 - 1.4 mg/dL LAB CHEMISTRY METHOD 09/14/2024 2:23 PM EDT [facility] Blood Venous blood specimen / Unknown Venipuncture / Unknown 09/14/2024 1:02 PM EDT 09/14/2024 1:47 PM EDT us Johan Fierro MD LAB BLOOD ORDERABLES Sera l Result [facility] [address] [place] [address], [place] [phone] from Last 3 Months Insurance [employer] Member Subscriber Plan / Payer (Ef fective 2019-Present) Name:Laureen Roblero Relation to Subscriber:Self Name:Laureen Roblero Payer ID:[id number] Group ID:[id number] Type:Not on file Address: [place] [address] [address] [address] Care Teams Baseball Glove Stuffer Relationship Specialty Start Date End Date Josef Lindquist MD [address] [place] [address] [address] [facility] [place] [address] PCP - General Internal Medicine 05/14/17
== END 2024-10-08 16:51 | disposition home or self-care (01) ==
PROVIDERS: PCP Internal Medicine; Visit Provider Nurse Practitioner Family
DX: K59.01 Slow transit constipation (principal)

== ENCOUNTER → 2024-10-08 15:49 | Outpatient (BNVA) | payer OTHER, SELFPAY | PROVIDERS: PCP Internal Medicine; Visit Provider Nurse Practitioner Family | DX: K59.01 Slow transit constipation (principal) | CPT/HCPCS: 99212 ==

== ENCOUNTER 2024-10-21 13:29 | Outpatient (REF) | payer OTHER, SELFPAY ==
--- OUTSIDE RECORDS SUMMARY | 2024-10-21 15:58 | XMS_ITS | Data Portability ---
Author Organization [facility] [facility] Address [address] [place] [id number] Care Team Providers Care Lead Network Engineer Name Role Phone HIM CCA OTHER Assessment Encounter Date Assessment Date Assessment LastModified by Organization Details LastModified Time 01/22/2024 01/22/2024 I provided real -time medical direction via phone for this encounter, and was available for additional phone based assistance as needed. I have reviewed and agree with the Assessment and Plan as documented by the Engineer Of System Development. We discussed the diagnostic uncertainty of home [...] to call 911- verbalized understanding of instruction [email or web address] Not available 01/22/2024 14:46:53 Plan of Treatment Reminders Order Date Submit Date Provider Last Modified By Organization Details Last Modified Time Details Appointments None recorded. Lab BMP, serum or plasma 2023 024 [email or web address], [address] 14:45:59 Referral None recorded. Procedures None recorded. [...] Not available Not available Not available 01/22/2024 [id number] SNOMED Not Available [employer] - production 4 03:35:25 Medications Name Sig Start Date Stop Date Status Note LastModified by Organization Details LastModified Time Nasal [place] (oxymetazoli ne) 0.05 % SPRAY 2 SPRAYS [...] Address Organization Details Last Updated DateTime 01/22/2024 49824.63 g Geetha Portillo [address] [place] [address],[address], [place], [address], [place] - [employer] [facility] 01/22/2024 14:37:49 Social History None recorded. Functional Status None recorded. Mental Status None recorded. Family History Nothing Reported. Medical History No medical history recorded. Gynecological HistoryNo gynecological history recorded. Obstetrics History GPAL:G 0 P 0 0 0 0 Past Encounters Encounter ID Performer Location Encounter Start Date Encounter Closed Date Diagnosis/Indication Diagnosis SNOMED-CT Code Diagnosis ICD10 Code Diagnosis Note [id number] Inez Ibarra MD [facility] - [address] [address] 01/22/2024 14:21:47 01/22/2024 16:57:15 Bone pain [id number] M89.8X9 Advised-no t take any oral NSAIDs [...] Degroot Member ID Guarantor Name 01/22/2024 1 [facility] - DOS ON OR AFTER 2022 - DUAL ELIGIBLE - HALF-WAY OPTIONS AND ONE CARE (MEDICARE REPLACEMENT/ADV ANTAGE - HMO) Laureen Class [id number] Laureen Class Notes Date Note Type Note Provider Name and Address Organization Details Recorded Time 01/22/2024 text/html HPI: DEBBIE contacts [facility] directly to report that she is having ? severe bone pain, weakness, and nausea? and [facility] DEBBIE is a 48 y/o [...] few months. DEBBIE is assured [facility] on her behalf. After confirming DEBBIE? s address and phone number on file, DEBBIE is advised to call 911 for any new or worsening symptoms. She is also advised to outreach her oncologist to report her worsening symptoms. DEBBIE understands, appreciates the advice, and will do so. DEBBIE can be reached at [phone]. .................. .................. .................. .................. .................. .................. .................. ............... CRC Nurse Triage Notes (Edwin Chavez): Chief Complaints: Headache, Nausea/Vomiting, Pain, Weakness/Lethargy Allergies: Penicillin Other Allergies: Penicillin Comments: HPI reviewed. 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 She reports she was [...] or hematochezia or any history of CKD Engineer Of System Development POC Test Results from [facility] - YANET iSTAT Chem8+ (1) [14:33] Na: 139 mEq/L K: 3.7 mEq/L Cl: 105 mEq/L iCa: 1.21 mmol/L TCO2: 24 mmol/L Glu: 117 mg/dL BUN: 9 mg/dL Crea: 0.5 mg/dL Hct: 39 % Hb: 13.3 g/dL A .................. .................. .................. .................. .................. .................. .................. ............... Engineer Of System Development Note From [facility]: Dispatched to the [...] Butterfly R AC without issue). BMP-results attached. [facility]. Pt given 30mg of IM (L deltoid) Ketorolac. Red flags discussed. Pt advised to call her oncologist and avoid any NSAIDs for at least 24 hours. ALL times are approx. .................. .................. .................. .................. .................. .................. .................. ............... Disposition: Fulfilled Inez Ibarra MD [address] [facility],[address], [place], [address], [employer] 01/22/2024 16:09:26 OBGyn Episode No OBEpisode recorded.
--- OUTSIDE RECORDS SUMMARY | 2024-10-21 15:58 | XMS_ITS | Clinical Summary ---
Author Organization [facility] Address [address] [place] [address] Phone Care Team Providers Care Nematologist Name Role Phone Josef Lindquist MD Primary Care Provider [phone] Allergies Active Allergy Reactions Criticality Noted Date [...] EDT - 09/14/2024 9:55 PM EDT Emergency [facility] Emergency [address] [place] [address] Left lower quadrant abdominal pain [...] of 3 - 19+ 3-dose series) 1993 Zoster Vaccines (1 of 2) 1993 Cervical Cancer Screening: Pap Smear 10/17/1995 Colorectal Cancer Screening: Colonoscopy 05/29/2022 Depression Screening 05/29/2022 HIV Screening 05/29/2022 Hepatitis C Screening 05/29/2022 Medicare Annual Wellness Visit 05/29/2022 Social Influencers of Health Screening 05/29/2022 COVID-19 Vaccine (9 - Pfizer risk 2023- season) 2024 05/16/2024, 12/09/2023, 03/22/2023, Additional history exists DTaP,Tdap,and Td Vaccines (2 - Td or Tdap) 06/18/2034 06/18/2024 Influenza Vaccine Completed 05/16/2024, , 03/30/2022, Additional history exists Pneumococcal Vaccine: 50+ Years Completed 06/18/2024, 06/11/2019 Pneumococcal Vaccine: Pediatrics (0 to 5 Years) [...] by the clinical staff was confirmed with tariff counselShakir Damon on Sep 14, 2024 21:28:00 EDT. This [...] manually resulted (09/14/2024 5:37 PM EDT) Pathologist [facility] HCG, Ur POC Negative Negative POC hCG Int QC Pass? Yes Yes Urine Urine specimen obtained by clean catch procedure / Unknown 09/14/2024 5:37 PM EDT Kar HARVEY POINT OF CARE TEST ENTER/ EDIT ORDERABLES Final Result * (ABNORMAL) Urinalysis with reflex microscopic and culture (09/14/2024 5:26 PM EDT) [facility] Specific [place] Urine 1.015 1.003 - 1.030 LAB URINALYSIS - AUTOMATED METHOD 09/14/2024 5:57 PM EDT [facility] pH, Urine 6.0 5.0 - 8.0 pH LAB URINALYSIS - AUTOMATED METHOD 09/14/2024 5:[facility] Leukocytes, Urine Small(A) Negative LAB URINALYSIS - AUTOMATED METHOD 09/14/2024 5:57 [facility] Nitrite, Urine Negative Negative LAB URINALYSIS - AUTOMATED METHOD 09/14/2024 5:57 PM EDT [facility] Protein, Urine Negative <=Trace mg/dL LAB URINALYSIS - AUTOMATED METHOD 09/14/2024 5:57 PM [facility] Glucose, Urine Negative Negative mg/dL LAB URINALYSIS - AUTOMATED METHOD 09/14/2024 5:57 PM [facility] Ketones, Urine Negative Negative mg/dL LAB URINALYSIS - AUTOMATED METHOD 09/14/2024 5:57 PM EDT [facility] Urobilinogen, Urine 0.2 0.2 - 1.0 mg/dL LAB URINALYSIS - AUTOMATED METHOD 09/14/2024 5:57 PM EDT [facility] Bilirubin, Urine Negative Negative LAB URINALYSIS - AUTOMATED METHOD 09/14/2024 5:57 PM EDT [facility] Blood, Urine Trace(A) Negative LAB URINALYSIS - AUTOMATED METHOD 09/14/2024 5:57 PM EDT [facility] RBC, Urine 3.4 0 - 4 /HPF LAB URINALYSIS - AUTOMATED METHOD 09/14/2024 5:57 PM EDT [facility] WBC, Urine 12.7(H) 0 - 4 /HPF LAB URINALYSIS - AUTOMATED METHOD 09/14/2024 5:57 PM EDT [facility] Squamous Epithelial, Urine >100(H) 0 - 60 /LPF LAB URINALYSIS - AUTOMATED METHOD 09/14/2024 5:57 PM EDT [facility] Bacteria, Urine Many(A) Negative /HPF LAB URINALYSIS - AUTOMATED METHOD 09/14/2024 5:57 PM EDT [facility] Hyaline Casts, Urine 5.2(H) 0 - 3 /LPF LAB URINALYSIS - AUTOMATED METHOD 09/14/2024 5:57 PM EDT [facility] Urine Urine specimen obtained by clean catch procedure / Unknown Non-blood Collection / Unknown 09/14/2024 5:26 PM EDT 09/14/2024 5:46 PM EDT us Kar HARVEY LAB URINE ORDERABLES Sera prado Result [facility] [address] [place] [address], * Lester urine culture tube (09/14/2024 5:26 PM EDT) Extra Tube Hold for add-ons. 09/14/2024 7:01 PM EDT [facility] Comment:Auto resulted. Urine Urine specimen obtained by clean catch procedure / Unknown Non-blood Collection / Unknown 09/14/2024 5:26 PM EDT 09/14/2024 5:46 PM EDT us Kar HARVEY LAB URINE ORDERABLES Sera l Result [facility] [address] [place] [address], * (ABNORMAL) Culture urine (09/14/2024 5:26 PM EDT) Culture, Urine >100,000 CFU/mL Escherichia coli(A) JUNE 09/16/2024 10:17 AM EDT [facility] Urine Urine specimen obtained by [...] JUNE <=16 ug/ml: Susceptible Escherichia coli Trimethoprim/Sulfamethoxazole JNUE <=20 ug/ml: Susceptible Kar HARVEY LAB MICROBIOLOGY - GENERA L ORDERABLES Final Result [facility] [address] [place] [address], [place] [phone] * CBC auto differential (09/14/2024 1:02 PM EDT) [facility] WBC 7.1 4.8 - 10.8 K/mcL LAB HEMETOLOGY METHOD 09/14/2024 1:53 PM EDT [facility] RBC 4.20 3.80 - 4.80 M/mcL LAB HEMETOLOGY METHOD 09/14/2024 1:53 PM EDT [facility] Hemoglobin 12.7 11.5 - 16.0 g/dL LAB HEMETOLOGY METHOD 09/14/2024 1:53 PM EDT [facility] Hematocrit 39.1 35.0 - 47.0 % LAB HEMETOLOGY METHOD 09/14/2024 1:53 PM EDT [facility] MCV 92.9 79.0 - 98.0 FL LAB HEMETOLOGY METHOD 09/14/2024 1:53 PM EDT [facility] MCH 30.2 27.0 - 32.0 pcg LAB HEMETOLOGY METHOD 09/14/2024 1:53 PM EDT [facility] MCHC 32.5 32.0 - 37.0 g/dL LAB HEMETOLOGY METHOD 09/14/2024 1:53 PM EDT [facility] RDW 12.1 11.0 - 15.0 % LAB HEMETOLOGY METHOD 09/14/2024 1:53 PM EDT [facility] Platelets 262 130 - 400 K/mcL LAB HEMETOLOGY METHOD 09/14/2024 1:53 PM EDT [facility] MPV 9.8 7.0 - 11.0 FL LAB HEMETOLOGY METHOD 09/14/2024 1:53 PM EDT [facility] NRBC 0.0 <1.0 % LAB HEMETOLOGY METHOD 09/14/2024 1:53 PM [facility] NRBC Absolute 0.00 <0.10 K/mcL LAB HEMETOLOGY METHOD 09/14/2024 1:53 PM [facility] Neutrophils Relative 50.3 % LAB HEMETOLOGY METHOD 09/14/2024 1:53 PM [facility] Lymphocytes Relative 39.6 % LAB HEMETOLOGY METHOD 09/14/2024 1:53 PM [facility] Monocytes Relative 7.2 % LAB HEMETOLOGY METHOD 09/14/2024 1:53 PM [facility] Eosinophils Relative 2.0 % LAB HEMETOLOGY METHOD 09/14/2024 1:53 PM [facility] Basophils Relative 0.8 % LAB HEMETOLOGY METHOD 09/14/2024 1:53 PM [facility] Immature Granulocytes Relative 0.1 % LAB HEMETOLOGY METHOD 09/14/2024 1:53 PM [facility] Neutrophils Absolute 3.57 1.50 - 7.00 K/mcL LAB HEMETOLOGY METHOD 09/14/2024 1:53 PM EDT [facility] Lymphocytes Absolute 2.81 1.00 - 5.00 K/mcL LAB HEMETOLOGY METHOD 09/14/2024 1:53 PM EDT [facility] Monocytes Absolute 0.51 0.20 - 1.00 K/mcL LAB HEMETOLOGY METHOD 09/14/2024 1:53 PM [facility] Eosinophils Absolute 0.14 0.00 - 0.50 K/mcL LAB HEMETOLOGY METHOD 09/14/2024 1:53 PM EDT [facility] Basophils Absolute 0.06 0.00 - 0.20 K/mcL LAB HEMETOLOGY METHOD 09/14/2024 1:53 PM EDT [facility] Immature Granulocytes Absolute 0.01 0.00 - 0.03 K/mcL LAB HEMETOLOGY METHOD 09/14/2024 1:53 PM EDT [facility] Blood Venous blood specimen / Unknown Venipuncture / Unknown 09/14/2024 1:02 PM EDT 09/14/2024 1:47 PM EDT us Johan Fierro MD LAB BLOOD ORDERABLES Sera l Result Performing Organization Address City/[facility]/ZIP Co de Phone Number [facility] [address] [place] [address], [place] [phone] * Lipase (09/14/2024 1:02 PM EDT) Pathologist [facility] Lipase 41 13 - 75 unit/L LAB CHEMISTRY METHOD 09/14/2024 2:23 PM EDT [facility] Blood Venous blood specimen / Unknown Venipuncture / Unknown 09/14/2024 1:02 PM EDT 09/14/2024 1:47 PM EDT Johan Fierro MD LAB BLOOD ORDERABLES Sera l Result [facility] [address] [place] [address], [place] [phone] * (ABNORMAL) Comprehensive metabolic panel (09/14/2024 1:02 PM EDT) Sodium 139 133 - 145 mmol/L LAB CHEMISTRY METHOD 09/14/2024 2:23 PM EDT [facility] Potassium 3.9 3.5 - 5.5 mmol/L LAB CHEMISTRY METHOD 09/14/2024 2:23 PM [facility] Chloride 106 96 - 110 mmol/L LAB CHEMISTRY METHOD 09/14/2024 2:23 PM [facility] CO2 26 21 - 32 mmol/L LAB CHEMISTRY METHOD 09/14/2024 2:23 PM [facility] Anion Gap 7 3 - 11 LAB CHEMISTRY METHOD 09/14/2024 2:23 PM [facility] Glucose 104(H) 70 - 100 mg/dL LAB CHEMISTRY METHOD 09/14/2024 2:23 PM [facility] BUN 7 5 - 25 mg/dL LAB CHEMISTRY METHOD 09/14/2024 2:23 PM [facility] Creatinine 0.56 0.50 - 1.10 mg/dL LAB CHEMISTRY METHOD 09/14/2024 2:23 PM [facility] eGFR 112 >=60 mL/min/1. 73m2 LAB CHEMISTRY METHOD 09/14/2024 2:23 PM [facility] Comment:Calculation based on the??Chronic Kidney Disease Epidemiology Collaboration (CKD-EPI) equation refit??without adjustment for race. BUN/Creatinine Ratio 12.5 LAB CHEMISTRY METHOD 09/14/2024 2:23 PM [facility] Calcium 9.2 8.5 - 10.5 mg/dL LAB CHEMISTRY METHOD 09/14/2024 2:23 PM [facility] AST (SGOT) 20 10 - 42 unit/L LAB CHEMISTRY METHOD 09/14/2024 2:23 PM [facility] ALT (SGPT) 19 10 - 60 unit/L LAB CHEMISTRY METHOD 09/14/2024 2:23 PM [facility] Alkaline Phosphatase 92 42 - 121 unit/L LAB CHEMISTRY METHOD 09/14/2024 2:23 PM [facility] Total Protein 7.3 6.0 - 8.0 g/dL LAB CHEMISTRY METHOD 09/14/2024 2:23 PM EDT [facility] Albumin 3.7 3.2 - 5.0 g/dL LAB CHEMISTRY METHOD 09/14/2024 2:23 PM EDT [facility] Total Bilirubin 0.4 0.0 - 1.4 mg/dL LAB CHEMISTRY METHOD 09/14/2024 2:23 PM EDT [facility] Blood Venous blood specimen / Unknown Venipuncture / Unknown 09/14/2024 1:02 PM EDT 09/14/2024 1:47 PM EDT us Johan Fierro MD LAB BLOOD ORDERABLES Sera l Result [facility] [address] [place] [address], [place] [phone] from Last 3 Months Insurance [facility] MEDICARE Member Subscriber Plan / Payer (Ef fective 2019-Present) Name:Annika Laureen Relation to Subscriber:Self Name:Carly Roblerosol Payer ID:[id number] Group ID:[id number] Type:Not on file Address: [address] [place] [id number] Care Teams Nematologist Relationship Specialty Start Date End Date Josef Lindquist MD [address] [place] [address] [address] [facility] [place] [address] PCP - General Internal Medicine 05/14/17
--- OUTSIDE RECORDS SUMMARY | 2024-10-21 15:58 | XMS_ITS | Clinical Summary ---
Author Organization [facility] Address [address] [place] [address] Care Team Providers Care Silver Plater Name Role Phone Josef Lindquist MD Primary Care Provider [phone] Allergies Active Allergy Reactions Criticality Noted Date [...] Tdap / Td (1 - Tdap) 1993 Shingrix-Zoster Vaccine (1 of 2) 1993 Cervical Cancer Screening (P ap Smear) 10/17/1995 Colon Cancer Screening (Colonoscopy) 10/17/2019 Influenza Vaccine (#1) 2024 Breast Cancer Screening (Mammogram) 2024 RSV Ped < 20 months Aged Out No longe r eligible based on patient's age to complete this topic Care Teams Silver Plater Relationship Specialty Start Date End Date Josef Lindquist MD [address] [place] [address] [address] [facility] [place] [address] PCP - General Internal Medicine 02/14/17
== END 2024-10-21 13:30 | disposition home or self-care (01) ==
LOC: HO.US 13:29
PROVIDERS: PCP Internal Medicine; Visit Provider Internal Medicine
DX: N28.1 Cyst of kidney, acquired (principal)
CPT/HCPCS: 76775

== ENCOUNTER → 2024-10-21 13:32 | Outpatient (BNV) | payer OTHER, SELFPAY | PROVIDERS: PCP Internal Medicine; Visit Provider Radiology Diagnostic Radiology | DX: N28.1 Cyst of kidney, acquired (principal) | CPT/HCPCS: 76775 ==

== ENCOUNTER 2024-10-21 15:25 | Outpatient (REF) | payer OTHER, SELFPAY ==
--- OUTSIDE RECORDS SUMMARY | 2024-10-21 18:06 | XMS_ITS | Clinical Summary ---
Author Organization [facility] Address [address] [place] [address] Phone Care Team Providers Care Sign Language Teacher Name Role Phone Josef Lindquist MD Primary Care Provider [phone] Allergies Active Allergy Reactions Criticality Noted Date [...] EDT - 09/14/2024 9:55 PM EDT Emergency [facility] Emergency [address] [place] [address] Left lower quadrant abdominal pain [...] by the clinical staff was confirmed with ocean export coordinatorShakir Damon on Sep 14, 2024 21:28:00 EDT. [...] manually resulted (09/14/2024 5:37 PM EDT) Pathologist [facility] Emergency Department HCG, Ur POC Negative Negative POC hCG Int QC Pass? Yes Yes Urine Urine specimen obtained by clean catch procedure / Unknown 09/14/2024 5:37 PM EDT Kar HARVEY POINT OF CARE TEST ENTER/ EDIT ORDERABLES Final Result * (ABNORMAL) Urinalysis with reflex microscopic and culture (09/14/2024 5:26 PM EDT) [facility] Specific [place] Urine 1.015 1.003 - 1.030 LAB URINALYSIS - AUTOMATED METHOD 09/14/2024 5:57 PM EDT [facility] pH, Urine 6.0 5.0 - 8.0 pH LAB URINALYSIS - AUTOMATED METHOD [facility]24 [facility] Leukocytes, Urine Small(A) Negative LAB URINALYSIS - AUTOMATED METHOD [facility]/14/2024 5:[facility] Nitrite, Urine Negative Negative LAB URINALYSIS - AUTOMATED METHOD 09/14/2024 5:57 PM EDT [facility] Protein, Urine Negative <=Trace mg/dL LAB URINALYSIS - AUTOMATED METHOD [facility]/14/2024 5:57 [facility] Glucose, Urine Negative Negative mg/dL LAB URINALYSIS - AUTOMATED METHOD 09/14/2024 5:57 [facility] Ketones, Urine Negative Negative mg/dL LAB [...] prado Result [facility] [address] [place] [address], * Lester urine culture tube (09/14/2024 5:26 PM EDT) Extra Tube Hold for add-ons. 09/14/2024 7:01 PM EDT [facility] Comment:Auto resulted. Urine Urine specimen obtained by clean catch procedure / Unknown Non-blood Collection / Unknown 09/14/2024 5:26 PM EDT 09/14/2024 5:46 PM EDT us Kar HARVEY LAB URINE ORDERABLES Sera l Result [facility] [address] [place] [address], * (ABNORMAL) Culture urine (09/14/2024 5:26 PM [...] Final Result [facility] [address] [place] [address], [place] [phone] * CBC auto differential (09/14/2024 1:02 PM EDT) [facility] WBC 7.1 4.8 - 10.8 K/mcL [...] % LAB HEMETOLOGY METHOD 09/14/2024 1:53 PM [facility] NRBC Absolute 0.00 <0.10 K/mcL LAB HEMETOLOGY METHOD 09/14/2024 1:53 PM [facility] Neutrophils Relative 50.3 % LAB HEMETOLOGY METHOD 09/14/2024 1:53 PM [facility] Lymphocytes Relative 39.6 % LAB HEMETOLOGY METHOD 09/14/2024 1:53 PM [facility] Monocytes Relative 7.2 % LAB HEMETOLOGY METHOD 09/14/2024 1:53 PM [facility] Eosinophils Relative 2.0 % LAB HEMETOLOGY METHOD 09/14/2024 1:53 PM [facility] Basophils Relative 0.8 % LAB HEMETOLOGY METHOD 09/14/2024 1:53 PM [facility] Immature Granulocytes Relative 0.1 % LAB HEMETOLOGY METHOD 09/14/2024 1:53 PM [facility] Neutrophils Absolute 3.57 1.50 - 7.00 K/mcL LAB HEMETOLOGY METHOD 09/14/2024 1:53 PM EDT [facility] Lymphocytes Absolute 2.81 1.00 - 5.00 K/mcL LAB HEMETOLOGY METHOD 09/14/2024 1:53 PM EDT [facility] Monocytes Absolute 0.51 0.20 - 1.00 K/mcL LAB HEMETOLOGY METHOD 09/14/2024 1:53 PM [facility] Eosinophils Absolute 0.14 0.00 - 0.50 [...] ORDERABLES Sera l Result Performing Organization Address City/[facility]/ZIP Co de Phone Number [facility] [address] [place] [address], [place] [phone] * Lipase (09/14/2024 1:02 PM EDT) Pathologist [facility] Emergency Department Lipase 41 13 - 75 unit/L LAB CHEMISTRY METHOD 09/14/2024 2:23 PM EDT [facility] Blood Venous blood specimen / Unknown Venipuncture / Unknown 09/14/2024 1:02 PM EDT 09/14/2024 1:47 PM EDT Johan Fierro MD LAB BLOOD ORDERABLES Sera l Result [facility] [address] [place] [address], [place] [phone] * (ABNORMAL) Comprehensive metabolic panel (09/14/2024 1:02 PM EDT) Sodium 139 133 - 145 mmol/L LAB CHEMISTRY METHOD 09/14/2024 2:23 PM EDT [facility] Potassium 3.9 3.5 - 5.5 mmol/L LAB CHEMISTRY METHOD 09/14/2024 2:23 PM [facility] Chloride 106 96 - 110 mmol/L LAB CHEMISTRY METHOD 09/14/2024 2:23 PM [facility] CO2 26 21 - 32 mmol/L LAB CHEMISTRY METHOD 09/14/2024 2:23 PM [facility] Anion Gap 7 3 - 11 LAB CHEMISTRY METHOD 09/14/2024 2:23 PM [facility] Glucose 104(H) 70 - 100 mg/dL LAB CHEMISTRY METHOD 09/14/2024 2:23 PM [facility] BUN 7 5 - 25 mg/dL LAB CHEMISTRY METHOD 09/14/2024 2:23 PM [facility] Creatinine 0.56 0.50 - 1.10 mg/dL LAB CHEMISTRY METHOD 09/14/2024 2:23 PM [facility] eGFR 112 >=60 mL/min/1. 73m2 LAB CHEMISTRY METHOD 09/14/2024 2:23 PM [facility] Comment:Calculation based on the??Chronic Kidney Disease Epidemiology Collaboration (CKD-EPI) equation refit??without adjustment for race. BUN/Creatinine Ratio 12.5 LAB CHEMISTRY METHOD 09/14/2024 2:23 PM [facility] Calcium 9.2 8.5 - 10.5 mg/dL LAB CHEMISTRY METHOD 09/14/2024 2:23 PM [facility] AST (SGOT) 20 10 - 42 unit/L LAB CHEMISTRY METHOD 09/14/2024 2:23 PM [facility] ALT (SGPT) 19 10 - 60 unit/L LAB CHEMISTRY METHOD 09/14/2024 2:23 PM [facility] Alkaline Phosphatase 92 42 - 121 unit/L LAB CHEMISTRY METHOD 09/14/2024 2:23 PM [facility] Total Protein 7.3 6.0 - 8.0 [...] MD LAB BLOOD ORDERABLES Sera l Result [facility] [address] [place] [address], [place] [phone] from Last 3 Months Insurance [facility] MEDICARE Member Subscriber Plan / Payer (Ef fective 2019-Present) Name:Annika Laureen Relation to Subscriber:Self Name:Carly Roblerosol Payer ID:[id number] Group ID:[id number] Type:Not on file Address: [address] [place] [phone] Care Teams Sign Language Teacher Relationship Specialty Start Date End Date Josef Lindquist MD [address] [place] [address] [address] [facility] [place] [address] PCP - General Internal Medicine 05/14/17
--- OUTSIDE RECORDS SUMMARY | 2024-10-21 18:06 | XMS_ITS | Clinical Summary ---
Author Organization [facility] Address [address] [place] [address] Care Team Providers Care Instructor Knitting Name Role Phone Josef Lindquist MD Primary Care Provider [phone] Allergies Active Allergy Reactions Criticality Noted Date [...] age to complete this topic Care Teams Instructor Knitting Relationship Specialty Start Date End Date Josef Lindquist MD [address] [place] [address] [address] [facility] [place] [address] PCP - General Internal Medicine 02/14/17
== END 2024-10-21 15:26 | disposition home or self-care (01) ==
LOC: HO.MAMMO 15:25
PROVIDERS: PCP Internal Medicine; Visit Provider Internal Medicine
DX: Z13.89 Encounter for screening for other disorder (principal)

== ENCOUNTER 2024-10-29 10:24 | Outpatient (AMB) | payer OTHER, SELFPAY ==
[2024-10-29 10:36] VITALS: BP 102/70; PULSE 89; TEMP 36.4; O2SAT 98; BMI 37.3
--- NOTE | 2024-10-29 10:36 | A.OFFPC_ITS ---
Vital Signs 3 10/29/24 10:36 Height 5 ft 1 in Weight 197 lb 4 oz BMI 37.3 BP 102/70 Blood Pressure Location Lt brachial Pulse 89 Pulse Source Pulse Oximeter Temp 97.5 F Temp Source Temporal Artery Scan Pulse Oximetry (%) 98 Oxygen Delivery Method Room Air Intake Visit Reasons: left breast pain 2 o'clock position Sole Leveler Required: No Accompanied by: Self / Same As Patient Allergies nut - unspecified [nut] Allergy (Severe, Verified 11/27/24 12:33) Anaphylaxis Penicillins Allergy (Severe, Verified 11/27/24 12:33) RASH seafood Allergy (Severe, Verified 11/27/24 12:33) Anaphylaxis shellfish derived Allergy (Severe, Verified 11/27/24 12:33) Anaphylaxis Wixela Inhub Adverse Reaction (Intermediate, Uncoded 11/27/24 12:33) palpitations Medication List - Last Reconciled 10/29/24 by Lori Huff PA-C epinephrine (EpiPen 2-Holland) 0.3 mg (0.3 mL) IM Q4H PRN famotidine 40 mg PO BID PRN fexofenadine (Jannie Allergy) 180 mg PO DAILY fluticasone propion-salmeterol 250-50 mcg/dose (Advair Diskus) 1 inh inhalation BID gabapentin 100 mg PO BEDTIME imatinib (Gleevec) 400 mg PO DAILY montelukast (Singulair) 10 mg PO BEDTIME ondansetron 8 mg PO Q8H PRN peg 3350-electrolytes 240-22.72-6.72 -5.84 gram 240 mL PO Q10M promethazine 25 mg PO TID PRN sennosides-docusate sodium 8.6-50 mg (Senna-S) 2 tab-caps (2 x 8.6-50 mg) PO BEDTIME 90 days sertraline 100 mg PO DAILY sucralfate 1 g PO DAILY PRN umeclidinium 62.5 mcg/actuation (Incruse Ellipta) 1 inh inhalation BEDTIME zolpidem (Ambien) 10 mg PO BEDTIME PRN Tobacco use date assessed: 09/22/24 Dental Screening Dental Screen Date: 09/22/24 HPI left breast pain 2 o'clock position 2 HPI0 Details 49-year-old female with past medical his tory of generalized anxiety disorder, GERD, chronic myelocytic leukemia, asthma, impaired glucose tolerance last seen 08/2024 coming in for acute problem. Presenting with breast pain, specifically a throbbing and pinching sensation localized to the left breast, which began approximately three weeks prior to this visit. The patient describes the pain as coming and going throughout the day but noticeable for a considerable duration each instance. The pain is predominantly located on the left side and worsens when lying on that side but can be alleviated with the application of warm water during showers. No history of recent trauma or any physical activity changes that might have contributed to the pain. Associated with the breast pain, the patient has developed new moles on the breast and reports swelling and tenderness in the submandibular lymph nodes. The patient denies any recent shortness of breath, rashes, nipple discharge, or pain extending to the rib or chest areas. 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 Mixed incontinence Obesity (BMI 30-39.9) Nasal congestion Allergic rhinitis Patent foramen ovale Peptic ulcer disease Insomnia Asthma GERD (gastroesophageal reflux disease) Leukemia Surgical History History of Jackson colposuspension Hx of colonoscopy Hx of esophagogastroduodenoscopy Hx of colonoscopy History of bilateral salpingectomy Ulnar nerve entrapment at elbow History of tonsillectomy History of vaginal hysterectomy Family History Maternal Aunt Breast cancer Paternal Grandmother Breast cancer Paternal Grandfather Myocardial infarction, acute, initial episode of care Paternal Uncle Stomach cancer Liver cancer Pancreatic cancer Kidney cancer, primary, with metastasis from kidney to other site Father Colon cancer Social History Household Members: None Housing: Apartment Are you a primary childcare director to a significant other at home: No Do you presently have visiting nurse or other home services: No Alcohol intake: never Patient Tobacco Use Status: Never used Tobacco Tobacco use type: Cigarette e-Cigarette/Vaping Use: Never Used Second Hand Smoke Exposure: No Advance Directives Date on File: 02/06/22 service: No Current occupational status: employed Current occupational exposures/hazards: No Cognitive needs: No Hearing needs: No Vision needs: Yes Questionnaire PHQ-9 Over the last 2 weeks, how often have you been bothered by any of the following problems? 1. Little interest or pleasure in doing things: several days 2. Feeling down, depressed, or hopeless: nearly every day 3. Trouble falling or staying asleep, or sleeping too much: nearly every day 4. Feeling tired or having little energy: nearly every day 5. Poor appetite or overeating: several days 6. Feeling bad about yourself - or that you are a failure or have let yourself or your family down: several days 7. Trouble concentrating on things, such as reading the newspaper or watching television: several days 8. Moving or speaking so slowly that other people could have noticed. Or the opposite - being so fidgety or restless that you have been moving around a lot more than usual: nearly every day 9. Thoughts that you would be better off or of hurting yourself in some way: not at all Total score: 16 Depression Screening Interpretation: Positive Depression Screening Follow-up: Existing condition and In treatment Depression Screening Done: Yes Source: Developed by Drs. Kar Rojo, Veena Nguyen, Musa Frey and colleagues, with an educational allen from [email or web address]. Thrive Questionnaire Date Thrive assessed: 09/22/24 I am a: Patient What is your living situation today?: I have a steady place to live Within the past 12 months, did the food you bought not last and you didn't have the money to get more?: Often true Within the past 12 months, did you worry whether your food would run out before you got money to buy more?: Often true Do you have trouble paying for medicines?: No Do you have trouble getting transportation to medical appointments?: No Do you have trouble paying your heating and electricity bill?: No Do you have trouble taking care of your child, family member or friend?: I choose not to answer this question Do you have trouble with day-to-day activities such as bathing, preparing meals, shopping, managing finances, etc.?: No Are you currently unemployed and looking for a job?: No Are you interested in more education?: Yes Please select the resources that you would like help with: None Currently or been in a relationship where the following occur: No concerns reported THRIVE Score: 2 AUDIT C Alcohol Use Questionnaire (AUDIT-C) 1. How often do you have a drink containing alcohol?: Never Total Score: 0 MERARY-7 AMB Questionnaire MERARY-7 Date MERARY - 7 assessed: 09/22/24 Feeling nervous, anxious, or on edge: 1 = Several days Not being able to stop or control worryin = Not at all Worrying too much about different things: 1 = Several days Trouble relaxin = Several days Being so restless that it is hard to sit still: 1 = Several days Becoming easily annoyed or irritable: 0 = Not at all Feeling afraid as if something awful might happen: 0 = Not at all Total MERARY-7 score (0-4 normal; 5-9 mild; 10-14 moderate; 15-21 severe): 4 Source: Developed by Drs. Kar Rojo, Veena Nguyen, Musa Frye and colleagues, with an educational allen from [employer]. Review of Systems Const Denies body aches, Denies chills, Denies fever(s), Denies headache(s) and Denies poor appetite Eyes Reports no additional complaints ENT Denies dizziness and Denies headache(s) Card Denies chest pain, Denies lightheadedness and Denies dyspnea Resp Denies dyspnea GI Denies diarrhea, Denies nausea and Denies vomiting Reports no additional complaints Musc Reports no additional complaints and Denies abnormal gait Skin/Breast Reports as per HPI Neuro Denies abnormal gait, Denies dizziness and Denies headache(s) Psych Reports no additional complaints Physical exam (Primary Care) Vital Signs: Last Vital Signs Temp 97.5 F 10/29/24 10:36 Pulse 89 10/29/24 10:36 BP 102/70 10/29/24 10:36 Pulse Ox 98 10/29/24 10:36 Oxygen Delivery Method Room Air 10/29/24 10:36 BMI result Body Mass Index 37.3 Tobacco/Smoking Status: Tobacco use Status Tobacco use date assessed 09/22/24 10/29/24 10:40 Patient Tobacco Use Status Never used Tobacco 10/29/24 10:40 Tobacco use type Cigarette 10/29/24 10:40 e-Cigarette/Vaping Use Never Used 10/29/24 10:40 PHQ-9: PHQ-9 Score PHQ-9: Total score 16 10/29/24 10:53 Depression Screening Interpretation: Positive Depression Screening Follow-up: Existing condition and In treatment Thrive Assessment: Date of Thrive Assessment Date Thrive assessed 09/22/24 10/29/24 10:40 Currently or been in a relationship where the following occur: No concerns reported Const General: cooperative, healthy appearing, comfortable and no acute distress Orientation/consciousness: patient oriented x3 HENMT Head: Yes normocephalic Ears: hearing grossly normal bilaterally General nose exam: Normal external nose present Eyes General: appearance normal, both eyes and all related structures Conjunctivae: conjunctivae normal Neck Neck: Yes full ROM and Yes no lymphadenopathy Chest Other: tenderness to palpation of left breast above the nipple. no palpable LN in the axilla and no tenderness to palpation of the axilla. No nipple inversion or skin changes of the breast aside from the nevi noted below Chest/axillae images: 2 1. non tender nevi without surrounding skin changes, or scabbing 2. non tender nevi without surrounding skin changes, or scabbing 3. tenderness to palpation Resp Effort & Inspection: normal respiratory effort Auscultation: clear to auscultation bilaterally, no crackles, no rales, no rhonchi and no wheezes Cardio Rate: regular rate Rhythm: regular rhythm Skin General skin exam: no rashes or lesions noted Neuro General: patient oriented x3 Gait exam (Neuro): Normal gait present Extrem General: Yes normal to inspection, Yes full ROM and No edema Psych Affect: normal affect Attitude: cooperative Insight: Good insight present (Psych) Judgement: Good judgement present (Psych) Coding Level of Care Code Est Pt Level 4 (68105) Diagnoses Breast pain, left N64.4 Assessment & Plan Assessment & Plan (1) Breast pain, left: Code(s): N64.4 - Mastodynia Category: Medical Plan: I ordered a comprehensive breast evaluation using both mammography and ultrasound to address the ongoing breast pain, considering the possibility of muscular issues masked within breast pathology. Meanwhile, the patient is to use [id number] medications like Tylenol and ibuprofen for pain management, provided there are no contraindications. Given the current swelling in lymph nodes and considering her leukemia history, consultation with a rn peritoneal dialysis remains important to address these symptoms alongside the breast evaluation. The patient's history of leukemia necessitates cautious handling due to potential lymph node involvement stemming from multiple causes, including a respiratory infection or allergic reaction. Should symptoms like nipple discharge or new lumps develop, immediate contact with healthcare services is advised. Plan This note was constructed using voice recognition software. While every effort has been made to ensure accuracy and telemarketing sales representative, still areas may have been included sometimes these areas may affect the content or meeting of the given symptoms. Total time spent caring for the patient today was 20 minutes. This includes time spent before the visit reviewing the chart, time spent during the visit, and time spent after the visit and documentation. Patient was informed and verbally consented to the use of an ambient scribe for clinic note documentation during this visit. Orders: Orders 2 MM tomosynthesis diagnostic BI 10/29/24 N64.4 - Mastodynia Medications: Refilled 2 umeclidinium 62.5 mcg/actuation (Incruse Ellipta) 1 inh inhalation BEDTIME 30 ea 4RF J45.20 - Mild intermittent asthma, uncomplicated epinephrine (EpiPen 2-Holland) 0.3 mg (0.3 mL) IM Q4H PRN 2 ea 0RF anaphylaxis Z91.013 - Allergy to seafood
--- OUTSIDE RECORDS SUMMARY | 2024-10-29 11:50 | XMS_ITS | Clinical Summary ---
Author Organization [facility] Address [address] [place] [address] Care Team Providers Care Market Research Analyst Name Role Phone Josef Lindquist MD Primary Care Provider [phone] Allergies Active Allergy Reactions Criticality Noted Date [...] age to complete this topic Care Teams Market Research Analyst Relationship Specialty Start Date End Date Josef Lindquist MD [address] [place] [address] [address] [facility] [place] [address] PCP - General Internal Medicine 02/14/17
--- OUTSIDE RECORDS SUMMARY | 2024-10-29 11:51 | XMS_ITS | Clinical Summary ---
Author Organization [facility] Address [address] [place] [address] Phone Care Team Providers Care Bead Forming Machine Operator Name Role Phone Josef Lindquist MD Primary Care Provider [phone] Allergies Active Allergy Reactions Criticality Noted Date [...] EDT - 09/14/2024 9:55 PM EDT Emergency [facility] Emergency [address] [place] [address] Left lower quadrant abdominal pain [...] by the clinical staff was confirmed with marine pilotShakir Damon on Sep 14, 2024 21:28:00 EDT. [...] manually resulted (09/14/2024 5:37 PM EDT) Pathologist [facility] HCG, Ur POC Negative Negative POC hCG Int QC Pass? Yes Yes Urine Urine specimen obtained by clean catch procedure / Unknown 09/14/2024 5:37 PM EDT Kar HARVEY POINT OF CARE TEST ENTER/ EDIT ORDERABLES Final Result * (ABNORMAL) Urinalysis with reflex microscopic and culture (09/14/2024 5:26 PM EDT) [facility] Specific [place] Urine 1.015 1.003 - 1.030 LAB URINALYSIS - AUTOMATED METHOD 09/14/2024 5:57 PM EDT [facility] pH, Urine 6.0 5.0 - 8.0 pH LAB URINALYSIS - AUTOMATED METHOD [facility] Leukocytes, Urine Small(A) Negative LAB URINALYSIS - AUTOMATED METHOD 09/14/2024 5:[facility] Nitrite, Urine Negative Negative LAB URINALYSIS - AUTOMATED METHOD 09/14/2024 5:57 PM EDT [facility] Protein, Urine Negative <=Trace mg/dL LAB URINALYSIS - AUTOMATED METHOD 09/14/2024 5:[facility] Glucose, Urine Negative Negative mg/dL LAB URINALYSIS - AUTOMATED METHOD 09/14/2024 5:[facility] Ketones, Urine Negative Negative mg/dL LAB URINALYSIS - AUTOMATED METHOD 09/14/2024 5:57 PM EDT [facility] Urobilinogen, Urine 0.2 0.2 - 1.0 mg/dL LAB URINALYSIS - AUTOMATED METHOD 09/14/2024 5:57 PM EDT [facility] Bilirubin, Urine Negative Negative LAB URINALYSIS - AUTOMATED METHOD 09/14/2024 5:57 PM EDT [facility] Blood, Urine Trace(A) Negative LAB URINALYSIS - AUTOMATED METHOD 09/14/2024 5:57 PM EDT [facility] RBC, Urine 3.4 0 - 4 /HPF LAB URINALYSIS - AUTOMATED METHOD 09/14/2024 5:57 PM EDT [facility] WBC, Urine 12.7(H) 0 - 4 /HPF LAB URINALYSIS - AUTOMATED METHOD 09/14/2024 5:57 PM EDT [facility] Squamous Epithelial, Urine >100(H) 0 - 60 /LPF LAB URINALYSIS - AUTOMATED METHOD 09/14/2024 5:57 PM EDT [facility] Bacteria, Urine Many(A) Negative /HPF LAB URINALYSIS - AUTOMATED METHOD 09/14/2024 5:57 PM EDT [facility] Hyaline Casts, Urine 5.2(H) 0 - 3 /LPF LAB URINALYSIS - AUTOMATED METHOD 09/14/2024 5:57 PM EDT [facility] Urine Urine specimen obtained by clean catch procedure / Unknown Non-blood Collection / Unknown 09/14/2024 5:26 PM EDT 09/14/2024 5:46 PM EDT us Kar HARVEY LAB URINE ORDERABLES Sera prado Result [facility] [address] [place] [address], * Lester urine culture tube (09/14/2024 5:26 PM EDT) Extra Tube Hold for add-ons. 09/14/2024 7:01 PM EDT [facility] Comment:Auto resulted. Urine Urine specimen obtained by clean catch procedure / Unknown Non-blood Collection / Unknown 09/14/2024 5:26 PM EDT 09/14/2024 5:46 PM EDT us Kar HARVEY LAB URINE ORDERABLES Sera l Result [facility] [address] [place] [address], * (ABNORMAL) Culture urine (09/14/2024 5:26 PM EDT) Culture, Urine >100,000 CFU/mL Escherichia coli(A) JUNE 09/16/2024 10:17 AM EDT [facility] Urine Urine specimen obtained by clean [...] MICROBIOLOGY - GENERA L ORDERABLES Final Result [facility] [address] [place] [address], [place] [phone] * CBC auto differential (09/14/2024 1:02 PM EDT) [facility] WBC 7.1 4.8 - 10.8 K/mcL LAB HEMETOLOGY METHOD 09/14/2024 1:53 PM EDT [facility] RBC 4.20 3.80 - 4.80 M/mcL LAB HEMETOLOGY METHOD 09/14/2024 1:53 PM EDT [facility] Hemoglobin 12.7 11.5 - 16.0 g/dL LAB HEMETOLOGY METHOD 09/14/2024 1:53 PM EDT [facility] Hematocrit 39.1 35.0 - 47.0 % LAB HEMETOLOGY METHOD 09/14/2024 1:53 PM EDT [facility] MCV 92.9 79.0 - 98.0 FL LAB HEMETOLOGY METHOD 09/14/2024 1:53 PM EDT [facility] MCH 30.2 27.0 - 32.0 pcg LAB HEMETOLOGY METHOD 09/14/2024 1:53 PM EDT [facility] MCHC 32.5 32.0 - 37.0 g/dL LAB HEMETOLOGY METHOD 09/14/2024 1:53 PM EDT [facility] RDW 12.1 11.0 - 15.0 % LAB HEMETOLOGY METHOD 09/14/2024 1:53 PM EDT [facility] Platelets 262 130 - 400 K/mcL LAB HEMETOLOGY METHOD 09/14/2024 1:53 PM EDT [facility] MPV 9.8 7.0 - 11.0 FL LAB HEMETOLOGY METHOD 09/14/2024 1:53 PM EDT [facility] NRBC 0.0 <1.0 % LAB HEMETOLOGY [...] LAB HEMETOLOGY METHOD 09/14/2024 1:53 PM EDT [facility] Lymphocytes Absolute 2.81 1.00 - 5.00 K/mcL LAB HEMETOLOGY METHOD 09/14/2024 1:53 PM EDT [facility] Monocytes Absolute 0.51 0.20 - 1.00 K/mcL LAB HEMETOLOGY METHOD 09/14/2024 1:53 PM [facility] Eosinophils Absolute 0.14 0.00 - 0.50 K/mcL LAB HEMETOLOGY METHOD 09/14/2024 1:53 PM EDT [facility] Basophils Absolute 0.06 0.00 - 0.20 K/mcL LAB HEMETOLOGY METHOD 09/14/2024 1:53 PM EDT [facility] Immature Granulocytes Absolute 0.01 0.00 - 0.03 K/mcL LAB HEMETOLOGY METHOD 09/14/2024 1:53 PM EDT [facility] Blood Venous blood specimen / Unknown Venipuncture / Unknown 09/14/2024 1:02 PM EDT 09/14/2024 1:47 PM EDT us Johan Fieror MD LAB BLOOD ORDERABLES Sera l Result Performing Organization Address City/[facility]/ZIP Co de Phone Number [facility] [address] [place] [address], [place] [phone] * Lipase (09/14/2024 1:02 PM EDT) Pathologist [facility] Lipase 41 13 - 75 unit/L LAB CHEMISTRY METHOD 09/14/2024 2:23 PM EDT [facility] Blood Venous blood specimen / Unknown Venipuncture / Unknown 09/14/2024 1:02 PM EDT 09/14/2024 1:47 PM EDT Johan Fierro MD LAB BLOOD ORDERABLES Sera l Result [facility] [address] [place] [address], [place] [phone] * (ABNORMAL) Comprehensive metabolic panel (09/14/2024 1:02 PM EDT) Sodium 139 133 - 145 mmol/L LAB CHEMISTRY METHOD 09/14/2024 2:23 PM EDT [facility] Potassium 3.9 3.5 - 5.5 mmol/L [...] LAB CHEMISTRY METHOD 09/14/2024 2:23 PM EDT [facility] Albumin 3.7 3.2 - 5.0 g/dL LAB CHEMISTRY METHOD 09/14/2024 2:23 PM EDT [facility] Total Bilirubin 0.4 0.0 - 1.4 mg/dL LAB CHEMISTRY METHOD 09/14/2024 2:23 PM EDT [facility] Blood Venous blood specimen / Unknown Venipuncture / Unknown 09/14/2024 1:02 PM EDT 09/14/2024 1:47 PM EDT us Johan Fierro MD LAB BLOOD ORDERABLES Sera l Result [facility] [address] [place] [address], [place] [phone] from Last 3 Months Insurance [facility]IC[facility] Member Subscriber Plan / Payer (Ef fective 2019-Present) Name:Annika Laureen Relation to Subscriber:Self Name:Carly Roblerosol Payer ID:[id number] Group ID:[id number] Type:Not on file Address: [address] [address] [place] [address] Care Teams Bead Forming Machine Operator Relationship Specialty Start Date End Date Josef Lindquist MD [address] [place] [address] [address] [facility] [place] [address] PCP - General Internal Medicine 05/14/17
--- OUTSIDE RECORDS SUMMARY | 2024-10-29 11:51 | XMS_ITS | Data Portability ---
Author Organization [facility] [facility] [place] - [facility] Address [address] [place] [phone] Care Team Providers Care Cardiology Tech Name Role Phone HIM CCA OTHER Assessment Encounter Date Assessment Date Assessment LastModified by Organization Details LastModified Time 01/22/2024 01/22/2024 I provided real -time medical direction via phone for this encounter, and was available for additional phone based assistance as needed. I have reviewed and agree with the Assessment and Plan as documented by the Land Examiner. We discussed the diagnostic uncertainty of home [...] to call 911- verbalized understanding of instruction [email or web address] Not available 01/22/2024 14:46:53 Plan of Treatment Reminders Order Date Submit Date Provider Last Modified By Organization Details Last Modified Time Details Appointments None recorded. Lab BMP, serum or plasma 2023 024 [email or web address] 0 [facility], [address] [place] [address], [phone] 14:45:59 Referral None recorded. Procedures None recorded. [...] Not available Not available Not available 01/22/2024 [id number] SNOMED Not Available [facility] - production 4 03:35:25 Medications Name Sig Start Date Stop Date Status Note LastModified by Organization Details LastModified Time Nasal [place] (oxymetazoli ne) 0.05 % SPRAY 2 SPRAYS [...] Address Organization Details Last Updated DateTime 01/22/2024 35858.63 g Geteha oPrtillo [address] [place] [address],[address], [place], [address], [place] - [employer] [facility] 01/22/2024 14:37:49 Social History None recorded. Functional Status None recorded. Mental Status None recorded. Family History Nothing Reported. Medical History No medical history recorded. Gynecological HistoryNo gynecological history recorded. Obstetrics History GPAL:G 0 P 0 0 0 0 Past Encounters Encounter ID Performer Location Encounter Start Date Encounter Closed Date Diagnosis/Indication Diagnosis SNOMED-CT Code Diagnosis ICD10 Code Diagnosis Note [id number] Inez Ibarra MD [facility] - [address] [address] 01/22/2024 14:21:47 01/22/2024 16:57:15 Bone pain 69438716 M89.8X9 Advised-no t take any oral NSAIDs [...] [facility] - DOS ON OR AFTER 2022 - DUAL ELIGIBLE - RETIREMENT OPTIONS AND ONE CARE (MEDICARE REPLACEMENT/ADV ANTAGE - HMO) Laureen Class [id number] Laureen Class Notes Date Note Type Note Provider Name and Address Organization Details Recorded Time 01/22/2024 text/html HPI: DEBBIE contacts [facility] directly to report that she is having ? severe bone pain, weakness, and nausea? and [facility] DEBBIE is a 48 y/o female [...] few months. DEBBI[facility] on her behalf. After confirming DEBBIE? s address and phone number on file, DEBBIE is advised to call 911 for any new or worsening symptoms. She is also advised to outreach her oncologist to report her worsening symptoms. DEBBIE understands, appreciates the advice, and will do so. DEBBIE can be reached at [phone]. .................. .................. .................. .................. .................. .................. .................. ............... CRC Nurse Triage Notes (Edwin Chavez): Chief Complaints: Headache, Nausea/Vomiting, Pain, Weakness/Lethargy Allergies: Penicillin Other Allergies: Penicillin Comments: HPI reviewed. No further information needed to process visit.Patient will not be home until after 130pm per college or university registrar- [place] SEGMD: Patient was seen at the [facility] on 01/11. She reports she was told [...] or hematochezia or any history of CKD Land Examiner POC Test Results from [facility] - YANET iSTAT Chem8+ (1) [14:33] Na: 139 mEq/L K: 3.7 mEq/L Cl: 105 mEq/L iCa: 1.21 mmol/L TCO2: 24 mmol/L Glu: 117 mg/dL BUN: 9 mg/dL Crea: 0.5 mg/dL Hct: 39 % Hb: 13.3 g/dL A .................. .................. .................. .................. .................. .................. .................. ............... Land Examiner Note From [facility]: Dispatched to the [...] Butterfly R AC without issue). BMP-results attached. [facility] consulted. Pt given 30mg of IM (L deltoid) Ketorolac. Red flags discussed. Pt advised to call her oncologist and avoid any NSAIDs for at least 24 hours. ALL times are approx. .................. .................. .................. .................. .................. .................. .................. ............... Disposition: Fulfilled Inez Ibarra MD [address] [facility],[address], [place], [address], [employer] 01/22/2024 16:09:26 OBGyn Episode No OBEpisode recorded.
== END 2024-10-29 11:25 | disposition home or self-care (01) ==
LOC: HO.HMCH 10:25
PROVIDERS: PCP Internal Medicine
DX: N64.4 Mastodynia (principal)

== ENCOUNTER → 2024-10-29 10:24 | Outpatient (BNVA) | payer OTHER, SELFPAY | PROVIDERS: PCP Internal Medicine | DX: N64.4 Mastodynia (principal); F41.1 Generalized anxiety disorder; K21.9 Gastro-esophageal reflux disease without esophagitis; C95.10 Chronic leukemia of unspecified cell type not having achieved remission; J45.20 Mild intermittent asthma, uncomplicated | CPT/HCPCS: 96127; 99212 ==

== ENCOUNTER 2024-11-13 11:37 | Outpatient (AMB) | payer OTHER, SELFPAY ==
--- NOTE | 2024-11-13 11:45 | MHC.OFFVIS ---
Vital Signs 11/13/24 11:53 Height 5 ft 1 in Weight 192 lb BMI 36.3 BP 116/72 Blood Pressure Location Rt brachial Position Sitting Pulse 92 Pulse Source Pulse Oximeter Pulse Oximetry (%) 98 Oxygen Delivery Method Room Air Intake Visit Reasons: Overdue - Per oncology Intake Note: ESTABLISHED PATIENT for GERD mgmt. Previous [facility] pt. CC; C.O. increased frequency and severity of constipation w/o concern for hemorrhoids, epigastric pain, and dysphagia w/ certain foods. No additional sx or concerns at this time. Last colo 2021. Vice President Of Consulting Services Required: No Accompanied by: Self / Same As Patient Allergies nut - unspecified [nut] Allergy (Severe, Verified 11/13/24 11:49) Anaphylaxis Penicillins Allergy (Severe, Verified 11/13/24 11:49) RASH seafood Allergy (Severe, Verified 11/13/24 11:49) Anaphylaxis shellfish derived Allergy (Severe, Verified 11/13/24 11:49) Anaphylaxis Wixela Inhub Adverse Reaction (Intermediate, Uncoded 11/13/24 11:49) palpitations HPI Comments Details: 48 y.o F with PMH of CML on ponatinib schatzki's ring, fam hx of CRC, fam hx of pancreatic ca, who is here for dysphagia. PT reports longstanding hx of intermittent dysphagia to solids. Has known schatzki's ring. Last dilation 2021. Now has return of sx x 3 months. Now difficulty with solids and liquids both. Increased borbrygmi and regurgitation with heartburn. On dasatinib for CML so doesnt take PPI. Takes tums PRN for heartburn. Pt also with fam hx of colon ca in father. Father was diagnosed at the age of 60. Last colo 2021 (Dr Azul) Colonoscopy?Findings:?A?sessile polyp (Alondra classification type 0-1s) of size 5 mm with WASP classification features suggestive of adenoma was found in the sigmoid colon.?This polyp was completely resected by single piece cold snare polypectomy and retrieved. ?Normal mucosa was noted in the whole colon?otherwise.?The visualized extent of terminal ileal mucosa was also normal.?Specifically, there were no obstructive lesions?anywhere in the colon.?Retroflexed views in the rectum revealed?small??internal and external?hemorrhoids. ? Colonoscopy?Impressions:?One polyp (5 mm) in the sigmoid colon. (Polypectomy). ?Normal otherwise to the terminal ileum?except for hemorrhoids. 11/13/24: Here for follow up on behest of oncology. Continues to have sx of odynophagia and dysphagia. Has been taking omeprazole without much relief. With regurgitation marita as night. Has been taking omeprazole at night along with carafate. Has not been booked for EGD yet. 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 Mixed incontinence Obesity (BMI 30-39.9) Nasal congestion Allergic rhinitis Patent foramen ovale Peptic ulcer disease Insomnia Asthma GERD (gastroesophageal reflux disease) Leukemia Surgical History History of Jackson colposuspension Hx of colonoscopy Hx of esophagogastroduodenoscopy Hx of colonoscopy History of bilateral salpingectomy Ulnar nerve entrapment at elbow History of tonsillectomy History of vaginal hysterectomy Family History Maternal Aunt Breast cancer Paternal Grandmother Breast cancer Paternal Grandfather Myocardial infarction, acute, initial episode of care Paternal Uncle Stomach cancer Liver cancer Pancreatic cancer Kidney cancer, primary, with metastasis from kidney to other site Father Colon cancer Social History Household Members: None Housing: Apartment Are you a primary sub acute care nurse to a significant other at home: No Do you presently have visiting nurse or other home services: No Alcohol intake: never Patient Tobacco Use Status: Never used Tobacco Tobacco use type: Cigarette e-Cigarette/Vaping Use: Never Used Second Hand Smoke Exposure: No Advance Directives Date on File: 02/06/22 service: No Current occupational status: employed Current occupational exposures/hazards: No Cognitive needs: No Hearing needs: No Vision needs: Yes Review of Systems Const All systems reviewed & are unremarkable except as noted in HPI and below Physical Exam Vital Signs: Last Vital Signs Pulse 92 11/13/24 11:53 BP 116/72 11/13/24 11:53 Pulse Ox 98 11/13/24 11:53 Oxygen Delivery Method Room Air 11/13/24 11:53 BMI result Body Mass Index 36.3 No apparent distress Nonicteric Abdomen soft, nondistended Alert and oriented x3, normal gait Assessment & Plan Assessment & Plan (1) Erosive esophagitis: Code(s): K22.10 - Ulcer of esophagus without bleeding Category: Medical (2) Dysphagia: Code(s): R13.10 - Dysphagia, unspecified Category: Medical (3) Schatzki's ring: Code(s): K22.2 - Esophageal obstruction Category: Medical (4) CML (chronic myelocytic leukemia): Code(s): C92.10 - Chronic myeloid leukemia, BCR/ABL-positive, not having achieved remission Category: Medical Plan 1. dysphagia Likely 2/2 Schatzki's ring and possible esophagitis due to known reflux. Again reviewed to take omeprazole spaced out from dosatinib. Will also switch carafate to liquid for better tolerance. Plan: - Cont omeprazole 20 mg once daily - Carafate 10 ml QID daily x 30 days - EGD with dilation to be booked - msg sent to the schedulers again 2. Fam hx of CRC Father with CRC in his 60s, last colo in 2021. Next colo due 2026. Follow up after egd Medications: New sucralfate 10 mL PO QIDACHS 1,000 mL 1RF omeprazole do not take within 12h of dosatinib 20 mg PO BEDTIME 90 days 90 caps 1RF Discontinued famotidine Discontinued Reason: Doctor's Order 40 mg PO BID PRN 180 tabs 0RF for acid reflux sucralfate Discontinued Reason: Doctor's Order 1 g PO DAILY PRN 90 tabs 3RF for acid reflux Coding Level of Care Code Est Pt Level 3 (92604) Diagnoses Erosive esophagitis K22.10 Dysphagia R13.10 Schatzki's ring K22.2 CML (chronic myelocytic leukemia) C92.10
--- OUTSIDE RECORDS SUMMARY | 2024-11-13 11:50 | XMS_ITS | Clinical Summary ---
Author Organization [facility] Address [address] [place] [address] Care Team Providers Care Bolting Machine Operator Name Role Phone Josef Lindquist MD Primary Care Provider Allergies Active Allergy Reactions Criticality Noted Date [...] age to complete this topic Care Teams Bolting Machine Operator Relationship Specialty Start Date End Date Josef Lindquist MD [address] [place] [address] [address] [facility] [place] [address] PCP - General Internal Medicine 02/14/17
--- OUTSIDE RECORDS SUMMARY | 2024-11-13 11:50 | XMS_ITS | Data Portability ---
Author Organization [employer] [facility], [place] - [facility] Address [address] [place] [phone] Care Team Providers Care Adapted Physical Education Aide Name Role Phone HIM CCA OTHER Assessment Encounter Date Assessment Date Assessment LastModified by Organization Details LastModified Time 01/22/2024 01/22/2024 I provided real -time medical direction via phone for this encounter, and was available for additional phone based assistance as needed. I have reviewed and agree with the Assessment and Plan as documented by the Boiler Operator Helper. We discussed the diagnostic uncertainty of home [...] to call 911- verbalized understanding of instruction [email or web address] Not available 01/22/2024 14:46:53 Plan of Treatment Reminders Order Date Submit Date Provider Last Modified By Organization Details Last Modified Time Details Appointments None recorded. Lab BMP, serum or plasma 2023 024 [email or web address], [address] 14:45:59 Referral None recorded. Procedures None recorded. [...] Not available Not available Not available 01/22/2024 [id number] SNOMED Not Available [facility] - production 4 03:35:25 Medications Name Sig Start Date Stop Date Status Note LastModified by Organization Details LastModified Time Nasal [place] (oxymetazoli ne) 0.05 % SPRAY 2 SPRAYS [...] Address Organization Details Last Updated DateTime 01/22/2024 66673.63 g Geetha Portillo [address] [place] [address],[address], [place], [address], [place] - [employer] [facility] 01/22/2024 14:37:49 Social History None recorded. Functional Status None recorded. Mental Status None recorded. Family History Nothing Reported. Medical History No medical history recorded. Gynecological HistoryNo gynecological history recorded. Obstetrics History GPAL:G 0 P 0 0 0 0 Past Encounters Encounter ID Performer Location Encounter Start Date Encounter Closed Date Diagnosis/Indication Diagnosis SNOMED-CT Code Diagnosis ICD10 Code Diagnosis Note [id number] Inez Ibarra MD [facility] - [address] [address] 01/22/2024 14:21:47 01/22/2024 16:57:15 Bone pain [id number] M89.8X9 Advised-no t take any oral NSAIDs [...] Recorded Advance Directives Directive None Recorded Payers Insurance Date Sequence Insurance Name Policy Number Policy Degroot Covered Member ID Degroot Member ID Guarantor Name 01/23/2024 1 [facility] - DOS ON OR AFTER 2022 - DUAL ELIGIBLE - PENITENTIARY OPTIONS AND ONE CARE (MEDICARE REPLACEMENT/ADV ANTAGE - HMO) Laureen Class [id number] Laureen Class Notes Date Note Type Note Provider Name and Address Organization Details Recorded Time 01/22/2024 text/html HPI: DEBBIE contacts [facility] directly to report that she is having ? s evere bone pain, weakness, and nausea? and would like to be seen by [facility] today. DEBBIE is a 48 y/o female with a PMH of, but not limited to: leukemia (oral CA medication Sprycell 50mg daily), depression, panic attacks, GERD, chronic migraines, insomnia, and anxiety. DEBBIE reports that she was seen in the ED, on Saturday, January 21, for increased bone pain, urinary symptoms (negative work up), exhaustion, and headaches. DEBBIE states, ? t hey didn? t do much? and she was sent home with instructions to follow up with her PCP. DEBBIE contacted PCP and was told she could not be seen until March and was advised to visit UC for symptoms. DEBBIE currently reports worsening severe bone pain, to the point that she ? c annot focus and I barely have the energy [...] be placed on her behalf. After confirming ELANR? s address and phone number on file, DEBBIE is advised to call 911 for any new or worsening symptoms. She is also advised to outreach her oncologist to report her worsening symptoms. DEBBIE understands, appreciates the advice, and will do so. DEBBIE can be reached at [phone]. .................. .................. .................. .................. .................. .................. .................. ............... CRC Nurse Triage Notes (Edwin Chavez): Chief Complaints: Headache, Nausea/Vomiting, Pain, Weakness/Lethargy Allergies: Penicillin Other Allergies: Penicillin Comments: HPI reviewed. No further information needed to process visit.Patient will not be home until after 130pm per supervisor rides- [place] SEGMD: Patient was seen at the [facility] ER on 01/11. She reports she was told [...] or hematochezia or any history of CKD Boiler Operator Helper POC Test Results from [facility] - YANET iSTAT Chem8+ (1) [14:33] Na: 139 mEq/L K: 3.7 mEq/L Cl: 105 mEq/L iCa: 1.21 mmol/L TCO2: 24 mmol/L Glu: 117 mg/dL BUN: 9 mg/dL Crea: 0.5 mg/dL Hct: 39 % Hb: 13.3 g/dL A .................. .................. .................. .................. .................. .................. .................. ............... Boiler Operator Helper Note From [facility]: Dispatched to the [...] Butterfly R AC without issue). BMP-results attached. [facility] consulted. Pt given 30mg of IM (L deltoid) Ketorolac. Red flags discussed. Pt advised to call her oncologist and avoid any NSAIDs for at least 24 hours. ALL times are approx. .................. .................. .................. .................. .................. .................. .................. ............... Disposition: Fulfilled Inez Ibarra MD [address] [facility],[address], [place], [address], [employer] 01/22/2024 16:09:26 OBGyn Episode No OBEpisode recorded.
--- OUTSIDE RECORDS SUMMARY | 2024-11-13 11:50 | XMS_ITS | Clinical Summary ---
Author Organization [facility] Address [address] [place] [address] Phone Care Team Providers Care Public Speaker Name Role Phone Josef Lindquist MD Primary Care Provider [phone] Allergies Active Allergy Reactions Criticality Noted Date [...] EDT - 09/14/2024 9:55 PM EDT Emergency [facility] Emergency [address] [place] [address] Left lower quadrant abdominal pain [...] by the clinical staff was confirmed with meal cookerShakir Damon on Sep 14, 2024 21:28:00 EDT. [...] manually resulted (09/14/2024 5:37 PM EDT) Pathologist [facility] HCG, Ur POC Negative Negative POC hCG Int QC Pass? Yes Yes Urine Urine specimen obtained by clean catch procedure / Unknown 09/14/2024 5:37 PM EDT Kar HARVYE POINT OF CARE TEST ENTER/ EDIT ORDERABLES Final Result * (ABNORMAL) Urinalysis with reflex microscopic and culture (09/14/2024 5:26 PM EDT) [facility] Specific [place] Urine 1.015 1.003 - 1.030 LAB URINALYSIS - AUTOMATED METHOD 09/14/2024 5:57 PM EDT [facility] pH, Urine 6.0 5.0 - 8.0 pH LAB URINALYSIS - AUTOMATED METHOD 09/14[facility]2024 5:[facility] Leukocytes, Urine Small(A) Negative LAB URINALYSIS - AUTOMATED METHOD 09/14/2024 5:57 PM [facility] Nitrite, Urine Negative Negative LAB URINALYSIS - AUTOMATED METHOD 09/14/2024 5:57 PM EDT [facility] Protein, Urine Negative <=Trace mg/dL LAB URINALYSIS - AUTOMATED METHOD 09/14/2024 5:57 PM [facility] Glucose, Urine Negative Negative mg/dL LAB URINALYSIS - AUTOMATED METHOD 09/14/2024 5:57 PM [facility] Ketones, Urine Negative Negative mg/dL LAB URINALYSIS - AUTOMATED METHOD 09/14/2024 5:57 PM EDT [facility] Urobilinogen, Urine 0.2 0.2 - 1.0 mg/dL LAB URINALYSIS - AUTOMATED METHOD 09/14/2024 5:57 PM EDT [facility] Bilirubin, Urine Negative Negative LAB URINALYSIS - AUTOMATED METHOD 09/14/2024 5:57 PM EDT [facility] Blood, Urine Trace(A) Negative LAB URINALYSIS - AUTOMATED METHOD 09/14/2024 5:57 PM EDT [facility] RBC, Urine 3.4 0 - 4 /HPF LAB URINALYSIS - AUTOMATED METHOD 09/14/2024 5:57 PM EDT [facility] WBC, Urine 12.7(H) 0 - 4 /HPF LAB URINALYSIS - AUTOMATED METHOD 09/14/2024 5:57 PM EDT [facility] Squamous Epithelial, Urine >100(H) 0 - 60 /LPF LAB URINALYSIS - AUTOMATED METHOD 09/14/2024 5:57 PM EDT [facility] Bacteria, Urine Many(A) Negative /HPF LAB URINALYSIS - AUTOMATED METHOD 09/14/2024 5:57 PM EDT [facility] Hyaline Casts, Urine 5.2(H) 0 - 3 /LPF LAB URINALYSIS - AUTOMATED METHOD 09/14/2024 5:57 PM EDT [facility] Urine Urine specimen obtained by clean catch procedure / Unknown Non-blood Collection / Unknown 09/14/2024 5:26 PM EDT 09/14/2024 5:46 PM EDT us Kar HARVEY LAB URINE ORDERABLES Sera prado Result [facility] [address] [place] [address], * Lester urine culture tube (09/14/2024 5:26 PM EDT) Extra Tube Hold for add-ons. 09/14/2024 7:01 PM EDT [facility] Comment:Auto resulted. Urine Urine specimen obtained by clean catch procedure / Unknown Non-blood Collection / Unknown 09/14/2024 5:26 PM EDT 09/14/2024 5:46 PM EDT us Kar HARVEY LAB URINE ORDERABLES Sera l Result [facility] [address] [place] [address], * (ABNORMAL) Culture urine (09/14/2024 5:26 PM EDT) Culture, Urine >100,000 CFU/mL Escherichia coli(A) JUNE 09/16/2024 10:17 AM EDT [facility] Urine Urine specimen obtained by [...] MICROBIOLOGY - GENERA L ORDERABLES Final Result [facility] [address] [place] [address], [place] [phone] * CBC auto differential (09/14/2024 1:02 PM EDT) [facility] WBC 7.1 4.8 - 10.8 K/mcL LAB HEMETOLOGY METHOD 09/14/2024 1:53 PM EDT [facility] RBC 4.20 3.80 - 4.80 M/mcL LAB HEMETOLOGY METHOD 09/14/2024 1:53 PM EDT [facility] Hemoglobin 12.7 11.5 - 16.0 g/dL LAB HEMETOLOGY METHOD 09/14/2024 1:53 PM EDT [facility] Hematocrit 39.1 35.0 - 47.0 % LAB HEMETOLOGY METHOD 09/14/2024 1:53 PM EDT [facility] MCV 92.9 79.0 - 98.0 FL LAB HEMETOLOGY METHOD 09/14/2024 1:53 PM EDT [facility] MCH 30.2 27.0 - 32.0 pcg LAB HEMETOLOGY METHOD 09/14/2024 1:53 PM EDT [facility] MCHC 32.5 32.0 - 37.0 g/dL LAB HEMETOLOGY METHOD 09/14/2024 1:53 PM EDT [facility] RDW 12.1 11.0 - 15.0 % LAB HEMETOLOGY METHOD 09/14/2024 1:53 PM EDT [facility] Platelets 262 130 - 400 K/mcL LAB HEMETOLOGY METHOD 09/14/2024 1:53 PM EDT [facility] MPV 9.8 7.0 - 11.0 FL LAB HEMETOLOGY METHOD 09/14/2024 1:53 PM EDT [facility] NRBC 0.0 <1.0 % LAB HEMETOLOGY METHOD 09/14/2024 1:53 PM [facility] NRBC Absolute 0.00 <0.10 K/mcL LAB HEMETOLOGY METHOD 09/14/2024 1:53 PM [facility] Neutrophils Relative 50.3 % LAB HEMETOLOGY METHOD 09/14/2024 1:53 PM [facility] Lymphocytes Relative 39.6 % LAB HEMETOLOGY METHOD 09/14/2024 1:53 PM [facility] Monocytes Relative 7.2 % LAB HEMETOLOGY METHOD 09/14/2024 1:53 PM [facility] Eosinophils Relative 2.0 % LAB HEMETOLOGY METHOD 09/14/2024 1:53 PM [facility] Basophils Relative 0.8 % LAB HEMETOLOGY METHOD 09/14/2024 1:53 PM [facility] Immature Granulocytes Relative 0.1 % LAB HEMETOLOGY METHOD 09/14/2024 1:53 PM [facility] Neutrophils Absolute 3.57 1.50 - 7.00 K/mcL LAB HEMETOLOGY METHOD 09/14/2024 1:53 PM EDT [facility] Lymphocytes Absolute 2.81 1.00 - 5.00 K/mcL LAB HEMETOLOGY METHOD 09/14/2024 1:53 PM EDT [facility] Monocytes Absolute 0.51 0.20 - 1.00 K/mcL LAB HEMETOLOGY METHOD 09/14/2024 1:53 PM [facility] Eosinophils Absolute 0.14 0.00 - 0.50 K/mcL LAB HEMETOLOGY METHOD 09/14/2024 1:53 PM EDT [facility] Basophils Absolute 0.06 0.00 - 0.20 K/mcL LAB HEMETOLOGY METHOD 09/14/2024 1:53 PM EDT [facility] Immature Granulocytes Absolute 0.01 0.00 - 0.03 K/mcL LAB HEMETOLOGY METHOD 09/14/2024 1:53 PM EDT [facility] Blood Venous blood specimen / Unknown Venipuncture / Unknown 09/14/2024 1:02 PM EDT 09/14/2024 1:47 PM EDT us Johan Fierro MD LAB BLOOD ORDERABLES Sera l Result Performing Organization Address City/[facility]/ZIP Co de Phone Number [facility] [address] [place] [address], [place] [phone] * Lipase (09/14/2024 1:02 PM EDT) Pathologist [facility] Lipase 41 13 - 75 unit/L LAB CHEMISTRY METHOD 09/14/2024 2:23 PM EDT [facility] Blood Venous blood specimen / Unknown Venipuncture / Unknown 09/14/2024 1:02 PM EDT 09/14/2024 1:47 PM EDT Johan Fierro MD LAB BLOOD ORDERABLES Sera l Result [facility] [address] [place] [address], [place] [phone] * (ABNORMAL) Comprehensive metabolic panel (09/14/2024 1:02 PM EDT) Sodium 139 133 - 145 mmol/L LAB CHEMISTRY METHOD 09/14/2024 2:23 PM EDT [facility] Potassium 3.9 3.5 - 5.5 mmol/L LAB CHEMISTRY METHOD 09/14/2024 2:23 PM [facility] Chloride 106 96 - 110 mmol/L LAB CHEMISTRY METHOD 09/14/2024 2:23 PM [facility] CO2 26 21 - 32 mmol/L LAB CHEMISTRY METHOD 09/14/2024 2:23 PM [facility] Anion Gap 7 3 - 11 LAB CHEMISTRY METHOD 09/14/2024 2:23 PM [facility] Glucose 104(H) 70 - 100 mg/dL LAB CHEMISTRY METHOD 09/14/2024 2:23 PM [facility] BUN 7 5 - 25 mg/dL LAB CHEMISTRY METHOD 09/14/2024 2:23 PM [facility] Creatinine 0.56 0.50 - 1.10 mg/dL LAB CHEMISTRY METHOD 09/14/2024 2:23 PM [facility] eGFR 112 >=60 mL/min/1. 73m2 LAB CHEMISTRY METHOD 09/14/2024 2:23 PM [facility] Comment:Calculation based on the??Chronic Kidney Disease Epidemiology Collaboration (CKD-EPI) equation refit??without adjustment for race. BUN/Creatinine Ratio 12.5 LAB CHEMISTRY METHOD 09/14/2024 2:23 PM [facility] Calcium 9.2 8.5 - 10.5 mg/dL LAB CHEMISTRY METHOD 09/14/2024 2:23 PM [facility] AST (SGOT) 20 10 - 42 unit/L LAB CHEMISTRY METHOD 09/14/2024 2:23 PM [facility] ALT (SGPT) 19 10 - 60 unit/L LAB CHEMISTRY METHOD 09/14/2024 2:23 PM [facility] Alkaline Phosphatase 92 42 - 121 unit/L LAB CHEMISTRY METHOD 09/14/2024 2:23 PM [facility] Total Protein 7.3 6.0 - 8.0 g/dL LAB CHEMISTRY METHOD 09/14/2024 2:23 PM EDT [facility] Albumin 3.7 3.2 - 5.0 g/dL LAB CHEMISTRY METHOD 09/14/2024 2:23 PM EDT [facility] Total Bilirubin 0.4 0.0 - 1.4 mg/dL LAB CHEMISTRY METHOD 09/14/2024 2:23 PM EDT [facility] Blood Venous blood specimen / Unknown Venipuncture / Unknown 09/14/2024 1:02 PM EDT 09/14/2024 1:47 PM EDT us Johan Fierro MD LAB BLOOD ORDERABLES Sera l Result [facility] [address] [place] [address], [place] [phone] from Last 3 Months Insurance [facility] MEDICARE Member Subscriber Plan / Payer (Ef fective 2019-Present) Name:Annika Laureen Relation to Subscriber:Self Name:Carly Roblerosol Payer ID:[id number] Group ID:[id number] Type:Not on file Address: [address] [phone] Care Teams Public Speaker Relationship Specialty Start Date End Date Josef Lindquist MD [address] [place] [address] [address] [facility] [place] [address] PCP - General Internal Medicine 05/14/17
[2024-11-13 11:53] VITALS: BP 116/72; PULSE 92; O2SAT 98; BMI 36.3
== END 2024-11-13 12:42 | disposition home or self-care (01) ==
LOC: HO.HGI 11:37
PROVIDERS: PCP Internal Medicine; Visit Provider Internal Medicine
DX: K22.10 Ulcer of esophagus without bleeding (principal); R13.10 Dysphagia, unspecified; K22.2 Esophageal obstruction; C92.10 Chronic myeloid leukemia, BCR/ABL-positive, not having achieved remission
CPT/HCPCS: 99213

== ENCOUNTER → 2024-11-13 11:37 | Outpatient (BNVA) | payer OTHER, SELFPAY | PROVIDERS: PCP Internal Medicine; Visit Provider Internal Medicine | DX: K22.10 Ulcer of esophagus without bleeding (principal); K22.2 Esophageal obstruction; R13.10 Dysphagia, unspecified; C92.10 Chronic myeloid leukemia, BCR/ABL-positive, not having achieved remission | CPT/HCPCS: 99212 ==

== ENCOUNTER 2024-11-27 12:16 | Day surgery (SDC) | payer OTHER, SELFPAY ==
--- OUTSIDE RECORDS SUMMARY | 2024-11-17 06:36 | XMS_ITS | Clinical Summary ---
Author Organization [facility] Address [address] [place] [address] Care Team Providers Care Mental Health Program Specialist Name Role Phone Josef Lindquist MD Primary Care Provider [phone] Allergies Active Allergy Reactions Criticality Noted Date [...] age to complete this topic Care Teams Mental Health Program Specialist Relationship Specialty Start Date End Date Josef Lindquist MD [address] [place] [address] [facility] [place] [address] PCP - General Internal Medicine 02/14/17
--- OUTSIDE RECORDS SUMMARY | 2024-11-17 06:37 | XMS_ITS | Clinical Summary ---
Author Organization [facility] Address [address] [place] [address] Phone Care Team Providers Care Clothes Presser Name Role Phone Josef Lindquist MD Primary Care Provider [phone] Allergies Active Allergy Reactions Criticality Noted Date [...] EDT - 09/14/2024 9:55 PM EDT Emergency [facility] Emergency [address] [place] [address] Left lower quadrant abdominal pain [...] by the clinical staff was confirmed with emergency spill response technicianShakir Damon on Sep 14, 2024 21:28:00 EDT. [...] microscopic and culture (09/14/2024 5:26 PM EDT) [facility] Specific [place] Urine 1.015 1.003 - 1.030 LAB URINALYSIS - AUTOMATED METHOD 09/14/2024 5:57 PM EDT [facility] pH, Urine 6.0 5.0 - 8.0 pH LAB URINALYSIS - AUTOMATED METHOD 09/14/2024 5:[facility] Leukocytes, Urine Small(A) Negative LAB URINALYSIS - AUTOMATED METHOD 09/14/2024 5:57 PM [facility] Nitrite, Urine Negative Negative LAB URINALYSIS - AUTOMATED METHOD 09/14/2024 5:57 PM EDT [facility] Protein, Urine Negative <=Trace mg/dL LAB URINALYSIS - AUTOMATED METHOD 09/14/2024 5:57 PM [facility] Glucose, Urine Negative Negative mg/dL LAB URINALYSIS - AUTOMATED METHOD 09/14/2024 5:57 PM [facility] Ketones, Urine Negative Negative mg/dL LAB URINALYSIS - AUTOMATED METHOD 09/14/2024 5:57 PM EDT [facility] Urobilinogen, Urine 0.2 0.2 - 1.0 mg/dL LAB URINALYSIS - AUTOMATED METHOD 09/14/2024 5:57 PM EDT [facility] Bilirubin, Urine Negative Negative LAB URINALYSIS - AUTOMATED METHOD 09/14/2024 5:57 PM EDT [facility] Blood, Urine Trace(A) Negative LAB URINALYSIS - AUTOMATED METHOD 09/14/2024 5:57 PM EDT [facility] RBC, Urine 3.4 0 - 4 /HPF LAB URINALYSIS - AUTOMATED METHOD 09/14/2024 5:57 PM EDT [facility] WBC, Urine 12.7(H) 0 - 4 /HPF LAB URINALYSIS - AUTOMATED METHOD 09/14/2024 5:57 PM EDT [facility] Squamous Epithelial, Urine >100(H) 0 - 60 /LPF LAB URINALYSIS - AUTOMATED METHOD 09/14/2024 5:57 PM EDT [facility] Bacteria, Urine Many(A) Negative /HPF LAB URINALYSIS - AUTOMATED METHOD 09/14/2024 5:57 PM EDT [facility] Hyaline Casts, Urine 5.2(H) 0 - 3 /LPF LAB URINALYSIS - AUTOMATED METHOD 09/14/2024 5:57 PM EDT [facility] Urine Urine specimen obtained by clean catch procedure / Unknown Non-blood Collection / Unknown 09/14/2024 5:26 PM EDT 09/14/2024 5:46 PM EDT us Kar HARVEY LAB URINE ORDERABLES Sera prado Result [facility] [address] [place] [address], * Lester urine culture tube (09/14/2024 5:26 PM EDT) Extra Tube Hold for add-ons. 09/14/2024 7:01 PM EDT [facility] Comment:Auto resulted. Urine Urine specimen obtained by clean catch procedure / Unknown Non-blood Collection / Unknown 09/14/2024 5:26 PM EDT 09/14/2024 5:46 PM EDT us Kar HARVEY LAB URINE ORDERABLES Sera l Result [facility] [address] [place] [address], * (ABNORMAL) Culture urine (09/14/2024 5:26 PM EDT) Culture, Urine >100,000 CFU/mL Escherichia coli(A) JUNE 09/16/2024 10:17 AM EDT [facility] Urine Urine specimen obtained by clean catch procedure / Unknown Non-blood Collection / Unknown 09/14/2024 5:26 PM EDT 09/14/2024 5:57 PM EDT Narrative Organism Antibiotic Method Susceptibility Escherichia coli Amoxicillin/Clavulanate JNUE <=2 ug/ml: Susceptible Escherichia coli Ampicillin/Sulbactam JUNE [...] MICROBIOLOGY - GENERA L ORDERABLES Final Result [facility] [address] [place] [address], [place] [phone] * CBC auto differential (09/14/2024 1:02 PM EDT) [facility] WBC 7.1 4.8 - 10.8 K/mcL LAB HEMETOLOGY METHOD 09/14/2024 1:53 PM EDT [facility] RBC 4.20 3.80 - 4.80 M/mcL LAB HEMETOLOGY METHOD 09/14/2024 1:53 PM EDT [facility] Hemoglobin 12.7 11.5 - 16.0 g/dL LAB HEMETOLOGY METHOD 09/14/2024 1:53 PM EDT [facility] Hematocrit 39.1 35.0 - 47.0 % LAB HEMETOLOGY METHOD 09/14/2024 1:53 PM EDT [facility] MCV 92.9 79.0 - 98.0 FL LAB HEMETOLOGY METHOD 09/14/2024 1:53 PM EDT [facility] MCH 30.2 27.0 - 32.0 pcg LAB HEMETOLOGY METHOD 09/14/2024 1:53 PM EDT [facility] MCHC 32.5 32.0 - 37.0 g/dL LAB HEMETOLOGY METHOD 09/14/2024 1:53 PM EDT [facility] RDW 12.1 11.0 - 15.0 % LAB HEMETOLOGY METHOD 09/14/2024 1:53 PM EDT [facility] Platelets 262 130 - 400 K/mcL LAB HEMETOLOGY METHOD 09/14/2024 1:53 PM EDT [facility] MPV 9.8 7.0 - 11.0 FL LAB HEMETOLOGY METHOD 09/14/2024 1:53 PM EDT [facility] NRBC 0.0 <1.0 % LAB HEMETOLOGY METHOD 09/14/2024 1:53 PM [facility] NRBC Absolute 0.00 <0.10 K/mcL LAB HEMETOLOGY METHOD 09/14/2024 1:53 [facility] Neutrophils Relative 50.3 % LAB HEMETOLOGY METHOD 09/14/2024 1:53 PM [facility] Lymphocytes Relative 39.6 % LAB HEMETOLOGY METHOD 09/14/2024 1:53 PM [facility] Monocytes Relative 7.2 % LAB HEMETOLOGY METHOD 09/14/2024 1:53 PM [facility] Eosinophils Relative 2.0 % LAB HEMETOLOGY METHOD 09/14/2024 1:53 PM [facility] Basophils Relative 0.8 % LAB HEMETOLOGY METHOD 09/14/2024 1:53 PM [facility] Immature Granulocytes Relative 0.1 % LAB HEMETOLOGY METHOD 09/14/2024 1:53 PM [facility] Neutrophils Absolute 3.57 1.50 - 7.00 K/mcL LAB HEMETOLOGY METHOD 09/14/2024 1:53 PM EDT [facility] Lymphocytes Absolute 2.81 1.00 - 5.00 K/mcL LAB HEMETOLOGY METHOD 09/14/2024 1:53 PM EDT [facility] Monocytes Absolute 0.51 0.20 - 1.00 K/mcL LAB HEMETOLOGY METHOD 09/14/2024 1:53 PM [facility] Eosinophils Absolute 0.14 0.00 - 0.50 K/mcL LAB HEMETOLOGY METHOD 09/14/2024 1:53 PM EDT [facility] Basophils Absolute 0.06 0.00 - 0.20 K/mcL LAB HEMETOLOGY METHOD 09/14/2024 1:53 PM EDT [facility] Immature Granulocytes Absolute 0.01 0.00 - 0.03 K/mcL LAB HEMETOLOGY METHOD 09/14/2024 1:53 PM EDT [facility] Blood Venous blood specimen / Unknown Venipuncture / Unknown 09/14/2024 1:02 PM EDT 09/14/2024 1:47 PM EDT us Johan Fierro MD LAB BLOOD ORDERABLES Sera l Result Performing Organization Address City/[facility]/ZIP Co de Phone Number [facility] [address] [place] [address], [place] [phone] * Lipase (09/14/2024 1:02 PM EDT) Pathologist [facility] Lipase 41 13 - 75 unit/L LAB CHEMISTRY METHOD 09/14/2024 2:23 PM EDT [facility] Blood Venous blood specimen / Unknown Venipuncture / Unknown 09/14/2024 1:02 PM EDT 09/14/2024 1:47 PM EDT Johan Fierro MD LAB BLOOD ORDERABLES Sera l Result [facility] [address] [place] [address], [place] [phone] * (ABNORMAL) Comprehensive metabolic panel (09/14/2024 1:02 PM EDT) Sodium 139 133 - 145 mmol/L LAB CHEMISTRY METHOD 09/14/2024 2:23 PM EDT [facility] Potassium 3.9 3.5 - 5.5 mmol/L LAB CHEMISTRY METHOD 09/14/2024 2:23 PM [facility] Chloride 106 96 - 110 mmol/L LAB CHEMISTRY METHOD 09/14/2024 2:23 PM [facility] CO2 26 21 - 32 mmol/L LAB CHEMISTRY METHOD 09/14/2024 2:23 PM [facility] Anion Gap 7 3 - 11 LAB CHEMISTRY METHOD 09/14/2024 2:23 PM [facility] Glucose 104(H) 70 - 100 mg/dL LAB CHEMISTRY METHOD 09/14/2024 2:23 PM [facility] BUN 7 5 - 25 mg/dL LAB CHEMISTRY METHOD 09/14/2024 2:23 PM [facility] Creatinine 0.56 0.50 - 1.10 mg/dL LAB CHEMISTRY METHOD 09/14/2024 2:23 PM [facility] eGFR 112 >=60 mL/min/1. 73m2 LAB CHEMISTRY METHOD 09/14/2024 2:23 PM [facility] Comment:Calculation based on the??Chronic Kidney Disease Epidemiology Collaboration (CKD-EPI) equation refit??without adjustment for race. BUN/Creatinine Ratio 12.5 LAB CHEMISTRY METHOD 09/14/2024 2:23 PM [facility] Calcium 9.2 8.5 - 10.5 mg/dL LAB CHEMISTRY METHOD 09/14/2024 2:23 PM [facility] AST (SGOT) 20 10 - 42 unit/L LAB CHEMISTRY METHOD 09/14/2024 2:23 PM [facility] ALT (SGPT) 19 10 - 60 unit/L LAB CHEMISTRY METHOD 09/14/2024 2:23 PM [facility] Alkaline Phosphatase 92 42 - 121 unit/L LAB CHEMISTRY METHOD 09/14/2024 2:23 PM [facility] Total Protein 7.3 6.0 - 8.0 g/dL LAB CHEMISTRY METHOD 09/14/2024 2:23 PM EDT [facility] Albumin 3.7 3.2 - 5.0 g/dL LAB CHEMISTRY METHOD 09/14/2024 2:23 PM EDT [facility] Total Bilirubin 0.4 0.0 - 1.4 mg/dL LAB CHEMISTRY METHOD 09/14/2024 2:23 PM EDT [facility] Blood Venous blood specimen / Unknown Venipuncture / Unknown 09/14/2024 1:02 PM EDT 09/14/2024 1:47 PM EDT us Johan Fierro MD LAB BLOOD ORDERABLES Sera l Result [facility] [address] [place] [address], [place] [phone] from Last 3 Months Insurance [facility] MEDICARE Member Subscriber Plan / Payer (Ef fective 2019-Present) Name:Annika Laureen Relation to Subscriber:Self Name:Carly Roblerosol Payer ID:[id number] Group ID:[id number] Type:Not on file Address: [address] [id number] Care Teams Clothes Presser Relationship Specialty Start Date End Date Josef Lindquist MD [address] [place] [address] [address] [facility] [place] [address] PCP - General Internal Medicine 05/14/17
--- OUTSIDE RECORDS SUMMARY | 2024-11-17 06:37 | XMS_ITS | Data Portability ---
Author Organization [employer] [facility] [place] [facility] Address [address] [place] [id number] Care Team Providers Care Parent Educator Name Role Phone HIM CCA OTHER Assessment Encounter Date Assessment Date Assessment LastModified by Organization Details LastModified Time 01/22/2024 01/22/2024 I provided real -time medical direction via phone for this encounter, and was available for additional phone based assistance as needed. I have reviewed and agree with the Assessment and Plan as documented by the Human Resources Assistant. We discussed the diagnostic uncertainty of home [...] to call 911- verbalized understanding of instruction [email or web address] Not available 01/22/2024 14:46:53 Plan of Treatment Reminders Order Date Submit Date Provider Last Modified By Organization Details Last Modified Time Details Appointments None recorded. Lab BMP, serum or plasma 2023 [email or web address], [address] 14:45:59 Referral None recorded. Procedures None recorded. [...] Not available Not available Not available 01/22/2024 [id number] SNOMED Not Available [employer] - production 4 03:35:25 Medications Name Sig Start Date Stop Date Status Note LastModified by Organization Details LastModified Time Nasal Sanborn (oxymetazoli ne) 0.05 % SPRAY 2 SPRAYS [...] Address Organization Details Last Updated DateTime 01/22/2024 77149.63 g Geetha Portillo [address] [place] [address],[address], [place], [address], [place] - [employer] [facility] 01/22/2024 14:37:49 Social History None recorded. Functional Status None recorded. Mental Status None recorded. Family History Nothing Reported. Medical History No medical history recorded. Gynecological HistoryNo gynecological history recorded. Obstetrics History GPAL:G 0 P 0 0 0 0 Past Encounters Encounter ID Performer Location Encounter Start Date Encounter Closed Date Diagnosis/Indication Diagnosis SNOMED-CT Code Diagnosis ICD10 Code Diagnosis Note [id number] Inez Ibarra MD [facility] - [address] [phone] 01/22/2024 14:21:47 01/22/2024 16:57:15 Bone pain [id number] M89.8X9 Advised-no t take any oral NSAIDs [...] [employer] Member ID Guarantor Name 01/23/2024 1 [facility] - DOS ON OR AFTER 2022 - DUAL ELIGIBLE - LONGTERM OPTIONS AND ONE CARE (MEDICARE REPLACEMENT/ADV ANTAGE - HMO) Laureen Class [id number] Laureen Class Notes Date Note Type Note [...] do so. DEBBIE can be reached at [phone]. .................. .................. .................. .................. .................. .................. .................. ............... CRC Nurse Triage Notes (Edwin Chavez): Chief Complaints: Headache, Nausea/Vomiting, Pain, Weakness/Lethargy Allergies: Penicillin Other Allergies: Penicillin Comments: HPI reviewed. No further information needed to process visit.Patient will not be home until after 130pm per community liaison- [place] SEGMD: Patient was seen at the [facility] ER on 01/11. She reports she was [...] or hematochezia or any history of CKD Human Resources Assistant POC Test Results from [facility] - [facility]ANET iSTAT Chem8+ (1) [14:33] Na: 139 mEq/L K: 3.7 mEq/L Cl: 105 mEq/L iCa: 1.21 mmol/L TCO2: 24 mmol/L Glu: 117 mg/dL BUN: 9 mg/dL Crea: 0.5 mg/dL Hct: 39 % Hb: 13.3 g/dL A .................. .................. .................. .................. .................. .................. .................. ............... Human Resources Assistant Note From [facility]: Dispatched to the [...] Butterfly R AC without issue). BMP-results attached. [facility] [place]. Pt given 30mg of IM (L deltoid) Ketorolac. Red flags discussed. Pt advised to call her oncologist and avoid any NSAIDs for at least 24 hours. ALL times are approx. .................. .................. .................. .................. .................. .................. .................. ............... Disposition: Fulfilled Inez Ibarra MD [address] [facility],[address], [place], [address], [employer] 01/22/2024 16:09:26 OBGyn Episode No OBEpisode recorded.
--- NOTE | 2024-11-26 13:24 | HO.ANESPROP2 ---
Documented by User: Sandra Cummings NP 11/26/24 13:28 HPI - Anesthesia Eval Consult details Narrative: 49yo F for Upper Endoscopy with Balloon Dilitation CML - follows [facility] [place] Oncology - daily PO tx PMFSH Active Problems Active Problems: All Active Problems Breast pain, left (Acute) Hematuria (Acute) Renal cyst, left (Acute) LLQ abdominal pain (Acute) Erosive esophagitis (Acute) Dysphagia (Acute) Left shoulder pain (Acute) Infection of eyelid (Acute) COVID-19 virus infection (Acute) Right shoulder pain (Acute) Hypokalemia (Acute) UTI (urinary tract infection) (Acute) Urge incontinence (Acute) Myalgia (Acute) Lymphadenopathy, cervical (Acute) Left knee pain (Acute) Mass of left side of neck (Acute) Breast cancer screening by mammogram (Acute) Epidermal cyst (Acute) Peripheral neuropathy (Acute) COVID-19 virus infection (Acute) Impaired fasting glucose (Acute) Lactose intolerance (Acute) Generalized anxiety disorder (Acute) Vitamin D deficiency (Acute) Annual physical exam (Acute) Anemia (Acute) Left arm pain (Acute) Thrombophlebitis of upper extremity (Chronic) Constipation (Acute) Thoracic back pain (Acute) Schatzki's ring (Acute) Constipation (Acute) Hiatal hernia (Acute) Acute constipation (Acute) Annual physical exam (Acute) 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) COVID-19 (Acute) Preop exam for internal medicine (Acute) Seafood allergy (Acute) Left flank pain (Acute) Patent foramen ovale (Acute) CML (chronic myelocytic leukemia) (Acute) Obesity (BMI 30-39.9) (Acute) Allergic rhinitis (Acute) Insomnia (Acute) Asthma (Acute) GERD (gastroesophageal reflux disease) (Acute) Leukemia (Acute) Past Medical History Medical History Hematuria LLQ abdominal pain Hypokalemia Lower extremity weakness CML (chronic myelocytic leukemia) Laryngospasm CLL (chronic lymphocytic leukemia) PONV (postoperative nausea and vomiting) Nausea & vomiting Dysuria Abdominal pain Pelvic pain Frequency of micturition Breast asymmetry Thoracic back pain Impacted cerumen of left ear Dizziness Perioral numbness Left flank pain Lesion of left mechoopda kidney Hip pain, left Viral syndrome Conjunctivitis, left eye Lymphadenopathy, anterior cervical Hypercholesterolemia 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 Mixed incontinence Obesity (BMI 30-39.9) Nasal congestion Allergic rhinitis Patent foramen ovale Peptic ulcer disease Insomnia Asthma GERD (gastroesophageal reflux disease) Leukemia Family History Family History Maternal Aunt Breast cancer Paternal Grandmother Breast cancer Paternal Grandfather Myocardial infarction, acute, initial episode of care Paternal Uncle Stomach cancer Liver cancer Pancreatic cancer Kidney cancer, primary, with metastasis from kidney to other site Father Colon cancer Family history of problems with anesthesia: No Surgical History Surgical History History of Jackson colposuspension Hx of colonoscopy Hx of esophagogastroduodenoscopy Hx of colonoscopy History of bilateral salpingectomy Ulnar nerve entrapment at elbow History of tonsillectomy History of vaginal hysterectomy History of Problems with Anesthesia: No Social History Social History Household Members: None Housing: Apartment Are you a primary health care aide to a significant other at home: No Do you presently have visiting nurse or other home services: No Alcohol intake: never Patient Tobacco Use Status: Never used Tobacco Tobacco use type: Cigarette e-Cigarette/Vaping Use: Never Used Second Hand Smoke Exposure: No Have you been hit, kicked, punched, or otherwise hurt by someone within the past year? If so, by whom?: No Are you DNR?: No Advance Directives: No Advance Directives Information Provided: Yes Advance Directives Date on File: 02/06/22 Poor oral hygiene: No service: No Current occupational status: employed Current occupational exposures/hazards: No Cognitive needs: No Hearing needs: No Vision needs: Yes Meds Allergies Allergy/AdvReac Type Severity Reaction Status Date / Time nut - unspecified [nut] Allergy Severe Anaphylaxis Verified 11/27/24 12:33 Penicillins Allergy Severe RASH Verified 11/27/24 12:33 seafood Allergy Severe Anaphylaxis Verified 11/27/24 12:33 shellfish derived Allergy Severe Anaphylaxis Verified 11/27/24 12:33 [facility] AdvReac Intermediate palpitation Uncoded 11/27/24 12:33 s Home Medications ?Medication ?Instructions ?Recorded ?Confirmed ?Last Taken ?Type sertraline 100 mg tablet 100 mg PO DAILY 04/07/20 11/27/24 Unknown History zolpidem 10 mg tablet (Ambien) 10 mg PO BEDTIME PRN Insomnia 04/07/20 11/27/24 Unknown History fluticasone 250 mcg-salmeterol 50 1 inh inhalation BID 07/27/22 11/27/24 Unknown History mcg/dose blistr powdr for inhalation (Advair Diskus) estradiol 0.01% (0.1 mg/gram) vaginal 11/13/24 Unknown History vaginal cream Exam Pertinent Lab Results Pertinent Lab Results: Laboratory Tests 11/09/24 15:41 WBC 7.7 Hgb 11.7 L Hct 35.2 L Plt Count 251 Sodium 139 Potassium 3.5 Chloride 104 Carbon Dioxide 26 BUN 9 Creatinine 0.66 Narrative Narrative: ECHO 2022 Conclusions: - Essentially normal study Assessment and Plan Assessment Anesthesia Assessment: Chart Reviewed Final Anesthetic Review Family History of Problems with Anesthesia: No History of Problems with Anesthesia: No Documented by User: Will Marmolejo MD 11/27/24 13:44 PMFSH Past Medical History Medical History Hematuria LLQ abdominal pain Hypokalemia Lower extremity weakness CML (chronic myelocytic leukemia) Laryngospasm CLL (chronic lymphocytic leukemia) PONV (postoperative nausea and vomiting) Nausea & vomiting Dysuria Abdominal pain Pelvic pain Frequency of micturition Breast asymmetry Thoracic back pain Impacted cerumen of left ear Dizziness Perioral numbness Left flank pain Lesion of left mechoopda kidney Hip pain, left Viral syndrome Conjunctivitis, left eye Lymphadenopathy, anterior cervical Hypercholesterolemia 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 Mixed incontinence Obesity (BMI 30-39.9) Nasal congestion Allergic rhinitis Patent foramen ovale Peptic ulcer disease Insomnia Asthma GERD (gastroesophageal reflux disease) Leukemia Functional capacity: independent ambulation Patient : No Family History Family History Maternal Aunt Breast cancer Paternal Grandmother Breast cancer Paternal Grandfather Myocardial infarction, acute, initial episode of care Paternal Uncle Stomach cancer Liver cancer Pancreatic cancer Kidney cancer, primary, with metastasis from kidney to other site Father Colon cancer Surgical History Surgical History History of Jakcson colposuspension Hx of colonoscopy Hx of esophagogastroduodenoscopy Hx of colonoscopy History of bilateral salpingectomy Ulnar nerve entrapment at elbow History of tonsillectomy History of vaginal hysterectomy Social History Social History Household Members: None Housing: Apartment Are you a primary health care aide to a significant other at home: No Do you presently have visiting nurse or other home services: No Alcohol intake: never Patient Tobacco Use Status: Never used Tobacco Tobacco use type: Cigarette e-Cigarette/Vaping Use: Never Used Second Hand Smoke Exposure: No Have you been hit, kicked, punched, or otherwise hurt by someone within the past year? If so, by whom?: No Are you DNR?: No Advance Directives: No Advance Directives Information Provided: Yes Advance Directives Date on File: 02/06/22 Poor oral hygiene: No service: No Current occupational status: employed Current occupational exposures/hazards: No Cognitive needs: No Hearing needs: No Vision needs: Yes Meds Allergies Allergy/AdvReac Type Severity Reaction Status Date / Time nut - unspecified [nut] Allergy Severe Anaphylaxis Verified 11/27/24 12:33 Penicillins Allergy Severe RASH Verified 11/27/24 12:33 seafood Allergy Severe Anaphylaxis Verified 11/27/24 12:33 shellfish derived Allergy Severe Anaphylaxis Verified 11/27/24 12:33 [facility] AdvReac Intermediate palpitation Uncoded 11/27/24 12:33 s Home Medications ?Medication ?Instructions ?Recorded ?Confirmed ?Last Taken ?Type sertraline 100 mg tablet 100 mg PO DAILY 04/07/20 11/27/24 Unknown History zolpidem 10 mg tablet (Ambien) 10 mg PO BEDTIME PRN Insomnia 04/07/20 11/27/24 Unknown History fluticasone 250 mcg-salmeterol 50 1 inh inhalation BID 07/27/22 11/27/24 Unknown History mcg/dose blistr powdr for inhalation (Advair Diskus) estradiol 0.01% (0.1 mg/gram) vaginal 11/13/24 Unknown History vaginal cream Exam Airway Mallampati Class: II TM Dist: >3cm Heart: rrr Lungs: cta Assessment and Plan Final Anesthetic Review NPO: Yes ASA Class: II Final Preanesthetic Review: No Changes in Pt Med Stat, Meds/Allgs Chart Reviewed and Anes Risks/Benef Reviewed Patient Risk: Intermediate Procedure Risk: Low Anesthetic Plan Disposition: Standard PACU
[2024-11-27 12:32] VITALS: BMI 36.9
[2024-11-27 12:45] VITALS: BP 128/81; PULSE 83; RESP 18; TEMP 36.8; O2SAT 97
[2024-11-27] MEDS: Lactated Ringers 1,000 ML 100 ML IVCONT (12:45)
--- NOTE | 2024-11-27 13:00 | MHC.SHP ---
Pre-Procedural Eval Section A - 24 Hr Update-Section A only Date of Service: 11/27/24 The patient is an INPATIENT: No The patient has been examined within 24 hours of the surgical procedure. The History & Physical has been completed within 30 days and I have reviewed it.: Yes Section B - Complete if H&P > 30 days Chief Complaint: Dysphagia, unspecified Allergies: Allergies Allergy/AdvReac Type Severity Reaction Status Date / Time nut - unspecified [nut] Allergy Severe Anaphylaxis Verified 11/27/24 12:33 Penicillins Allergy Severe RASH Verified 11/27/24 12:33 seafood Allergy Severe Anaphylaxis Verified 11/27/24 12:33 shellfish derived Allergy Severe Anaphylaxis Verified 11/27/24 12:33 [facility] AdvReac Intermediate palpitation Uncoded 11/27/24 12:33 s Plan Diagnosis/Plan: Unchanged I have reviewed the history and physical and performed a pertinent physical examination on my patient. No changes have occurred unless specified. Time Spent With Patient Time: Total time managing care of this patient today ____ minutes.
--- NOTE | 2024-11-27 14:11 | P.OP_ITS ---
Operative Note Operative Note Date of Service: 11/27/24 Narrative: Procedure: Esophagogastroduodenoscopy Endoscopist: Maile Cheung MD Indication: Dysphagia Anesthesia Provider: Dr Marmolejo Anesthesia Type: MAC ?? EGD Procedure:?? The procedure, indications, preparation and potential complications were reviewed with the patient, who indicated understanding and gave written informed consent to proceed. A physical exam was performed. The endoscope was introduced through the mouth, and advanced to the second part of duodenum. The mucosa was carefully examined on slow withdrawal of the endoscope. The patient tolerated the procedure well. There were no immediate complications.? ? EGD Findings:? * Esophagus:? Linear ulcerations measuring 2 cm from the GE junction but not crossing the tops of mucosal folds. The Z line was at 31 cm and displaced by a hiatal hernia with the diaphragmatic pinch at 36 cm. There was a partially obstructing Schatzki's ring just above GE junction. Middle and lower esophagus forceps biopsies were obtained to rule out eosinophilic esophagitis. A through the scope fixed wire balloon was passed through the biopsy channel and advanced to the Schatzki's ring. The balloon was incrementally inflated from 18-20 mm with disruption of Schatzki's ring. * Stomach:? Normal mucosa was noted in the stomach. Retroflexion was performed in the cardia. * Duodenum:? Normal mucosa was noted in the whole of the examined duodenum. ? EGD Impressions:? * Grade B esophagitis (biopsy) * Schatzki's ring (dilation) * Hiatal hernia * Normal stomach * Normal duodenum ?? Recommendations:?? * Follow biopsy results. Our office will call or send a letter with results within 7-10 days. * Continue PPI therapy. Has known reflux disease with erosive esophagitis and will therefore need PPI therapy lifelong. * Avoid NSAIDs. * Of note - pt developed laryngospasm after the scope was withdrawn which was broken within 3-4 minutes with manual support- pls see anesthesia flowsheet for details. Above has been reviewed with the patient.
[2024-11-27 14:15] VITALS: BP 117/81; PULSE 107; RESP 16; TEMP 36.2; O2SAT 93
[2024-11-27 14:25] VITALS: BP 117/81; PULSE 89; RESP 16; O2SAT 96
[2024-11-27 14:37] VITALS: BP 116/87; PULSE 87; RESP 16; TEMP 36.2; O2SAT 96
== END 2024-11-27 15:01 | disposition home or self-care (01) ==
PROVIDERS: PCP Internal Medicine; Visit Provider Internal Medicine
PROC: (CPT 43249; principal; 2024-11-27 13:40)
DX: K20.80 Other esophagitis without bleeding (principal); K22.2 Esophageal obstruction; K22.9 Disease of esophagus, unspecified; K44.9 Diaphragmatic hernia without obstruction or gangrene; R13.10 Dysphagia, unspecified; K21.9 Gastro-esophageal reflux disease without esophagitis; C92.10 Chronic myeloid leukemia, BCR/ABL-positive, not having achieved remission; J45.909 Unspecified asthma, uncomplicated; E78.00 Pure hypercholesterolemia, unspecified; Z80.0 Family history of malignant neoplasm of digestive organs
CPT/HCPCS: 43249; 43239; 88305; 88313; C1726; J2003; J2704; J3010

== ENCOUNTER → 2024-11-27 12:16 | Outpatient (BNV) | payer OTHER, SELFPAY | PROVIDERS: PCP Internal Medicine; Visit Provider Internal Medicine | DX: R13.10 Dysphagia, unspecified (principal); K22.10 Ulcer of esophagus without bleeding; K22.2 Esophageal obstruction | CPT/HCPCS: 43239; 43249 ==

== ENCOUNTER 2024-12-18 07:53 | Outpatient (REF) | payer OTHER, SELFPAY ==
--- OUTSIDE RECORDS SUMMARY | 2024-12-14 19:31 | XMS_ITS | Encounter Summary ---
Author Organization [facility] Address [address] [place] [address] Care Team Providers Care Circulator Name Role Phone Josef Lindquist MD Primary Care Provider [phone] Reason for Visit * Reason Comments Chest Pain Palpitations Encounter Details Date Type Department Care Team (Late st Contact Info) Description 12/14/2024 7:31 PM EDT - 12/14/2024 9:35 PM EDT Emergency [facility] Emergency [address] [place] [id number] David Quiros MD [address] [address] Intercostal pain (Primary Dx); Chest pain, unspecified type Discharge Disposition: Home or Self Care Social History Tobacco Use Types Packs/Day Years Used Date Smoking Tobacco: Never Smokeless Tobacco: Current Tobacco Cessation:Ready to Q uit: Not Asked; Counseling Given: Not Answered Alcohol Use Standard Drinks/Week Comments Never 0 (1 standard drink = 0.6 oz pur e alcohol) Comments Unknown Sex and Gender Information Value Date Recorded Sex Assigned at Female 09/14/2024 5:11 PM EDT Legal Sex Female 1:40 PM EST Gender Identity Female 09/14/2024 5:11 PM EDT Sexual Orientation Straight 09/14/2024 5: 11 PM EDT documented as of this encounter Last Filed Vital Signs Vital Sign Reading Time Taken Comments Blood Pressure 141/96 12/14/2024 7:42 PM EDT Pulse 86 12/14/2024 7:42 PM EDT Temperature 36.8 C (98.3 F) 12/14/2024 7:42 PM EDT Respiratory Rate 18 12/14/2024 7:42 PM EDT Oxygen Saturation 97% 12/14/2024 7:42 PM EDT Inhaled Oxygen Concentration - - Weight 85.7 kg (189 lb) 12/14/2024 3:21 PM EDT Height 154.9 cm (5' 1 ) 12/14/2024 3:21 PM EDT Body Mass Index 35.71 12/14/2024 3:21 PM EDT documented in this encounter Discharge Instructions * Discharge Instructions* David Quiros MD - 12/14/2024 9:07 PM EDT Follow-up for your mammogram. * Attachments The following attachments cannot be sent through Care Everywhere. * Chest Pain (Bolivian) * Exercise Electrocardiogram (Stress Test): Video (Bolivian) documented in this encounter Medications at Time of Discharge ibuprofen (ADVIL,MOTRIN) 600 mg tablet Take 1 tablet (600 mg total) by mouth every 6 (six) hours if needed for mild pain (for pain) for up to 10 days. 30 tablet 12/14/2024 ondansetron ODT (ZOFRAN-ODT) 4 mg disintegrating tabletIndications:Le ft lower quadrant abdominal pain Dissolve 1 tablet (4 mg total) on top of the tongue every 8 (eight) hours if needed for nausea or vomiting for up to 10 doses. 10 tablet 09/14/2024 oxyCODONE (OXY-IR) 5 mg immediate release capsule Take 1 capsule (5 mg total) by mouth every 6 (six) hours if needed for severe pain for up to 5 doses. Max Daily Amount: 20 mg 5 capsule 09/14/2024 documented as of this encounter Ordered Prescriptions Prescription Sig Dispense Quantity Refills Last Filled Start Date End Date ibuprofen (ADVIL,MOTRIN) 600 mg tablet Take 1 tablet (600 mg total) by mouth every 6 (six) hours if needed for mild pain (for pain) for up to 10 days. 30 tablet 12/14/2024 12/24/2024 documented in this encounter Discharge Disposition Disposition Code Departure Means Destination Comment s Home or Self Care documented in this encounter Progress Notes * Dalia Thomas RN - 12/14/2024 3:19 PM EDT For about four days she has been having discomfort in the left side of her chest and feeling fatigued. She states sometimes her heart rate is elevated. * David Quiros MD - 12/14/2024 3:07 PM EDT Emergency Medicine Note Patient Name: Laureen Roblero Initial Evaluation: 12/14/2024 : 1975 Patient's PCP: Josef Lindquist MD Emergency Physician: David Quiros MD History of Present Illness Chief Complaint: Chief Complaint Patient presents with Chest Pain Palpitations HPI: This is a 49-year-old female with a history of CML now presenting with left-sided chest pain which is sharp in nature intermittent worse with movement. No shortness of breath tender to palpation. No cough no recent travel ROS: I have performed a ROS with the pertinent positives and negatives documented in the history ofpresent illness. Previous History Past Medical History: Diagnosis Date Depression Leukemia ([facility] V24, [facility] V28) History reviewed. No pertinent surgical history. Social History Tobacco Use Smoking status: Never Smokeless tobacco: Current Substance Use Topics Alcohol use: Never Drug use: Never No family history on file. is allergic to penicillins. No current facility-administered medications on file prior to encounter. Current Outpatient Medications on File Prior to Encounter Medication Sig Dispense Refill ondansetron ODT (ZOFRAN-ODT) 4 mg disintegrating tablet Dissolve 1 tablet (4 mg total) on top of the tongue every 8 (eight) hours if needed for nausea or vomiting for up to 10 doses. 10 tablet 0 oxyCODONE (OXY-IR) 5 mg immediate release capsule Take 1 capsule (5 mg total) by mouth every 6 (six) hours if needed for severe pain for up to 5 doses. Max Daily Amount: 20 mg 5 capsule 0 Physical Exam ED Triage Vitals [12/14/24 1521] Temp Heart Rate Resp BP 36.7 ??C (98.1 ??F) 84 20 (!) 142/106 SpO2 Temp Source Heart Rate Source Patient Position 99 % Oral -- -- BP Location FiO2 (%) -- -- General: Well-appearing, well nourished, in no acute distress HEENT: PERRL, EOMI, external ears and nose appear unremarkable, airway is patent Neck: Supple, full range of motion, no meningismus, no JVD Chest: Clear to auscultation; no evidence of respiratory distress Circulatory: The rate and rhythm , no murmurs rubs or gallops Abdomen: Non-distended, Non-Tender Extremities: Normal ROM, No edema, ranging all extremities without difficulty Skin: Warm and dry, well-perfused , no rashes Neuro: Alert and oriented x 3. no motor or sensory deficits Psyche: Normal affect Results Labs Reviewed COMPREHENSIVE METABOLIC PANEL - Abnormal Result Value Sodium 137 Potassium 3.9 Chloride 104 CO2 28 Anion Gap 5 Glucose 117 (*) BUN 8 Creatinine 0.59 eGFR 110 BUN/Creatinine Ratio 13.6 Calcium 9.5 AST (SGOT) 22 ALT (SGPT) 24 Alkaline Phosphatase 95 Total Protein 7.3 Albumin 3.8 Total Bilirubin 0.3 TROPONIN I HIGH SENSITIVITY - Normal High Sensitivity Troponin I 3 Narrative: High levels of biotin in samples may falsely decrease hsTroponin values. Use caution when interpreting hsTroponin results in patients taking biotin who exhibit renal impairment (eGFR <60) or in patients taking more than 20 mg/day of biotin. TROPONIN I HIGH SENSITIVITY - Normal High Sensitivity Troponin I <3 Narrative: High levels of biotin in samples may falsely decrease hsTroponin values. Use caution when interpreting hsTroponin results in patients taking biotin who exhibit renal impairment (eGFR <60) or in patients taking more than 20 mg/day of biotin. LIPASE - Normal Lipase 33 MAGNESIUM - Normal Magnesium 1.9 B-TYPE NATRIURETIC PEPTIDE - Normal BNP 22 CBC AND DIFFERENTIAL Narrative: The following orders were created for panel order CBC and differential. Procedure Abnormality Status --------- ------ CBC auto differential[[id number]] Final result Please view results for these tests on the individual orders. CBC WITH AUTO DIFFERENTIAL WBC 7.3 RBC 4.10 Hemoglobin 13.0 Hematocrit 39.3 MCV 94.9 MCH 31.4 MCHC 33.1 RDW 12.2 Platelets 268 MPV 10.0 NRBC 0.0 NRBC Absolute 0.00 Neutrophils Relative 59.8 Lymphocytes Relative 28.6 Monocytes Relative 10.0 Eosinophils Relative 0.6 Basophils Relative 0.7 Immature Granulocytes Relative 0.3 Neutrophils Absolute 4.35 Lymphocytes Absolute 2.08 Monocytes Absolute 0.73 Eosinophils Absolute 0.04 Basophils Absolute 0.05 Immature Granulocytes Absolute 0.02 Abnormal Labs Reviewed COMPREHENSIVE METABOLIC PANEL - Abnormal; Notable for the following components: Result Value Glucose 117 (*) All other components within normal limits XR Chest 2 Views Final Result FINDINGS/IMPRESSION: Hypoventilatory examination. No consolidation or effusion. No congestive heartfailure. -------- FINAL REPORT -------- Dictated By: Flower Sharpe Dictated Date: 12/14/2024 16:43 ET Assigned Physician: Flower Sharpe Reviewed and Electronically Signed By: Flower Sharpe Signed Date: 12/14/2024 16:44 ET Workstation ID: [id number] Transcribed By: Self Edit Transcribed Date: 12/14/2024 16:43 ET I have discussed the incidental/abnormal imaging and/or lab abnormalities with the patient and haveinstructed them the need for further evaluation and workup with their primary care doctor. I have provided the patient with a paper copy of the abnormality. The laboratory results, imaging results and other diagnostic exam results were reviewed in the EMR. EKG Interpretation EKG shows nonspecific T wave changes inferiorly. 2 inversions in lead III and flattening in aVF butno other ST depression. No ectopy. Critical Care Time None ? Medical Decision Making Differential diagnosis includes but is not limited to: Acute coronary syndrome, unstable angina, acute [place], NSTEMI, chest wall pain, GERD, pleurisy, rib fracture, pneumothorax, pulmonary embolism, aortic dissection, reflux, rib pain, pneumonia, breast mass, neoplasm Medications - No data to display ED Course as of 12/14/242119Dec 14, 20242112 Patient's EKG was fairly unremarkable no significant changes troponins were negative and D-dimer is also negative chest x-ray negative. Likely musculoskeletal versus rib pain but underlying masscannot be excluded in the breast. [JL] 2112 Unlikely ACS but patient advised to follow-up with cardiology for outpatient stress test [JL] ED Course User Index [JL] David Quiros MD Clinical Impressions as of 12/14/242119 Intercostal pain Chest pain, unspecified type Procedures Procedures Diagnosis No diagnosis found. Disposition Data Unavailable ED Prescriptions None Physician Attestation David Quiros MD 12/14/242028 David Quiros MD 12/14/242119 David Quiros MD 12/15/24 1520 documented in this encounter Plan of Treatment Not on file documented as of this encounter Procedures Procedure Name Priority Date/Time Associated Diagnosis Comments D-DIMER STAT 12/14/2024 8:37 PM EDT TROPONIN I HIGH SENSITIVITY STAT 12/14/2024 4:39 PM EDT XR CHEST 2 VIEWS STAT 12/14/2024 4:25 PM EDT TROPONIN I HIGH SENSITIVITY STAT 12/14/2024 3:29 PM EDT CBC WITH AUTO DIFFERENTIAL STAT 12/14/2024 3:29 PM EDT CBC AND DIFFERENTIAL STAT 12/14/2024 3:29 PM EDT B-TYPE NATRIURETIC PEPTIDE STAT 12/14/2024 3:29 PM EDT MAGNESIUM STAT 12/14/2024 3:29 PM EDT LIPASE STAT 12/14/2024 3:29 PM EDT COMPREHENSIVE METABOLIC PANEL STAT 12/14/2024 3:29 PM EDT ECG 12-LEAD STAT 12/14/2024 3:12 PM EDT documented in this encounter Results * D-dimer, quantitative (12/14/2024 8:37 PM EDT) D-Dimer, Quant (D-DU) 203 <=230 ng/mL DDU LAB COAGULATION METHOD 12/14/2024 9:04 PM EDT [facility] Blood Venous blood specimen / Unknown Venipuncture / Unknown 12/14/2024 8:37 PM EDT 12/14/2024 8:52 PM EDT [facility] - 12/14/2024 9:04 PM EDT D-Dimer <230 ng/mL (D-Dimer units) is the threshold for exclusion of DVT/PE. D-Dimer may be elevated in: Critically ill, severely infected, trauma patients, DIC, acute CVA, acute [place], unstable angina, AF, old age, , and smoking. D-Dimer may be decreased with: Initiation of heparin therapy and oral anticoagulants. David Quiros MD LAB BLOOD ORDERABLES Final Result Performing Organization Address [facility] de Phone Number [facility] [address] [place] [address], * Troponin I high sensitivity (12/14/2024 4:39 PM EDT) [facility] High Sensitivity Troponin I <3 <=54 ng/L LAB CHEMISTRY METHOD 12/14/2024 5:35 PM EDT [facility] Blood Venous blood specimen / Unknown Venipuncture / Unknown 12/14/2024 4:39 PM EDT 12/14/2024 5:06 PM EDT [facility] - 12/14/2024 5:35 PM EDT High levels of biotin in samples may falsely decrease hsTroponin values. Use caution when interpreting hsTroponin results in patients taking biotin who exhibit renal impairment (eGFR <60) or in patients taking more than 20 mg/day of biotin. David Quiros MD LAB BLOOD ORDERABLES Final Result Performing Organization Address [facility] Co de Phone Number [facility] [address] [place] [address], [place] [phone] * XR Chest 2 Views (12/14/2024 4:25 PM EDT) Anatomical Region Laterality Modality Body Radiographic Melodie ging 12/14/2024 4:43 PM EDT Impressions 12/14/2024 4:44 PM EDT FINDINGS/IMPRESSION: Hypoventilatory examination. No consolidation or effusion. No congestive heart failure. -------- FINAL REPORT -------- Dictated By: Flower Sharpe Dictated Date: 12/14/2024 16:43 ET Assigned Physician: Flower Sharpe Reviewed and Electronically Signed By: Flower Sharpe Signed Date: 12/14/2024 16:44 ET Workstation ID: [id number] Transcribed By: Self Edit Transcribed Date: 12/14/2024 16:43 ET Narrative 12/14/2024 4:44 PM EDT XR CHEST 2 VIEWS INDICATION: chest pain TECHNIQUE: XR CHEST 2 VIEWS COMPARISON: No priors available. Procedure Note Flower Sharpe MD - 12/14/2024 XR CHEST 2 VIEWS INDICATION: chest pain TECHNIQUE: XR CHEST 2 VIEWS COMPARISON: No priors available. IMPRESSION: FINDINGS/IMPRESSION: Hypoventilatory examination. No consolidation oreffusion. No congestive heart failure. -------- FINAL REPORT -------- Dictated By: Flower Sharpe Dictated Date: 12/14/2024 16:43 ET Assigned Physician: Flower Sharpe Reviewed and Electronically Signed By: Flower Sharpe Signed Date: 12/14/2024 16:44 ET Workstation ID: [id number] Transcribed By: Self Edit Transcribed Date: 12/14/2024 16:43 ET us David Quiros MD IMG XR PROCEDURES Final Res ult * CBC auto differential (12/14/2024 3:29 PM EDT) WBC 7.3 4.8 - 10.8 K/[facility] LAB HEMETOLOGY METHOD 12/14/2024 3:57 PM EDT [facility] RBC 4.10 3.80 - 4.80 M/mcL LAB HEMETOLOGY METHOD 12/14/2024 3:57 PM EDT [facility] Hemoglobin 13.0 11.5 - 16.0 g/dL LAB [facility]ETOLOGY [facility] Hematocrit 39.3 35.0 - 47.0 % LAB HEMETOLOGY METHOD 12/14[facility]24 [facility] MCV 94.9 79.0 - 98.0 FL LAB HEMETOLOGY METHOD 12/14[facility]2024 [facility] MCH 31.4 27.0 - 32.0 pcg LAB HEMETOLOGY METHOD 12/14[facility]2024 [facility] MCHC 33.1 32.0 - 37.0 g/dL LAB HEMETOLOGY METHOD 12/14/2024 [facility] RDW 12.2 11.0 - 15.0 % LAB HEMETOLOGY METHOD 12/14/2024 [facility] Platelets 268 130 - 400 K/mcL LAB HEMETOLOGY METHOD 12/14/2024 [facility] MPV 10.0 7.0 - 11.0 FL LAB HEMETOLOGY METHOD 12/14[facility]2024 [facility] NRBC 0.0 <1.0 % LAB HEMETOLOGY METHOD 12/14/2024 3:57 PM EDT [facility] NRBC Absolute 0.00 <0.10 K/mcL LAB HEMETOLOGY METHOD 12/14[facility]2024 [facility] Neutrophils Relative 59.8 % LAB HEMETOLOGY METHOD 12/14[facility]2024 [facility] Lymphocytes Relative 28.6 % LAB HEMETOLOGY METHOD 12/14/2024 3:57 PM EDT [facility] Monocytes Relative 10.0 % LAB HEMETOLOGY METHOD 12/14/2024 3:57 PM EDT [facility] Eosinophils Relative 0.6 % LAB HEMETOLOGY METHOD 12/14/2024 3:57 PM EDT [facility] Basophils Relative 0.7 % LAB HEMETOLOGY METHOD 12/14[facility]24 [facility] Immature Granulocytes Relative 0.3 % LAB HEMETOLOGY METHOD 12/14[facility]2024 [facility] Neutrophils Absolute 4.35 1.50 - 7.00 K/mcL LAB HEMETOLOGY METHOD 12/14/2024 3:[address] [facility] Lymphocytes Absolute 2.08 1.00 - 5.00 K/mcL LAB HEMETOLOGY METHOD 12/14/2024 3:[address] [facility] Monocytes Absolute 0.73 0.20 - 1.00 K/mcL LAB HEMETOLOGY METHOD 12/14/2024 3:57 PM T [facility] Eosinophils Absolute 0.04 0.00 - 0.50 K/mcL LAB HEMETOLOGY METHOD 12/14/2024 3:[address] [facility] Basophils Absolute 0.05 0.00 - 0.20 K/mcL LAB HEMETOLOGY METHOD 12/14/2024 3:57 PM T [facility] Immature Granulocytes Absolute 0.02 0.00 - 0.03 K/mcL LAB HEMETOLOGY METHOD 12/14/2024 3:[address] [facility] Blood Venous blood specimen / Unknown Venipuncture / Unknown 12/14/2024 3:29 PM EDT 12/14/2024 3:45 PM EDT us David Quiros MD LAB BLOOD ORDERABLES Final Result Performing Organization Address [facility] Co de Phone Number [facility] [address] [place] [address], * B-type natriuretic peptide (12/14/2024 3:29 PM EDT) Pathologist [facility] BNP 22 <=100 pcg/mL LAB CHEMISTRY METHOD 12/14/2024 4:43 PM EDT [facility] Blood Venous blood specimen / Unknown Venipuncture / Unknown 12/14/2024 3:29 PM EDT 12/14/2024 3:44 PM EDT David Quiros MD LAB BLOOD ORDERABLES Final Result Performing Organization Address [facility] Co de Phone Number [facility] [address] [place] [address], * Magnesium (12/14/2024 3:29 PM EDT) [facility] Magnesium 1.9 1.9 - 2.6 mg/dL LAB CHEMISTRY METHOD 12/14/2024 4:26 PM EDT [facility] Blood Venous blood specimen / Unknown Venipuncture / Unknown 12/14/2024 3:29 PM EDT 12/14/2024 3:44 PM EDT David Quiros MD LAB BLOOD ORDERABLES Final Result Performing Organization Address [facility]/ZIP Co de Phone Number [facility] [address] [place] [address], [place] [phone] * Lipase (12/14/2024 3:29 PM EDT) Pathologist [facility] Lipase 33 13 - 75 unit/L LAB CHEMISTRY METHOD 12/14/2024 4:26 PM EDT [facility] Blood Venous blood specimen / Unknown Venipuncture / Unknown 12/14/2024 3:29 PM EDT 12/14/2024 3:44 PM EDT us David Quiros MD LAB BLOOD ORDERABLES Final Result [facility] [address] [place] [address], [place] [phone] * (ABNORMAL) Comprehensive metabolic panel (12/14/2024 3:29 PM EDT) Sodium 137 133 - 145 mmol/L LAB CHEMISTRY METHOD 12/14/2024 4:[address] [facility] Potassium 3.9 3.5 - 5.5 mmol/L LAB CHEMISTRY METHOD 12/14/2024 4:[address] [facility] Chloride 104 96 - 110 mmol/L LAB CHEMISTRY METHOD 12/14/2024 4:[address] [facility] CO2 28 21 - 32 mmol/L LAB CHEMISTRY METHOD 12/14/2024 4:[address] [facility] Anion Gap 5 3 - 11 LAB CHEMISTRY METHOD 12/14/2024 4:[address] [facility] Glucose 117(H) 70 - 100 mg/dL LAB CHEMISTRY METHOD 12/14/2024 4:[address] [facility] BUN 8 5 - 25 mg/dL LAB CHEMISTRY METHOD 12/14/2024 4:[address] [facility] Creatinine 0.59 0.50 - 1.10 mg/dL LAB CHEMISTRY METHOD 12/14/2024 4:[address] [facility] eGFR 110 >=60 mL/min/1. 73m2 LAB CHEMISTRY METHOD 12/14/2024 4:[address] [facility] Comment:Calculation based on the Chronic Kidney Disease Epidemiology Collaboration (CKD-EPI) equation refit without adjustment for race. BUN/Creatinine Ratio 13.6 LAB CHEMISTRY METHOD 12/14/2024 4:[address] [facility] Calcium 9.5 8.5 - 10.5 mg/dL LAB CHEMISTRY METHOD 12/14/2024 4:26 PM EDT [facility] AST (SGOT) 22 10 - 42 unit/L LAB CHEMISTRY METHOD 12/14/2024 4:26 PM EDT [facility] ALT (SGPT) 24 10 - 60 unit/L LAB CHEMISTRY METHOD 12/14/2024 4:26 PM EDT [facility] Alkaline Phosphatase 95 42 - 121 unit/L LAB CHEMISTRY METHOD 12/14/2024 4:26 PM EDT [facility] Total Protein 7.3 6.0 - 8.0 g/dL LAB CHEMISTRY METHOD 12/14/2024 4:26 PM EDT [facility] Albumin 3.8 3.2 - 5.0 g/dL LAB CHEMISTRY METHOD 12/14/2024 4:26 PM EDT [facility] Total Bilirubin 0.3 0.0 - 1.4 mg/dL LAB CHEMISTRY METHOD 12/14/2024 4:26 PM EDT [facility] Blood Venous blood specimen / Unknown Venipuncture / Unknown 12/14/2024 3:29 PM EDT 12/14/2024 3:44 PM EDT us David Quiros MD LAB BLOOD ORDERABLES Final Result [facility] [address] [place] [address], * Troponin I high sensitivity (12/14/2024 3:29 PM EDT) High Sensitivity Troponin I 3 <=54 ng/L LAB CHEMISTRY METHOD 12/14/2024 4:37 PM EDT [facility] Blood Venous blood specimen / Unknown Venipuncture / Unknown 12/14/2024 3:29 PM EDT 12/14/2024 3:44 PM EDT Narrative [facility] ([facility] - 12/14/2024 4:37 PM EDT High levels of biotin in samples may falsely decrease hsTroponin values. Use caution when interpreting hsTroponin results in patients taking biotin who exhibit renal impairment (eGFR <60) or in patients taking more than 20 mg/day of biotin. David Quiros MD LAB BLOOD ORDERABLES Final Result Performing Organization Address City/[facility]/ZIP Co de Phone Number [facility] [address] [place] [address], [place] [phone] * ECG 12 lead (12/14/2024 3:12 PM EDT) [facility] Signature Ventricular Rate ECG 89 BPM GEMUSE Atrial Rate 89 BPM GEMUSE P-R Interval 142 ms GEMUSE QRS Duration 78 ms GEMUSE Q-T Interval 362 ms GEMUSE QTc 440 ms GEMUSE P Wave [place] 22 degrees GEMUSE R [place] -14 degrees GEMUSE T [place] 6 degrees GEMUSE ECG Interpretation Poor data quality, interpretation may be adversely affected Normal sinus rhythm Minimal voltage criteria for LVH, may be normal variant ( R in aVL ) Borderline ECG When compared with ECG of 07-OCT-2022 22:06, Nonspecific T wave abnormality no longer evident in Anterior leads Confirmed by Chely MAE YUFENG ([id number]) on 12/14/2024 5:53:35 PM GEMUSE 12/14/2024 3:12 PM EDT 12/14/2024 5:53 PM EDT David Quiros MD ECG ORDERABLES Final Resul t Performing Organization Address City/[facility]/ZIP Co de Phone Number GEMUSE documented in this encounter Visit Diagnoses Diagnosis Intercostal pain- Primary Chest pain, unspecified type documented in this encounter Orders EKG Orders Without Results Count Last Ordered D ate First Ordered Date ECG 12-LEAD 1 12/14/2024 documented in this encounter Care Teams Circulator Relationship Specialty Start Date End Date Josef Lindquist MD [address] [place] [address] [address] [facility] [place] [address] PCP - General Internal Medicine 05/14/17 documented as of this encounter
--- NOTE | ~2024-12-18 | MM_ITS ---
EXAMINATION: MM DIAGNOSTIC DIGITAL BREAST TOMOSYNTHESIS, BILATERAL Limited left breast ultrasound. CLINICAL INFORMATION: Left breast pain upper outer breast. COMPARISON: Mammography: Comparison is made with relevant prior exams. TECHNIQUE: Digital breast mammography with tomosynthesis is performed in both the craniocaudal and mediolateral oblique views along with computer-aided detection (CAD). FINDINGS: The breasts are heterogeneously dense, which may obscure small masses (ACR BI-RADS breast composition Category c). Jackson marker in the upper outer breast at the site of patient's pain without underlying abnormal finding. Right marker clip. Left marker clip. There are no significant masses, abnormal calcifications, or other abnormalities. Targeted color Doppler ultrasound scanning in the area of the patient's left breast pain from 1-5 o'clock demonstrates normal fibronodular breast tissue. There is no sonographic abnormal findings. Results are provided to the patient at time of visit by the technologist. MM/MM tomosynthesis diagnostic BI IMPRESSION: Right: Benign. Left: No mammographic or sonographic abnormal findings to account for the patient's left breast pain. Recommend clinical evaluation and follow-up. ASSESSMENT: BI-RADS BI-RADS 2 - Benign Findings RECOMMENDATION: 1 year F/U This patient's information was entered into a reminder system with a target due date for their next mammogram. Electronically signed by: Katty Ruiz DO 12/18/2024 09:10 AM EDShawn
== END 2024-12-18 07:54 | disposition home or self-care (01) ==
LOC: HO.MAMMO 07:53
DX: N64.4 Mastodynia (principal)
CPT/HCPCS: 76642; 77062; 77066

== ENCOUNTER → 2024-12-18 08:30 | Outpatient (BNV) | payer OTHER, SELFPAY | PROVIDERS: Visit Provider Internal Medicine | DX: N64.4 Mastodynia (principal); R92.322 Mammographic fibroglandular density, left breast | CPT/HCPCS: 76642; 77066; G0279 ==

== ENCOUNTER 2024-12-22 14:44 | Outpatient (AMB) | payer OTHER, SELFPAY ==
[2024-12-22 14:45] VITALS: BP 110/70; PULSE 104; O2SAT 98; BMI 37.1
--- NOTE | 2024-12-22 14:45 | A.OFFPC_ITS ---
Vital Signs 12/22/24 14:45 Height 5 ft 1 in Weight 196 lb 2 oz BMI 37.1 BP 110/70 Blood Pressure Location Lt brachial Position Sitting Pulse 104 H Pulse Source Pulse Oximeter Pulse Oximetry (%) 98 Oxygen Delivery Method Room Air Intake Visit Reasons: LLQ pain Group [employer] Instructor Required: No Accompanied by: Self / Same As Patient Allergies nut - unspecified (nut) Allergy (Severe, Verified 12/22/24 14:46) Anaphylaxis Penicillins Allergy (Severe, Verified 12/22/24 14:46) RASH seafood Allergy (Severe, Verified 12/22/24 14:46) Anaphylaxis shellfish derived Allergy (Severe, Verified 12/22/24 14:46) Anaphylaxis Wixela Inhub Adverse Reaction (Intermediate, Uncoded 12/22/24 14:46) palpitations Medication List - Last Reconciled 12/22/24 by Josef Lindquist MD epinephrine (EpiPen 2-Hol[place]) 0.3 mg (0.3 mL) IM Q4H PRN estradiol 0.01%(0.1mg/gram) vaginal fexofenadine (Jannie Allergy) 180 mg PO DAILY imatinib (Gleevec) 400 mg PO DAILY montelukast (Singulair) 10 mg PO BEDTIME omeprazole 20 mg PO BEDTIME 90 days ondansetron 8 mg PO Q8H PRN promethazine 25 mg PO TID PRN sennosides-docusate sodium 8.6-50 mg (Senna-S) 2 tab-caps (2 x 8.6-50 mg) PO BEDTIME 90 days sertraline 100 mg PO DAILY sucralfate 10 mL PO QIDACHS tirzepatide (weight loss) (Zepbound) 2.5 mg (0.5 mL) subcut QWEEK umeclidinium 62.5 mcg/actuation (Incruse Ellipta) 1 inh inhalation BEDTIME zolpidem (Ambien) 10 mg PO BEDTIME PRN Tobacco use date assessed: 12/22/24 Dental Screening Dental Screen Date: 12/22/24 Did you have a dental visit in the last 12 months?: Yes Did you have a dental problem in the last 6 months where you did not have access to dental care?: No Was dental information given to patient?: Patient has dentist [facility] Medical History (Updated 12/22/24 @ 15:05 by Josef Lindquist MD) Constipation Hematuria LLQ abdominal pain Hypokalemia Lower extremity weakness CML (chronic myelocytic leukemia) Laryngospasm CLL (chronic lymphocytic leukemia) PONV (postoperative nausea and vomiting) Nausea & vomiting Dysuria Abdominal pain Pelvic pain Frequency of micturition Breast asymmetry Thoracic back pain Impacted cerumen of left ear Dizziness Perioral numbness Left flank pain Lesion of left creek kidney Hip pain, left Viral syndrome Conjunctivitis, left eye Lymphadenopathy, anterior cervical Hypercholesterolemia 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 Mixed incontinence Obesity (BMI 30-39.9) Nasal congestion Allergic rhinitis Patent foramen ovale Peptic ulcer disease Insomnia Asthma GERD (gastroesophageal reflux disease) Leukemia Surgical History History of Jackson colposuspension Hx of colonoscopy Hx of esophagogastroduodenoscopy Hx of colonoscopy History of bilateral salpingectomy Ulnar nerve entrapment at elbow History of tonsillectomy History of vaginal hysterectomy Family History Maternal Aunt Breast cancer Paternal Grandmother Breast cancer Paternal Grandfather Myocardial infarction, acute, initial episode of care Paternal Uncle Stomach cancer Liver cancer Pancreatic cancer Kidney cancer, primary, with metastasis from kidney to other site Father Colon cancer Social History Household Members: None Housing: Apartment Are you a primary patient care representative to a significant other at home: No Do you presently have visiting nurse or other home services: No Alcohol intake: never Patient Tobacco Use Status: Never used Tobacco Tobacco use type: Cigarette e-Cigarette/Vaping Use: Never Used Second Hand Smoke Exposure: No Advance Directives Date on File: 02/06/22 service: No Current occupational status: employed Current occupational exposures/hazards: No Cognitive needs: No Hearing needs: No Vision needs: Yes Questionnaire PHQ-9 Over the last 2 weeks, how often have you been bothered by any of the following problems? 1. Little interest or pleasure in doing things: several days 2. Feeling down, depressed, or hopeless: nearly every day 3. Trouble falling or staying asleep, or sleeping too much: nearly every day 4. Feeling tired or having little energy: nearly every day 5. Poor appetite or overeating: several days 6. Feeling bad about yourself - or that you are a failure or have let yourself or your family down: several days 7. Trouble concentrating on things, such as reading the newspaper or watching television: several days 8. Moving or speaking so slowly that other people could have noticed. Or the opposite - being so fidgety or restless that you have been moving around a lot more than usual: nearly every day 9. Thoughts that you would be better off or of hurting yourself in some way: not at all Total score: 16 Depression Screening Interpretation: Positive Depression Screening Follow-up: Existing condition and In treatment Depression Screening Done: Yes Source: Developed by Drs. Kar Rojo, Veena Nguyen, Musa Frye and colleagues, with an educational allen from [employer]. Thrive Questionnaire Date Thrive assessed: 12/22/24 I am a: Patient What is your living situation today?: I have a steady place to live Within the past 12 months, did the food you bought not last and you didn't have the money to get more?: Often true Within the past 12 months, did you worry whether your food would run out before you got money to buy more?: Often true Do you have trouble paying for medicines?: No Do you have trouble getting transportation to medical appointments?: No Do you have trouble paying your heating and electricity bill?: No Do you have trouble taking care of your child, family member or friend?: I choose not to answer this question Do you have trouble with day-to-day activities such as bathing, preparing meals, shopping, managing finances, etc.?: No Are you currently unemployed and looking for a job?: No Are you interested in more education?: Yes Please select the resources that you would like help with: None Currently or been in a relationship where the following occur: No concerns reported THRIVE Score: 2 AUDIT C Alcohol Use Questionnaire (AUDIT-C) 1. How often do you have a drink containing alcohol?: Never 3. How often do you have six or more drinks on one occasion?: Never Total Score: 0 MERARY-7 AMB Questionnaire MERARY-7 Date MERARY - 7 assessed: 12/22/24 Feeling nervous, anxious, or on edge: 1 = Several days Not being able to stop or control worryin = Not at all Worrying too much about different things: 1 = Several days Trouble relaxin = Several days Being so restless that it is hard to sit still: 1 = Several days Becoming easily annoyed or irritable: 0 = Not at all Feeling afraid as if something awful might happen: 0 = Not at all Total MERARY-7 score (0-4 normal; 5-9 mild; 10-14 moderate; 15-21 severe): 4 Source: Developed by Drs. Kar Rojo, Veena Nguyen, Musa Frye and colleagues, with an educational allen from [employer]. Physical exam (Primary Care) Vital Signs: Last Vital Signs Pulse 104 H 12/22/24 14:45 BP 110/70 12/22/24 14:45 Pulse Ox 98 12/22/24 14:45 Oxygen Delivery Method Room Air 12/22/24 14:45 BMI result Body Mass Index 37.1 Tobacco/Smoking Status: Tobacco use Status Tobacco use date assessed 12/22/24 12/22/24 14:47 Patient Tobacco Use Status Never used Tobacco 12/22/24 14:47 Tobacco use type Cigarette 12/22/24 14:47 e-Cigarette/Vaping Use Never Used 12/22/24 14:47 PHQ-9: PHQ-9 Score PHQ-9: Total score 16 12/22/24 14:47 Depression Screening Interpretation: Positive Depression Screening Follow-up: Existing condition and In treatment Thrive Assessment: Date of Thrive Assessment Date Thrive assessed 12/22/24 12/22/24 14:47 Currently or been in a relationship where the following occur: No concerns reported Const General: alert; No acute distress Eyes Conjunctivae: conjunctivae normal Resp Auscultation: clear to auscultation bilaterally Cardio Rate: regular rate Rhythm: regular rhythm GI Inspection: Yes normal to inspection Extrem General: Yes normal to inspection and No edema Coding Level of Care Code Est Pt Level 4 (26681) Complex EM visit Add On G2211 Diagnoses Gastroesophageal reflux disease without esophagitis K21.9 Esophagitis presence: without esophagitis Schatzki's ring K22.2 Constipation K59.00 Generalized anxiety disorder F41.1 Impaired fasting glucose R73.01 Chest pain R07.9 Assessment & Plan Assessment & Plan (1) GERD (gastroesophageal reflux disease): Comment: PPI is interfere with chemos- only take pepcid 40 - will try at noc- discuss with MD Code(s): K21.9 - Gastro-esophageal reflux disease without esophagitis Category: Medical Qualifiers: Esophagitis presence: without esophagitis Qualified Code(s): K21.9 - Gastro-esophageal reflux disease without esophagitis Plan: Avoid the foods that causes that usually spicy foods, tomato products, juices, coffee, soda and foods that your sensitive to. After eating do not lie down, allow 3-4 hours before in lie down. And keep the head of bed above 30 degrees to avoid the acid from going up. (2) Schatzki's ring: Code(s): K22.2 - Esophageal obstruction Category: Medical Plan: Patient had a recent EGD with dilatation (3) Constipation: Code(s): K59.00 - Constipation, unspecified Category: Medical Plan: Three rules for constipation 1. Diet need to have a high fiber diet less of meat 2. Increase oral fluids 3. Exercise (4) Generalized anxiety disorder: Comment: [place] counselling. Code(s): F41.1 - Generalized anxiety disorder Category: Medical Plan: Continue with counseling and therapy (5) Impaired fasting glucose: Code(s): R73.01 - Impaired fasting glucose Category: Medical Plan: Decrease the amount of carbohydrate intake, pasta, bread, rice and potatoes are all sugar and that is aside from all the sweet stuff, remember that fruits are good but they are Sweet also. (6) Chest pain: Code(s): R07.9 - Chest pain, unspecified Category: Medical Plan History of Present Illness The patient is a 49-year-old female presenting with left breast pain and chest pain. She was last seen by the physician on October 29 for these symptoms. The patient has a history of chronic myelocytic leukemia and is currently on Gleevec, continuing with this treatment as seen in August 2024. She follows up with hematology oncology regularly. The patient has a history of gastroesophageal reflux disease (GERD) and was advised to continue with proton pump inhibitors (PPI). An esophagogastroduodenoscopy (EGD) on November 27, 2024, showed Schatzki's ring and esophagitis, and a hiatal hernia was noted. She has a history of asthma and uses an inhaler regularly. The patient reports using albuterol every four hours and has tried other inhalers like Wixela, which caused palpitations. The patient has generalized anxiety disorder and impaired glucose tolerance. She has been advised to continue with counseling and therapy. The patient experienced chest pain and palpitations, leading to a diagnosis of costochondritis. A chest x-ray showed no congestive heart failure or consolidation. The patient had hematuria and underwent a cystoscopy, which was negative. She also had a CT scan of the abdomen showing diverticulosis and a complex right adnexal cyst. The patient reports dry eye syndrome and mild anemia with a hemoglobin level of 11.7 g/dL. Health Maintenance - Colon cancer screening is up to date as of August 2021. - Mammogram is due in 2023. Social History Review of Systems - Cardiovascular: Reports chest pain and palpitations. Denies congestive heart failure. - Respiratory: Reports dyspnea. Denies wheezing. - Gastrointestinal: Reports left breast pain. Denies gastrointestinal bleeding. - Neurological: Reports fatigue. Denies dizziness. Physical Exam - Respiratory: Lungs clear to auscultation bilaterally. Results - Labs: Mild anemia with hemoglobin level of 11.7 g/dL. - Imaging: Chest x-ray showed no congestive heart failure or consolidation. - Imaging: CT scan of the abdomen showed diverticulosis and a complex right adnexal cyst. - Procedure: Cystoscopy was negative for hematuria. Plan The patient will continue with Gleevec for chronic myelocytic leukemia and follow up with hematology oncology as scheduled. For GERD, the patient is advised to continue with proton pump inhibitors and monitor symptoms. Asthma management includes regular use of albuterol and avoiding inhalers that cause palpitations. The patient is encouraged to continue counseling and therapy for generalized anxiety disorder. A stress test is recommended to evaluate the cause of chest pain and palpitations. The patient is advised to continue monitoring for any changes in symptoms and report them promptly. For weight management, the patient is considering weekly injections, pending insurance approval. Patient was informed and verbally consented to the use of an ambient scribe for clinic note documentation during this visit. Discussion Notes I discussed with the patient the continuation of Gleevec for chronic myelocytic leukemia and the importance of regular follow-ups with hematology oncology. We reviewed the management of GERD with proton pump inhibitors and the need to monitor symptoms. Asthma management was addressed, emphasizing the use of albuterol and avoiding inhalers that cause palpitations. I encouraged the patient to continue counseling and therapy for generalized anxiety disorder. We discussed the recommendation for a stress test to evaluate chest pain and palpitations. The patient was advised to monitor symptoms and report any changes. For weight management, we considered weekly injections, pending insurance approval, and discussed the potential benefits and limitations. Patient Instructions - Continue taking Gleevec as prescribed and attend regular follow-ups with your oncologist. - Take your proton pump inhibitors daily for GERD and monitor for any changes in symptoms. - Use your albuterol inhaler every four hours as needed and avoid inhalers that cause palpitations. - Continue with counseling and therapy sessions for anxiety management. - Schedule and complete the recommended stress test to evaluate chest pain. - Monitor your symptoms and report any changes to your healthcare provider. - Consider weekly injections for weight management, pending insurance approval. Orders: Orders CA stress test Today R07.9 - Chest pain, unspecified Medications: New tirzepatide (weight loss) (Zepbound) for 4 weeks 2.5 mg (0.5 mL) subcut QWEEK 2 mL 1RF E66.9 - Obesity, unspecified
--- OUTSIDE RECORDS SUMMARY | 2024-12-22 17:56 | XMS_ITS | Encounter Summary ---
Author Organization [facility] Address [address] [place] [address] Care Team Providers Care Event Av Operator Name Role Phone Josef Lindquist MD Primary Care Provider [phone] Encounter Details Date Type Department Care Team (Late st Contact Info) Description 11/17/2024 Lab Requisition [facility] - Main Lab [address] [facility] [place] [id number] Robert Olivarez MD [address] [facility] [address] [place] [id number] Gross hematuria Social History Tobacco Use Types Packs/Day Years Used Date Smoking Tobacco: Never Assessed Comments Unknown Sex and Gender Information Value Date Recorded Sex Assigned at Female 09/14/2024 5:11 PM EDT Legal Sex Female 1:40 PM EST Gender Identity Female 09/14/2024 5:11 PM EDT Sexual Orientation Straight 09/14/2024 5: 11 PM EDT documented as of this encounter Plan of Treatment Not on file documented as of this encounter Procedures Procedure Name Priority Date/Time Associated Diagnosis Comments AP OUTSIDE CONSULT Routine 11/13/2024 12 :00 AM EDT Gross hematuria documented in this encounter Results * Anatomic pathology outside consult (11/13/2024 12:00 AM EDT) Final Diagnosis A. Urine, Voided, ([id number]): Negative for high grade urothelial carcinoma. 11/25/2024 10:[address] [facility] Clinical Information Gross hematuria R31.0 Urine cytology with reflex [facility] ([facility]) 11/25/2024 10:35 AM EDT [facility] Gross Description A. Urine, Voided, [id number]: Received one ThinPrep slide for cytology. 11/25/2024 10:35 AM EDT [facility] Disclaimer Unless otherwise specified, all tissue is 10% NB formalin fixed and paraffin embedded. Technical pathology services provided by [facility] at [address] [place] [address] (CLIA #[id number]/S aroldo Early MD, Bible Teacher) 11/25/2024 10:35 AM EDT [facility] Tissue Urine specimen from urethra / Unknown 11/13/2024 11/17/2024 11:16 AM EDT us Robert Olivarez MD LAB PATHOLOGY ORDERABLES Final Result [facility] [address] [place] [address], documented in this encounter Visit Diagnoses Diagnosis Gross hematuria documented in this encounter Care Teams Event Av Operator Relationship Specialty Start Date End Date Josef Lindquist MD [address] [place] [address] Dr [address] [facility] [place] [address] PCP - General Internal Medicine 05/14/17 documented as of this encounter
== END 2024-12-22 15:18 | disposition home or self-care (01) ==
LOC: HO.HMCH 14:45
PROVIDERS: PCP Internal Medicine; Visit Provider Internal Medicine
DX: K21.9 Gastro-esophageal reflux disease without esophagitis (principal); K22.2 Esophageal obstruction; K59.00 Constipation, unspecified; F41.1 Generalized anxiety disorder; R73.01 Impaired fasting glucose; R07.9 Chest pain, unspecified

== ENCOUNTER → 2024-12-22 14:44 | Outpatient (BNVA) | payer OTHER, SELFPAY | PROVIDERS: PCP Internal Medicine; Visit Provider Internal Medicine | DX: R10.32 Left lower quadrant pain (principal); K21.9 Gastro-esophageal reflux disease without esophagitis; K22.2 Esophageal obstruction; K59.00 Constipation, unspecified; F41.1 Generalized anxiety disorder; R73.01 Impaired fasting glucose; R07.9 Chest pain, unspecified; E66.9 Obesity, unspecified; Z68.37 Body mass index [BMI] 37.0-37.9, adult; Z79.899 Other long term (current) drug therapy | CPT/HCPCS: 96127; 99212 ==

== ENCOUNTER 2025-01-03 14:05 | Emergency (ER) | payer OTHER, SELFPAY ==
--- NOTE | ~2025-01-03 | XR_ITS ---
CLINICAL HISTORY: chest pain 2 view chest x-ray Comparison: CR/SR - XR CHEST 2V - 06/22/24 14:04 EST Findings: No consolidation, pleural effusion or pneumothorax. Normal size heart. No acute fracture. IMPRESSION: No acute cardiopulmonary process. This document has been electronically signed by: Meghan Barrera DO on 01/03/2025 15:16:15
--- NOTE | 2025-01-03 14:08 | ED.GENADULT ---
HPI - General Adult General Chief complaint: Dyspnea Stated complaint: sob Time Seen by Provider: 01/03/25 16:17 History of Present Illness ED Provider: Emre Fisher MD HPI narrative: This is a pleasant 49-year-old female with documented history of hematologic malignancy in the past seems stable, reporting mild shortness of breath over the past few weeks to me she says she has a vague central chest tightness for 2-3 days pretty constant worse at night. No hemoptysis somewhat increasing dyspnea on exertion but no distress or wheezing. Denies leg swelling history of DVT or PE she does however report that she at some point had a superficial vein thrombosis in the arm from an IV catheter. Related Data Home Medications ?Medication ?Instructions ?Recorded ?Confirmed sertraline 100 mg tablet 100 mg PO DAILY 04/07/20 12/22/24 zolpidem 10 mg tablet (Ambien) 10 mg PO BEDTIME PRN Insomnia 04/07/20 12/22/24 estradiol 0.01% (0.1 mg/gram) vaginal 11/13/24 12/22/24 vaginal cream Previous Rx's ?Medication ?Instructions ?Recorded fexofenadine 180 mg tablet 180 mg PO DAILY #30 tabs 09/06/23 (Jannie Allergy) promethazine 25 mg tablet 25 mg PO TID PRN nausea and 03/06/24 vomiting #20 tabs epinephrine 0.3 mg/0.3 mL 0.3 mg (0.3 mL) IM Q4H PRN 10/29/24 injection, auto-injector (EpiPen anaphylaxis #2 ea 2-Holland) umeclidinium 62.5 mcg/actuation 1 inh inhalation BEDTIME #30 ea 10/29/24 blister powder for inhalation (Incruse Ellipta) ondansetron 8 mg disintegrating 8 mg PO Q8H PRN Nausea And 11/09/24 tablet Vomiting #30 tabs montelukast 10 mg tablet 10 mg PO BEDTIME #90 tabs 11/13/24 (Singulair) omeprazole 20 mg capsule,delayed 20 mg PO BEDTIME 90 days #90 caps 11/13/24 release sennosides 8.6 mg-docusate sodium 2 tab-cap (2 x 8.6-50 mg) PO 11/13/24 50 mg tablet (Senna-S) BEDTIME 90 days #180 tabs imatinib 400 mg tablet (Gleevec) 400 mg PO DAILY #30 tabs 11/26/24 tirzepatide (weight loss) 2.5 2.5 mg (0.5 mL) subcut QWEEK #2 mL 12/22/24 mg/0.5 mL subcutaneous pen injector (Zepbound) sucralfate 100 mg/mL oral See Rx Instructions .Route 12/24/24 suspension .COMPLEX #1,000 mL Allergies Allergy/AdvReac Type Severity Reaction Status Date / Time nut - unspecified (nut) Allergy Severe Anaphylaxis Verified 01/03/25 14:11 Penicillins Allergy Severe RASH Verified 01/03/25 14:11 seafood Allergy Severe Anaphylaxis Verified 01/03/25 14:11 shellfish derived Allergy Severe Anaphylaxis Verified 01/03/25 14:11 Wixela Inhub AdvReac Intermediate palpitation Uncoded 12/22/24 14:46 s PMFSH Past Medical History Medical History (Updated 01/04/25 @ 00:00 by Fernando Magaña) Constipation Hematuria LLQ abdominal pain Hypokalemia Lower extremity weakness CML (chronic myelocytic leukemia) Laryngospasm CLL (chronic lymphocytic leukemia) PONV (postoperative nausea and vomiting) Nausea & vomiting Dysuria Abdominal pain Pelvic pain Frequency of micturition Breast asymmetry Thoracic back pain Impacted cerumen of left ear Dizziness Perioral numbness Left flank pain Lesion of left algaaciq kidney Hip pain, left Viral syndrome Conjunctivitis, left eye Lymphadenopathy, anterior cervical Hypercholesterolemia 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 Mixed incontinence Obesity (BMI 30-39.9) Nasal congestion Allergic rhinitis Patent foramen ovale Peptic ulcer disease Insomnia Asthma GERD (gastroesophageal reflux disease) Leukemia Surgical History History of Jackson colposuspension Hx of colonoscopy Hx of esophagogastroduodenoscopy Hx of colonoscopy History of bilateral salpingectomy Ulnar nerve entrapment at elbow History of tonsillectomy History of vaginal hysterectomy Family History Family History Maternal Aunt Breast cancer Paternal Grandmother Breast cancer Paternal Grandfather Myocardial infarction, acute, initial episode of care Paternal Uncle Stomach cancer Liver cancer Pancreatic cancer Kidney cancer, primary, with metastasis from kidney to other site Father Colon cancer Social History Social History Household Members: None Housing: Apartment Are you a primary patient care nursing assistant to a significant other at home: No Do you presently have visiting nurse or other home services: No Alcohol intake: never Patient Tobacco Use Status: Never used Tobacco Tobacco use type: Cigarette Smoked in Last 30 Days: No e-Cigarette/Vaping Use: Never Used Second Hand Smoke Exposure: No Use of substances other than those prescribed or required for medical reasons: No Advance Directives: Yes Advance Directives Information Provided: Yes Advance Directives on File: No Advance Directives Date on File: 02/06/22 Do you have a plan to hurt others: No Plan service: No Current occupational status: employed Current occupational exposures/hazards: No Cognitive needs: No Hearing needs: No Vision needs: Yes Physical Exam ED Vital Signs: Vital Signs - 24 hr 01/03/25 16:28 01/03/25 16:28 01/03/25 16:31 Temperature 97.8 F Pulse Rate 80 81 Respiratory Rate 16 Blood Pressure 171/126 H 156/85 H Pulse Oximetry 99 Oxygen Delivery Method Room Air 01/03/25 16:41 01/03/25 17:17 01/03/25 17:49 Temperature 96.8 F Pulse Rate 80 63 61 Respiratory Rate 18 Blood Pressure 147/85 H 138/72 138/82 Pulse Oximetry 92 Oxygen Delivery Method Room Air BMI result Body Mass Index 29.2 Const Other: EXAM: Gen: Alert, awake, well appearing, well hydrated. Head: Atraumatic Eyes: Anicteric, Normal conjunctiva. ENT: Moist mucosa, no pallor. ? Neck: Supple. Skin: ?No observable rash or bruising on exposed or examined skin Respiratory: Breathing comfortably, No distress.Clear to auscultation bilaterally, symmetric chest expansion, No wheeze, rales, ronchi. Cardiovascular: Regular rate and rhythm. No murmurs or rub. Well perfused periphery, warm extremities. No edema. ?Tenderness along the chest wall especially the lower left parasternal border and inframammary. No bruising no rash or vesicles Abdominal: No focal tenderness. Soft, no objective distension. No palpable masses or obvious organomegaly. ?No guarding, no rebound tenderness or other peritoneal findings. : No flank tenderness. Neuro: Alert. Gross movement of all extremities intact. ? Psych: Calm. Cooperative. MSK: No grossly visible deformity. Vital signs: See flowsheet Course Course Course Narrative: This is a rapid medical exam performed by Arnold Clark NP: Additional HPI, ROS, PE not included below will be deferred to primary provider. Patient is a 49-year-old female with history of asthma, GERD, CML presenting to the ED with complaint of shortness of breath and chest pain for 3 weeks. Describes pain as pinching/burning, worse with exertion. Plan: EKG, labs, CXR, viral panel Medications Administered Discontinued Medications Generic Name Dose Route Start Last Admin Trade Name Freq PRN Reason Stop Dose Admin Ibuprofen 600 mg 01/03/25 16:31 01/03/25 16:41 Ibuprofen 600 Mg Tablet PO 01/03/25 16:32 600 mg ONCE ONE Administration Metoprolol Tartrate 25 mg 01/03/25 16:31 01/03/25 16:41 Metoprolol Tartrate 25 Mg Tablet PO 01/03/25 16:32 25 mg ONCE ONE Administration Protocol Medical Decision Making Medical Decision Making MDM Narrative: Medical Decision Making: [age] female with atypical chest discomfort greater than 48 hours some worsening with positional changes. Reassuring ECG. Troponin negative. D-dimer negative. Awake alert well-appearing vital signs stable she did have 1 elevated blood pressure but on repeat without treatment this resolved. She has chest wall tenderness this may be musculoskeletal. There was no infiltrates or effusion or pneumothorax on chest x-ray. Preliminary Favored Differential Diagnosis: Musculoskeletal pain, pleuritis, pericarditis, less likely ACS or PE. No characteristics history or risks to suggest aortic dissection among additional considered etiologies Testing Interpreted Independently: ECG: Sinus rhythm no acute ischemic changes normal intervals and axis Radiology or Lab testing Results Reviewed: Trop, dimer, x-ray reading by Radiology reviewed without actionable findings Consults: Not Applicable Independent Historians/External Chart Reviews: Not Applicable Social Determinants of Health Impacting MDM/Planning: Not Applicable Lab Data 01/03/25 14:29 01/03/25 14:29 Labs: Lab Results 01/03/25 01/03/25 Range/Units 14:29 16:49 WBC 7.2 (4.8-10.8) X10*3/uL RBC 4.01 L (4.20-5.50) X10*6/uL Hgb 12.3 (12.0-16.0) g/dl Hct 35.9 L (37.0-47.0) % MCV 89.5 (80.0-98.0) fL MCH 30.7 (27.0-33.0) pg MCHC 34.3 (31.0-35.0) g/dl RDW 11.7 (11.0-16.0) % Plt Count 233 (160-400) X10*3/uL MPV 9.8 (9.4-12.3) fL Immature Gran % (Auto) 0.1 (0.0-0.4) % Neut % (Auto) 57.0 (45-73) % Lymph % (Auto) 34.0 (20-40) % [place] % (Auto) 6.8 (2-11) % Eos % (Auto) 1.3 (0-4) % Baso % (Auto) 0.8 (0-2) % Lymph # (Auto) 2.4 (1.2-4.9) X10*3/uL [place] # (Auto) 0.5 (0.1-1.2) X10*3/uL Eos # (Auto) 0.1 (0.0-0.4) X10*3/uL Baso # (Auto) 0.1 (0.0-0.2) X10*3/uL Abs Immat Gran (auto) 0.01 (0.00-0.03) X10*3/uL Absolute Neuts (auto) 4.1 (2.0-8.3) x10*3/uL Absolute Nucleated RBC 0.000 (0.0-0.012) X10*3/uL Nucleated RBC % (auto) 0.0 (0.0-0.2) /100WBC PT 11.1 (10.9-12.4) SEC INR 1.0 (0.9-1.1) D-Dimer High Sensitivty 228 NG/ML Sodium 139 (135-145) mmol/L Potassium 3.5 (3.3-5.1) mmol/L Chloride 105 (96-108) mmol/L Carbon Dioxide 24 (22-29) mmol/L Anion Gap 14 (12-20) BUN 8 L (9-16) mg/dL Creatinine 0.57 (0.5-1.4) mg/dL Estim Creat Clear Calc 118.7 Estimated GFR > 60 Random Glucose 118 H (60-115) mg/dL Calcium 9.0 (8.4-10.2) mg/dL Total Bilirubin 0.3 (0.0-1.0) mg/dL AST 26 (5-31) U/L ALT 14 (0-31) U/L Alkaline Phosphatase 77 (39-117) U/L Troponin I High Sens < 2.7 < 2.7 (<3.5-17.0) ng/L Total Protein 7.2 (6.5-8.0) g/dL Albumin 4.1 (3.5-5.0) g/dL Influenza Type A (PCR) NEGATIVE (Negative) Influenza Type B (PCR) NEGATIVE (Negative) RSV RNA Qual (PCR) NEGATIVE (Negative) SARS-CoV-2 RNA (RT-PCR) NEGATIVE (Negative) Discharge Plan Discharge Clinical Impression: Chest pain Patient Disposition: Home, Self-Care Instructions: Chest Pain (DC), Chest Wall Pain (ED) Additional Instructions: DISCHARGE DIAGNOSES: Chest pain unclear cause possibly musculoskeletal needs further workup outpatient HISTORY OF PRESENTATION: ?Chest pain along the left sternal border EMERGENCY DEPARTMENT COURSE,TESTS, TREATMENTS: While in the ED today reassuring lab work including negative blood clot test, and negative cardiac enzyme test for heart attack, reassuring EKG and chest x-ray. DISCHARGE MEDICATIONS: ?[We have made no changes to your regular medication regimen] FOLLOW-UP: ?Call your primary or general physician soon as possible to discuss your symptoms, your ED visit and to discuss follow up plans Call your primary doctor tomorrow 1st thing to discuss your symptoms and outpatient follow up INSTRUCTIONS ?& RETURN PRECAUTIONS: If any symptoms change first call your primary physician, if it is after-hours your primary doctors office should have a provider information strategist you can speak with. If the symptoms are severe or very concerning to you then call 911 or return to the ED. Emre Fisher MD Emergency Physician [facility] Prescriptions: No Action fexofenadine [Jannie Allergy] 180 mg tablet 180 mg PO DAILY Qty: 30 3RF montelukast [Singulair] 10 mg tablet 10 mg PO BEDTIME Qty: 90 0RF sennosides-docusate sodium [Senna-S] 8.6-50 mg tablet 2 tab-cap PO BEDTIME 90 Days Qty: 180 2RF sucralfate 100 mg/mL suspension See Rx Instructions .ROUTE .COMPLEX Qty: 1000 1RF Dose Instruction: TAKE 2 TEASPOONSFUL (10 ML) BY MOUTH 4 TIMES A DAY BEFORE MEAL/BED Rx Instructions: TAKE 2 TEASPOONSFUL (10 ML) BY MOUTH 4 TIMES A DAY BEFORE MEAL/BED ondansetron 8 mg Tablet,Disintegrating 8 mg PO Q8H PRN (Reason: Nausea And Vomiting) Qty: 30 2RF imatinib [Gleevec] 400 mg Tablet 400 mg PO DAILY Qty: 30 0RF sertraline 100 mg tablet 100 mg PO DAILY zolpidem [Ambien] 10 mg tablet 10 mg PO BEDTIME PRN (Reason: Insomnia) promethazine 25 mg tablet 25 mg PO TID PRN (Reason: nausea and vomiting) Qty: 20 0RF estradiol 0.01 % (0.1 mg/gram) cream vaginal omeprazole 20 mg capsule,delayed release(DR/EC) 20 mg PO BEDTIME 90 Days Qty: 90 1RF Rx Instructions: do not take within 12h of dosatinib Zepbound 2.5 mg/0.5 mL pen injector 2.5 mg subcut QWEEK Qty: 2 1RF Rx Instructions: for 4 weeks epinephrine [EpiPen 2-Holland] 0.3 mg/0.3 mL auto-injector 0.3 mg IM Q4H PRN (Reason: anaphylaxis) Qty: 2 0RF Incruse Ellipta 62.5 mcg/actuation blister with device 1 inh inhalation BEDTIME Qty: 30 4RF Interventions: ED Discharge Assessment Last Done: 01/03/25 17:49 Discharge Date/Time: 01/03/25 17:52 Print Language: Occitan
[2025-01-03 14:10] VITALS: BP 138/88; PULSE 69; RESP 16; TEMP 36.3; O2SAT 97; BMI 29.2
--- NOTE | 2025-01-03 14:12 | ECG_ITS ---
Test Reason : CP Blood Pressure : */* mmHG Vent. Rate : 74 BPM Atrial Rate : 74 BPM P-R Int : 154 ms QRS Dur : 80 ms QT Int : 396 ms P-R-T Axes : 46 -13 6 degrees QTcB Int : 439 ms Normal sinus rhythm Minimal voltage criteria for LVH, may be normal variant ( R in aVL ) Borderline ECG When compared with ECG of 13-Dec-2021 16:08, Nonspecific T wave abnormality no longer evident in Anterior leads Referred By: Alisia Clark Electronically Signed By: Golden Domínguez
--- OUTSIDE RECORDS SUMMARY | 2025-01-03 14:29 | XMS_ITS | Clinical Summary ---
Author Organization [facility] Address [address] [place] [address] Care Team Providers Care Telephone Exchange Operator Name Role Phone Josef Lindquist MD Primary Care Provider [phone] Allergies Active Allergy Reactions Criticality Noted Date [...] Smear) 10/17/1995 Colon Cancer Screening (Colonoscopy) 10/17/2019 Breast Cancer Screening (Mammogram) 2024 Influenza Vaccine (Season Ended) 2025 RSV Ped < 20 months Aged Out No longe r eligible based on patient's age to complete this topic Care Teams Telephone Exchange Operator Relationship Specialty Start Date End Date Josef Lindquist MD [address] [place] [address] [address] [facility] [place] [address] PCP - General Internal Medicine 02/14/17
--- OUTSIDE RECORDS SUMMARY | 2025-01-03 14:29 | XMS_ITS | Patient Health Record ---
Author Organization [facility] Address [address] [place] [address] Care Team Providers Care Sock Folder Name Role Phone Viky Baca MD Primary Care Provider Kar Marley Unavailable [phone] Allergies Allergen (clinical drug ingredient) Drug/Non Drug Allergy documented on EMR Reaction Allergy Type Onset Date Status Penicillin Unknown Drug Allergy Active Reason For Referral No Information Medications Medication SIG (Take, Route, Fr equency, Duration) Notes Start Date End Date Status MiraLax 1 1 capful in 8 ounces of water Orally QD-BID for constipation for 30 days 05/04/2015 Active Omeprazole 20 MG 1 capsule Orally Onc e a day for 30 day(s) 05/04/2015 Active Zolpidem Tartrate 10 MG (Schedule IV Alfredito g) TAKE 1 TABLET BY MOUTH DAILY AT BEDTIME NEEDED FOR SLEEP Oral for 30 Active Ambien 10 MG 1 tablet at bedtime as needed Orally Once a day Active Tylenol 325 MG 1 tablet as needed O rally every 6 hrs/prn Active Immunizations Vaccine Route Administration Date Status Comme nts Flu vaccine no Preserv 3 and > Unknown 05/03/2015 Admin istered Problems Problem Type SNOMED Code ICD Code Onset Dates Problem Status W/U Status Risk Notes Problem 29188895 Slow transit constipation (K59.01) Active confirmed Problem 66573416 Hiatal hernia (K44.9) Active confirmed Problem 905400366 GERD with esophagitis (K21.0) Active confirmed Plan Of Treatment No Information Insurance Providers Payer Name Payer Address Payer Phone Subscriber Number Group Number Insured Name Patient Relationship to Insured Coverage Start Date Coverage End Date MEDICARE OF [place] [address] [place] [address] [id number] CLASS, VISH Self - patient is the insured MEDICAID OF [employer] [facility] [address] [place] [phone] [id number] CLASS, VISH Self - patient is the insured Medical (General) History Medical History History ICD Code Upper endoscopies in 2008 and in 2003 wi th ne--small HH, no esophagitis EGD [place] [address] Lees- -mild esophagitis--H.pylori was negative, Hiatal hernia GERD Depression Takes antibiotics prophylaxis for a hol e in her heart. Denies OR,DM,CVA,Lung disease,renal dise ase Surgical History Surgery Date(Month/Year) BTL She describes a laparotomy f or internal bleeding with Dr. Camacho(AUTOMOTIVE PRODUCT SPECIALIST) Hysterectomy Foot surgery Elbow surgery
--- OUTSIDE RECORDS SUMMARY | 2025-01-03 14:29 | XMS_ITS | Data Portability ---
Author Organization [facility] Address [address] [place] [phone] Care Team Providers Care Websphere Architect Name Role Phone HIM CCA OTHER Assessment Encounter Date Assessment Date Assessment LastModified by Organization Details LastModified Time 01/22/2024 01/22/2024 I provided real -time medical direction via phone for this encounter, and was available for additional phone based assistance as needed. I have reviewed and agree with the Assessment and Plan as documented by the Manager Perioperative. We discussed the diagnostic uncertainty of home [...] to call 911- verbalized understanding of instruction [email or web address] Not available 01/22/2024 14:46:53 Plan of Treatment Reminders Order Date Submit Date Provider Last Modified By Organization Details Last Modified Time Details Appointments None recorded. Lab BMP, serum or plasma 2023 024 [email or web address] 0 [facility], [address] [place] [address], [id number] 14:45:59 Referral None recorded. Procedures None recorded. [...] Not available Not available Not available 01/22/2024 [id number] SNOMED Not Available [facility] - production 4 03:35:25 Medications Name Sig Start Date Stop Date Status Note LastModified by Organization Details LastModified Time Nasal Placida (oxymetazoli ne) 0.05 % SPRAY 2 SPRAYS [...] Available No t Available Vitals Date Recorded Body weight Provider Name an d Address Organization Details Last Updated DateTime 01/22/2024 88564.63 g Geetha Portillo [address] [place] [address], [place], [phone], [place] - [place] 01/22/2024 14:37:49 Date Recorded Heart rate Oxygen saturation Oxygen saturation in Arterial blood by Pulse oximetry Respiratory rate Body temperature Systolic And Diastolic Provider Name and Address Organization Details Last Updated DateTime 4 90 /min 99 % 99 % 16 /min 98.8 [degF] 122/86 mm[Hg] Not Available [facility] - production 4 14:21:49 Social History None recorded. Functional Status None recorded. Mental Status None recorded. Family History Nothing Reported. Medical History No medical history recorded. Gynecological HistoryNo gynecological history recorded. Obstetrics History GPAL:G 0 P 0 0 0 0 Past Encounters Encounter ID Performer Location Encounter Start Date Encounter Closed Date Diagnosis/Indication Diagnosis SNOMED-CT Code Diagnosis ICD10 Code Diagnosis Note [id number] Inez Ibarra MD [facility] [employer] [address] [place] [phone] 01/22/2024 14:21:47 01/22/2024 16:57:15 Bone pain 03350855 M89.8X9 Advised-no t take any oral NSAIDs [...] Degroot Member ID Guarantor Name 01/23/2024 1 [facility] - DOS ON OR AFTER 2022 - DUAL ELIGIBLE - [facility] OPTIONS AND ONE CARE (MEDICARE REPLACEMENT/ADV ANTAGE - HMO) Laureen Class [id number] Laureen Class Notes Date Note Type Note Provider Name and Address Organization Details Recorded Time 01/22/2024 text/html HPI: DEBBIE contacts [facility] directly to report that she is having severe bone pain, weakness, and nausea and [facility] DEBBIE is a 48 y/o female with a PMH of, but not limited to: leukemia (oral CA medication Sprycell 50mg daily), depression, panic attacks, GERD, chronic migraines, insomnia, and anxiety. DEBBIE reports that she was seen in the ED, on Saturday, January 21, for increased bone pain, urinary symptoms (negative work up), exhaustion, and headaches. DEBBIE states, they didn t do much and she was sent home with instructions to follow up with her PCP. DEBBIE contacted PCP and was told she could not be seen until March and was advised to visit UC for symptoms. DEBBIE currently reports worsening severe bone pain, to the point that she cannot focus and I barely have the energy to walk ; severe weakness; nausea without vomiting; and headaches. DEBBIE denies CP, SOB, fevers, abdominal pain, or any other symptoms. She reports that she has been on several different oral chemotherapy agents and was most recently prescribed Sprycell 50mg daily. She has been taking this for the past few months. DEBBIE is assured [facility] on her behalf. After confirming DEBBIE s address and phone number on file, DEBBIE is advised to call 911 for any new or worsening symptoms. She is also advised to outreach her oncologist to report her worsening symptoms. DEBBIE understands, appreciates the advice, and will do so. DEBBIE can be reached at [phone]. .................. .................. .................. .................. .................. .................. .................. ............... CRC Nurse Triage Notes (Edwin Chavez): Chief Complaints: Headache, Nausea/Vomiting, Pain, Weakness/Lethargy Allergies: Penicillin Other Allergies: Penicillin Comments: HPI reviewed. No further information needed to process visit.Patient will not be home until after 130pm per nut feeder- [place] SEGMD: Patient was seen at the [facility] on 01/11. She reports she was [...] or hematochezia or any history of CKD Manager Perioperative POC Test Results from [facility] - YANET iSTAT Chem8+ (1) [14:33] Na: 139 mEq/L K: 3.7 mEq/L Cl: 105 mEq/L iCa: 1.21 mmol/L TCO2: 24 mmol/L Glu: 117 mg/dL BUN: 9 mg/dL Crea: 0.5 mg/dL Hct: 39 % Hb: 13.3 g/dL A .................. .................. .................. .................. .................. .................. .................. ............... Manager Perioperative Note From [facility]: Dispatched to the [...] Butterfly R AC without issue). BMP-results attached. [facility] consulted. Pt given 30mg of IM (L deltoid) Ketorolac. Red flags discussed. Pt advised to call her oncologist and avoid any NSAIDs for at least 24 hours. ALL times are approx. .................. .................. .................. .................. .................. .................. .................. ............... Disposition: Fulfilled Inez Ibarra MD [address] [facility],[address], [place], [phone], [place] - [place] 01/22/2024 16:09:26 OBGyn Episode No OBEpisode recorded.
[2025-01-03 14:36] LABS: MANUAL DIFF FLAG NO
[2025-01-03 14:41] LABS: Hematocrit 35.9 % (37.0-47.0); Hemoglobin 12.3 g/dl (12.0-16.0); Imm Gran Abs Auto 0.01 X10*3/uL (0.00-0.03); Imm Gran Pct Auto 0.1 % (0.0-0.4); Lymphocytes Absolute Auto 2.4 X10*3/uL (1.2-4.9); Mean Corpuscular HGB Conc 34.3 g/dl (31.0-35.0); Mean Corpuscular Hemoglobin 30.7 pg (27.0-33.0); Mean Corpuscular Volume 89.5 fL (80.0-98.0); NRBC Abs Auto 0.000 X10*3/uL (0.0-0.012); NRBC Pct Auto 0.0 /100WBC (0.0-0.2); Platelet Count 233 X10*3/uL (160-400); Red Blood Count 4.01 X10*6/uL (4.20-5.50); White Blood Count 7.2 X10*3/uL (4.8-10.8)
[2025-01-03 14:45] LABS: INTERNATIONAL NORM RATIO 1.0 (0.9-1.1); Prothrombin Time 11.1 SEC (10.9-12.4)
[2025-01-03 15:01] LABS: Alanine Aminotransferase 14 U/L (0-31); Albumin Level 4.1 g/dL (3.5-5.0); Alkaline Phosphatase 77 U/L (39-117); Anion Gap 14 (12-20); Aspartate Amino Transferase 26 U/L (5-31); Blood Urea Nitrogen 8 mg/dL (9-16); Calcium 9.0 mg/dL (8.4-10.2); Carbon Dioxide 24 mmol/L (22-29); Chloride 105 mmol/L (96-108); Creatinine Clr Calc Pharmacy 118.7; Estimated Glomerular Filt Rate > 60; Potassium 3.5 mmol/L (3.3-5.1); Sodium 139 mmol/L (135-145); Total Protein 7.2 g/dL (6.5-8.0)
[2025-01-03 15:08] LABS: Troponin-I High Sensitivity < 2.7 ng/L (<3.5-17.0)
[2025-01-03 15:23] LABS: Resp Syncy Virus RNA Qual PCR NEGATIVE (Negative); SARS COV2 PCR INHOUSE NEGATIVE (Negative)
[2025-01-03 16:28] VITALS: BP 156/85; BP 171/126; PULSE 80
[2025-01-03 16:31] VITALS: PULSE 81; RESP 16; TEMP 36.6; O2SAT 99
[2025-01-03 16:41] VITALS: BP 147/85; PULSE 80
--- NOTE | 2025-01-03 16:46 | PC.NURSE ---
Pt to ED 17 from [facility], reports chest pain and increasing SOB x 3wk. Reports pain as 8/10 radiating to left back. A/O x 3, resting comfortably in stretcher. Placed on monitor, sinus rhythm. Labs collected and sent.
[2025-01-03 17:04] LABS: D Dimer High Sensitivity 228 NG/ML
[2025-01-03 17:15] LABS: Troponin-I High Sensitivity < 2.7 ng/L (<3.5-17.0)
[2025-01-03 17:17] VITALS: BP 138/72; PULSE 63
[2025-01-03 17:49] VITALS: BP 138/82; PULSE 61; RESP 18; TEMP 36; O2SAT 92
== END 2025-01-03 17:52 | disposition home or self-care (01) ==
PROVIDERS: Registered Nurse Emergency; Emergency Provider Emergency Medicine; PCP Internal Medicine
DX: R07.89 Other chest pain (principal); R06.02 Shortness of breath; Z79.899 Other long term (current) drug therapy; Z03.818 Encounter for observation for suspected exposure to other biological agents ruled out
CPT/HCPCS: 36415; 71046; 80053; 84484; 85025; 85379; 85610; 87637; 93005; 99283; 99285

== ENCOUNTER → 2025-01-03 14:12 | Outpatient (BNV) | payer OTHER, SELFPAY | PROVIDERS: PCP Internal Medicine; Visit Provider Radiology Diagnostic Radiology | DX: R07.9 Chest pain, unspecified (principal) | CPT/HCPCS: 71046 ==

== ENCOUNTER → 2025-01-03 14:12 | Outpatient (BNV) | payer OTHER, SELFPAY | PROVIDERS: Emergency Provider Emergency Medicine; PCP Internal Medicine; Visit Provider Internal Medicine Cardiovascular Disease | DX: R07.89 Other chest pain (principal) | CPT/HCPCS: 93010 ==

== ENCOUNTER 2025-01-15 16:18 | Outpatient (AMB) | payer OTHER, SELFPAY ==
--- OUTSIDE RECORDS SUMMARY | 2025-01-15 16:21 | XMS_ITS | Patient Health Record ---
Author Organization [facility] Address [address] [place] [address] Care Team Providers Care Retinal Surgeon Name Role Phone Viky Baca MD Primary Care Provider Kar Marley Unavailable [phone] Allergies Allergen (clinical drug ingredient) Drug/Non Drug [...] Problem Status W/U Status Risk Notes Problem 59427813 Slow transit constipation (K59.01) Active confirmed Problem 35960791 Hiatal hernia (K44.9) Active confirmed Problem [id number] GERD with esophagitis (K21.0) Active confirmed Plan Of Treatment No Information Insurance Providers Payer Name Payer Address Payer Phone Subscriber Number Group Number Insured Name Patient Relationship to Insured Coverage Start Date Coverage End Date [place] OF [place] [address] [place] [address] [id number] CLASS, IVSH Self - patient is the insured MEDICAID OF [place] [facility] [address] [place] [phone] [id number] CLASS, VISH Self - patient is the insured Medical (General) History Medical History History ICD Code Upper endoscopies in 2008 and in 2003 wi th mo--small HH, no esophagitis EGD [place] [address] Lees- -mild esophagitis--H.pylori was negative, Hiatal hernia GERD Depression Takes antibiotics prophylaxis for a hol e in her heart. Denies [place],DM,CVA,Lung disease,renal dise ase Surgical History Surgery Date(Month/Year) BTL She describes a laparotomy f or internal bleeding with Dr. Camacho(GREENSKEEPER LABORER) Hysterectomy Foot surgery Elbow surgery
--- OUTSIDE RECORDS SUMMARY | 2025-01-15 16:21 | XMS_ITS | Encounter Summary ---
Author Organization [facility] Address [address] [place] [address] Care Team Providers Care Kier Tender Name Role Phone Josef Lindquist MD Primary Care Provider [phone] Encounter Details Date Type Department Care Team (Late st Contact Info) Description 11/17/2024 Lab Requisition [facility] - Main Lab [address] [facility] [place] [phone] Robert Olivarez MD [address] [facility] [address] [place] [phone] Gross hematuria Social History Tobacco Use Types [...] AM EDT) Final Diagnosis A. Urine, Voided, ([id number]): Negative for high grade urothelial carcinoma. 11/25/2024 10:35 AM EDT [facility] HOSP[facility] LAB Clinical Information Gross hematuria R31.0 Urine cytology with reflex UroVysion ([facility]) 11/25/2024 10:35 AM EDT [facility] Gross Description A. Urine, Voided, [id number]: Received one ThinPrep slide for cytology. 11/25/2024 10:35 AM EDT [facility] Disclaimer Unless otherwise specified, all tissue is 10% NB formalin fixed and paraffin embedded. Technical pathology services provided by [facility] [address] [address] [place] [address] (CLIA #[id number]/S aroldo Early MD, Exceptional Needs Teacher) 11/25/2024 10:35 AM EDT [facility] Tissue Urine specimen from urethra / Unknown 11/13/2024 11/17/2024 11:16 AM EDT us Robert Olivarez MD LAB PATHOLOGY ORDERABLES Final Result [facility] [address] [place] [address], documented in this encounter Visit Diagnoses Diagnosis Gross hematuria documented in this encounter Care Teams Kier Tender Relationship Specialty Start Date End Date Josef Lindquist MD [address] [place] [address] Dr Byrne [address] [facility] [place] [address] PCP - General Internal Medicine 05/14/17 documented as of this encounter
--- OUTSIDE RECORDS SUMMARY | 2025-01-15 16:21 | XMS_ITS | Data Portability ---
Author Organization [facility], [facility] Address [address] [place] [address] Care Team Providers Care Reel Tender Name Role Phone HIM CCA OTHER Assessment Encounter Date Assessment Date Assessment LastModified by Organization Details LastModified Time 01/22/2024 01/22/2024 I provided real -time medical direction via phone for this encounter, and was available for additional phone based assistance as needed. I have reviewed and agree with the Assessment and Plan as documented by the Paper Carrier. We discussed the diagnostic uncertainty of home [...] to call 911- verbalized understanding of instruction Not available 01/22/2024 14:46:53 Plan of Treatment Reminders Order Date Submit Date Provider Last Modified By Organization Details Last Modified Time Details Appointments None recorded. Lab BMP, serum or plasma 2023 024 [email or web address] 0 [facility], [address] [place] [address], [id number] 14:45:59 Referral None recorded. Procedures None recorded. [...] Not available Not available Not available 01/22/2024 [id number] SNOMED Not Available [facility] - production 4 03:35:25 Medications Name Sig Start Date Stop Date Status Note LastModified by Organization Details LastModified Time Nasal Ruby (oxymetazoli ne) 0.05 % SPRAY 2 SPRAYS [...] Address Organization Details Last Updated DateTime 01/22/2024 06705.63 g Geetha Portillo [address] [place] [address], [place], [address], [place] - [place] 01/22/2024 14:37:49 Date Recorded Heart rate Oxygen [...] SNOMED-CT Code Diagnosis ICD10 Code Diagnosis Note 11354 Inez Ibarra MD Main - [employer] [address] [place] [phone] 01/22/2024 14:21:47 01/22/2024 16:57:15 Bone pain [id number] M89.8X9 Advised-no t take any oral NSAIDs [...] Degroot Member ID Guarantor Name 01/23/2024 1 [facility] - DOS ON OR AFTER 2022 - DUAL ELIGIBLE - NURSING HOME OPTIONS AND ONE CARE (MEDICARE REPLACEMENT/ADV ANTAGE - HMO) Laureen Class [id number] Laureen Class Notes Date Note Type Note Provider Name and Address Organization Details Recorded Time 01/22/2024 text/html HPI: DEBBIE contacts [facility] directly to report that she is having severe bone pain, weakness, and nausea and [facility] DEBBIE is a 48 y/o [...] months. DEBBIE is assured that [facility] will be [facility] on her behalf. After confirming DEBBIE s address and phone number on file, DEBBIE is advised to call 911 for any new or worsening symptoms. She is also advised to outreach her oncologist to report her worsening symptoms. DEBBIE understands, appreciates the advice, and will do so. DEBBIE can be reached at [phone]. .................. .................. .................. .................. .................. .................. .................. ............... CRC Nurse Triage Notes (Edwin Chavez): Chief Complaints: Headache, Nausea/Vomiting, Pain, Weakness/Lethargy Allergies: Penicillin Other Allergies: Penicillin Comments: HPI reviewed. 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 She reports she was [...] or hematochezia or any history of CKD Paper Carrier POC Test Results from [facility] - YANET iSTAT Chem8+ (1) [14:33] Na: 139 mEq/L K: 3.7 mEq/L Cl: 105 mEq/L iCa: 1.21 mmol/L TCO2: 24 mmol/L Glu: 117 mg/dL BUN: 9 mg/dL Crea: 0.5 mg/dL Hct: 39 % Hb: 13.3 g/dL A .................. .................. .................. .................. .................. .................. .................. ............... Paper Carrier Note From [facility]: Dispatched to the [...] ............... Disposition: Fulfilled Inez Ibarra MD [address] [facility], [place], [address], [place] [facility] [place] 01/22/2024 16:09:26 OBGyn Episode No OBEpisode recorded.
--- OUTSIDE RECORDS SUMMARY | 2025-01-15 16:21 | XMS_ITS | Clinical Summary ---
Author Organization [facility] Address [address] [place] [address] Care Team Providers Care Ordnance Engineering Technician Name Role Phone Josef Lindquist MD Primary Care Provider [phone] Allergies Active Allergy Reactions Criticality Noted Date [...] Breast Cancer Screening (Mammogram) 2024 Influenza Vaccine (#1) 2025 RSV Ped < 20 months Aged Out No longe r eligible based on patient's age to complete this topic Care Teams Ordnance Engineering Technician Relationship Specialty Start Date End Date Josef Lindquist MD [address] [place] [address] [address] [facility] [place] [address] PCP - General Internal Medicine 02/14/17
--- NOTE | 2025-01-15 16:33 | A.OFFPC_ITS ---
Vital Signs 3 01/15/25 16:35 Height 5 ft 1 in Weight 195 lb 6 oz BMI 36.9 BP 114/64 Blood Pressure Location Lt brachial Position Sitting Oxygen Delivery Method Room Air Intake Visit Reasons: [facility] 01/03 High BP/chest pain Truck Rental Manager Required: Yes Truck Rental Manager Language: Macedonian Accompanied by: Self / Same As Patient Allergies nut - unspecified (nut) Allergy (Severe, Verified 01/15/25 16:34) Anaphylaxis Penicillins Allergy (Severe, Verified 01/15/25 16:34) RASH seafood Allergy (Severe, Verified 01/15/25 16:34) Anaphylaxis shellfish derived Allergy (Severe, Verified 01/15/25 16:34) Anaphylaxis Wixela Inhub Adverse Reaction (Intermediate, Uncoded 12/22/24 14:46) palpitations Tobacco use date assessed: 01/15/25 Dental Screening Dental Screen Date: 01/15/25 Did you have a dental visit in the last 12 months?: Yes Did you have a dental problem in the last 6 months where you did not have access to dental care?: No Was dental information given to patient?: Patient has dentist HPI HPI Comments 2 History of Present Illness0 Details 49 y/o Female patient who presents to [facility] for EDF. Pt was admitted at [facility] on 01/03 for an evaluation and treatment of Chest Pains. Reports that pain is sharp/stubbing, intermittently and worse at night time. Pain located left upper chest wall. ECG negative, Troponin Negative and D-dimer Negative. Chest Xray negative for Pneumothorax or effusion. Patient does have chest wall tenderness, but denies SOB, or Wheezing. [facility] Medical History (Updated 01/15/25 @ 16:59 by Connie Ardon NP) Constipation Hematuria LLQ abdominal pain Hypokalemia Lower extremity weakness CML (chronic myelocytic leukemia) Laryngospasm CLL (chronic lymphocytic leukemia) PONV (postoperative nausea and vomiting) Nausea & vomiting Dysuria Abdominal pain Pelvic pain Frequency of micturition Breast asymmetry Thoracic back pain Impacted cerumen of left ear Dizziness Perioral numbness Left flank pain Lesion of left hoh kidney Hip pain, left Viral syndrome Conjunctivitis, left eye Lymphadenopathy, anterior cervical Hypercholesterolemia 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 Mixed incontinence Obesity (BMI 30-39.9) Nasal congestion Allergic rhinitis Patent foramen ovale Peptic ulcer disease Insomnia Asthma GERD (gastroesophageal reflux disease) Leukemia Surgical History History of Jackson colposuspension Hx of colonoscopy Hx of esophagogastroduodenoscopy Hx of colonoscopy History of bilateral salpingectomy Ulnar nerve entrapment at elbow History of tonsillectomy History of vaginal hysterectomy Family History Maternal Aunt Breast cancer Paternal Grandmother Breast cancer Paternal Grandfather Myocardial infarction, acute, initial episode of care Paternal Uncle Stomach cancer Liver cancer Pancreatic cancer Kidney cancer, primary, with metastasis from kidney to other site Father Colon cancer Social History Household Members: None Housing: Apartment Are you a primary home health care respiratory therapist to a significant other at home: No Do you presently have visiting nurse or other home services: No Alcohol intake: never Patient Tobacco Use Status: Never used Tobacco Tobacco use type: Cigarette e-Cigarette/Vaping Use: Never Used Second Hand Smoke Exposure: No Advance Directives Date on File: 02/06/22 service: No Current occupational status: employed Current occupational exposures/hazards: No Cognitive needs: No Hearing needs: No Vision needs: Yes Questionnaire Thrive Questionnaire Date Thrive assessed: 01/15/25 I am a: Patient What is your living situation today?: I have a steady place to live Within the past 12 months, did the food you bought not last and you didn't have the money to get more?: Often true Within the past 12 months, did you worry whether your food would run out before you got money to buy more?: Often true Do you have trouble paying for medicines?: No Do you have trouble getting transportation to medical appointments?: No Do you have trouble paying your heating and electricity bill?: No Do you have trouble taking care of your child, family member or friend?: I choose not to answer this question Do you have trouble with day-to-day activities such as bathing, preparing meals, shopping, managing finances, etc.?: No Are you currently unemployed and looking for a job?: No Are you interested in more education?: Yes Please select the resources that you would like help with: None Currently or been in a relationship where the following occur: No concerns reported THRIVE Score: 2 MERARY-7 AMB Questionnaire MERARY-7 Date MERARY - 7 assessed: 01/15/25 Source: Developed by Drs. Kar Rojo, Veena Nguyen, Musa Frye and colleagues, with an educational allen from [employer]. Review of Systems Const All systems reviewed & are unremarkable except as noted in HPI and below Physical exam (Primary Care) Vital Signs: Last Vital Signs BP 114/64 01/15/25 16:35 Oxygen Delivery Method Room Air 01/15/25 16:35 BMI result Body Mass Index 36.9 Tobacco/Smoking Status: Tobacco use Status Tobacco use date assessed 01/15/25 01/15/25 16:39 Patient Tobacco Use Status Never used Tobacco 01/15/25 16:33 Tobacco use type Cigarette 01/15/25 16:33 e-Cigarette/Vaping Use Never Used 01/15/25 16:33 Thrive Assessment: Date of Thrive Assessment Date Thrive assessed 01/15/25 01/15/25 16:39 Currently or been in a relationship where the following occur: No concerns reported Const General: no acute distress Orientation/consciousness: patient oriented x3 Chest Chest palpation & inspection: no crepitus and tenderness Chest/axillae images: 2 1. Chest wall TTP Resp Effort & Inspection: normal respiratory effort Cardio Heart sounds: S1 normal heart sound present and S2 normal heart sound present Neuro General: patient oriented x3, gait normal and moves all extremities Coding Level of Care Code Est Pt Level 4 (44028) Diagnoses Chest pain, unspecified type R07.9 Chest pain type: unspecified Time Spent (min) 20 Assessment & Plan Assessment & Plan (1) Chest pain: Code(s): R07.9 - Chest pain, unspecified Category: Medical Qualifiers: Chest pain type: unspecified Qualified Code(s): R07.9 - Chest pain, unspecified Plan: Vitals stable. Pt does have Chest wall tenderness, no SOB or wheezing. F/U with PCP.
[2025-01-15 16:35] VITALS: BP 114/64; BMI 36.9
== END 2025-01-15 17:29 | disposition home or self-care (01) ==
LOC: HO.HMCH 16:19
PROVIDERS: PCP Internal Medicine; Visit Provider Nurse Practitioner Family
DX: R07.9 Chest pain, unspecified (principal)

== ENCOUNTER → 2025-01-15 16:18 | Outpatient (BNVA) | payer OTHER, SELFPAY | PROVIDERS: PCP Internal Medicine; Visit Provider Nurse Practitioner Family | DX: R07.9 Chest pain, unspecified (principal) | CPT/HCPCS: 99212 ==

== ENCOUNTER → 2025-02-15 09:20 | Outpatient (REF) | payer OTHER, SELFPAY ==
--- NOTE | 2025-02-15 09:22 | CA_ITS ---
Acquisition Time: 2025-02-15 09:42:54 Total Exercise Time: 00:05:01 Test Indications: CP Medications: SEE EMAR/PRINT OUT Protocol: KETTY Max HR: 150 BPM 88% of Pred: 170 BPM Max BP: 170/90 mmHG Max Work Load: 7.0 METS Exercise stress test with exercise 5 mins 1 sec of RBuec Protocol, achieving 87% MPHR, with reports of 6/10 cramping pain under mary left breast at baseline that gets worse with palpation or streching the arm up, cramping pain unchanged with exercise, with reports of mild SOB and fatigue, with isolated PACs, with normotensive response to exercise. Without any EKG changes meeting criteria for ischemia. In recovery, chest cramp reamined the same, breathing returned to baseline. Test reviewed with Dr. Donis. Referred By: Josef Lindquist Electronically Signed By: Trent Garza
--- OUTSIDE RECORDS SUMMARY | 2025-02-15 09:49 | XMS_ITS | Encounter Summary ---
Author Organization [facility] Address [address] [facility] [address] [place] [address] Phone Care Team Providers Care Call Circuit Worker Name Role Phone Kaylynn Charles MD Primary Care Provider [phone] Reason for Visit * Reason Comments Medication Refill Encounter Details Date Type Department Care Team (Late st Contact Info) Description 01/16/2023 Refill [facility] [address] [place] [address], [address]nd Floor, [address] [place] [address] Nurys Cisneros MD, PhD [address] [place], [place] [id number] [place] [address] [email or web address] Medication Refill Social History Tobacco Use Types Packs/Day Years Used Date Smoking Tobacco: Never Smokeless Tobacco: Never Alcohol Use Standard Drinks/Week Comments No 0 (1 standard drink = 0.6 oz pur e alcohol) Education Answer Date Recorded Are you interested in more education? Not on lv e 10/26/2022 Are you concerned about learning? Not on file 10/26/2022 No 10/26/2022 No 10/26/2022 Digital Access Answer Date Recorded No 11/26/2022 No 11/26/2022 No 11/26/2022 Reliable internet access at home? Not on file 11/26/2022 Device with a working camera? Not on file Comments Unknown Sex and Gender Information Value Date Recorded Sex Assigned at Not on file Legal Sex Female 9:29 PM EDT Gender Identity Not on file Sexual Orientation Not on file documented as of this encounter Plan of Treatment Not on file documented as of this encounter Visit Diagnoses Not on filedocumented in this encounter Care Teams Call Circuit Worker Relationship Specialty Start Date End Date Kaylynn Charles MD [facility] [place] [address] PCP - General Emergency Medicine 08/20/17 documented as of this encounter Additional Source Comments The information contained in this document represents components of the legal health record. It is not the complete legal health record.[facility]
--- OUTSIDE RECORDS SUMMARY | 2025-02-15 09:50 | XMS_ITS | Encounter Summary ---
Author Organization [facility] Address [address] [place] [address] Care Team Providers Care Structures Assembler Name Role Phone Josef Lindquist MD Primary Care Provider [phone] Encounter Details Date Type Department Care Team (Late st Contact Info) Description 11/17/[address] [facility] - Main Lab [address] [facility] [place] [phone] Robert Olivarez MD [address] [facility] 120 [place] [phone] Gross hematuria Social History Tobacco Use Types [...] AM EDT) Final Diagnosis A. Urine, Voided, ([id number]): Negative for high grade urothelial carcinoma. 11/25/2024 10:35 AM EDT [facility] HOSPITAL LAB Clinical Information Gross hematuria R31.0 Urine cytology with reflex UroVysion ([facility]) 11/25/2024 10:35 AM EDT [facility] Gross Description A. Urine, Voided, [id number]: Received one ThinPrep slide for cytology. 11/25/2024 10:35 AM EDT [facility] Disclaimer Unless otherwise specified, all tissue is 10% NB formalin fixed and paraffin embedded. Technical pathology services provided by [facility] [address] [facility] [address] [place] [address] (CLIA #[id number]/S aroldo Early MD, Hospitality Aide) 11/25/2024 10:35 AM EDT [facility] Tissue Urine specimen from urethra / Unknown 11/13/2024 11/17/2024 11:16 AM EDT us Robert Olivarez MD LAB PATHOLOGY ORDERABLES Final Result [facility] [address] [place] [address], documented in this encounter Visit Diagnoses Diagnosis Gross hematuria documented in this encounter Care Teams Structures Assembler Relationship Specialty Start Date End Date Josef Lindquist MD [address] [place] [address] Dr Byrne [address] [facility] [place] [address] PCP - General Internal Medicine 05/14/17 documented as of this encounter
--- OUTSIDE RECORDS SUMMARY | 2025-02-15 09:50 | XMS_ITS | Patient Health Record ---
Author Organization [facility] Address [address] [place] [address] Care Team Providers Care Planer Tailer Name Role Phone Viky Baca MD Primary Care Provider Kar Marley Unavailable [phone] Allergies Allergen (clinical drug ingredient) Drug/Non Drug [...] Problem Status W/U Status Risk Notes Problem [id number] Slow transit constipation (K59.01) Active confirmed Problem 75100767 Hiatal hernia (K44.9) Active confirmed Problem [id number] GERD with esophagitis (K21.0) Active confirmed Plan Of Treatment No Information Insurance Providers Payer Name Payer Address Payer Phone Subscriber Number Group Number Insured Name Patient Relationship to Insured Coverage Start Date Coverage End Date [place]IC[place] OF [place] [address] [place] [address] [phone] [id number] CLASS, VISH Self - patient is the insured MEDICAID OF [place] [facility] [address] [place] [phone] [id number] CLASS, VISH Self - patient is the insured Medical (General) History Medical History History ICD Code Upper endoscopies in 2008 and in 2003 wi [address] nd--small HH, no esophagitis [place] [address] Lees- -mild esophagitis--H.pylori was negative, Hiatal hernia GERD Depression Takes antibiotics prophylaxis for a hol e in her heart. Denies [place],DM,CVA,Lung disease,renal dise ase Surgical History Surgery Date(Month/Year) BTL She describes a laparotomy f or internal bleeding with Dr. Camacho(BATCH ATTENDANT) Hysterectomy Foot surgery Elbow surgery
--- OUTSIDE RECORDS SUMMARY | 2025-02-15 09:50 | XMS_ITS | Clinical Summary ---
[facility] Address [address] [place] [address] Care Team Providers Care Dance Professor Name Role Phone Josef Lindquist MD Primary Care Provider [phone] Allergies Active Allergy Reactions Criticality Noted Date [...] age to complete this topic Care Teams Dance Professor Relationship Specialty Start Date End Date Josef Lindquist MD [address] [place] [address] [address] [facility] [place] [address] PCP - General Internal Medicine 02/14/17
== END ==
LOC: HO.CARD 09:20
PROVIDERS: PCP Internal Medicine; Visit Provider Internal Medicine
DX: R07.9 Chest pain, unspecified (principal)
CPT/HCPCS: 93017

== ENCOUNTER → 2025-02-15 09:22 | Outpatient (BNV) | payer OTHER, SELFPAY | PROVIDERS: PCP Internal Medicine | DX: I49.1 Atrial premature depolarization (principal); R07.2 Precordial pain | CPT/HCPCS: 93016; 93018 ==

== ENCOUNTER 2025-03-12 10:27 | Outpatient (AMB) | payer OTHER, SELFPAY ==
--- NOTE | 2025-03-12 10:37 | AM.OFFWIN_ITS ---
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: No Accompanied by: Self / Same As Patient Allergies nut - unspecified (nut) Allergy (Severe, Verified 02/10/25 15:26) Anaphylaxis Penicillins Allergy (Severe, Verified 02/10/25 15:26) RASH seafood Allergy (Severe, Verified 02/10/25 15:) Anaphylaxis shellfish derived Allergy (Severe, Verified 02/10/25 15:) Anaphylaxis Wixela Inhub Adverse Reaction (Intermediate, Uncoded 02/10/25:) palpitations HPI HPI Comments History of Present Illness Details This is a 49-year-old female with a past medical history of asthma, CML currently maintained on oral chemotherapy and depression presenting for evaluation of a cough that is primarily nocturnal as well as shortness for breath that she has had for the past 4 days. Patient also reports having a headache, chills and fevers to 101?, last fever was last night. Patient has been taking DayQuil and acetaminophen for relief of her symptoms. Patient denies having any chest pain, shortness for breath, sore throat, ear pain or lightheadedness. She additionally denies having any sick contacts. [facility] Medical History (Updated 03/12/25 @ 12:43 by Iman Salcedo PA-C) Constipation Hematuria LLQ abdominal pain Hypokalemia Lower extremity weakness CML (chronic myelocytic leukemia) Laryngospasm CLL (chronic lymphocytic leukemia) PONV (postoperative nausea and vomiting) Nausea & vomiting Dysuria Abdominal pain Pelvic pain Frequency of micturition Breast asymmetry Thoracic back pain Impacted cerumen of left ear Dizziness Perioral numbness Left flank pain Lesion of left prairie band kidney Hip pain, left Viral syndrome Conjunctivitis, left eye Lymphadenopathy, anterior cervical Hypercholesterolemia 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 Mixed incontinence Obesity (BMI 30-39.9) Nasal congestion Allergic rhinitis Patent foramen ovale Peptic ulcer disease Insomnia Asthma GERD (gastroesophageal reflux disease) Leukemia Surgical History History of Jackson colposuspension Hx of colonoscopy Hx of esophagogastroduodenoscopy Hx of colonoscopy History of bilateral salpingectomy Ulnar nerve entrapment at elbow History of tonsillectomy History of vaginal hysterectomy Family History Maternal Aunt Breast cancer Paternal Grandmother Breast cancer Paternal Grandfather Myocardial infarction, acute, initial episode of care Paternal Uncle Stomach cancer Liver cancer Pancreatic cancer Kidney cancer, primary, with metastasis from kidney to other site Father Colon cancer Social History Household Members: None Housing: Apartment Are you a primary lawn care specialist to a significant other at home: No Do you presently have visiting nurse or other home services: No Alcohol intake: never Patient Tobacco Use Status: Never used Tobacco Tobacco use type: Cigarette e-Cigarette/Vaping Use: Never Used Second Hand Smoke Exposure: No Advance Directives Date on File: 02/06/22 service: No Current occupational status: employed Current occupational exposures/hazards: No Cognitive needs: No Hearing needs: No Vision needs: Yes Review of Systems Const All systems reviewed & are unremarkable except as noted in HPI and below Reports no additional complaints Eyes Reports no additional complaints ENT Reports no additional complaints Card Reports no additional complaints, Denies dyspnea and Denies dyspnea on exertion Resp Reports cough, Denies dyspnea and Denies dyspnea on exertion GI Reports no additional complaints Reports no additional complaints Musc Reports no additional complaints Skin/Breast Reports system reviewed and no additional complaints, except as documented Neuro Reports no additional complaints Psych Reports no additional complaints Endo Reports no additional complaints Justin/Lymph Reports no additional complaints Physical Exam Vital Signs: Last Vital Signs Temp 98.4 F 03/12/25 10:38 Pulse 104 H 03/12/25 10:38 Resp 16 03/12/25 10:38 BP 114/68 03/12/25 10:38 Pulse Ox 96 03/12/25 10:38 Oxygen Delivery Method Room Air 03/12/25 10:38 BMI result Body Mass Index 36.1 Const General: cooperative, healthy appearing, comfortable, no acute distress, well developed, alert, awake and Physically active; No diaphoretic Nutritional Appearance: well nourished Orientation/consciousness: patient oriented x3 Limitations: no limitations HEENT Head: Yes normal to inspection Ears: hearing grossly normal bilaterally, external ears normal, TM's normal bilaterally and EAC's normal General nose exam: Normal external nose present Face and sinus: Yes normal facial exam Mouth: Normal oral and palatal mucosa present Throat: Yes posterior oropharynx normal and No postnasal drainage Eyes Visual East: normal visual east by confrontation Alignment and Position: alignment normal Periorbital: periorbital findings normal Eyelids: Yes eyelids normal Conjunctivae: conjunctival abnormal bilateral conjunctival injection; Negative for conjunctival icterus and without chemosis Sclerae: sclerae normal Pupils: Equal, round and reactive pupils present EOM: EOMs intact bilaterally Direct Ophthalmoscopy: no photophobia Neck Lymphatic: no lymphadenopathy noted Resp Effort & Inspection: normal respiratory effort Auscultation: clear to auscultation bilaterally Cardio Rate: regular rate (HR 88 bpm) Rhythm: regular rhythm Skin General skin exam: no rashes or lesions noted Neuro General: patient oriented x3 Cranial nerves: Yes Equal, round and reactive pupils present Psych Appearance: grossly normal Mental Status: mental status grossly normal Insight: Good insight present (Psych) Judgement: Good judgement present (Psych) Results Reviewed Results Reviewed: CXR reviewed with patient. No acute findings. Assessment & Plan Assessment & Plan (1) Acute upper respiratory infection: Comment: Patient is afebrile and is not hypoxic. Respiratory panel is ordered and results are pending. There are no acute findings noted on chest x-ray. Code(s): J06.9 - Acute upper respiratory infection, unspecified Plan: Increase clear fluids daily, Mucinex OTC daily, Tylenol as needed if fever recurs. follow up with PCP within 5-7 days if symptoms do not resolve. Orders: Orders XR chest 2V Today J06.9 - Acute upper respiratory infection, unspecified Resp Pathogen Panel - [facility] Today J06.9 - Acute upper respiratory infection, unspecified Coding Level of Care Code Est Pt Level 3 (64469) Diagnoses Acute upper respiratory infection J06.9 Time Spent (min) 25
[2025-03-12 10:38] VITALS: BP 114/68; PULSE 104; RESP 16; TEMP 36.9; O2SAT 96; BMI 36.1
--- OUTSIDE RECORDS SUMMARY | 2025-03-12 12:00 | XMS_ITS | Clinical Summary ---
Author Organization [facility] Address [address] [place] [address] Phone Care Team Providers Care Motor Coach Driver Name Role Phone Josef Lindquist MD Primary Care Provider [phone] Allergies Active Allergy Reactions Criticality Noted Date [...] Encounters Date Type Department Care Team Description 12/14/2024 7:31 PM EDT - 12/14/2024 9:[address] [facility] Emergency [address] [place] [address] David Quiros MD Intercostal pain (Primary Dx); Chest pain, unspecified type Discharge Disposition: Home or Self Care from [...] Mass Index 35.71 12/14/2024 3:21 PM EDT Plan of Treatment Health Maintenance Due Date Last Done Comments Breast Cancer Screening 1974 Hepatitis B Vaccines (1 of 3 - 19+ 3-dose series) 1993 Zoster Vaccines (1 of 2) 1993 Cervical Cancer Screening: Pap Smear 10/17/1995 Cholesterol Screening (Lipid Panel) 05/29/2022 Colorectal Cancer Screening: Colonoscopy 05/29/2022 HIV Screening 05/29/2022 Hepatitis C Screening 05/29/2022 Medicare Annual Wellness Visit 05/29/2022 Social Influencers of Health Screening 05/29/2022 Depression Screening 07/01/2024 COVID-19 Vaccine (9 - Pfizer risk 2023- season) 2025 05/16/2024, 12/09/2023, 03/22/2023, Additional history exists Influenza Vaccine (#1) 2025 , 03/15/2023, 03/30/2022, Additional history exists DTaP,Tdap,and Td Vaccines (2 - Td or Tdap) 06/18/2034 06/18/2024 Pneumococcal Vaccine: 50+ Years Completed 06/18/2024, 06/11/2019 HIB Vaccines Aged Out [...] 2 VIEWS STAT 12/14/2024 4:25 PM EDT CBC WITH AUTO DIFFERENTIAL STAT 12/14/2024 3:29 PM EDT B-TYPE NATRIURETIC PEPTIDE STAT 12/14/2024 3:29 PM EDT MAGNESIUM STAT 12/14/2024 3:29 PM EDT LIPASE STAT 12/14/2024 3:29 PM EDT COMPREHENSIVE METABOLIC PANEL STAT 12/14/2024 3:29 PM EDT CBC AND DIFFERENTIAL STAT 12/14/2024 3:29 PM EDT TROPONIN I HIGH SENSITIVITY STAT 12/14/2024 3:29 PM EDT ECG 12-LEAD STAT 12/14/2024 3:12 PM EDT from Last 3 Months Results * D-dimer, quantitative (12/14/2024 8:37 PM EDT) [facility] D-Dimer, Quant (D-DU) 203 <=230 ng/mL DDU LAB COAGULATION METHOD 12/14/2024 9:04 PM EDT [facility] Blood Venous blood specimen / Unknown Venipuncture / Unknown 12/14/2024 8:37 PM EDT 12/14/2024 8:52 PM EDT [facility] - 12/14/2024 9:04 PM EDT D-Dimer <230 ng/mL (D-Dimer units) is the threshold for exclusion of DVT/PE. D-Dimer may be elevated in: Critically ill, severely infected, trauma patients, DIC, acute CVA, acute AL, unstable angina, AF, old age, , and smoking. D-Dimer may be decreased with: Initiation of heparin therapy and oral anticoagulants. us David Quiros MD LAB BLOOD ORDERABLES Final Result [facility] [address] [place] [address], * Troponin I high sensitivity (12/14/2024 4:39 PM EDT) Only the most recent of2 resultswithin the time period is included. [facility] High Sensitivity Troponin I <3 <=54 ng/L LAB CHEMISTRY METHOD 12/14/2024 5:35 PM EDT [facility] Blood Venous blood specimen / Unknown Venipuncture / Unknown 12/14/2024 4:39 PM EDT 12/14/2024 5:06 PM EDT [facility] - 12/14/2024 5:35 PM EDT High levels of biotin in samples may falsely decrease hsTroponin values. Use caution when interpreting hsTroponin results in patients taking biotin who exhibit renal impairment (eGFR <60) or in patients taking more than 20 mg/day of biotin. David Quiros MD LAB BLOOD ORDERABLES Final Result [facility] [address] [place] [address], [place] [phone] * XR Chest 2 Views (12/14/2024 4:25 [...] Signed Date: 12/14/2024 16:44 ET Workstation ID: [id number] Transcribed By: Self Edit Transcribed Date: 12/14/2024 [...] Signed Date: 12/14/2024 16:44 ET Workstation ID: [id number] Transcribed By: Self Edit Transcribed Date: 12/14/2024 16:43 ET David Quiros MD IMG XR PROCEDURES Final Res ult * CBC auto differential (12/14/2024 3:29 PM EDT) [facility] WBC 7.3 4.8 - 10.8 K/mcL LAB HEMETOLOGY METHOD 12/14/2024 3:57 PM EDT [facility] RBC 4.10 3.80 - 4.80 M/mcL LAB HEMETOLOGY METHOD 12/14/2024 3:57 PM EDT [facility] Hemoglobin 13.0 11.5 - 16.0 g/dL LAB HEMETOLOGY METHOD 12/14/2024 3:57 PM EDT [facility] Hematocrit 39.3 35.0 - 47.0 % LAB HEMETOLOGY METHOD 12/14/2024 3:57 PM EDT [facility] MCV 94.9 79.0 - 98.0 FL LAB HEMETOLOGY METHOD 12/14/2024 3:57 PM EDT [facility] MCH 31.4 27.0 - 32.0 pcg LAB HEMETOLOGY METHOD 12/14/2024 3:57 PM EDT [facility] MCHC 33.1 32.0 - 37.0 g/dL LAB HEMETOLOGY METHOD 12/14/2024 3:57 PM EDT [facility] RDW 12.2 11.0 - 15.0 % LAB HEMETOLOGY METHOD 12/14/2024 3:57 PM EDT [facility] Platelets 268 130 - 400 K/mcL LAB HEMETOLOGY METHOD 12/14/2024 3:57 PM EDT [facility] MPV 10.0 7.0 - 11.0 FL LAB HEMETOLOGY METHOD 12/14/2024 3:57 PM EDT [facility] NRBC 0.0 <1.0 % LAB HEMETOLOGY METHOD 12/14/2024 3:57 PM EDT [facility] NRBC Absolute 0.00 <0.10 K/mcL LAB HEMETOLOGY METHOD 12/14/2024 3:57 PM [facility] Neutrophils Relative 59.8 % LAB HEMETOLOGY METHOD 12/14/2024 3:57 PM [facility] Lymphocytes Relative 28.6 % LAB HEMETOLOGY METHOD 12/14/2024 3:57 PM [facility] Monocytes Relative 10.0 % LAB HEMETOLOGY METHOD 12/14/2024 3:57 PM [facility] Eosinophils Relative 0.6 % LAB HEMETOLOGY METHOD 12/14/2024 3:57 PM [facility] Basophils Relative 0.7 % LAB HEMETOLOGY METHOD 12/14/2024 3:57 PM [facility] Immature Granulocytes Relative 0.3 % LAB HEMETOLOGY METHOD 12/14/2024 3:57 PM [facility] Neutrophils Absolute 4.35 1.50 - 7.00 K/mcL LAB HEMETOLOGY METHOD 12/14/2024 3:57 PM [facility] Lymphocytes Absolute 2.08 1.00 - 5.00 K/mcL LAB HEMETOLOGY METHOD 12/14/2024 3:57 PM [facility] Monocytes Absolute 0.73 0.20 - 1.00 K/mcL LAB HEMETOLOGY METHOD 12/14/2024 3:57 PM [facility] Eosinophils Absolute 0.04 0.00 - 0.50 K/mcL LAB HEMETOLOGY METHOD 12/14/2024 3:57 PM [facility] Basophils Absolute 0.05 0.00 - 0.20 K/mcL LAB HEMETOLOGY METHOD 12/14/2024 3:57 PM [facility] Immature Granulocytes Absolute 0.02 0.00 - 0.03 K/mcL LAB HEMETOLOGY METHOD 12/14/2024 3:57 PM [facility] Blood Venous blood specimen / Unknown Venipuncture / Unknown 12/14/2024 3:29 PM EDT 12/14/2024 3:45 PM EDT us David Quiros MD LAB BLOOD ORDERABLES Final Result Performing Organization Address [facility]/ZIP Co de Phone Number [facility] [address] [place] [address], [place] [phone] * B-type natriuretic peptide (12/14/2024 3:29 PM EDT) [facility] BNP 22 <=100 pcg/mL LAB CHEMISTRY METHOD 12/14/2024 4:43 PM EDT [facility] Blood Venous blood specimen / Unknown Venipuncture / Unknown 12/14/2024 3:29 PM EDT 12/14/2024 3:44 PM EDT us David Quiros MD LAB BLOOD ORDERABLES Final Result Performing Organization Address [facility]/ZIP Co de Phone Number [facility] [address] [place] [address], [place] [phone] * Magnesium (12/14/2024 3:29 PM EDT) [facility] Magnesium 1.9 1.9 - 2.6 mg/dL LAB CHEMISTRY METHOD 12/14/2024 4:26 PM EDT [facility] Blood Venous blood specimen / Unknown Venipuncture / Unknown 12/14/2024 3:29 PM EDT 12/14/2024 3:44 PM EDT us David Quiros MD LAB BLOOD ORDERABLES Final Result Performing Organization Address City/[facility]/ZIP Co de Phone Number [facility] [address] [place] [address], [place] [phone] * Lipase (12/14/2024 3:29 PM EDT) [facility] Lipase 33 13 - 75 unit/L LAB CHEMISTRY METHOD 12/14/2024 4:26 PM [facility] Blood Venous blood specimen / Unknown Venipuncture / Unknown 12/14/2024 3:29 PM EDT 12/14/2024 3:44 PM EDT us David Quiros MD LAB BLOOD ORDERABLES Final Result [facility] [address] [place] [address], * (ABNORMAL) Comprehensive metabolic panel (12/14/2024 3:29 PM EDT) [facility] Sodium 137 133 - 145 mmol/L LAB CHEMISTRY METHOD 12/14/2024 4:26 PM [facility] Potassium 3.9 3.5 - 5.5 mmol/L LAB CHEMISTRY METHOD 12/14/2024 4:26 PM [facility] Chloride 104 96 - 110 mmol/L LAB CHEMISTRY METHOD 12/14/2024 4:26 PM [facility] CO2 28 21 - 32 mmol/L LAB CHEMISTRY METHOD 12/14/2024 4:26 PM [facility] Anion Gap 5 3 - 11 LAB CHEMISTRY METHOD 12/14/2024 4:26 PM [facility] Glucose 117(H) 70 - 100 mg/dL LAB CHEMISTRY METHOD 12/14/2024 4:26 PM [facility] BUN 8 5 - 25 mg/dL LAB CHEMISTRY METHOD 12/14/2024 4:26 PM [facility] Creatinine 0.59 0.50 - 1.10 mg/dL LAB CHEMISTRY METHOD 12/14/2024 4:26 PM [facility] eGFR 110 >=60 mL/min/1. 73m2 LAB CHEMISTRY METHOD [facility]24 [facility] Comment:Calculation based on the Chronic Kidney Disease Epidemiology Collaboration (CKD-EPI) equation refit without adjustment for race. BUN/Creatinine Ratio 13.6 LAB CHEMISTRY METHOD 12/14/2024 4:26 PM [facility] Calcium 9.5 8.5 - 10.5 mg/dL LAB CHEMISTRY METHOD 12/14/2024 4:26 PM [facility] AST (SGOT) 22 10 - 42 unit/L LAB CHEMISTRY METHOD 12/14/2024 4:26 PM [facility] ALT (SGPT) 24 10 - 60 unit/L LAB CHEMISTRY METHOD 12/14/2024 4:26 PM [facility] Alkaline Phosphatase 95 42 - 121 unit/L LAB CHEMISTRY METHOD 12/14/2024 4:26 PM [facility] Total Protein 7.3 6.0 - 8.0 g/dL LAB CHEMISTRY METHOD 12/14/2024 4:26 PM [facility] Albumin 3.8 3.2 - 5.0 g/dL LAB CHEMISTRY METHOD 12/14/2024 4:26 PM [facility] Total Bilirubin 0.3 0.0 - 1.4 mg/dL LAB CHEMISTRY METHOD 12/14/2024 4:26 PM [facility] Blood Venous blood specimen / Unknown Venipuncture / Unknown 12/14/2024 3:29 PM EDT 12/14/2024 3:44 PM EDT us David Quiros MD LAB BLOOD ORDERABLES Final Result [facility] [address] [place] [address], * ECG 12 lead (12/14/2024 3:12 PM EDT) Ventricular Rate ECG 89 BPM GEMUSE Atrial Rate 89 BPM GEMUSE P-R Interval 142 ms GEMUSE QRS Duration 78 ms GEMUSE Q-T Interval 362 ms GEMUSE QTc 440 ms GEMUSE P Wave [place] 22 degrees GEMUSE R [place] -14 degrees GEMUSE T [place] 6 degrees GEMUSE ECG Interpretation Poor data [...] 3:12 PM EDT 12/14/2024 5:53 PM EDT us David Quiros MD ECG ORDERABLES Final Resul t GEMUSE from Last 3 Months Insurance [facility] MEDICARE Member Subscriber Plan / Payer (Ef fective 2019-Present) Name:VISH ROBLERO Relation to Subscriber:Self Name:Vish Roblero Payer ID:[id number] Group ID:[id number] Type:Not on file Address: [address] [facility] [place] [address] Care Teams Motor Coach Driver Relationship Specialty Start Date End Date Josef Lindquist MD [address] [place] [address] [address] [facility] [place] [address] PCP - General Internal Medicine 05/14/17
--- OUTSIDE RECORDS SUMMARY | 2025-03-12 12:00 | XMS_ITS | Clinical Summary ---
Author Organization [facility] Address [address] [place] [address] Care Team Providers Care Thread Cutter Tender Name Role Phone Joesf Lindquist MD Primary Care Provider [phone] Allergies Active Allergy Reactions Criticality Noted Date [...] age to complete this topic Care Teams Thread Cutter Tender Relationship Specialty Start Date End Date Josef Lindquist MD [address] [place] [address] [address] [facility] [place] [address] PCP - General Internal Medicine 02/14/17
--- OUTSIDE RECORDS SUMMARY | 2025-03-12 12:00 | XMS_ITS | Encounter Summary ---
Author Organization [facility] Address [address] [place] [address] Care Team Providers Care Buggy Runner Name Role Phone Josef Lindquist MD Primary Care Provider [phone] Encounter Details Date Type Department Care Team (Late st Contact Info) Description 11/17/2024 Lab Requisition [facility] - Main Lab [address] [facility] [place] [id number] Robert Olivarez MD [address] [facility] [address] [place] [id number] Gross hematuria Social History Tobacco Use Types [...] AM EDT) Final Diagnosis A. Urine, Voided, ([id number]): Negative for high grade urothelial carcinoma. 11/25/2024 10:35 AM EDT [facility] Clinical Information Gross hematuria R31.0 Urine cytology with reflex [facility] ([facility]) 11/25/2024 10:35 AM EDT [facility] Gross Description A. Urine, Voided, [id number]: Received one ThinPrep slide for cytology. 11/25/2024 10:35 AM EDT [facility] Disclaimer Unless otherwise specified, all tissue is 10% NB formalin fixed and paraffin embedded. Technical pathology services provided by [facility] [address] [facility] [address] [place] [address] (CLIA #[id number]/S aroldo Early MD, Side Panel Hanger) 11/25/2024 10:35 AM EDT [facility] Tissue Urine specimen from urethra / Unknown 11/13/2024 11/17/2024 11:16 AM EDT us Robert Olivarez MD LAB PATHOLOGY ORDERABLES Final Result [facility] [address] [place] [address], documented in this encounter Visit Diagnoses Diagnosis Gross hematuria documented in this encounter Care Teams Buggy Runner Relationship Specialty Start Date End Date Josef Lindquist MD [address] [place] [address] Dr [address] [facility] [place] [address] PCP - General Internal Medicine 05/14/17 documented as of this encounter
--- OUTSIDE RECORDS SUMMARY | 2025-03-12 12:00 | XMS_ITS | Patient Health Record ---
Author Organization [facility] Address [address] [place] [address] Care Team Providers Care Director Of Business Development Name Role Phone Viky Baca MD Primary Care Provider Kar Marley Unavailable [phone] Allergies Allergen (clinical drug ingredient) Drug/Non Drug [...] Problem Status W/U Status Risk Notes Problem [id number] Slow transit constipation (K59.01) Active confirmed Problem [id number] Hiatal hernia (K44.9) Active confirmed Problem [id number] GERD with esophagitis (K21.0) Active confirmed Plan Of Treatment No Information Insurance Providers Payer Name Payer Address Payer Phone Subscriber Number Group Number Insured Name Patient Relationship to Insured Coverage Start Date Coverage End Date MEDICARE OF [place] [address] [place] [address] [id number] CLASS, VISH Self - patient is the insured MEDICAID [facility] [address] [place] [phone] [id number] CLASS, VISH Self - patient is the insured Medical (General) History Medical History History ICD Code Upper endoscopies in 2008 and in 2003 [place]--small HH, no esophagitis EGD [place] [address] Lees- -mild esophagitis--H.pylori was negative, Hiatal hernia GERD Depression Takes antibiotics prophylaxis for a hol e in her heart. Denies DE,DM,CVA,Lung disease,renal dise ase Surgical History Surgery Date(Month/Year) BTL She describes a laparotomy f or internal bleeding with Dr. Camacho([employer]) Hysterectomy Foot surgery Elbow surgery
--- OUTSIDE RECORDS SUMMARY | 2025-03-12 12:00 | XMS_ITS | Encounter Summary ---
Author Organization [facility] Address [address] [facility] [address] [place] [address] Phone Care Team Providers Care Shingle Trimmer Name Role Phone Kaylynn Charles MD Primary Care Provider [phone] Reason for Visit * Reason Comments Medication Refill Encounter Details Date Type Department Care Team ([facility] st Contact Info) Description 01/16/2023 Refill [facility] [address] [place] [address], 2nd Floor, [address] [place] [address] Nurys Cisneros MD, PhD [address] [place], [place] [id number] [place] [address] [email or web address] Medication Refill Social History Tobacco Use Types [...] on filedocumented in this encounter Care Teams Shingle Trimmer Relationship Specialty Start Date End Date Kaylynn Charles MD [facility] [place] [address] PCP - General Emergency Medicine 08/20/17 documented as of this encounter Additional Source Comments The information contained in this document represents components of the legal health record. It is not the complete legal health record.[facility]
== END 2025-03-12 12:09 | disposition home or self-care (01) ==
PROVIDERS: PCP Internal Medicine; Visit Provider Physician Assistant
DX: J06.9 Acute upper respiratory infection, unspecified (principal)

== ENCOUNTER 2025-03-12 10:27 | Outpatient (REF) | payer OTHER, SELFPAY ==
--- NOTE | ~2025-03-12 | XR_ITS ---
EXAMINATION: XR CHEST CLINICAL INFORMATION: J06.9 - Acute upper respiratory infection, unspecified COMPARISON: January 03, 2025 TECHNIQUE: PA and lateral views FINDINGS: No hyperinflation. No consolidation pleural effusion or pneumothorax. Cardiomediastinal silhouette size is normal. Multilevel thoracic spondylosis, mild to moderate. Patient's large body habitus. XR/XR chest 2V IMPRESSION: No acute airspace disease. Stable chest. Electronically signed by: Henrry Singletary MD 03/12/2025 11:45 AM EDT
[2025-03-12 15:37] LABS: Chlamydia pneumoniae PCR Not Detected (Not Detect.); Coronavirus 229E PCR Not Detected (Not Detect.); Coronavirus HKU1 PCR Not Detected (Not Detect.); Coronavirus NL63 PCR Not Detected (Not Detect.); Coronavirus OC43 PCR Not Detected (Not Detect.); Influenza A H1 PCR Not Detected (Not Detect.); Influenza A H1-2009 PCR Not Detected (Not Detect.); Influenza A H3 PCR Not Detected (Not Detect.); RSV PCR Not Detected (Not Detect.); Rhino/Enterovirus PCR Not Detected (Not Detect.); SARS-CoV-2 PCR Not Detected (Not Detect.)
== END 2025-03-12 10:28 | disposition home or self-care (01) ==
LOC: HO.HMGCX 10:27
PROVIDERS: PCP Internal Medicine; Visit Provider Physician Assistant
DX: J06.9 Acute upper respiratory infection, unspecified (principal)
CPT/HCPCS: 71046; 87633; 99212

== ENCOUNTER → 2025-03-12 11:36 | Outpatient (BNV) | payer OTHER, SELFPAY | PROVIDERS: PCP Internal Medicine; Visit Provider Radiology Diagnostic Radiology | DX: J06.9 Acute upper respiratory infection, unspecified (principal) | CPT/HCPCS: 71046 ==

== ENCOUNTER 2025-04-13 15:35 | Outpatient (AMB) | payer OTHER, SELFPAY ==
[2025-04-13 15:51] VITALS: BP 124/88; PULSE 85; TEMP 36.3; O2SAT 96; BMI 35.4
--- NOTE | 2025-04-13 15:51 | A.OFFPC_ITS ---
Vital Signs 04/13/25 15:51 Height 5 ft 1 in Weight 187 lb 6 oz BMI 35.4 BP 124/88 Blood Pressure Location Lt brachial Position Sitting Pulse 85 Pulse Source Pulse Oximeter Temp 97.3 F Temp Source Temporal Artery Scan Pulse Oximetry (%) 96 Oxygen Delivery Method Room Air Intake Visit Reasons: chest pain Allergies nut - unspecified (nut) Allergy (Severe, Verified 04/13/25 15:53) Anaphylaxis Penicillins Allergy (Severe, Verified 04/13/25 15:53) RASH seafood Allergy (Severe, Verified 04/13/25 15:53) Anaphylaxis shellfish derived Allergy (Severe, Verified 04/13/25 15:53) Anaphylaxis Wixela Inhub Adverse Reaction (Intermediate, Uncoded 04/13/25 15:53) palpitations Medication List - Last Reconciled 04/13/25 by Josef Lindquist MD albuterol sulfate 90 mcg/actuation (Ventolin HFA) 2 puffs inhalation Q6H PRN epinephrine (EpiPen 2-Holland) 0.3 mg (0.3 mL) IM Q4H PRN estradiol 0.01%(0.1mg/gram) vaginal fexofenadine (Jannie Allergy) 180 mg PO DAILY imatinib (Gleevec) 200 mg (2 x 100 mg) PO DAILY montelukast (Singulair) 10 mg PO BEDTIME omeprazole 20 mg PO BEDTIME 90 days ondansetron 8 mg PO Q8H PRN promethazine 25 mg PO TID PRN sennosides-docusate sodium 8.6-50 mg (Senna-S) 2 tab-caps (2 x 8.6-50 mg) PO BEDTIME 90 days sertraline 100 mg PO DAILY sucralfate TAKE 2 TEASPOONSFUL (10 ML) BY MOUTH 4 TIMES A DAY BEFORE MEAL/BED umeclidinium 62.5 mcg/actuation (Incruse Ellipta) 1 inh inhalation BEDTIME zolpidem (Ambien) 10 mg PO BEDTIME PRN Tobacco use date assessed: 04/13/25 Dental Screening Dental Screen Date: 04/13/25 Did you have a dental visit in the last 12 months?: Yes Did you have a dental problem in the last 6 months where you did not have access to dental care?: No Was dental information given to patient?: Patient has dentist [facility] Medical History Constipation Hematuria LLQ abdominal pain Hypokalemia Lower extremity weakness CML (chronic myelocytic leukemia) Laryngospasm CLL (chronic lymphocytic leukemia) PONV (postoperative nausea and vomiting) Nausea & vomiting Dysuria Abdominal pain Pelvic pain Frequency of micturition Breast asymmetry Thoracic back pain Impacted cerumen of left ear Dizziness Perioral numbness Left flank pain Lesion of left [place] kidney Hip pain, left Viral syndrome Conjunctivitis, left eye Lymphadenopathy, anterior cervical Hypercholesterolemia 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 Mixed incontinence Obesity (BMI 30-39.9) Nasal congestion Allergic rhinitis Patent foramen ovale Peptic ulcer disease Insomnia Asthma GERD (gastroesophageal reflux disease) Leukemia Surgical History History of Jackson colposuspension Hx of colonoscopy Hx of esophagogastroduodenoscopy Hx of colonoscopy History of bilateral salpingectomy Ulnar nerve entrapment at elbow History of tonsillectomy History of vaginal hysterectomy Family History Maternal Aunt Breast cancer Paternal Grandmother Breast cancer Paternal Grandfather Myocardial infarction, acute, initial episode of care Paternal Uncle Stomach cancer Liver cancer Pancreatic cancer Kidney cancer, primary, with metastasis from kidney to other site Father Colon cancer Social History Household Members: None Housing: Apartment Are you a primary animal care provider to a significant other at home: No Do you presently have visiting nurse or other home services: No Alcohol intake: never Patient Tobacco Use Status: Never used Tobacco Tobacco use type: Cigarette e-Cigarette/Vaping Use: Never Used Second Hand Smoke Exposure: No Advance Directives Date on File: 02/06/22 service: No Current occupational status: employed Current occupational exposures/hazards: No Cognitive needs: No Hearing needs: No Vision needs: Yes Questionnaire PHQ-9 Over the last 2 weeks, how often have you been bothered by any of the following problems? 1. Little interest or pleasure in doing things: several days 2. Feeling down, depressed, or hopeless: nearly every day 3. Trouble falling or staying asleep, or sleeping too much: nearly every day 4. Feeling tired or having little energy: nearly every day 5. Poor appetite or overeating: several days 6. Feeling bad about yourself - or that you are a failure or have let yourself or your family down: several days 7. Trouble concentrating on things, such as reading the newspaper or watching television: several days 8. Moving or speaking so slowly that other people could have noticed. Or the opposite - being so fidgety or restless that you have been moving around a lot more than usual: nearly every day 9. Thoughts that you would be better off or of hurting yourself in some way: not at all Total score: 16 Depression Screening Interpretation: Positive Depression Screening Follow-up: Existing condition and In treatment Depression Screening Done: Yes Source: Developed by Drs. Kar Rojo, Veena Nguyen, Musa Frye and colleagues, with an educational allen from 2 Minutes. Thrive Questionnaire Date Thrive assessed: 10/29/24 I am a: Patient What is your living situation today?: I have a steady place to live Within the past 12 months, did the food you bought not last and you didn't have the money to get more?: Often true Within the past 12 months, did you worry whether your food would run out before you got money to buy more?: Often true Do you have trouble paying for medicines?: No Do you have trouble getting transportation to medical appointments?: No Do you have trouble paying your heating and electricity bill?: No Do you have trouble taking care of your child, family member or friend?: I choose not to answer this question Do you have trouble with day-to-day activities such as bathing, preparing meals, shopping, managing finances, etc.?: No Are you currently unemployed and looking for a job?: No Are you interested in more education?: Yes Please select the resources that you would like help with: None Currently or been in a relationship where the following occur: No concerns reported THRIVE Score: 2 AUDIT C Alcohol Use Questionnaire (AUDIT-C) 1. How often do you have a drink containing alcohol?: Never 3. How often do you have six or more drinks on one occasion?: Never Total Score: 0 MERARY-7 AMB Questionnaire MERARY-7 Date MERARY - 7 assessed: 01/15/25 Feeling nervous, anxious, or on edge: 1 = Several days Not being able to stop or control worryin = Not at all Worrying too much about different things: 1 = Several days Trouble relaxin = Several days Being so restless that it is hard to sit still: 1 = Several days Becoming easily annoyed or irritable: 0 = Not at all Feeling afraid as if something awful might happen: 0 = Not at all Total MERARY-7 score (0-4 normal; 5-9 mild; 10-14 moderate; 15-21 severe): 4 Source: Developed by Drs. Kar Rojo, Veena Nguyen, Musa Frye and colleagues, with an educational allen from 2 Minutes. Physical exam (Primary Care) Vital Signs: Last Vital Signs Temp 97.3 F 04/13/25 15:51 Pulse 85 04/13/25 15:51 BP 124/88 04/13/25 15:51 Pulse Ox 96 04/13/25 15:51 Oxygen Delivery Method Room Air 04/13/25 15:51 BMI result Body Mass Index 35.4 Tobacco/Smoking Status: Tobacco use Status Tobacco use date assessed 04/13/25 04/13/25 15:55 Patient Tobacco Use Status Never used Tobacco 04/13/25 15:55 Tobacco use type Cigarette 04/13/25 15:55 e-Cigarette/Vaping Use Never Used 04/13/25 15:55 PHQ-9: PHQ-9 Score PHQ-9: Total score 16 04/13/25 15:55 Depression Screening Interpretation: Positive Depression Screening Follow-up: Existing condition and In treatment Thrive Assessment: Date of Thrive Assessment Date Thrive assessed 10/29/24 04/13/25 15:55 Currently or been in a relationship where the following occur: No concerns reported Const General: alert; No acute distress Eyes Conjunctivae: conjunctivae normal Resp Auscultation: clear to auscultation bilaterally Cardio Rate: regular rate Rhythm: regular rhythm GI Inspection: Yes normal to inspection Extrem General: Yes normal to inspection and No edema Coding Level of Care Code Est Pt Level 4 (82724) Complex EM visit Add On G2211 Diagnoses Chest pain, unspecified type R07.9 Chest pain type: unspecified Thrombophlebitis of upper extremity I80.8 Impaired fasting glucose R73.01 Obesity (BMI 30-39.9) E66.9 Gastroesophageal reflux disease without esophagitis K21.9 Esophagitis presence: without esophagitis Mild intermittent asthma without complication J45.20 Asthma severity: mild Asthma persistence: intermittent Asthma complication type: uncomplicated Right foot pain M79.671 Assessment & Plan Assessment & Plan (1) Chest pain: Code(s): R07.9 - Chest pain, unspecified Category: Medical Qualifiers: Chest pain type: unspecified Qualified Code(s): R07.9 - Chest pain, unspecified Plan: Patient had a stress test done revealed negative results. (2) Thrombophlebitis of upper extremity: Code(s): I80.8 - Phlebitis and thrombophlebitis of other sites Category: Medical Plan: Continue follow-up with Hematology-Oncology (3) Impaired fasting glucose: Code(s): R73.01 - Impaired fasting glucose Category: Medical Plan: Decrease the amount of carbohydrate intake, pasta, bread, rice and potatoes are all sugar and that is aside from all the sweet stuff, remember that fruits are good but they are Sweet also. (4) Obesity (BMI 30-39.9): Code(s): E66.9 - Obesity, unspecified Category: Medical Plan: Diet and exercise (5) GERD (gastroesophageal reflux disease): Comment: PPI is interfere with chemos- only take pepcid 40 - will try at noc- discuss with MD Code(s): K21.9 - Gastro-esophageal reflux disease without esophagitis Category: Medical Qualifiers: Esophagitis presence: without esophagitis Qualified Code(s): K21.9 - Gastro-esophageal reflux disease without esophagitis Plan: Avoid the foods that causes that usually spicy foods, tomato products, juices, coffee, soda and foods that your sensitive to. After eating do not lie down, allow 3-4 hours before in lie down. And keep the head of bed above 30 degrees to avoid the acid from going up. (6) Asthma: Code(s): J45.909 - Unspecified asthma, uncomplicated Category: Medical Qualifiers: Asthma severity: mild Asthma persistence: intermittent Asthma complication type: uncomplicated Qualified Code(s): J45.20 - Mild intermittent asthma, uncomplicated Plan: Patient is taking Incruse. (7) Right foot pain: Code(s): M79.671 - Pain in right foot Category: Medical Plan History of Present Illness The patient is a 49year-old female presenting for a follow-up visit. She has a history of leukemia diagnosed in 2017, which has been followed up with hematology oncology. The patient also reports a history of gastroesophageal reflux disease and asthma, for which she is currently using inhalers. The patient has experienced episodes of hypertension, with a recent incident of very high blood pressure causing dizziness and nausea. She was advised to monitor her blood pressure and manage stress to avoid medication unless the condition persists. The patient reports foot pain with discoloration, which has been present for two to three months. She has a history of surgery on the foot and experiences numbness and pain, particularly at night. An x-ray and podiatry referral have been planned to assess the condition further. The patient has a history of depression and is currently on sertraline, with regular visits to a counselor and psychiatrist. She is considering discussing medication adjustments with her psychiatrist due to mixed effects of the current treatment. Health Maintenance - Colonoscopy last performed in 2021 - Mammogram last performed in November 2024 - Vaccinations: COVID-19, flu, and shingles vaccines up to date Social History - Exercise: Limited due to foot pain, uses a cane for mobility - Weight management: Engaged in weight management program, next appointment in May Review of Systems - Cardiovascular: Reports episodic hypertension, denies chest pain - Respiratory: Reports asthma, uses inhalers, denies current dyspnea - Musculoskeletal: Reports foot pain with discoloration and numbness, denies recent trauma - Neurological: Reports numbness in foot, denies other neurological symptoms - Psychiatric: Reports depression, sees counselor and psychiatrist regularly Physical Exam - Cardiovascular: Strong peripheral pulses noted Results - Labs: Normal blood count, normal electrolytes, renal function, and liver function; blood sugar of 101 mg/dL - Imaging: Chest x-ray showing stable chest, stress test negative for ischemia - Cholesterol: LDL of 414 mg/dL in August 2023 Plan Patient was informed and verbally consented to the use of an ambient scribe for clinic note documentation during this visit. 1. Foot Pain With Discoloration The patient reports foot pain with discoloration, which has been present for two to three months. An x-ray and podiatry referral have been planned to assess the condition further. 2. Hypertension (Episodic) The patient has experienced episodes of hypertension, with a recent incident of very high blood pressure causing dizziness and nausea. She was advised to monitor her blood pressure and manage stress to avoid medication unless the condition persists. 3. Depression The patient has a history of depression and is currently on sertraline, with regular visits to a counselor and psychiatrist. She is considering discussing medication adjustments with her psychiatrist due to mixed effects of the current treatment. Discussion Notes During the visit, we discussed the patient's foot pain and discoloration, planning for an x-ray and podiatry referral to further evaluate the condition. We also addressed the episodic hypertension, advising the patient to monitor her blood pressure and manage stress, with the possibility of medication if the condition persists. Regarding depression, we talked about the current treatment with sertraline and the potential need for medication adjustment, encouraging the patient to discuss this with her psychiatrist. Patient Instructions - Monitor blood pressure regularly and manage stress to prevent hypertension episodes. - Follow up with podiatry for foot pain and discoloration, and complete the x- ray as scheduled. - Continue current depression treatment and discuss any medication concerns with your psychiatrist. Orders: Orders XR foot RT 2V Today M79.671 - Pain in right foot US arterial duplex LE RT Today M79.671 - Pain in right foot Referrals Podiatry Referral M79.671 - Pain in right foot Medications: New albuterol sulfate 90 mcg/actuation (Ventolin HFA) 2 puffs inhalation Q6H PRN 8.5 grams 0RF shortness of breath or wheezing J45.20 - Mild intermittent asthma, uncomplicated
--- OUTSIDE RECORDS SUMMARY | 2025-04-13 18:18 | XMS_ITS | Encounter Summary ---
Author Organization [facility] Address [address] [facility] [address] [place] [address] Phone Care Team Providers Care Vp Analysis Name Role Phone Kaylynn Charles MD Primary Care Provider [phone]- [phone] Reason for Visit * Reason Comments Medication Refill Encounter Details Date Type Department Care Team (Late st Contact Info) Description 01/16/2023 Refill [facility] [address] [place] [address], [address]nd Floor, [address] [place] [address] Nurys Cisneros MD, PhD [address] [place] [address] [email or web address] Medication Refill Social History Tobacco Use Types [...] on filedocumented in this encounter Care Teams Vp Analysis Relationship Specialty Start Date End Date Kaylynn Charles MD [facility] [place] [address] PCP - General Emergency Medicine 08/20/17 documented as of this encounter Additional Source Comments The information contained in this document represents components of the legal health record. It is not the complete legal health record.[facility]
--- OUTSIDE RECORDS SUMMARY | 2025-04-13 18:18 | XMS_ITS | Clinical Summary ---
Author Organization [facility] Address [address] [place] [address] Phone Care Team Providers Care Freight Claim Investigator Name Role Phone Kaylynn Charles MD Primary Care Provider [phone]- [phone] Allergies Active Allergy Reactions Criticality Noted Date Comments Penicillins Rash Medium 07/02/2017 Told by her mother when growing up that she had vomiting and rash as a child. Medications omeprazole (PRILOSEC) 20 mg TbECIndication s:Abnormal CBC,Chronic myeloid leukemia Take 20 mg by mouth daily before breakfast. Active zolpidem (AMBIEN) 5 MG tabletIndicati ons:Abnormal CBC,Chronic myeloid leukemia Take 5 mg by mouth nightly as needed for sleep. Active ibuprofen (ADVIL,MOTRIN) 200 MG tabletIndicati ons:Abnormal CBC,Chronic myeloid leukemia Take 200 mg by mouth every 6 (six) hours as needed for pain (specific location in comments). Active ibuprofen (ADVIL,MOTRIN) 400 MG tabletIndicati ons:Chronic myeloid leukemia Take 1 tablet (400 mg total) by mouth every 6 (six) hours as needed for pain (specific location in comments). 30 tablet 1 8 Active topiramate (TOPAMAX) 25 MG tablet Take 1 tablet (25 mg total) by mouth 2 (two) times a day. 25mg BID x 1 week then 25mg qAM / 50mg qHS x 1 week then 50mg BID 120 tablet 3 8 Active sucralfate (CARAFATE) 1 gram tabletIndicati ons:Chronic myeloid leukemia TAKE 1 TABLET (1 G TOTAL) BY MOUTH 4 (FOUR) TIMES A DAY. WITH MEALS AND AT NIGHT 360 tablet 3 1 Active prochlorperazi ne (COMPAZINE) 5 MG tabletIndicati ons:Abnormal CBC,Chronic myeloid leukemia Take 1 tablet (5 mg total) by mouth every 6 (six) hours as needed. 90 tablet 3 1 Active SPRYCEL 50 mg tabletIndicati ons:Chronic myeloid leukemia,Abnor mal CBC TAKE 1 TABLET (50 MG TOTAL) BY MOUTH DAILY. 30 tablet 5 2 Active WIXELA INHUB 250-50 mcg/dose DISKUS INHALE 1 PUFF BY MOUTH TWICE A DAY 60 each 12 2 Active budesonide-for moterol (SYMBICORT) 80-4.5 mcg/actuation inhaler Inhale 2 puffs into the lungs 2 (two) times a day. 3 Inhaler 1 0 020 Discontinued Active Problems Problem Noted Date Diagnosed Date Abnormal CBC 07/29/2017 Chronic myeloid leukemia 07/29/2017 Family History Medical History Relation Comments Breast cancer Cousin Breast cancer Maternal Aunt Stomach cancer Maternal Grandmother Breast cancer Paternal Grandfather Leukemia Neg Hx Relation Status Comments Cousin Maternal Aunt Maternal Grandmother Paternal Grandfather Social History Tobacco Use Types Packs/Day Years [...] Sign Reading Time Taken Comments Blood Pressure 123/86 09/25/2021 10:55 AM EDT Pulse 83 09/25/2021 10:55 AM EDT Temperature 36.4 C (97.6 F) 09/25/2021 10:55 AM EDT Respiratory Rate 16 09/25/2021 10:55 AM EDT Oxygen Saturation 100% 09/25/2021 10:55 AM EDT Inhaled Oxygen Concentration - - Weight 84.5 kg (186 lb 3.2 oz) 09/25/2021 10:55 AM EDT Height 154.9 cm (5' 0.98 ) 09/25/2021 10:55 AM E DT Body Mass Index 35.2 09/25/2021 10:55 AM EDT Plan of Treatment Health Maintenance Due Date Last Done Comments Adult Td,Tdap Booster 1974 LIPID PANEL 1974 DEPRESSION SCREENING 1986 HEPATITIS C SCREENING 1992 HIV ONE-TIME SCREENING (18-65 YEARS) 1992 ZOSTER VACCINES (1 of 2) 1993 PAP SMEAR 10/17/1995 MAMMOGRAM 2014 COLOGUARD 10/17/2019 COLONOSCOPY 10/17/2019 COLORECTAL CANCER SCREENING 10/17/2019 FIT TEST 10/17/2019 FOBT 10/17/2019 SIGMOIDOSCOPY 10/17/2019 VIRTUAL COLONOSCOPY 10/17/2019 PNEUMOCOCCAL VACCINES (50+ years) (2 of 2 - PCV) 06/11/2020 06/11/2019 INFLUENZA VACCINE (#1) 2025 , 04/03/2019, 04/01/2018, Additional history exists COVID-19 VACCINE (2024- season) 2025 04/09/2021, 09/27/2020, 09/06/2020 RSV VACCINE (1 - 1-dose 75+ series) 2049 SMOKING STATUS SCREENING (Once After 26 Yrs) Completed 03/13/2021 HEPATITIS A VACCINES Aged Out No long er eligible based on patient's age to complete this topic HIB VACCINES Aged Out No longer eligi ble based on patient's age to complete this topic MENINGOCOCCAL VACCINES (ACWY) Aged Out No longer eligible based on patient's age to complete this topic MENINGOCOCCAL VACCINES (B) Aged Out N o longer eligible based on patient's age to complete this topic Medical Devices Not on file Insurance MEDICARE REPLACEMENT MEDICARE REPLACEMENT CARE MEDICARE REPLACEMENT CARE MEDICARE REPLACEMENT CARE MEDICARE REPLACEMENT Care Teams Freight Claim Investigator Relationship Specialty Start Date End Date Kaylynn Charles MD [facility] [place] [address] PCP - General Emergency Medicine 08/20/17 Additional Source Comments The information contained in this document represents components of the legal health record. It is not the complete legal health record.[facility]
--- OUTSIDE RECORDS SUMMARY | 2025-04-13 18:18 | XMS_ITS | Clinical Summary ---
Author Organization [facility] Address [address] [place] [address] Care Team Providers Care Account Executive Software Sales Name Role Phone Josef Lindquist MD Primary Care Provider [phone] Allergies Active Allergy Reactions Criticality Noted Date [...] age to complete this topic Care Teams Account Executive Software Sales Relationship Specialty Start Date End Date Josef Lindquist MD [address] [place] [address] [address] [facility] [place] [address] PCP - General Internal Medicine 02/14/17
--- OUTSIDE RECORDS SUMMARY | 2025-04-13 18:18 | XMS_ITS | Encounter Summary ---
Author Organization [facility] Address [address] [place] [address] Care Team Providers Care Container Washer Name Role Phone Jsoef Lindquist MD Primary Care Provider Encounter Details Date Type Department Care Team (Late st Contact Info) Description 11/17/2024 Lab Requisition [facility] - Main Lab [address] [facility] [place] [phone] Robert Olivarez MD [address] [facility] [address] [place] [phone] Gross hematuria Social History Tobacco Use Types [...] AM EDT) Final Diagnosis A. Urine, Voided, ([id number]): Negative for high grade urothelial carcinoma. 11/25/2024 10:35 AM EDT [facility] ([facility]) HOSPITAL LAB Clinical Information Gross hematuria R31.0 Urine cytology with reflex [facility] ([facility]) 11/25/2024 10:35 AM EDT [facility] Gross Description A. Urine, Voided, [id number]: Received one ThinPrep slide for cytology. 11/25/2024 10:35 AM EDT [facility] Disclaimer Unless otherwise specified, all tissue is 10% NB formalin fixed and paraffin embedded. Technical pathology services provided by [facility] at [address] [place] [address] (CLIA #[id number]/S aroldo Early MD, Automobiles Salesperson) 11/25/2024 10:35 AM EDT [facility] Tissue Urine specimen from urethra / Unknown 11/13/2024 11/17/2024 11:16 AM EDT us Robert Olivarez MD LAB PATHOLOGY ORDERABLES Final Result [facility] [address] [place] [address], documented in this encounter Visit Diagnoses Diagnosis Gross hematuria documented in this encounter Care Teams Container Washer Relationship Specialty Start Date End Date Josef Lindquist MD [address] [place] [address] Dr [address] [facility] [place] [address] PCP - General Internal Medicine 05/14/17 documented as of this encounter
--- OUTSIDE RECORDS SUMMARY | 2025-04-13 18:18 | XMS_ITS | Patient Health Record ---
Author Organization [facility] Address [address] [place] [address] Care Team Providers Care Garden Tractor Mechanic Name Role Phone Viky Baca MD Primary Care Provider Kar Marley Unavailable [phone] Allergies Allergen (clinical drug ingredient) Drug/Non Drug Allergy documented on EMR Reaction Allergy Type Onset Date Status Penicillin Unknown Drug Allergy Active Reason For Referral No Information Medications Medication SIG (Take, Route, Fr equency, Duration) Notes Start Date End Date Status MiraLax 1 1 capful in 8 ounces of water Orally QD-BID for constipation; Duration: 30 days 05/04/2015 Active Omeprazole 20 MG 1 capsule Orally Onc e a day; Duration: 30 day(s) 05/04/2015 Active Zolpidem Tartrate 10 MG (Schedule IV Alfredito g) TAKE 1 TABLET BY MOUTH DAILY AT BEDTIME NEEDED FOR SLEEP Oral; Duration: 30 Active Ambien 10 MG 1 tablet [...] Problem Status W/U Status Risk Notes Problem Slow transit constipation (21811666) Slow transit constipation (K59.01) Active confirmed Problem Hiatal hernia (49463495) Hiatal hernia (K44.9) Active confirmed Problem Gastroesophageal reflux disease with esophagitis (disorder) (263439657) GERD with esophagitis (K21.0) Active confirmed Plan Of Treatment No Information Insurance Providers Payer Name Payer Address Payer Phone Subscriber Number Group Number Insured Name Patient Relationship to Insured Coverage Start Date Coverage End Date [place] OF [place] [address] [place] [id number] [phone] [id number] CLASS, VISH Self - patient is the insured [facility] [address] [place] [phone] [id number] CLASS, VISH Self - patient is the insured Medical (General) History Medical History History ICD Code Upper endoscopies in 2008 and in 2003 wi [facility]--small HH, no esophagitis EGD [place] [address] Lees- -mild esophagitis--H.pylori was negative, Hiatal hernia GERD Depression Takes antibiotics prophylaxis for a hol e in her heart. Denies VT,DM,CVA,Lung disease,renal dise ase Surgical History Surgery Date(Month/Year) BTL She describes a laparotomy f or internal bleeding with Dr. Camacho([facility]) Hysterectomy Foot surgery Elbow surgery
--- OUTSIDE RECORDS SUMMARY | 2025-04-13 18:18 | XMS_ITS | Clinical Summary ---
Author Organization [facility] Address [address] [place] [address] Phone Care Team Providers Care Park Guide Name Role Phone Josef Lindquist MD Primary Care Provider [phone] Allergies Active Allergy Reactions Criticality Noted Date [...] to 10 doses. 10 tablet 5 Active Medical History Medical History Date Comments Leukemia ([facility] V24, [facility] V28) Depression Social History Tobacco Use Types [...] Last Done Comments Breast Cancer Screening 1974 Colorectal Cancer Screening: Colonoscopy 1974 Hepatitis B Vaccines (1 of 3 - 19+ 3-dose series) 1993 Zoster Vaccines (1 of 2) 1993 Cervical Cancer Screening: Pap Smear 10/17/1995 Cholesterol Screening (Lipid Panel) 05/29/2022 HIV Screening 05/29/2022 Hepatitis C Screening 05/29/2022 Medicare Annual Wellness Visit 05/29/2022 Social Influencers of Health Screening 05/29/2022 Depression Screening 07/01/2024 COVID-19 Vaccine (9 - Pfizer risk 2023- season) 2025 05/16/2024, 12/09/2023, 03/22/2023, Additional history exists Influenza Vaccine (#1) 2025 , 03/15/2023, 03/30/2022, Additional history exists DTaP,Tdap,and Td Vaccines (2 - Td or Tdap) 06/18/2034 06/18/2024 RSV Immunization Adult Patients (1 - 1-dose 75+ series) 2049 Pneumococcal Vaccine: 50+ Years Completed 06/18/2024, 06/11/2019 [...] on patient's age to complete this topic Insurance [employer] MEDICARE Member Subscriber Plan / Payer (Ef fective 2019-Present) Name:VISH ROBLERO Relation to Subscriber:Self Name:Vish Roblero Payer ID:[id number] Group ID:[id number] Type:Not on file Address: [place] [address] [address] [address] Care Teams Park Guide Relationship Specialty Start Date End Date Josef Lindquist MD [address] [place] [address] [address] [facility] [place] [address] PCP - General Internal Medicine 05/14/17
== END 2025-04-13 16:30 | disposition home or self-care (01) ==
LOC: HO.HMCH 15:36
PROVIDERS: PCP Internal Medicine; Visit Provider Internal Medicine
DX: R07.9 Chest pain, unspecified (principal); I80.8 Phlebitis and thrombophlebitis of other sites; Z68.35 Body mass index [BMI] 35.0-35.9, adult; E66.9 Obesity, unspecified; R73.01 Impaired fasting glucose; K21.9 Gastro-esophageal reflux disease without esophagitis; J45.20 Mild intermittent asthma, uncomplicated; M79.671 Pain in right foot

== ENCOUNTER → 2025-04-13 15:35 | Outpatient (BNVA) | payer OTHER, SELFPAY | PROVIDERS: PCP Internal Medicine; Visit Provider Internal Medicine | DX: R73.01 Impaired fasting glucose (principal); I80.8 Phlebitis and thrombophlebitis of other sites; R07.9 Chest pain, unspecified; E66.9 Obesity, unspecified; K21.9 Gastro-esophageal reflux disease without esophagitis; J45.20 Mild intermittent asthma, uncomplicated; M79.671 Pain in right foot; R03.0 Elevated blood-pressure reading, without diagnosis of hypertension | CPT/HCPCS: 96127; 99212 ==

== ENCOUNTER 2025-05-21 10:08 | Outpatient (AMB) | payer OTHER, SELFPAY ==
[2025-05-21 10:40] VITALS: BMI 35.3
--- NOTE | 2025-05-21 10:40 | A.OFFVIS_ITS ---
Vital Signs 05/21/25 10:40 Height 5 ft 1 in Weight 187 lb BMI 35.3 Intake Visit Reasons: right foot pain Intake Note: Patient is a 49 year old female who is here for a new patient evaluation for right foot pain. Patient reports she has had the pain for about 4 months and her pain is located on the lateral aspect of her foot. She states the pain runs down from her hip and goes down to her foot. Patient has tried OTC pain medication, Hot patches, bengay, Stretching and has found no relief for herb pain. Allergies nut - unspecified (nut) Allergy (Severe, Verified 05/14/25 13:41) Anaphylaxis Penicillins Allergy (Severe, Verified 05/14/25 13:41) RASH seafood Allergy (Severe, Verified 05/14/25 13:41) Anaphylaxis shellfish derived Allergy (Severe, Verified 05/14/25 13:41) Anaphylaxis Wixela Inhub Adverse Reaction (Intermediate, Uncoded 05/14/25 13:41) palpitations HPI HPI right foot pain: Details: 49 y/o female seen today for initial evaluation of right heel pain. Pain has been present for over 4 months. Present mostly when lying down or when walking. She also notes she has a shooting pain that runs down from her right hip to her foot. Patient has tried OTC pain medication, Hot patches, bengay. 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 Mixed incontinence Obesity (BMI 30-39.9) Nasal congestion Allergic rhinitis Patent foramen ovale Peptic ulcer disease Insomnia Asthma GERD (gastroesophageal reflux disease) Leukemia Surgical History History of Jackson colposuspension Hx of colonoscopy Hx of esophagogastroduodenoscopy Hx of colonoscopy History of bilateral salpingectomy Ulnar nerve entrapment at elbow History of tonsillectomy History of vaginal hysterectomy Family History Maternal Aunt Breast cancer Paternal Grandmother Breast cancer Paternal Grandfather Myocardial infarction, acute, initial episode of care Paternal Uncle Stomach cancer Liver cancer Pancreatic cancer Kidney cancer, primary, with metastasis from kidney to other site Father Colon cancer Social History Household Members: None Housing: Apartment Are you a primary rehab care assistant to a significant other at home: No Do you presently have visiting nurse or other home services: No Alcohol intake: never Patient Tobacco Use Status: Never used Tobacco Tobacco use type: Cigarette e-Cigarette/Vaping Use: Never Used Second Hand Smoke Exposure: No Advance Directives Date on File: 02/06/22 service: No Current occupational status: employed Current occupational exposures/hazards: No Cognitive needs: No Hearing needs: No Vision needs: Yes Review of Systems Const All systems reviewed & are unremarkable except as noted in HPI and below Physical Exam Vital Signs: BMI result Body Mass Index 35.3 Extrem Other: *Bilateral Lower Extremity Focused Exam Vascular: DP/PT 2/4, CFT<3s to digits, TG warm to cool, no pedal edema Derm: No open wounds or lacerations. Neuro: (+) straight leg raise test (R) MSK: Mild tenderness on palpation of the plantar medial calcaneal tubercle right heel, no Tenderness on palpation along the distal insertion of the Achilles tendon, Pain to the posterior leg and lower back on ankle dorsiflexion on knee extension. Assessment & Plan Assessment & Plan (1) Plantar fasciitis of right foot: Code(s): M72.2 - Plantar fascial fibromatosis Category: Medical Plan: * Discussed etiology of the patient's foot pain. Differential diagnosis in cludes plantar fasciitis, neuritis, tendinitis. * Patient educated on the nature and etiology of plantar fasciitis, which involves inflammation and microtearing of the plantar fascia due to repetitive stress and overuse. * The patient was counseled on conservative management of plantar fasciitis, including daily stretching exercises targeting the plantar fascia and Achilles tendon, use of supportive and properly fitting footwear, and consideration of custom or prefabricated orthotics to improve foot biomechanics. * Discussed that if symptoms persist despite these measures, further interventions such as corticosteroid injections may be considered. She was not interested in an injection today. * Instructed the patient on home stretching and range of motion exercises inc luding calf-stretches, frozen water bottle therapy, band-therapy. * Recommended supportive shoe-wear with arch-supports to avoid increased loading on the patient's plantar fascia band. * Rx Celebrex * Follow up in 3 weeks. May consider cortisone injection. (2) Sciatica: Code(s): M54.30 - Sciatica, unspecified side Category: Medical Qualifiers: Laterality: right Qualified Code(s): M54.31 - Sciatica, right side Plan: * Referred to physical therapy * Recommended further work up with PCP and pain management Orders: Orders PT Evaluation and Treatment 05/21/25 M54.30 - Sciatica, unspecified side, M72.2 - Plantar fascial fibromatosis Medications: New celecoxib (Celebrex) 200 mg PO DAILY 30 caps 1RF sciatica Coding Level of Care Code New Pt Level 4 (59826) Diagnoses Plantar fasciitis of right foot M72.2 Sciatica of right side M54.31 Laterality: right Comment 30
--- OUTSIDE RECORDS SUMMARY | 2025-05-21 10:44 | XMS_ITS | Data Portability ---
Author Organization [facility], [facility] Address [address] [place] [phone] Care Team Providers Care Coat Padder Name Role Phone HIM CCA OTHER Assessment Encounter Date Assessment Date Assessment LastModified by Organization Details LastModified Time 01/22/2024 01/22/2024 I provided real -time medical direction via phone for this encounter, and was available for additional phone based assistance as needed. I have reviewed and agree with the Assessment and Plan as documented by the Kosher Sealer. We discussed the diagnostic uncertainty of home [...] to call 911- verbalized understanding of instruction [email or web address] Not available 01/22/2024 14:46:53 Plan of Treatment Reminders Order Date Submit Date Provider Last Modified By Organization Details Last Modified Time Details Appointments None recorded. Lab BMP, serum or plasma 2023 024 [email or web address] 0 [facility], [address] [place] [address], [id number] 14:45:59 Referral None recorded. Procedures None recorded. [...] Not available Not available Not available 01/22/2024 [id number] SNOMED Not Available [facility] - production 4 03:35:25 Medications Name Sig Start Date Stop Date Status Note LastModified by Organization Details LastModified Time Nasal [place] (oxymetazoli ne) 0.05 % SPRAY 2 SPRAYS [...] Address Organization Details Last Updated DateTime 01/22/2024 49766.63 g Geetha Portillo [address] [place] [address], [place], [address], [place] - [facility] 01/22/2024 14:37:49 Date Recorded Heart rate Oxygen saturation Respiratory rate Body temperature Systolic And Diastolic Provider Name and Address Organization Details Last Updated DateTime 4 90 /min 99 % 16 /min 98.8 [degF] 122/86 [...] Diagnosis SNOMED-CT Code Diagnosis ICD10 Code Diagnosis IMO Codes Diagnosis Note 60541 Inez Ibarra MD Main - [facility] [address] [place] [phone] 01/22/2024 14:21:47 01/22/2024 16:57:15 Bone pain [id number] M89.8X9 Advised-no t take any oral NSAIDs [...] Degroot Member ID Guarantor Name 01/23/2024 1 [facility] [place] - DOS ON OR AFTER 2022 - DUAL ELIGIBLE - RESIDENTIAL OPTIONS AND ONE CARE (MEDICARE REPLACEMENT/ADV ANTAGE - HMO) Laureen Class [id number] Laureen Class Notes Date Note Type Note Provider Name and Address Organization Details Recorded Time 01/22/2024 text/html ROS as noted in the HPI HPI: DEBBIE contacts [facility] directly to report that she is having s evere bone pain, weakness, and nausea and [facility] DEBBIE is a 48 y/o female with a PMH of, but not limited to: leukemia (oral CA medication Sprycell 50mg daily), depression, panic attacks, GERD, chronic migraines, insomnia, and anxiety. DEBBIE reports that she was seen in the ED, on Saturday, January 21, for increased bone pain, urinary symptoms (negative work up), exhaustion, and headaches. DEBBIE states, linda santos didn t do much and she was sent home with instructions to follow up with her PCP. DEBBIE contacted PCP and was told she could not be seen until March and was advised to visit UC for symptoms. DEBBIE currently reports worsening severe bone pain, to the point that she c annot focus and I barely have [...] few months. DEBBIE is assured [facility] on her behalf. After confirming DEBBIE s address and phone number on file, DEBBIE is advised to call 911 for any new or worsening symptoms. She is also advised to outreach her oncologist to report her worsening symptoms. DEBIBE understands, appreciates the advice, and will do so. DEBBIE can be reached at [phone]. .................. .................. .................. .................. .................. .................. .................. ............... CRC Nurse Triage Notes (Edwin Chavez): Chief Complaints: Headache, Nausea/Vomiting, Pain, Weakness/Lethargy Allergies: Penicillin Other Allergies: Penicillin Comments: HPI reviewed. No further information needed to process visit.Patient will not be home until after 130pm per pbx repairer- NE SEGMD: Patient was seen at the [facility] ER on 01/11. She reports she was [...] or hematochezia or any history of CKD Kosher Sealer POC Test Results from [facility] - YANET iSTAT Chem8+ (1) [14:33] Na: 139 mEq/L K: 3.7 mEq/L Cl: 105 mEq/L iCa: 1.21 mmol/L TCO2: 24 mmol/L Glu: 117 mg/dL BUN: 9 mg/dL Crea: 0.5 mg/dL Hct: 39 % Hb: 13.3 g/dL A .................. .................. .................. .................. .................. .................. .................. ............... Kosher Sealer Note From [facility]: Dispatched to the [...] Butterfly R AC without issue). BMP-results attached. [facility] consulted. Pt given 30mg of IM (L deltoid) Ketorolac. Red flags discussed. Pt advised to call her oncologist and avoid any NSAIDs for at least 24 hours. ALL times are approx. .................. .................. .................. .................. .................. .................. .................. ............... Disposition: Fulfilled Inez Ibarra MD [address] [facility],[address], [place], [address], [employer] [facility] [employer] 01/22/2024 16:09:26 OBGyn Episode No OBEpisode recorded.
--- OUTSIDE RECORDS SUMMARY | 2025-05-21 10:44 | XMS_ITS | Encounter Summary ---
Author Organization [facility] Address [address] [facility] [address] [place] [address] Phone Care Team Providers Care Nursery Rn Name Role Phone Kaylynn Charles MD Primary Care Provider [phone] Reason for Visit * Reason Comments Medication Refill Encounter Details Date Type Department Care Team (Late st Contact Info) Description 01/16/2023 Refill [facility] [address] [place] [address], [address] Floor, [address] [place] [address] Nurys Cisneros MD, PhD [address] [place], [place] [id number] [place] [address] [email or web address] Medication Refill Social History Tobacco Use [...] on filedocumented in this encounter Care Teams Nursery Rn Relationship Specialty Start Date End Date Kaylynn Charles MD [facility] [place] [address] PCP - General Emergency Medicine 08/20/17 documented as of this encounter Additional Source Comments The information contained in this document represents components of the legal health record. It is not the complete legal health record.[facility]
--- OUTSIDE RECORDS SUMMARY | 2025-05-21 10:45 | XMS_ITS | Clinical Summary ---
[facility] Address [address] [place] [address] Care Team Providers Care Administrative Hearing Officer Name Role Phone Josef Lindquist MD Primary Care Provider [phone] Allergies Active Allergy Reactions Criticality Noted Date [...] age to complete this topic Care Teams Administrative Hearing Officer Relationship Specialty Start Date End Date Josef Lindquist MD [address] [place] [address] [address] [facility] [place] [address] PCP - General Internal Medicine 02/14/17
--- OUTSIDE RECORDS SUMMARY | 2025-05-21 10:45 | XMS_ITS | Clinical Summary ---
Author Organization [facility] Address [address] [place] [address] Phone Care Team Providers Care Metallographer Name Role Phone Kaylynn Charles MD Primary Care Provider [phone] Allergies Active Allergy Reactions Criticality Noted Date [...] MEDICARE REPLACEMENT CARE MEDICARE REPLACEMENT Care Teams Metallographer Relationship Specialty Start Date End Date Kaylynn Charles MD [facility] [address] [place] [address] PCP - General Emergency Medicine 08/20/17 Additional Source Comments The information contained in this document represents components of the legal health record. It is not the complete legal health record.[facility]
--- OUTSIDE RECORDS SUMMARY | 2025-05-21 10:45 | XMS_ITS | Clinical Summary ---
Author Organization [facility] Address [address] [place] [address] Phone Care Team Providers Care Bakery Worker Name Role Phone Josef Lindquist MD Primary Care Provider [phone] Allergies Active Allergy Reactions Criticality Noted Date Comments Penicillins 09/14/2024 Shellfish Derived Anaphylaxis High 04/29/2025 Medications oxyCODONE (OXY-IR) 5 mg immediate release capsule Take 1 capsule (5 mg total) by mouth every 6 (six) hours if needed for severe pain for up to 5 doses. Max Daily Amount: 20 mg 5 capsule 5 Active ondansetron ODT (ZOFRAN-ODT) 4 mg disintegrating tabletIndications: Left lower quadrant abdominal pain Dissolve 1 tablet (4 mg total) on top of the tongue every 8 (eight) hours if needed for nausea or vomiting for up to 10 doses. 10 tablet 5 Active nitrofurantoin, macrocrystal-monoh ydrate, (MACROBID) 100 mg capsule Take 1 capsule (100 mg total) by mouth 2 (two) times a day for 7 days. Take with food 14 capsule 5 05/06/20 25 ondansetron ODT (ZOFRAN-ODT) 4 mg disintegrating tabletIndications: Acute upper urinary tract infection Let 1 tablet dissolve under the tongue three times daily as needed for nausea or vomiting. 10 tablet 5 05/06/20 25 ketorolac (TORADOL) 10 mg tablet Take 1 tablet (10 mg total) by mouth every 6 (six) hours if needed for moderate pain (Take with food) for up to 5 days. 20 tablet 05/04/20 25 Active Problems No known active problems Encounters Date Type Department Care Team Description 04/29/2025 12:50 PM EDT - 04/29/2025 4:39 PM EDT Emergency [facility] Emergency [address] [place] [address] Acute upper urinary tract infection (Primary Dx) Discharge Disposition: Home or Self Care from Last 3 Months Medical History Medical History Date Comments Leukemia ([facility] V24, [facility] V28) Depression Social History Tobacco Use Types [...] Sign Reading Time Taken Comments Blood Pressure 115/80 04/29/2025 11:52 AM EDT Pulse 92 04/29/2025 11:52 AM EDT Temperature 37 C (98.6 F) 04/29/2025 11:52 AM EDT Respiratory Rate 18 04/29/2025 11:52 AM EDT Oxygen Saturation 99% 04/29/2025 11:52 AM EDT Inhaled Oxygen Concentration - - Weight 84.4 kg (186 lb) 04/29/2025 11:52 AM EDT Height 154.9 cm (5' 1 ) 04/29/2025 11:52 AM EDT Body Mass Index 35.14 04/29/2025 11:52 AM EDT Plan of Treatment Health Maintenance [...] of Health Screening 05/29/2022 Depression Screening 07/01/2024 Zoster Vaccines (2 of 2) 04/29/2025 03/04/2025 COVID-19 Vaccine (10 - Pfizer risk season) 2025 04/07/2025, 05/16/2024, 12/09/2023, Additional history exists DTaP,Tdap,and Td Vaccines (2 - Td or Tdap) 06/18/2034 06/18/2024 RSV Immunization Adult Patients (1 - 1-dose 75+ series) 2049 Pneumococcal Vaccine: 50+ Years Completed 06/18/2024, 06/11/2019 Influenza Vaccine Completed 03/04/2025, , 03/15/2023, Additional history exists HIB Vaccines Aged Out No longer eligi [...] Date/Time Associated Diagnosis Comments CT ABDOMEN PELVIS WO CONTRAST STAT 04/29/2025 1:45 PM EDT LESTER URINE CULTURE TUBE STAT 04/29/2025 12:08 PM EDT URINALYSIS WITH REFLEX MICROSCOPIC AND CULTURE STAT 04/29/2025 12:08 PM EDT CBC WITH AUTO DIFFERENTIAL STAT 04/29/2025 12:08 PM EDT URINALYSIS WITH REFLEX MICROSCOPIC AND CULTURE STAT 04/29/2025 12:08 PM EDT COMPREHENSIVE METABOLIC PANEL STAT 04/29/2025 12:08 PM EDT CBC AND DIFFERENTIAL STAT 04/29/2025 12:08 PM EDT CULTURE URINE STAT 04/29/2025 12:08 PM EDT from Last 3 Months Results * CT Abdomen Pelvis wo Contrast (04/29/2025 1:45 PM EDT) Anatomical Region Laterality Modality Body Computed Tomogra phy 04/29/2025 2:42 PM EDT Impressions 04/29/2025 2:45 PM EDT 1. No acute abnormality in the abdomen or pelvis. 2. No renal stones or hydronephrosis. 3. Prominent stool burden to the level of the sigmoid colon. -------- FINAL REPORT -------- Dictated By: Flower Sharpe Dictated Date: 04/29/2025 14:42 ET Assigned Physician: Flower Sharpe Reviewed and Electronically Signed By: Flower Sharpe Signed Date: 04/29/2025 14:45 ET Workstation ID: [id number] Transcribed By: Self Edit Transcribed Date: 04/29/2025 14:42 ET Narrative 04/29/2025 2:45 PM EDT PROCEDURE: CT Abdomen and Pelvis without contrast INDICATION: Abdominal pain, acute, no prior medical history Kidney stone left TECHNIQUE: CT of the abdomen and pelvis without contrast. Multiplanar reformats. The examination was performed utilizing dose reduction techniques. DLP: 1181 mGy/cm COMPARISON: No priors available. FINDINGS: LOWER THORAX: Lung bases are clear. HEPATOBILIARY: No focal liver lesions. No cholelithiasis or biliary duct dilatation. SPLEEN: No splenomegaly. PANCREAS: No focal mass or ductal dilatation. ADRENALS: No nodules. KIDNEYS/URETERS: No hydronephrosis, stones, or solid mass. PELVIC ORGANS/BLADDER: Hysterectomy. PERITONEUM / RETROPERITONEUM: No ascites or free air. No retroperitoneal lymphadenopathy. VESSELS: Scattered atherosclerotic calcifications throughout the aorta and its major branches. No aneurysm. GI TRACT: Diverticulosis without evidence for acute diverticulitis. No bowel obstruction. Prominent stool burden to the level of the sigmoid colon. BONES AND SOFT TISSUES: Scattered degenerative changes seen throughout the bones. Soft tissues are unremarkable. Procedure Note Flower Sharpe MD - 04/29/2025 PROCEDURE: CT Abdomen and Pelvis without contrast INDICATION: Abdominal pain, acute, no prior medical history Kidney stone left TECHNIQUE: CT of the abdomen and pelvis without contrast. Multiplanarreformats. The examination was performed utilizing dose reductiontechniques. DLP: 1181 mGy/cm COMPARISON: No priors available. FINDINGS: LOWER THORAX: Lung bases are clear. HEPATOBILIARY: No focal liver lesions. No cholelithiasis or biliary ductdilatation. SPLEEN: No splenomegaly. PANCREAS: No focal mass or ductal dilatation. ADRENALS: No nodules. KIDNEYS/URETERS: No hydronephrosis, stones, or solid mass. PELVIC ORGANS/BLADDER: Hysterectomy. PERITONEUM / RETROPERITONEUM: No ascites or free air. No retroperitoneallymphadenopathy. VESSELS: Scattered atherosclerotic calcifications throughout the aorta andits major branches. No aneurysm. GI TRACT: Diverticulosis without evidence for acute diverticulitis. Nobowel obstruction. Prominent stool burden to the level of the sigmoidcolon. BONES AND SOFT TISSUES: Scattered degenerative changes seen throughout thebones. Soft tissues are unremarkable. IMPRESSION: 1. No acute abnormality in the abdomen or pelvis. 2. No renal stones or hydronephrosis. 3. Prominent stool burden to the level of the sigmoid colon. -------- FINAL REPORT -------- Dictated By: Flower Sharpe Dictated Date: 04/29/2025 14:42 ET Assigned Physician: Flower Sharpe Reviewed and Electronically Signed By: Flower Sharpe Signed Date: 04/29/2025 14:45 ET Workstation ID: [id number] Transcribed By: Self Edit Transcribed Date: 04/29/2025 14:42 ET [facility] IMG CT PROCEDURES Final Resu lt * (ABNORMAL) Urinalysis with reflex microscopic and culture (04/29/2025 12:08 PM EDT) Specific [place] Urine 1.033(H) 1.003 - 1.030 LAB URINALYSIS - AUTOMATED METHOD 04/29/2025 12:56 PM [facility] pH, Urine 6.0 5.0 - 8.0 pH LAB URINALYSIS - AUTOMATED METHOD 04/29/2025 12:56 PM [facility] Leukocytes, Urine Trace(A) Negative LAB URINALYSIS - AUTOMATED METHOD 04/29/2025 12:56 PM [facility] Nitrite, Urine Negative Negative LAB URINALYSIS - AUTOMATED METHOD 04/29/2025 12:56 PM [facility] Protein, Urine 30(A) <=Trace mg/dL LAB URINALYSIS - AUTOMATED METHOD 04/29/2025 12:56 PM [facility] Glucose, Urine Negative Negative mg/dL LAB URINALYSIS - AUTOMATED METHOD 04/29/2025 12:56 PM [facility] Ketones, Urine Trace(A) Negative mg/dL LAB URINALYSIS - AUTOMATED METHOD 04/29/2025 12:56 PM [facility] Urobilinogen, Urine 1.0 0.2 - 1.0 mg/dL LAB URINALYSIS - AUTOMATED METHOD 04/29/2025 12:56 PM [facility] Bilirubin, Urine Negative Negative LAB URINALYSIS - AUTOMATED METHOD 04/29/2025 12:56 PM [facility] Blood, Urine Negative Negative LAB URINALYSIS - AUTOMATED METHOD 04/29/2025 12:56 PM [facility] RBC, Urine 8.3(H) 0 - 4 /HPF LAB URINALYSIS - AUTOMATED METHOD 04/29/2025 12:56 PM [facility] WBC, Urine 5.1(H) 0 - 4 /HPF LAB URINALYSIS - AUTOMATED METHOD 04/29/2025 12:56 PM [facility] Squamous Epithelial, Urine >100(H) 0 - 60 /LPF LAB URINALYSIS - AUTOMATED METHOD 04/29/2025 12:56 PM EDT [facility] Bacteria, Urine Many(A) Negative /HPF LAB URINALYSIS - AUTOMATED METHOD 04/29/2025 12:56 PM EDT [facility] Hyaline Casts, Urine 28.5(H) 0 - 3 /LPF LAB URINALYSIS - AUTOMATED METHOD 04/29/2025 12:56 PM EDT [facility] Urine Urine specimen obtained by clean catch procedure / Unknown Non-blood Collection / Unknown 04/29/2025 12:08 PM EDT 04/29/2025 12:18 PM EDT David Quiros MD LAB URINE ORDERABLES Final Result Performing Organization Address City/[facility]/ZIP Co de Phone Number [facility] [address] [place] [address], [place] [phone] * Lester urine culture tube (04/29/2025 12:08 PM EDT) Extra Tube Hold for add-ons. 04/29/2025 2:01 PM EDT [facility] Comment:Auto resulted. Urine Urine specimen obtained by clean catch procedure / Unknown Non-blood Collection / Unknown 04/29/2025 12:08 PM EDT 04/29/2025 12:18 PM EDT David Quiros MD LAB URINE ORDERABLES Final Result Performing Organization Address [facility]/ZIP Co de Phone Number [facility] [address] [place] [address], [place] [phone] * CBC auto differential (04/29/2025 12:08 PM EDT) WBC 7.3 4.8 - 10.8 K/mcL LAB HEMETOLOGY METHOD 04/29/2025 12:49 PM EDT [facility] RBC 4.10 3.80 - 4.80 M/mcL LAB HEMETOLOGY METHOD 04/29/2025 12:49 PM EDT [facility] Hemoglobin 12.2 11.5 - 16.0 g/dL LAB HEMETOLOGY [facility] Hematocrit 37.9 35.0 - 47.0 % LAB HEMETOLOGY METHOD 04/29/2025 12:49 PM EDT [facility] MCV 91.5 79.0 - 98.0 FL LAB HEMETOLOGY METHOD 04/29/2025 12:49 [facility] MCH 29.5 27.0 - 32.0 pcg LAB HEMETOLOGY METHOD 04/29/2025 12:49 PM [facility] MCHC 32.2 32.0 - 37.0 g/dL LAB HEMETOLOGY METHOD 04/29/2025 12:49 [facility] RDW 12.2 11.0 - 15.0 % LAB HEMETOLOGY METHOD 04/29/2025 12:49 PM [facility] Platelets 239 130 - 400 K/mcL LAB HEMETOLOGY METHOD 04/29/2025 12:49 PM [facility] MPV 10.5 7.0 - 11.0 FL LAB HEMETOLOGY METHOD 04/29/2025 12:49 PM EDT [facility] NRBC 0.0 <1.0 % LAB HEMETOLOGY METHOD 04/29/2025 12:49 PM EDT [facility] NRBC Absolute 0.00 <0.10 K/mcL LAB HEMETOLOGY METHOD 04/29/2025 12:49 [facility] Neutrophils Relative 53.8 % LAB HEMETOLOGY METHOD 04/29/2025 12:49 PM [facility] Lymphocytes Relative 35.4 % LAB HEMETOLOGY METHOD 04/29/2025 12:49 PM EDT [facility] Monocytes Relative 7.1 % LAB HEMETOLOGY METHOD 04/29/2025 12:49 PM [facility] Eosinophils Relative 2.6 % LAB HEMETOLOGY METHOD 04/29/2025 12:49 PM EDT [facility] Basophils Relative 1.0 % LAB HEMETOLOGY METHOD 04/29/2025 12:[facility] Immature Granulocytes Relative 0.1 % LAB HEMETOLOGY METHOD 04/29/2025 12:49 PM EDT [facility] Neutrophils Absolute 3.93 1.50 - 7.00 K/mcL LAB HEMETOLOGY METHOD 04/29/2025 12:49 PM [facility] Lymphocytes Absolute 2.59 1.00 - 5.00 K/mcL LAB HEMETOLOGY METHOD 04/29/2025 12:49 [facility] Monocytes Absolute 0.52 0.20 - 1.00 K/mcL LAB HEMETOLOGY METHOD 04/29/2025 12:49 [facility] Eosinophils Absolute 0.19 0.00 - 0.50 K/mcL LAB HEMETOLOGY METHOD 04/29/2025 12:49 PM T [facility] Basophils Absolute 0.07 0.00 - 0.20 K/mcL LAB HEMETOLOGY METHOD 04/29/2025 12:49 PM T [facility] Immature Granulocytes Absolute 0.01 0.00 - 0.03 K/mcL LAB HEMETOLOGY METHOD 04/29/2025 12:49 PM [facility] Blood Venous blood specimen / Unknown Venipuncture / Unknown 04/29/2025 12:08 PM EDT 04/29/2025 12:18 PM EDT David Quiros MD LAB BLOOD ORDERABLES Final Result Performing Organization Address [facility]/ZIP Co de Phone Number [facility] [address] [place] [address], [place] [phone] * Culture urine (04/29/2025 12:08 PM EDT) [facility] Culture, Urine Mixed urogenital bill, no uropathogens present. Suggest repeat specimen, if clinically indicated. 04/30/2025 10:12 AM EDT [facility] Urine Urine specimen obtained by clean catch procedure / Unknown Non-blood Collection / Unknown 04/29/2025 12:08 PM EDT 04/29/2025 12:56 PM EDT David Quiros MD LAB MICROBIOLOGY - GENERAL ORDERABLES Final Result Performing Organization Address [facility] Co de Phone Number [facility] [address] [place] [address], [place] [phone] * (ABNORMAL) Comprehensive metabolic panel (04/29/2025 12:08 PM EDT) [facility] Sodium 138 133 - 145 mmol/L LAB CHEMISTRY METHOD 04/29/2025 1:01 PM [facility] Potassium 3.4(L) 3.5 - 5.5 mmol/L LAB CHEMISTRY METHOD 04/29/2025 1:01 PM [facility] Chloride 105 96 - 110 mmol/L LAB CHEMISTRY METHOD 04/29/2025 1:01 PM [facility] CO2 28 21 - 32 mmol/L LAB CHEMISTRY METHOD 04/29/2025 1:01 PM [facility] Anion Gap 5 3 - 11 LAB CHEMISTRY METHOD 04/29/2025 1:01 PM [facility] Glucose 134(H) 70 - 100 mg/dL LAB CHEMISTRY METHOD 04/29/2025 1:01 PM [facility] BUN 10 5 - 25 mg/dL LAB CHEMISTRY METHOD 04/29/2025 1:01 PM [facility] Creatinine 0.68 0.50 - 1.10 mg/dL LAB CHEMISTRY METHOD 04/29/2025 1:01 PM [facility] eGFR 106 >=60 mL/min/1. 73m2 LAB CHEMISTRY METHOD 04/29/2025 1:01 PM [facility] Comment:Calculation based on the Chronic Kidney Disease Epidemiology Collaboration (CKD-EPI) equation refit without adjustment for race. BUN/Creatinine Ratio 14.7 LAB CHEMISTRY METHOD 04/29/2025 1:01 PM [facility] Calcium 9.0 8.5 - 10.5 mg/dL LAB CHEMISTRY METHOD 04/29/2025 1:01 PM [facility] AST (SGOT) 21 10 - 42 unit/L LAB CHEMISTRY METHOD 04/29/2025 1:01 PM [facility] ALT (SGPT) 23 10 - 60 unit/L LAB CHEMISTRY METHOD 04/29/2025 1:01 PM [facility] Alkaline Phosphatase 92 42 - 121 unit/L LAB CHEMISTRY METHOD 04/29/2025 1:01 PM [facility] Total Protein 7.1 6.0 - 8.0 g/dL LAB CHEMISTRY METHOD 04/29/2025 1:01 PM [facility] Albumin 3.6 3.2 - 5.0 g/dL LAB CHEMISTRY METHOD 04/29/2025 1:01 PM [facility] Total Bilirubin 0.5 0.0 - 1.4 mg/dL LAB CHEMISTRY METHOD 04/29/2025 1:01 PM [facility] Blood Venous blood specimen / Unknown Venipuncture / Unknown 04/29/2025 12:08 PM EDT 04/29/2025 12:18 PM EDT us David Quiros MD LAB BLOOD ORDERABLES Final Result [facility] [address] [place] [address], from Last 3 Months Insurance [facility] MEDICARE Member Subscriber Plan / Payer (Ef fective 2019-Present) Name:ANNIKA VISH Relation to Subscriber:Self Name:Annika Vish Payer ID:[id number] Group ID:[id number] Type:Not on file Address: [place] [address] [address] [address] Care Teams Bakery Worker Relationship Specialty Start Date End Date Josef Lindquist MD [address] [place] [address] [address] [facility] [place] [address] PCP - General Internal Medicine 05/14/17
--- OUTSIDE RECORDS SUMMARY | 2025-05-21 10:45 | XMS_ITS | Encounter Summary ---
Author Organization [facility] Address [address] [place] [address] Care Team Providers Care Legal Technician Name Role Phone Josef Lindquist MD Primary Care Provider [phone] Encounter Details Date Type Department Care Team (Late st Contact Info) Description 11/17/[address] [facility] [address] [facility] [place] [id number] Robert Olivarez MD [address] [facility] [address] [place] [phone] Gross hematuria Social History Tobacco Use Types [...] AM EDT) Final Diagnosis A. Urine, Voided, ([id number]): Negative for high grade urothelial carcinoma. 11/25/2024 10:35 AM EDT [facility] Clinical Information Gross hematuria R31.0 Urine cytology with reflex [facility] ([facility]) 11/25/2024 10:35 AM EDT [facility] Gross Description A. Urine, Voided, [id number]: Received one ThinPrep slide for cytology. 11/25/2024 10:35 AM EDT [facility] Disclaimer Unless otherwise specified, all tissue is 10% NB formalin fixed and paraffin embedded. Technical pathology services provided by [facility] [address] [facility] [address] [place] [address] (CLIA #[id number]/S aroldo Early MD, Special Education Itinerant Teacher) 11/25/2024 10:35 AM EDT [facility] Tissue Urine specimen from urethra / Unknown 11/13/2024 11/17/2024 11:16 AM EDT us Robert Olivarez MD LAB PATHOLOGY ORDERABLES Final Result [facility] [address] [place] [address], documented in this encounter Visit Diagnoses Diagnosis Gross hematuria documented in this encounter Care Teams Legal Technician Relationship Specialty Start Date End Date Josef Lindquist MD [address] [place] [address] [address] [facility] [place] [address] PCP - General Internal Medicine 05/14/17 documented as of this encounter
--- OUTSIDE RECORDS SUMMARY | 2025-05-21 10:45 | XMS_ITS | Patient Health Record ---
Author Organization [facility] Address [address] [place] [address] Care Team Providers Care Ux Ui Designer Name Role Phone Viky Baca MD Primary Care Provider Kar Marley Unavailable [phone] Allergies Allergen (clinical drug ingredient) Drug/Non Drug Allergy documented on EMR Reaction Allergy Type Onset Date Status Penicillin Unknown Drug Allergy Active Reason For Referral No Information Medications Medication SIG (Take, Route, Frequency, Duration) Notes Start Date End Date Status MiraLax 1 Powder 1 capful in 8 ounces of water Orally QD-BID for constipation; Duration: 30 days 05/04/2015 Active Omeprazole 20 MG Capsule Delayed Release 1 capsule Orally Once a day; Duration: 30 day(s) 05/04/2015 Active Zolpidem Tartrate 10 MG Tablet (Schedule IV Drug) TAKE 1 TABLET BY MOUTH DAILY AT BEDTIME NEEDED FOR SLEEP Oral; Duration: 30 Active Ambien 10 MG Tablet 1 tablet at bedtime as needed Orally Once a day Active Tylenol 325 MG Tablet 1 tablet as needed Orally every 6 hrs/prn Active Immunizations Vaccine Route Administration Date Status Comme nts Flu vaccine no Preserv 3 and > Unknown 05/03/2015 Admin istered Social History Social History Additional Details Category Social Info Options Details Miscellaneous: Marital status: single 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 Section Notes: Nonsmoker; no alcohol Problems Problem Type SNOMED Code ICD Code Onset Dates Problem Status W/U Status Risk Notes Problem Slow transit constipation (12504791) Slow transit constipation (K59.01) Active confirmed Problem Hiatal hernia (96480332) Hiatal hernia (K44.9) Active confirmed Problem Gastroesophageal reflux disease with esophagitis (disorder) (345925967) GERD with esophagitis (K21.0) Active confirmed Plan Of Treatment No Information Insurance Providers Payer Name Payer Address Payer Phone Subscriber Number Group Number Insured Name Patient Relationship to Insured Coverage Start Date Coverage End Date MEDICARE OF [place] [address] [place] [phone] [id number] CLASS, VISH Self - patient is the insured MEDICAID OF [facility] [address] [place] [address] [id number] CLASS, VISH Self - patient is the insured Medical (General) History Medical History History ICD Code Upper endoscopies in 2008 and in 2003 wi th vt--small HH, no esophagitis EGD [place] [address] Lees- -mild esophagitis--H.pylori was negative, Hiatal hernia GERD Depression Takes antibiotics prophylaxis for a hol e in her heart. Denies [place],DM,CVA,Lung disease,renal dise ase Surgical History Surgery Date(Month/Year) BTL She describes a laparotomy f or internal bleeding with Dr. Camacho([facility]) Hysterectomy Foot surgery Elbow surgery
== END 2025-05-21 10:53 | disposition home or self-care (01) ==
LOC: HO.HPODS 10:09
PROVIDERS: PCP Internal Medicine; Visit Provider Student in an Organized Health Care Education/Training Program
DX: M72.2 Plantar fascial fibromatosis (principal); M54.31 Sciatica, right side
CPT/HCPCS: 99204

== ENCOUNTER → 2025-05-21 10:08 | Outpatient (BNVA) | payer OTHER, SELFPAY | PROVIDERS: PCP Internal Medicine; Visit Provider Student in an Organized Health Care Education/Training Program | DX: M72.2 Plantar fascial fibromatosis (principal); M54.31 Sciatica, right side | CPT/HCPCS: 99202 ==

== ENCOUNTER 2025-06-14 15:01 | Outpatient (REF) | payer OTHER, SELFPAY ==
--- NOTE | ~2025-06-14 | US_ITS ---
EXAMINATION: Noninvasive assessment of the right lower extremity without ARTERIAL DUPLEX, ANKLE BRACHIAL INDICES (ABIs), and PULSE VOLUME RECORDINGS (PVRs). CLINICAL INFORMATION: M 79.671. TECHNIQUE: Duplex Doppler techniques with waveform analysis and measurement of velocities in the right common femoral, profunda femoris, superficial femoral, popliteal and tibial arteries were performed. The study was performed only at rest. COMPARISON: None FINDINGS: DIRECT DUPLEX DOPPLER FINDINGS: RIGHT LEG: Common femoral artery: 153 cm/s, phasicity: Triphasic. Profunda femoris artery: 90 cm/s, phasicity: Triphasic. Superficial femoral artery (proximal): 132 cm/s, phasicity: Triphasic. Superficial femoral artery (mid): 119 cm/s, phasicity: Triphasic. Superficial femoral artery (distal): 83 cm/s, phasicity: Triphasic. Popliteal artery: 71 cm/s, phasicity: Triphasic. Posterior tibial artery: 82 cm/s, phasicity: Triphasic. Peroneal artery: 35 cm/s, phasicity: Biphasic. Anterior tibial artery: 83 cm/s, phasicity: Triphasic. Dorsalis pedis artery: 91 cm/s, phasicity:Triphasic. US/US arterial duplex LE RT IMPRESSION: Right leg: Normal patency and waveforms throughout the interrogated arteries. Electronically signed by: Henrry Singletary MD 06/15/2025 07:27 AM [place]
--- OUTSIDE RECORDS SUMMARY | 2025-06-14 21:35 | XMS_ITS | Encounter Summary ---
Author Organization [facility] Address [address] [facility] [address] [place] [address] Phone Care Team Providers Care Fisher Terrapin Name Role Phone Kaylynn Charles MD Primary Care Provider [phone] Reason for Visit * Reason Comments Medication Refill Encounter Details Date Type Department Care Team (Late st Contact Info) Description 01/16/2023 Refill [facility] [address] [place] [address], [address] Floor, [address] [place] [address] Nurys Cisneros MD, PhD [address] [place], [place] [id number] [place] [address] [email or web address] [email or web address] Refill Social History Tobacco [...] on filedocumented in this encounter Care Teams Fisher Terrapin Relationship Specialty Start Date End Date Kaylynn Charles MD [facility] [place] [address] PCP - General Emergency Medicine 08/20/17 documented as of this encounter Additional Source Comments The information contained in this document represents components of the legal health record. It is not the complete legal health record.[facility]
--- OUTSIDE RECORDS SUMMARY | 2025-06-14 21:35 | XMS_ITS | Clinical Summary ---
Author Organization [facility] Address [address] [place] [address] Phone Care Team Providers Care Dealer Development Manager Name Role Phone Kaylynn Charles MD Primary Care Provider [phone] Allergies Active Allergy Reactions Criticality Noted Date [...] MEDICARE REPLACEMENT CARE MEDICARE REPLACEMENT Care Teams Dealer Development Manager Relationship Specialty Start Date End Date Kaylynn Charles MD [facility] [place] [address] PCP - General Emergency Medicine 08/20/17 Additional Source Comments The information contained in this document represents components of the legal health record. It is not the complete legal health record.[facility]
--- OUTSIDE RECORDS SUMMARY | 2025-06-14 21:35 | XMS_ITS | Clinical Summary ---
Author Organization [facility] Prior to 11/28/[address] [place] [address] Care Team Providers Care Transmission Assembler Name Role Phone Josef Lindquist MD Primary Care Provider [phone] Allergies Active Allergy Reactions Criticality Noted Date [...] age to complete this topic Care Teams Transmission Assembler Relationship Specialty Start Date End Date Josef Lindquist MD [address] [place] [address] Dr [address] [facility] [place] [address] PCP - General Internal Medicine 02/14/17
--- OUTSIDE RECORDS SUMMARY | 2025-06-14 21:35 | XMS_ITS | Encounter Summary ---
Author Organization [facility] Address [address] [place] [address] Care Team Providers Care Digester Capper Name Role Phone Josef Lindquist MD Primary Care Provider [phone] Encounter Details Date Type Department Care Team (Late st Contact Info) Description 11/17/2024 Lab Requisition [facility] - Main Lab [address] [facility] [place] [phone] Robert Olivarez MD [address] [facility] [address] [place] [phone] Gross hematuria Social History Tobacco Use Types [...] AM EDT) Final Diagnosis A. Urine, Voided, ([id number]): Negative for high grade urothelial carcinoma. 11/25/2024 10:35 AM EDT [facility] LAB at 1035 EDT Clinical Information Gross hematuria R31.0 Urine cytology with reflex [facility] ([facility]) 11/25/2024 10:35 AM EDT [facility] Gross Description A. Urine, Voided, [id number]: Received one ThinPrep slide for cytology. 11/25/2024 10:35 AM EDT [facility] Disclaimer Unless otherwise specified, all tissue is 10% NB formalin fixed and paraffin embedded. Technical pathology services provided by [facility] at [address] [facility] [address] [place] [address] (CLIA #[id number]/S aroldo Early MD, Tin Tie Machine Operator Automatic) 11/25/2024 10:35 AM EDT [facility] Tissue Urine specimen from urethra / Unknown 11/13/2024 11/17/2024 11:16 AM EDT us Robert Olivarez MD LAB PATHOLOGY ORDERABLES Final Result [facility] [address] [place] [address], documented in this encounter Visit Diagnoses Diagnosis Gross hematuria documented in this encounter Care Teams Digester Capper Relationship Specialty Start Date End Date Josef Lindquist MD [address] [place] [address] Dr Byrne [address] [facility] [place] [address] PCP - General Internal Medicine 05/14/17 documented as of this encounter
--- OUTSIDE RECORDS SUMMARY | 2025-06-14 21:35 | XMS_ITS | Clinical Summary ---
Author Organization [facility] Address [address] [place] [address] Phone Care Team Providers Care In Store Representative Name Role Phone Josef Lindquist MD Primary Care Provider [phone] Allergies Active Allergy Reactions Criticality Noted Date [...] to 10 doses. 10 tablet 5 Active Active Problems No known active problems Encounters Date Type Department Care Team Description 04/29/2025 12:50 PM EDT - 04/29/2025 4:39 PM EDT Emergency [facility] Emergency [address] [place] [address] Acute upper urinary tract infection (Primary Dx) Discharge Disposition: Home or Self Care from Last 3 Months Medical History Medical History Date Comments Leukemia (CMS/HCC V24, CMS/[facility] V28) Depression Social History Tobacco Use [...] Orientation Straight 09/14/2024 5: 11 PM EDT Last Filed Vital Signs Vital Sign Reading [...] 03/04/2025 COVID-19 Vaccine (10 - Pfizer risk 2024- season) 2025 04/07/2025, 05/16/2024, 12/09/2023, Additional history [...] Signed Date: 04/29/2025 14:45 ET Workstation ID: [id number] Transcribed By: Self Edit Transcribed Date: 04/29/2025 [...] Signed Date: 04/29/2025 14:45 ET Workstation ID: [id number] Transcribed By: Self Edit Transcribed Date: 04/29/2025 14:42 ET [facility] HARVEY IMG CT PROCEDURES Final Resu lt * (ABNORMAL) Urinalysis with reflex microscopic and culture (04/29/2025 12:08 PM EDT) Specific [place] Urine 1.033(H) 1.003 - 1.030 LAB URINALYSIS - AUTOMATED METHOD 04/29/2025 12:56 PM [facility] pH, Urine 6.0 5.0 - 8.0 pH LAB URINALYSIS - AUTOMATED METHOD 04/29/2025 12:56 PM [facility] Leukocytes, Urine Trace(A) Negative LAB URINALYSIS - AUTOMATED METHOD 04/29/2025 12:56 PM [facility] Nitrite, Urine Negative Negative LAB URINALYSIS - AUTOMATED METHOD 04/29/2025 12:56 PM [facility] Protein, Urine 30(A) <=Trace mg/dL LAB URINALYSIS - AUTOMATED METHOD 04/29/2025 12:56 PM [facility] Glucose, Urine Negative Negative mg/dL LAB URINALYSIS - AUTOMATED METHOD 04/29/2025 12:56 PM [facility] Ketones, Urine Trace(A) Negative mg/dL LAB URINALYSIS - AUTOMATED METHOD 04/29/2025 12:56 PM [facility] Urobilinogen, Urine 1.0 0.2 - 1.0 mg/dL LAB URINALYSIS - AUTOMATED METHOD 04/29/2025 12:56 PM [facility] Bilirubin, Urine Negative Negative LAB URINALYSIS - AUTOMATED METHOD 04/29/2025 12:56 PM [facility] Blood, Urine Negative Negative LAB URINALYSIS - AUTOMATED METHOD 04/29/2025 12:56 PM [facility] RBC, Urine 8.3(H) 0 - 4 /HPF LAB URINALYSIS - AUTOMATED METHOD 04/29/2025 12:56 PM [facility] WBC, Urine 5.1(H) 0 - 4 /HPF LAB URINALYSIS - AUTOMATED METHOD 04/29/2025 12:56 PM [facility] Squamous Epithelial, Urine >100(H) 0 - 60 /LPF LAB URINALYSIS - AUTOMATED METHOD 04/29/2025 12:56 PM [facility] Bacteria, Urine Many(A) Negative /HPF LAB URINALYSIS - AUTOMATED METHOD 04/29/2025 12:56 PM [facility] Hyaline Casts, Urine 28.5(H) 0 - 3 /LPF LAB URINALYSIS - AUTOMATED METHOD 04/29/2025 12:56 PM [facility] Urine Urine specimen obtained by clean catch procedure / Unknown Non-blood Collection / Unknown 04/29/2025 12:08 PM EDT 04/29/2025 12:18 PM EDT David Quiros MD LAB URINE ORDERABLES Final Result Performing Organization Address City/[facility]/ZIP Co de Phone Number [facility] [address] [place] [address], [place] [phone] * Lester urine culture tube (04/29/2025 12:08 PM EDT) Pathologist [facility] Extra Tube Hold for add-ons. 04/29/2025 2:01 PM EDT [facility] Comment:Auto resulted. Urine Urine specimen obtained by clean catch procedure / Unknown Non-blood Collection / Unknown 04/29/2025 12:08 PM EDT 04/29/2025 12:18 PM EDT David Quiros MD LAB URINE ORDERABLES Final Result Performing Organization Address [facility]/ZIP Co de Phone Number [facility] [address] [place] [address], [place] [phone] * CBC auto differential (04/29/2025 12:08 PM EDT) [facility] WBC 7.3 4.8 - 10.8 K/mcL LAB HEMETOLOGY METHOD 04/29/2025 12:49 PM EDT [facility] RBC 4.10 3.80 - 4.80 M/mcL LAB HEMETOLOGY METHOD 04/29/2025 12:49 PM EDT [facility] Hemoglobin 12.2 11.5 - 16.0 g/dL LAB HEMETOLOGY METHOD 04/29/2025 12:49 PM EDT [facility] Hematocrit 37.9 35.0 - 47.0 % LAB HEMETOLOGY METHOD 04/29/2025 12:49 PM EDT [facility] MCV 91.5 79.0 - 98.0 FL LAB HEMETOLOGY METHOD 04/29/2025 12:49 PM EDT [facility] MCH 29.5 27.0 - 32.0 pcg LAB HEMETOLOGY [facility] MCHC 32.2 32.0 - 37.0 g/dL LAB HEMETOLOGY METHOD 04/29/2025 12:49 PM [facility] RDW 12.2 11.0 - 15.0 % LAB HEMETOLOGY METHOD 04/29/2025 12:49 PM [facility] Platelets 239 130 - 400 K/mcL LAB HEMETOLOGY METHOD 04/29/2025 12:49 PM [facility] MPV 10.5 7.0 - 11.0 FL LAB HEMETOLOGY METHOD 04/29/2025 12:49 PM [facility] NRBC 0.0 <1.0 % LAB HEMETOLOGY METHOD 04/29/2025 12:49 PM [facility] NRBC Absolute 0.00 <0.10 K/mcL LAB HEMETOLOGY METHOD 04/29/2025 12:49 PM [facility] Neutrophils Relative 53.8 % LAB HEMETOLOGY METHOD 04/29/2025 12:49 PM [facility] Lymphocytes Relative 35.4 % LAB HEMETOLOGY METHOD 04/29/2025 12:49 PM [facility] Monocytes Relative 7.1 % LAB HEMETOLOGY METHOD 04/29/2025 12:49 PM [facility] Eosinophils Relative 2.6 % LAB HEMETOLOGY METHOD 04/29/2025 12:49 PM [facility] Basophils Relative 1.0 % LAB HEMETOLOGY METHOD 04/29/2025 12:49 PM [facility] Immature Granulocytes Relative 0.1 % LAB HEMETOLOGY METHOD 04/29/2025 12:49 PM [facility] Neutrophils Absolute 3.93 1.50 - 7.00 K/mcL LAB HEMETOLOGY METHOD 04/29/2025 12:49 PM EDT [facility] Lymphocytes Absolute 2.59 1.00 - 5.00 K/mcL LAB HEMETOLOGY METHOD 04/29/2025 12:49 PM EDT [facility] Monocytes Absolute 0.52 0.20 - 1.00 K/mcL LAB HEMETOLOGY METHOD 04/29/2025 12:49 PM EDT [facility] Eosinophils Absolute 0.19 0.00 - 0.50 K/mcL LAB HEMETOLOGY METHOD 04/29/2025 12:49 PM EDT [facility] Basophils Absolute 0.07 0.00 - 0.20 K/mcL LAB HEMETOLOGY METHOD 04/29/2025 12:49 PM EDT [facility] Immature Granulocytes Absolute 0.01 0.00 - 0.03 K/mcL LAB HEMETOLOGY METHOD 04/29/2025 12:49 PM EDT [facility] Blood Venous blood specimen / Unknown Venipuncture / Unknown 04/29/2025 12:08 PM EDT 04/29/2025 12:18 PM EDT us David Quiros MD LAB BLOOD ORDERABLES Final Result [facility] [address] [place] [address], * Culture urine (04/29/2025 12:08 PM EDT) Culture, Urine Mixed urogenital bill, no uropathogens present. Suggest repeat specimen, if clinically indicated. 04/30/2025 10:12 AM EDT [facility] Urine Urine specimen obtained by clean catch procedure / Unknown Non-blood Collection / Unknown 04/29/2025 12:08 PM EDT 04/29/2025 12:56 PM EDT us David Quiros MD LAB MICROBIOLOGY - GENERAL ORDERABLES Final Result [facility] [address] [place] [address], [place] [phone] * (ABNORMAL) Comprehensive metabolic panel (04/29/2025 12:08 PM EDT) Sodium 138 133 - 145 mmol/L LAB CHEMISTRY METHOD 04/29/2025 1:01 PM [facility] Potassium 3.4(L) 3.5 - 5.5 mmol/L LAB CHEMISTRY METHOD 04/29/2025 1:01 PM [facility] Chloride 105 96 - 110 mmol/L LAB CHEMISTRY METHOD 04/29/2025 1:01 PM [facility] CO2 28 21 - 32 mmol/L LAB CHEMISTRY METHOD 04/29/2025 1:01 PM [facility] Anion Gap 5 3 - 11 LAB CHEMISTRY METHOD 04/29/2025 1:01 PM [facility] Glucose 134(H) 70 - 100 mg/dL LAB CHEMISTRY METHOD 04/29/2025 1:01 PM [facility] BUN 10 5 - 25 mg/dL LAB CHEMISTRY METHOD 04/29/2025 1:01 PM [facility] Creatinine 0.68 0.50 - 1.10 mg/dL LAB CHEMISTRY METHOD 04/29/2025 1:01 PM [facility] eGFR 106 >=60 mL/min/1. 73m2 LAB CHEMISTRY METHOD 04/29/2025 1:01 PM [facility] Comment:Calculation based on the Chronic Kidney Disease Epidemiology Collaboration (CKD-EPI) equation refit without adjustment for race. BUN/Creatinine Ratio 14.7 LAB CHEMISTRY METHOD 04/29/2025 1:01 PM [facility] Calcium 9.0 8.5 - 10.5 mg/dL LAB CHEMISTRY METHOD 04/29/2025 1:01 PM EDT [facility] AST (SGOT) 21 10 - 42 unit/L LAB CHEMISTRY METHOD 04/29/2025 1:01 PM EDT [facility] ALT (SGPT) 23 10 - 60 unit/L LAB CHEMISTRY METHOD 04/29/2025 1:01 PM EDT [facility] Alkaline Phosphatase 92 42 - 121 unit/L LAB CHEMISTRY METHOD 04/29/2025 1:01 PM EDT [facility] Total Protein 7.1 6.0 - 8.0 g/dL LAB CHEMISTRY METHOD [facility]25 [facility] Albumin 3.6 3.2 - 5.0 g/dL LAB CHEMISTRY METHOD 04/29/2025 1:01 PM [facility] Total Bilirubin 0.5 0.0 - 1.4 mg/dL LAB CHEMISTRY METHOD 04/29/2025 1:01 PM EDT [facility] Blood Venous blood specimen / Unknown Venipuncture / Unknown 04/29/2025 12:08 PM EDT 04/29/2025 12:18 PM EDT us aDvid Quiros MD LAB BLOOD ORDERABLES Final Result Performing Organization Address City/State/[facility] Co de Phone Number [facility] [address] [place] [address], from Last 3 Months Insurance [facility] MEDIC[facility] Member Subscriber Plan / Payer (Ef fective 2019-Present) Name:VISH ROBLERO Relation to Subscriber:Self Name:Class, Vish Payer ID:[id number] Group ID:[id number] Type:Not on file Address: [address] [place] [address] Care Teams In Store Representative Relationship Specialty Start Date End Date Josef Lindquist MD [address] [place] [address] [address] [facility] [place] [address] PCP - General Internal Medicine 05/14/17
== END 2025-06-14 15:02 | disposition home or self-care (01) ==
LOC: HO.US 15:01
PROVIDERS: PCP Internal Medicine; Visit Provider Internal Medicine
DX: M79.671 Pain in right foot (principal)
CPT/HCPCS: 93926

== ENCOUNTER → 2025-06-14 15:03 | Outpatient (BNV) | payer OTHER, SELFPAY | PROVIDERS: PCP Internal Medicine; Visit Provider Radiology Diagnostic Radiology | DX: M79.671 Pain in right foot (principal) | CPT/HCPCS: 93926 ==

== ENCOUNTER 2025-06-22 12:53 | Outpatient (AMB) | payer OTHER, SELFPAY ==
--- NOTE | 2025-06-22 13:02 | A.OFFVIS_ITS ---
Vital Signs 06/22/25 13:16 Height 5 ft 1 in Weight 187 lb BMI 35.3 Intake Visit Reasons: right foot pain Intake Note: Laureen is a 49 year old female who presents today for a follow up on her right foot pain. At her last visit she was advised to perform stretching exercises daily, utilize supportive and properly fitting footwear, and consideration of custom or prefabricated orthotics to improve foot biomechanics. She was prescribed Celebrex at her last visit as well. Patient reports she has found slight relief for her symptoms she is still experiencing pain in her right foot especially at night. She has concerns in regards to her right foot numbness and she tend to lose her balance occasionally while walking Allergies nut - unspecified (nut) Allergy (Severe, Verified 06/22/25 13:17) Anaphylaxis Penicillins Allergy (Severe, Verified 06/22/25 13:17) RASH seafood Allergy (Severe, Verified 06/22/25 13:17) Anaphylaxis shellfish derived Allergy (Severe, Verified 06/22/25 13:17) Anaphylaxis Wixela Inhub Adverse Reaction (Intermediate, Uncoded 05/14/25 13:41) palpitations HPI HPI right foot pain: Details: 49 y/o female seen today for follow up evaluation of right heel pain. She is complaining of worsening right hip pain with shooting pain towards her foot. She states she is walking on the side of her foot/ankle nail due to her hip pain in his now experiencing worsening ankle pain. She notes that her heel pain has been improving and she has been doing her exercises daily. History: Pain has been present for over 4 months. Present mostly when lying down or when walking. She also notes she has a shooting pain that runs down from her right hip to her foot. Patient has tried OTC pain medication, Hot patches, bengay. 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 Mixed incontinence Obesity (BMI 30-39.9) Nasal congestion Allergic rhinitis Patent foramen ovale Peptic ulcer disease Insomnia Asthma GERD (gastroesophageal reflux disease) Leukemia Surgical History History of Jackson colposuspension Hx of colonoscopy Hx of esophagogastroduodenoscopy Hx of colonoscopy History of bilateral salpingectomy Ulnar nerve entrapment at elbow History of tonsillectomy History of vaginal hysterectomy Family History Maternal Aunt Breast cancer Paternal Grandmother Breast cancer Paternal Grandfather Myocardial infarction, acute, initial episode of care Paternal Uncle Stomach cancer Liver cancer Pancreatic cancer Kidney cancer, primary, with metastasis from kidney to other site Father Colon cancer Social History Household Members: None Housing: Apartment Are you a primary housekeeper caregiver to a significant other at home: No Do you presently have visiting nurse or other home services: No Alcohol intake: never Patient Tobacco Use Status: Never used Tobacco Tobacco use type: Cigarette e-Cigarette/Vaping Use: Never Used Second Hand Smoke Exposure: No Advance Directives Date on File: 02/06/22 service: No Current occupational status: employed Current occupational exposures/hazards: No Cognitive needs: No Hearing needs: No Vision needs: Yes Review of Systems Const All systems reviewed & are unremarkable except as noted in HPI and below Physical Exam Vital Signs: BMI result Body Mass Index 35.3 Extrem Other: *Bilateral Lower Extremity Focused Exam Vascular: DP/PT 2/4, CFT<3s to digits, TG warm to cool, no pedal edema Derm: No open wounds or lacerations. Neuro: (+) straight leg raise test (R) MSK: Mild tenderness on palpation of the plantar medial calcaneal tubercle right heel, Mild tenderness on palpation along the peroneal tendons retromalleolar region radiating proximally into the right leg, no Tenderness on palpation along the distal insertion of the Achilles tendon, Pain to the posterior leg and lower back on ankle dorsiflexion on knee extension. Assessment & Plan Assessment & Plan (1) Plantar fasciitis of right foot: Code(s): M72.2 - Plantar fascial fibromatosis Category: Medical Plan: * Discussed etiology of the patient's foot pain. Differential diagnosis includes plantar fasciitis, neuritis, tendinitis. * Instructed the patient to continue her stretching exercises per day. * Referred to physical therapy (2) Peroneal tendonitis of right lower extremity: Code(s): M76.71 - Peroneal tendinitis, right leg Category: Medical Plan: * Referred to physical therapy (3) Sciatica: Code(s): M54.30 - Sciatica, unspecified side Category: Medical Qualifiers: Laterality: right Qualified Code(s): M54.31 - Sciatica, right side Plan: * Referred to Orthopedic clinic Orders: Orders PT Evaluation and Treatment Today M54.31 - Sciatica, right side, M72.2 - Plantar fascial fibromatosis, M76.71 - Peroneal tendinitis, right leg Referrals Orthopedics Referral M54.31 - Sciatica, right side Coding Level of Care Code Est Pt Level 3 (42393) Diagnoses Plantar fasciitis of right foot M72.2 Peroneal tendonitis of right lower extremity M76.71 Sciatica of right side M54.31 Laterality: right Time Spent (min) 15
[2025-06-22 13:16] VITALS: BMI 35.3
--- OUTSIDE RECORDS SUMMARY | 2025-06-22 13:57 | XMS_ITS | Encounter Summary ---
Author Organization [facility] Address [address] [place] [address] [place] [phone] Phone Care Team Providers Care Solid Waste Engineer Name Role Phone Kaylynn Charles MD Primary Care Provider [phone] Reason for Visit * Reason Comments Medication Refill Encounter Details Date Type Department Care Team (Late st Contact Info) Description 01/16/2023 Refill [facility] [address] [place] [address], [address] Floor, [address] [place] [address] Nurys Cisneros MD, PhD [address] [place] [id number] [email or web address] Medication Refill Social History Tobacco [...] on filedocumented in this encounter Care Teams Solid Waste Engineer Relationship Specialty Start Date End Date Kaylynn Charles MD [facility] [address] [place] [address] PCP - General Emergency Medicine 08/20/17 documented as of this encounter Additional Source Comments The information contained in this document represents components of the legal health record. It is not the complete legal health record.[facility]
--- OUTSIDE RECORDS SUMMARY | 2025-06-22 13:57 | XMS_ITS | Data Portability ---
Author Organization [employer]weather [facility], [facility] Address [address] [place] [phone] Care Team Providers Care Manager Hydraulic Name Role Phone HIM CCA OTHER Assessment Encounter Date Assessment Date Assessment LastModified by Organization Details LastModified Time 01/22/2024 01/22/2024 I provided real -time medical direction via phone for this encounter, and was available for additional phone based assistance as needed. I have reviewed and agree with the Assessment and Plan as documented by the Safety Sitter. We discussed the diagnostic uncertainty of home [...] to call 911- verbalized understanding of instruction [email or web address] Not available 01/22/2024 14:46:53 Plan of Treatment Reminders Order Date Submit Date Provider Last Modified By Organization Details Last Modified Time Details Appointments None recorded. Lab BMP, serum or plasma 2023 024 [email or web address] 0 [facility], [address] [place] [address], [id number] 14:45:59 Referral None recorded. Procedures None recorded. [...] Not available Not available Not available 01/22/2024 [id number] SNOMED Not Available [facility] - production 4 03:35:25 Medications Name Sig Start Date Stop Date Status Note LastModified by Organization Details LastModified Time Nasal Kyburz (oxymetazoli ne) 0.05 % SPRAY 2 SPRAYS [...] Address Organization Details Last Updated DateTime 01/22/2024 03248.63 g Geetha Portillo [address] [place] [address], [place], [phone], [place] - Gyros 01/22/2024 14:37:49 Date Recorded Heart rate Oxygen [...] ICD10 Code Diagnosis IMO Codes Diagnosis Note [id number] Inez Ibarra MD Main - [facility] [address] [place] [phone] 01/22/2024 14:21:47 01/22/2024 16:57:15 Bone pain [id number] M89.8X9 Advised-no t take any oral NSAIDs [...] Degroot Member ID Guarantor Name 01/23/2024 1 [facility] - DOS ON OR AFTER 2022 - DUAL ELIGIBLE - HALF-WAY OPTIONS AND ONE CARE (MEDICARE REPLACEMENT/ADV ANTAGE - HMO) Laureen Class [id number] Laureen Class Notes Date Note Type Note Provider Name and Address Organization Details Recorded Time 01/22/2024 text/html ROS as noted in the HPI HPI: DEBBIE contacts [facility] directly to report that she is having s evere bone pain, weakness, and nausea and [facility] DEBBIE is a 48 [...] few months. DEBBIE is assured [facility] on her behalf. After confirming DEBBIE s address and phone number on file, DEBBIE is advised to call 911 for any new or worsening symptoms. She is also advised to outreach her oncologist to report her worsening symptoms. DEBBIE understands, appreciates the advice, and will do so. DEBBIE can be reached at [phone]. .................. .................. .................. .................. .................. .................. .................. ............... CRC Nurse Triage Notes (Edwin Chavez): Chief Complaints: Headache, Nausea/Vomiting, Pain, Weakness/Lethargy Allergies: Penicillin Other Allergies: Penicillin Comments: HPI reviewed. No further information needed to process visit.Patient will not be home until after 130pm per driver messenger- NE SEGMD: Patient was seen at the [facility] ER on 01/11. She reports she [...] or hematochezia or any history of CKD Safety Sitter POC Test Results from [facility] - YANET iSTAT Chem8+ (1) [14:33] Na: 139 mEq/L K: 3.7 mEq/L Cl: 105 mEq/L iCa: 1.21 mmol/L TCO2: 24 mmol/L Glu: 117 mg/dL BUN: 9 mg/dL Crea: 0.5 mg/dL Hct: 39 % Hb: 13.3 g/dL A .................. .................. .................. .................. .................. .................. .................. ............... Safety Sitter Note From [facility]: Dispatched to the [...] Butterfly R AC without issue). BMP-results attached. [facility] consulted. Pt given 30mg of IM (L deltoid) Ketorolac. Red flags discussed. Pt advised to call her oncologist and avoid any NSAIDs for at least 24 hours. ALL times are approx. .................. .................. .................. .................. .................. .................. .................. ............... Disposition: Fulfilled Inez Ibarra MD [address] [facility],[address], [place], [address], Dy[place]yn[place] - Gyros 01/22/2024 16:09:26 OBGyn Episode No OBEpisode recorded.
--- OUTSIDE RECORDS SUMMARY | 2025-06-22 13:57 | XMS_ITS | Clinical Summary ---
Author Organization [facility] Prior to 11/28/[address] [place] [address] Care Team Providers Care Head Waiter Name Role Phone Josef Lindquist MD Primary Care Provider [phone] Allergies Active Allergy Reactions Criticality Noted Date [...] age to complete this topic Care Teams Head Waiter Relationship Specialty Start Date End Date Josef Lindquist MD [address] [place] [address] Dr Byrne [address] [facility] [place] [address] PCP - General Internal Medicine 02/14/17
--- OUTSIDE RECORDS SUMMARY | 2025-06-22 13:58 | XMS_ITS | Clinical Summary ---
Author Organization [facility] Address [address] [place] [address] Phone Care Team Providers Care Cleaner And Polisher Name Role Phone Kaylynn Charles MD Primary Care Provider [phone] Allergies Active Allergy Reactions Criticality Noted Date [...] MEDICARE REPLACEMENT CARE MEDICARE REPLACEMENT Care Teams Cleaner And Polisher Relationship Specialty Start Date End Date Kaylynn Charles MD [facility] [place] [address] PCP - General Emergency Medicine 08/20/17 Additional Source Comments The information contained in this document represents components of the legal health record. It is not the complete legal health record.[facility]
--- OUTSIDE RECORDS SUMMARY | 2025-06-22 13:58 | XMS_ITS | Patient Health Record ---
Author Organization [facility] Address [address] [place] [phone] Care Team Providers Care Pediatrics Physician Name Role Phone Viky Baca MD Primary Care Provider Kar aMrley Unavailable [phone] Allergies Allergen (clinical drug ingredient) Drug/Non Drug [...] Status Risk Notes Problem Slow transit constipation (71058024) Slow transit constipation (K59.01) Active confirmed Problem Hiatal hernia (35397355) Hiatal hernia (K44.9) Active confirmed Problem Gastroesophageal reflux disease with esophagitis (disorder) (588146468) GERD with esophagitis (K21.0) Active confirmed Plan Of Treatment No Information Insurance Providers Payer Name Payer Address Payer Phone Subscriber Number Group Number Insured Name Patient Relationship to Insured Coverage Start Date Coverage End Date MEDICARE OF [place] [address] JASE BREWER [address] [id number] CLASS, VISH Self - patient is the insured MEDICAID OF [facility] [address] [place] [address] [id number] CLASS, VISH Self - patient is the insured Medical (General) History Medical History History ICD Code Upper endoscopies in 2008 and in 2003 wi th tx--small HH, no esophagitis EGD [place] [address] Lees- -mild esophagitis--H.pylori was negative, Hiatal hernia GERD Depression Takes antibiotics prophylaxis for a hol e in her heart. Denies WI,DM,CVA,Lung disease,renal dise ase Surgical History Surgery Date(Month/Year) BTL She describes a laparotomy f or internal bleeding with Dr. Camacho(BEEF PUSHER) Hysterectomy Foot surgery Elbow surgery
--- OUTSIDE RECORDS SUMMARY | 2025-06-22 13:58 | XMS_ITS | Clinical Summary ---
Author Organization [facility] Address [address] [place] [address] Phone Care Team Providers Care [employer] Dean Name Role Phone Josef Lindquist MD Primary Care Provider [phone] Allergies Active Allergy Reactions Criticality Noted Date [...] EDT - 04/29/2025 4:[address] [facility] [address] [place] [address] Acute upper urinary tract infection (Primary Dx) Discharge Disposition: Home or Self Care from Last 3 Months Medical History Medical History Date Comments Leukemia (CMS/HCC V24, CMS/[facility] V28) Depression Social History Tobacco Use Types [...] Signed Date: 04/29/2025 14:45 ET Workstation ID: [id number] Transcribed By: Self Edit Transcribed Date: 04/29/2025 [...] Signed Date: 04/29/2025 14:45 ET Workstation ID: [id number] Transcribed By: Self Edit Transcribed Date: 04/29/2025 14:42 ET [facility] IMG CT PROCEDURES Final Resu lt * (ABNORMAL) Urinalysis with reflex microscopic and culture (04/29/2025 12:08 PM EDT) Specific [place] Urine 1.033(H) 1.003 - 1.030 LAB URINALYSIS - AUTOMATED METHOD 04/29/2025 12:56 PM [facility] pH, Urine 6.0 5.0 - 8.0 pH LAB URINALYSIS - AUTOMATED METHOD 04/29/2025 12:56 PM [facility] Leukocytes, Urine Trace(A) Negative LAB URINALYSIS - AUTOMATED METHOD 04/29/2025 12:56 PM [facility] Nitrite, Urine Negative Negative LAB URINALYSIS - AUTOMATED METHOD 04/29/2025 12:56 PM [facility] Protein, Urine 30(A) <=Trace mg/dL LAB URINALYSIS - AUTOMATED METHOD 04/29/2025 12:56 PM [facility] Glucose, Urine Negative Negative mg/dL LAB URINALYSIS - AUTOMATED METHOD 04/29/2025 12:56 PM [facility] Ketones, Urine Trace(A) Negative mg/dL LAB URINALYSIS - AUTOMATED METHOD 04/29/2025 12:56 PM [facility] Urobilinogen, Urine 1.0 0.2 - 1.0 mg/dL LAB URINALYSIS - AUTOMATED METHOD 04/29/2025 12:56 PM [facility] Bilirubin, Urine Negative Negative LAB URINALYSIS - AUTOMATED METHOD 04/29/2025 12:56 PM [facility] Blood, Urine Negative Negative LAB URINALYSIS - AUTOMATED METHOD 04/29/2025 12:56 PM [facility] RBC, Urine 8.3(H) 0 - 4 /HPF LAB URINALYSIS - AUTOMATED METHOD 04/29/2025 12:56 PM [facility] WBC, Urine 5.1(H) 0 - 4 /HPF LAB URINALYSIS - AUTOMATED METHOD 04/29/2025 12:56 PM [facility] Squamous Epithelial, Urine >100(H) 0 - 60 /LPF LAB URINALYSIS - AUTOMATED METHOD 04/29/2025 12:56 PM [facility] Bacteria, Urine Many(A) Negative /HPF LAB URINALYSIS - AUTOMATED METHOD 04/29/2025 12:56 PM [facility] Hyaline Casts, Urine 28.5(H) 0 - 3 /LPF LAB URINALYSIS - AUTOMATED METHOD 04/29/2025 12:56 PM [facility] Urine Urine specimen obtained by clean catch procedure / Unknown Non-blood Collection / Unknown 04/29/2025 12:08 PM EDT 04/29/2025 12:18 PM EDT David Quiros MD LAB URINE ORDERABLES Final Result Performing Organization Address City/[facility]/ZIP Co de Phone Number [facility] [address] [place] [address], [place] [phone] * Lester urine culture tube (04/29/2025 12:08 PM EDT) Pathologist [facility] Extra Tube Hold for add-ons. 04/29/2025 2:01 PM EDT [facility] Comment:Auto resulted. Urine Urine specimen obtained by clean catch procedure / Unknown Non-blood Collection / Unknown 04/29/2025 12:08 PM EDT 04/29/2025 12:18 PM EDT David Quiros MD LAB URINE ORDERABLES Final Result Performing Organization Address [facility]/ZIP Co de Phone Number [facility] [address] [place] [address], [place] [phone] * CBC auto differential (04/29/2025 12:08 PM EDT) [facility] WBC 7.3 4.8 - 10.8 K/mcL LAB HEMETOLOGY METHOD 04/29/2025 12:49 PM EDT [facility] RBC 4.10 3.80 - 4.80 M/mcL LAB HEMETOLOGY METHOD 04/29/2025 12:49 PM EDT [facility] Hemoglobin 12.2 11.5 - 16.0 g/dL LAB HEMETOLOGY METHOD 04/29/2025 12:49 PM EDT [facility] Hematocrit 37.9 35.0 - 47.0 % LAB HEMETOLOGY METHOD 04/29/2025 12:49 PM EDT [facility] MCV 91.5 79.0 - 98.0 FL LAB HEMETOLOGY METHOD 04/29/2025 12:49 PM EDT [facility] MCH 29.5 27.0 - 32.0 pcg LAB HEMETOLOGY METHOD [facility]25 12:[facility] MCHC 32.2 32.0 - 37.0 g/dL LAB HEMETOLOGY METHOD 04/29/2025 12:49 PM [facility] RDW 12.2 11.0 - 15.0 % LAB HEMETOLOGY METHOD 04/29/2025 12:49 PM [facility] Platelets 239 130 - 400 K/mcL LAB HEMETOLOGY METHOD 04/29/2025 12:49 PM [facility] MPV 10.5 7.0 - 11.0 FL LAB HEMETOLOGY METHOD 04/29/2025 12:49 PM [facility] NRBC 0.0 <1.0 % LAB HEMETOLOGY METHOD 04/29/2025 12:49 PM [facility] NRBC Absolute 0.00 <0.10 K/mcL LAB HEMETOLOGY METHOD 04/29/2025 12:49 PM [facility] Neutrophils Relative 53.8 % LAB HEMETOLOGY METHOD 04/29/2025 12:49 PM [facility] Lymphocytes Relative 35.4 % LAB HEMETOLOGY METHOD 04/29/2025 12:49 PM [facility] Monocytes Relative 7.1 % LAB HEMETOLOGY METHOD 04/29/2025 12:49 PM [facility] Eosinophils Relative 2.6 % LAB HEMETOLOGY METHOD 04/29/2025 12:49 PM [facility] Basophils Relative 1.0 % LAB HEMETOLOGY METHOD 04/29/2025 12:49 PM [facility] Immature Granulocytes Relative 0.1 % LAB HEMETOLOGY METHOD 04/29/2025 12:49 PM [facility] Neutrophils Absolute 3.93 1.50 - 7.00 K/mcL LAB HEMETOLOGY METHOD 04/29/2025 12:49 PM EDT [facility] Lymphocytes Absolute 2.59 1.00 - 5.00 K/mcL LAB HEMETOLOGY METHOD 04/29/2025 12:49 PM EDT [facility] Monocytes Absolute 0.52 0.20 - 1.00 K/mcL LAB HEMETOLOGY METHOD 04/29/2025 12:49 PM EDT [facility] Eosinophils Absolute 0.19 0.00 - 0.50 K/mcL LAB HEMETOLOGY METHOD 04/29/2025 12:49 PM EDT [facility] Basophils Absolute 0.07 0.00 - 0.20 K/mcL LAB HEMETOLOGY METHOD 04/29/2025 12:49 PM EDT [facility] Immature Granulocytes Absolute 0.01 0.00 - 0.03 K/mcL LAB HEMETOLOGY METHOD 04/29/2025 12:49 PM EDT [facility] Blood Venous blood specimen / Unknown Venipuncture / Unknown 04/29/2025 12:08 PM EDT 04/29/2025 12:18 PM EDT us David Quiros MD LAB BLOOD ORDERABLES Final Result [facility] [address] [place] [address], * Culture urine (04/29/2025 12:08 PM EDT) Culture, Urine Mixed urogenital bill, no uropathogens present. Suggest repeat specimen, if clinically indicated. 04/30/2025 10:12 AM EDT [facility] Urine Urine specimen obtained by clean catch procedure / Unknown Non-blood Collection / Unknown 04/29/2025 12:08 PM EDT 04/29/2025 12:56 PM EDT us David Quiros MD LAB MICROBIOLOGY - GENERAL ORDERABLES Final Result [facility] [address] [place] [address], [place] [phone] * (ABNORMAL) Comprehensive metabolic panel (04/29/2025 12:08 PM EDT) Sodium 138 133 - 145 mmol/L LAB CHEMISTRY METHOD 04/29/2025 1:01 PM [facility] Potassium 3.4(L) 3.5 - 5.5 mmol/L LAB CHEMISTRY METHOD 04/29/2025 1:01 PM [facility] Chloride 105 96 - 110 mmol/L LAB CHEMISTRY METHOD 04/29/2025 1:01 PM [facility] CO2 28 21 - 32 mmol/L LAB CHEMISTRY METHOD 04/29/2025 1:01 PM [facility] Anion Gap 5 3 - 11 LAB CHEMISTRY METHOD 04/29/2025 1:01 PM [facility] Glucose 134(H) 70 - 100 mg/dL LAB CHEMISTRY METHOD 04/29/2025 1:01 PM [facility] BUN 10 5 - 25 mg/dL LAB CHEMISTRY METHOD 04/29/2025 1:01 PM [facility] Creatinine 0.68 0.50 - 1.10 mg/dL LAB CHEMISTRY METHOD 04/29/2025 1:01 PM [facility] eGFR 106 >=60 mL/min/1. 73m2 LAB CHEMISTRY METHOD 04/29/2025 1:01 PM [facility] Comment:Calculation based on the Chronic Kidney Disease Epidemiology Collaboration (CKD-EPI) equation refit without adjustment for race. BUN/Creatinine Ratio 14.7 LAB CHEMISTRY METHOD 04/29/2025 1:01 PM [facility] Calcium 9.0 8.5 - 10.5 mg/dL LAB CHEMISTRY METHOD 04/29/2025 1:01 PM EDT [facility] AST (SGOT) 21 10 - 42 unit/L LAB CHEMISTRY METHOD 04/29/2025 1:01 PM EDT [facility] ALT (SGPT) 23 10 - 60 unit/L LAB CHEMISTRY METHOD 04/29/2025 1:01 PM EDT [facility] Alkaline Phosphatase 92 42 - 121 unit/L LAB CHEMISTRY METHOD 04/29/2025 1:01 PM EDT [facility] Total Protein 7.1 6.0 - 8.0 g/dL LAB CHEMISTRY METHOD 04/[facility]2025 [facility] Albumin 3.6 3.2 - 5.0 g/dL LAB CHEMISTRY METHOD 04/29/2025 1:01 PM [facility] Total Bilirubin 0.5 0.0 - 1.4 mg/dL LAB CHEMISTRY METHOD 04/29/2025 1:01 PM EDT [facility] Blood Venous blood specimen / Unknown Venipuncture / Unknown 04/29/2025 12:08 PM EDT 04/29/2025 12:18 PM EDT us David Quiros MD LAB BLOOD ORDERABLES Final Result Performing Organization Address City/State/[facility] Co de Phone Number [facility] [address] [place] [address], from Last 3 Months Insurance [facility] Member Subscriber Plan / Payer (Ef fective 2019-Present) Name:VISH ROBLERO Relation to Subscriber:Self Name:Class, Vish Payer ID:[id number] Group ID:[id number] Type:Not on file Address: [address] [place] [address] Care Teams [employer] Dean Relationship Specialty Start Date End Date Josef Lindquist MD [address] [place] [address] [address] [facility] [place] [address] PCP - General Internal Medicine 05/14/17
--- OUTSIDE RECORDS SUMMARY | 2025-06-22 13:58 | XMS_ITS | Encounter Summary ---
Author Organization [facility] Address [address] [place] [address] Care Team Providers Care Head Strength And Conditioning Coach Name Role Phone Josef Lindquist MD Primary Care Provider Encounter Details Date Type Department Care Team (Late st Contact Info) Description 11/17/2024 Lab Requisition [facility] - Main Lab [address] [facility] [place] [phone] Robert Olivarez MD [address] [facility] [address] [place] [phone] Gross hematuria Social History Tobacco Use Types [...] AM EDT) Final Diagnosis A. Urine, Voided, ([id number]): Negative for high grade urothelial carcinoma. 11/25/2024 10:35 AM EDT [facility] at 1035 EDT Clinical Information Gross hematuria R31.0 Urine cytology with reflex [facility] ([facility]) 11/25/2024 10:35 AM EDT [facility] Gross Description A. Urine, Voided, [id number]: Received one ThinPrep slide for cytology. 11/25/2024 10:35 AM EDT [facility] Disclaimer Unless otherwise specified, all tissue is 10% NB formalin fixed and paraffin embedded. Technical pathology services provided by [facility] at [address] [facility] [address] [place] [address] (CLIA #[id number]/S aroldo Early MD, Fruit Bar Maker) 11/25/2024 10:35 AM EDT [facility] Tissue Urine specimen from urethra / Unknown 11/13/2024 11/17/2024 11:16 AM EDT us Robert Olivarez MD LAB PATHOLOGY ORDERABLES Final Result [facility] [address] [place] [address], documented in this encounter Visit Diagnoses Diagnosis Gross hematuria documented in this encounter Care Teams Head Strength And Conditioning Coach Relationship Specialty Start Date End Date Josef Lindquist MD [address] [place] [address] Dr Byrne [address] [facility] [place] [address] PCP - General Internal Medicine 05/14/17 documented as of this encounter
== END 2025-06-22 13:15 | disposition home or self-care (01) ==
LOC: HO.HPODS 12:54
PROVIDERS: PCP Internal Medicine; Visit Provider Student in an Organized Health Care Education/Training Program
DX: M72.2 Plantar fascial fibromatosis (principal); M76.71 Peroneal tendinitis, right leg; M54.31 Sciatica, right side
CPT/HCPCS: 99213

== ENCOUNTER → 2025-06-22 12:53 | Outpatient (BNVA) | payer OTHER, SELFPAY | PROVIDERS: PCP Internal Medicine; Visit Provider Student in an Organized Health Care Education/Training Program | DX: M72.2 Plantar fascial fibromatosis (principal); M76.71 Peroneal tendinitis, right leg; M54.31 Sciatica, right side | CPT/HCPCS: 99212 ==